=== PATIENT | male | born 1930 | race Caucasian/White ===

== ENCOUNTER → 2016-08-09 | Outpatient (REF) ==
[~2016-08-09] MED LIST: /MOXI40TA; /TAMS4CA; /TAMS4CA PO; /WARF25TA PO; /WARF2TA PO; /WARF4TA; ALB2.5NEB INH; ALBU0.084 IN; ALBU17IN INH; AMLO10TA; ANUS2.5C2 EXT; ANUS2.5C2 PR; ASPI81TA85 PO; ATOR1TAB21 PO; BACT2CRE TOP; BYST5TAB PO; BYST5TAB2 PO; CETI10TA PO; CIPRO; COMBIN INH; COUM2TAB10 PO; DOCU100C PO; DOXY150C PO; DRIS50002 PO; DUONSOL IN; FAMO40TA3 PO; FLOM5CAP PO; GLIP10TA13 PO; GLIP5TAB15 PO; GLIP5TAB2 PO; GLIP5TAB8 PO; GLIPIZIDE XL PO; HYDR-3363 PO; HYDROXYZINE HCL PO; JANU100T PO; KLOR8TAB PO; LEVO750T PO; MAGNSO PO; MICR10CA PO; MUCI600T34 PO; NYST100024 TOP; OCEA0.65; POTA75TA PO; PRED10TA PO; PRED10TA2 PO; PRED20TA PO; PROS5TAB; PROS5TAB PO; PROSCAR PO; RANI150T PO; SING10TA32 PO; SING5CHW PO; SPIR1CAP INH; SPIR25TA2 PO; SYMB16INH INH; SYMB80AE; SYMB80AE IN; TESS100C PO; TORS10TA22 PO; TORS20TA2 PO; TRIAMCINOLONE TOP; TYLE325T5 PO; TYLENOL #3; VALS80CA; VENTAER IN; VIBR100C PO; WARF4TAB52 PO; ZANT150T PO; ZYRT10TA2 PO; [UNRECOGNIZED DRUG - CODE] PO; spiriva INH
[2016-08-09 08:43] LABS: MEAN CORPUSCULAR HEMOGLOBIN 31.9 pg (27.0-33.0); MEAN CORPUSCULAR HGB CONC 33.1 g/dl (32.0-36.5); MEAN CORPUSCULAR VOLUME 96.6 fl (80.0-96.0); RED CELL DISTRIBUTION WIDTH 14.9 % (11.5-14.5); WHITE BLOOD COUNT 19.8 K/mm3 (4.0-10.0)
[2016-08-09 08:53] LABS: INR 2.77
[2016-08-09 08:57] LABS: CALCIUM LEVEL 8.5 MG/DL (8.8-10.2); CREATININE FOR GFR 1.36 MG/DL (0.70-1.30); GLOMERULAR FILTRATION RATE 52.9 (>35); POTASSIUM SERUM 4.1 MEQ/L (3.5-5.1)
== END ==
LOC: SKLAB5 08:12
PROVIDERS: ATTEND Internal Medicine
DX: D64.9 Anemia, unspecified (principal)

== ENCOUNTER → 2016-08-16 | Outpatient (REF) ==
[2016-08-16 09:21] LABS: INR 2.94
== END ==
LOC: SKLAB5 07:47
PROVIDERS: ATTEND Internal Medicine
DX: I48.91 Unspecified atrial fibrillation (principal)

== ENCOUNTER → 2016-08-23 | Outpatient (REF) ==
[~2016-08-23] MED LIST changes: -TORS10TA22 PO; +TORS10TA3 PO
[2016-08-23 08:54] LABS: INR 3.65
== END ==
LOC: SKLAB5 08:19
PROVIDERS: ATTEND Internal Medicine
DX: Z79.01 Long term (current) use of anticoagulants (principal)

== ENCOUNTER → 2016-08-30 | Outpatient (REF) ==
[2016-08-30 08:33] LABS: INR 2.84
[2016-08-30 09:38] LABS: CALCIUM LEVEL 8.5 MG/DL (8.8-10.2); CREATININE FOR GFR 1.43 MG/DL (0.70-1.30); GLOMERULAR FILTRATION RATE 49.9 (>35)
== END ==
LOC: SKLAB5 07:35
PROVIDERS: ATTEND Internal Medicine
DX: Z86.718 Personal history of other venous thrombosis and embolism (principal)

== ENCOUNTER → 2016-09-06 | Outpatient (REF) ==
[2016-09-06 08:30] LABS: INR 3.04
== END ==
LOC: SKLAB5 07:49
PROVIDERS: ATTEND Internal Medicine
DX: Z79.01 Long term (current) use of anticoagulants (principal)

== ENCOUNTER → 2016-09-13 | Outpatient (REF) ==
[2016-09-13 08:48] LABS: INR 3.22
== END ==
LOC: SKLAB5 06:40
PROVIDERS: ATTEND Internal Medicine
DX: Z79.01 Long term (current) use of anticoagulants (principal)

== ENCOUNTER → 2016-09-14 | Outpatient (REF) | payer MEDICARE, OTHER ==
[2016-09-14 07:32] LABS: CREATININE FOR GFR 1.42 MG/DL (0.70-1.30); GLOMERULAR FILTRATION RATE 50.3 (>35); POTASSIUM SERUM 3.6 MEQ/L (3.5-5.1)
== END ==
LOC: SKLAB5 01:48
PROVIDERS: ATTEND Internal Medicine
DX: N18.9 Chronic kidney disease, unspecified (principal)

== ENCOUNTER 2016-09-21 23:20 | Inpatient (IN) | payer MEDICARE, OTHER ==
[~2016-09-21] VITALS: Ht 180.3 cm; Wt 90.9 kg
[2016-09-21] MEDS ORDERED: ACETAMINOPHEN 650 MG SUPP As Ordered ONE (23:33)
[2016-09-21] MEDS ORDERED: ACETAMINOPHEN 325 MG SUPP As Ordered ONE (23:33)
[2016-09-22] VITALS (98 sets, daily range): BP systolic 67–121; BP diastolic 39–78; O2SAT 93–96
[2016-09-22 00:20] LABS: INR 4.5
[2016-09-22 00:26] LABS: MEAN CORPUSCULAR HEMOGLOBIN 31.3 pg (27.0-33.0); MEAN CORPUSCULAR HGB CONC 33.3 g/dl (32.0-36.5); MEAN CORPUSCULAR VOLUME 93.9 fl (80.0-96.0); PLATELET COUNT, AUTOMATED 167 k/mm3 (150-450); RED CELL DISTRIBUTION WIDTH 14.9 % (11.5-14.5)
[2016-09-22 00:38] LABS: ALBUMIN 2.7 GM/DL (3.2-5.2); ALBUMIN/GLOBULIN RATIO 0.53 (1.00-1.93); BILIRUBIN,DIRECT 0.3 MG/DL (0.0-0.2); BILIRUBIN,TOTAL 1.1 MG/DL (0.2-1.0); CALCIUM LEVEL 8.4 MG/DL (8.8-10.2); CREATININE FOR GFR 2.48 MG/DL (0.70-1.30); GLOMERULAR FILTRATION RATE 26.4 (>35); POTASSIUM SERUM 4.4 MEQ/L (3.5-5.1); THYROXINE (T4) 4.9 UG/DL (4.5-12.0); TOTAL PROTEIN 7.8 GM/DL (6.4-8.2)
[2016-09-22] MEDS ORDERED: PRIMAXIN IV 500 MG VIAL As Ordered ONE (00:53)
[2016-09-22] MEDS ORDERED: ZOSYN 3.375 GM VIAL (J2543) As Ordered ONE (00:53)
[2016-09-22 01:12] LABS: BANDS 5 % (< 11); EOSINOPHILS 2 % (0-5)
--- NOTE | 2016-09-22 01:50 | REPUSA ---
CT of the head Clinical history: unresponsive. Comparison: 08/06/2000 well. Protocol: Multiple axial CT images obtained with 5 mm slice thickness were obtained through the head without administration of contrast. Findings: The ventricles and sulci are symmetric but prominent in size bilaterally. There are periven tricular areas of low attenuation throughout the deep white matter. There is no evidence of acute hem orrhage or infarct. There is no midline shift, mass effect, or extra-axial fluid collection. The osse ous structures are unremarkable. The visualized paranasal sinuses and mastoid air cells are clear. Impression: No acute hemorrhage or infarct. Findings are consistent with moderately severe age-relate d atrophy and chronic small vessel ischemic disease.
[2016-09-22] MEDS ORDERED: IBUPROFEN 100 MG/5 ML SUSP UDC DYE FREE As Ordered ONE (02:32)
[2016-09-22] MEDS ORDERED: NOREPINEPHRINE 4 MG/4 ML AMP As Ordered ONE (02:48)
[2016-09-22] MEDS ORDERED: PHYTONADIONE 10MG/ML INJECTION (J3430) As Ordered ONE ×2 (03:02→03:03)
[2016-09-22] MEDS ORDERED: ONDANSETRON 4MG/2ML VIAL (J2405) IV PRN (03:15)
[2016-09-22] MEDS ORDERED: ACETAMINOPHEN TAB 650MG DOSE (2X325MG) PO PRN (03:15)
[2016-09-22] MEDS: NOREPINEPHRINE BITARTRATE 8 MG in D5W 500 ML IV SCH ×3 (03:15→18:17)
[2016-09-22] MEDS ORDERED: GLUCAGON FOR INJ 1 MG VIAL (J1610) SC PRN (03:30)
[2016-09-22] MEDS ORDERED: GLUCOSE 4 GM CHEW TABLET PO PRN (03:30)
[2016-09-22] MEDS ORDERED: GLIP5TAB8 PO (03:43)
[2016-09-22] MEDS ORDERED: TORS5TAB2 PO (03:43)
[2016-09-22] MEDS ORDERED: IPRATROPIUM 0.5MG/ALBUTEROL 2.5MG INH SOL UD 3ML (DUONEB)(J7620) NEB PRN (04:00)
[2016-09-22 04:08] LABS: ABG BASE EXCESS -4.1 (-2.0-2.0); ABG HCO3 20.2 MEQ/L (22.0-26.0); ABG PARTIAL PRESSURE CO2 34.5 mmHg (35.0-45.0); ABG PARTIAL PRESSURE O2 86.4 mmHg (75.0-100.0); ABG TOTAL CO2 21.2 MEQ/L (23.0-31.0); ABG pH (ARTERIAL) 7.385 UNITS (7.350-7.450)
[2016-09-22] MEDS ORDERED: ACETAMINOPHEN 650 MG SUPP As Ordered ONE (04:14)
[2016-09-22] MEDS ORDERED: ACETAMINOPHEN 325 MG SUPP As Ordered ONE (04:14)
[2016-09-22] MEDS: MEROPENEM INJ 1 GM in D5W MINI-BAG PLUS 100 ML IV SCH ×3 (05:00→21:26)
[2016-09-22 05:40] LABS: DIFF SLIDE NUMBER 128; MEAN CORPUSCULAR HEMOGLOBIN 30.3 pg (27.0-33.0); MEAN CORPUSCULAR VOLUME 94.7 fl (80.0-96.0); PLATELET COUNT, AUTOMATED 133 k/mm3 (150-450); RED CELL DISTRIBUTION WIDTH 15.2 % (11.5-14.5); WHITE BLOOD COUNT 19.3 K/mm3 (4.0-10.0)
[2016-09-22] MEDS: HumaLOG INSULIN (NovoLOG) PER UNIT SC SCH ×4 (06:00→23:18)
[2016-09-22] MEDS ORDERED: MEROPENEM 1 GM VIAL (J2185) As Ordered ONE ×2 (06:06→14:09)
[2016-09-22] MEDS ORDERED: HumaLOG INSULIN (NovoLOG) PER UNIT As Ordered ONE ×2 (06:06→12:30)
[2016-09-22] MEDS ORDERED: SODIUM CHLORIDE 0.9% 1000 ML IV SCH (06:15)
[2016-09-22 07:03] LABS: BANDS 10 % (< 11)
--- NOTE | 2016-09-22 07:03 | HPE ---
DATE OF ADMISSION: 09/22/2016 PRIMARY CARE PROVIDER: Dr. Mendiola UROLOGIST: Dr. Ramírez DRUG COORDINATOR: Dr. Ramon BARREL CLEANER: Dr. Kraft CHIEF COMPLAINT: Altered mental status. HISTORY OF PRESENT ILLNESS: 86-year-old gentleman who presents to the emergency department, recently released from [facility] about a week ago. Had previously had urinary tract infection and weakness in July that resulted in him being placed for subacute rehabilitation. He has had ongoing issues with urinary retention and urinary tract infections. He had a Rodrigues catheter that was replaced by Dr. Ramírez approximately a week ago. The is at bedside and she informed me that he had been doing well up until today and developed altered mental status with increased respiratory rate and he presented to the emergency department with systolic blood pressure of 100. His qSOFA score is 3. Due to his altered mentation, I am unable to gain a meaningful history directly from the patient and the history portion is recall as well as input from the electronic medical record and the ER physician. At any rate, I was called for admission for the patient. He does appear to be septic. He has received 1.5 liters of three individual 500 mL boluses of normal saline at this point. The ER physician is attempting to start a central venous catheter at this time and orders have been written for Levophed since he does not appear to be responding to the boluses. I did however go ahead and write for an additional 1 liter normal saline bolus and once the central venous catheter is in place we will monitor CVP pressures. PAST MEDICAL HISTORY: 1. Recurrent urinary tract infections. 2. Benign prostatic hyperplasia (BPH). 3. Asthma. 4. Congestive heart failure (CHF). 5. Diabetes. 6. Hyperlipidemia. 7. Hypertension. 8. Pulmonary embolism. SOCIAL HISTORY: The patient lives at home with his . No tobacco. No alcohol use. No recent sick contacts. No travel. FAMILY HISTORY: Noncontributory. ALLERGIES: VANCOMYCIN (causes a rash) HOME MEDICATIONS: - furosemide 5 mg daily - prednisone 7.5 mg daily - glipizide 5 mg once daily - Lipitor 20 mg daily - Zyrtec 10 mg once daily - famotidine 40 mg 1 tablet twice a day - Proscar 5 mg daily - Singulair 10 mg daily - Flomax 0.4 mg daily - vitamin D 50,000 units every 2 weeks - Coumadin 1 mg dose on Tuesday, Tuesday and Fridays and 2 mg dose the rest of the week Will await further confirmation from the pharmacy technologist regarding his home medications. REVIEW OF SYSTEMS: Difficult to ascertain due to altered mentation. The patient does respond to painful stimuli. He does offer a brief yes or no when he is asked straightforward questions. PHYSICAL EXAMINATION: Temperature initially 106.4 and after receiving 1-1/2 liter boluses temperature is now down to 102.3. He has been given antipyretics as well. Respiratory rate initially was 32 and now down to 22. Pulse is 114. Blood pressure is 75/50. SPO2 is 96% on 2 liters. General: The patient appears to be lethargic, somewhat obtunded. His Esthela come Scale (GCS) score is 9 and his qSOFA score is 3. HEENT: Head is atraumatic, normocephalic. Eyes: Pupils equal, reactive to light and accommodation (KRISTOPHER). Throat clear. No exudate. Neck: Supple. No adenopathy. Lungs: Diminished bibasilar breath sounds, occasional wheeze. Heart: Regular rate and rhythm. Abdomen is soft, slightly distended, with positive lower abdominal tenderness on palpation. Positive bowel sounds. Extremities are cool to touch. His skin on the abdomen and chest does appear to be slightly diaphoretic. No edema. No calf tenderness. Mucosal membranes do appear to be dry. LABORATORY DATA: White count 6.0, hemoglobin 15 and platelets are 167,000. Sodium 138, potassium 4.4, chloride 101, bicarb 24, anion gap 13, BUN 35, creatinine 2.48 with baseline 1.3-1.4, glucose 255, initial lactic acid 6.0, calcium 8.4, total bilirubin 1.1, direct bilirubin 0.38, AST 11, ALT 19, alkaline phosphatase 146, CK is 31, albumin is 2.7, TSH is 0.810. INR 4.5. Urinalysis (UA) 1+ protein, 2+, glucose, 3+ blood, 3+ leukocyte esterase, too numerous to count WBCs, too numerous to count RBCs, 2+ bacteria. Blood cultures and urine cultures are pending at this time. Influenza A and B are negative. Head CT: Ventricles and sulci are symmetric but prominent in size bilaterally. No acute hemorrhage or infarct. Findings are consistent with moderately severe age-related atrophy and chronic small vessel ischemic disease. AP portable chest x-ray is performed. Suboptimal inspiratory effort, under penetrated, but there does not appear to be any grossly obvious infiltrate or consolidation noted. IMPRESSION: Mr. Avila is an 86-year-old gentleman who clinically appears to be in septic shock. He has a GCS of 9 and a qSOFA score of 3. He is currently being attempted to be fluid resuscitated. We are going to give him another fluid bolus. Currently a central line has been started and will need to admit him to the intensive care unit (ICU) for closer monitoring and appropriate treatment for his critical illness. PROBLEM LIST: 1. Severe sepsis with septic shock in the setting of UTI possibly 2/2 indwelling rodrigues cath placed one week ago. 2. Metabolic encephalophaty the setting severe sepsis with AMS and Septic shock. 3. Supratherapeutic INR on Coumadin therapy. 4. Signs and symptoms of organ dysfunction secondary to septic shock. 5. History of congestive heart failure (CHF). 6. Asthma. 7. Diabetes. 8. Pulmonary embolism. 9. Hyperlipidemia. 10. Recurrent urinary tract infection. PLAN: The patient will be admitted to ICU. Will follow the sepsis bundle and septic protocol. The patient will be given another fluid bolus of IV normal saline, this will count for 2.5 liters, and he may require an additional liter beyond that. A central venous catheter is started. Once he is adjusted in bed, will check a CVP. Levophed is hanging at bedside and efforts will be made to maintain a mean arterial pressure greater than 60 and urine output greater than 30 mL an hour. Urine and blood cultures are pending. Will start him on meropenem and vancomycin. He does have some acute on chronic renal failure. Will hold any nephrotoxic medications including nonsteroidals and furosemide. Other medications on hold currently will include his glipizide, famotidine and his Coumadin is currently on hold since he is supratherapeutic. Will do fingersticks every 6 hours with the goal of tight blood sugar control and sliding scale insulin for coverage. Deep vein thrombosis (DVT) prophylaxis with thromboembolic deterrent stockings (TEDS) and sequentials. He was given a dose of vitamin K in the emergency department prior to the central venous catheter being placed and will monitor him for bleeding. Will need to further adjust his INR to goal therapy between 2-3 due to his pulmonary embolism. Gastrointestinal (GI) prophylaxis with IV Protonix. DISPOSITION: The patient is critically ill. His prognosis is guarded. I did express my concern with his at bedside. We did have a brief discussion regarding advance directives and end-of-life decision making and she did inform me to her knowledge that his wishes were to be full code and will proceed as such. Will want to keep a close eye on him through the morning. My concern is that his septic shock has been not as responsive to fluid resuscitation as what we would like and will likely need to place him on at least one pressor. Will reevaluate how he is doing over the next 1-2 hours and if necessary if he is not showing any improvement we may need to consider a second pressor and contact the construction director at that time. The plan will be to sign him out to the [facility] in the morning. SUNITA
[2016-09-22 07:04] LABS: TOXIC VACUOLATION 1+
--- NOTE | 2016-09-22 07:50 | REP ---
Clinical: Fever. Comparison: 07/26/2016. Findings: Mediastinum and cardiac silhouette are stable - cardiomegaly again suggested. Lung miles demonstrate diffuse chronic changes superimposed perihilar and left lower lobe atelectasis/consolidation cannot be excluded. Biapical scarring noted. No obvious effusion. No pneumothorax. Skeletal structures stable. Impression: Diffuse chronic changes of biapical scarring. Superimposed perihilar and left lower lobe atelectasis cannot be excluded. Signed by Deven Tobias MD 09/22/2016 07:42 A
--- NOTE | 2016-09-22 07:52 | REP ---
Clinical: Line placement. Comparison: 09/21/2016 and 11:59 p.m.. Findings: Right IJ line with tip in the SVC. Cardiomegaly remains stable. Diffuse chronic changes noted throughout the bilateral lung miles. Increased perihilar markings and mild cephalization may reflect pulmonary vascular congestion as well as perihilar and left lower lobe atelectasis. Skeletal structures intact. No pneumothorax. Impression: Right IJ line with tip in the SVC. Chronic changes. Cannot exclude pulmonary vascular congestion as well as perihilar and basilar atelectasis. Signed by Deven Tobias MD 09/22/2016 07:43 A
[2016-09-22] MEDS ORDERED: VASOPRESSIN INJ 20 UNITS in NS 500 ML IV SCH ×4 (08:00)
[2016-09-22] MEDS: IPRATROPIUM 0.5MG/ALBUTEROL 2.5MG INH SOL UD 3ML (DUONEB)(J7620) NEB SCH ×3 (08:00→23:42)
[2016-09-22] MEDS: methylPREDNISolone INJ 125 MG/2 ML VIAL (J2930) IV SCH ×3 (08:00→23:18)
[2016-09-22] MEDS ORDERED: LINEZOLID 600 MG in APPROPRIATE DILUENT 1 EA IV ONE (08:00)
[2016-09-22] MEDS: VASOPRESSIN INJ 20 UNITS in NS 500 ML IV SCH ×2 (08:00→17:00)
[2016-09-22] MEDS: TIOTROPIUM INHALER/CAPSULE (SPIRIVA) INH SCH (08:37)
[2016-09-22] MEDS: SYMBICORT 160/4.5MCG INHALER 6GM INH SCH ×2 (08:37→20:04)
[2016-09-22] MEDS ORDERED: TAMSULOSIN 0.4 MG CAP PO SCH (09:00)
[2016-09-22] MEDS ORDERED: predniSONE 10 MG TAB PO SCH (09:00)
[2016-09-22] MEDS: DOCUSATE SODIUM 100 MG CAP PO SCH ×2 (09:00→20:03)
[2016-09-22] MEDS ORDERED: MONTELUKAST 10 MG TAB PO SCH (09:00)
[2016-09-22] MEDS ORDERED: FINASTERIDE 5 MG TAB PO SCH (09:00)
[2016-09-22] MEDS: PANTOPRAZOLE 40MG INJ (PROTONIX) (C9113) IV SCH (09:00)
[2016-09-22] MEDS: ATORVASTATIN 20 MG TAB PO SCH (09:00)
[2016-09-22] MEDS ORDERED: methylPREDNISolone INJ 40 MG/1 ML VIAL (J2920) As Ordered ONE (09:34)
[2016-09-22 11:16] LABS: ALBUMIN 2.1 GM/DL (3.2-5.2); CALCIUM LEVEL 7.1 MG/DL (8.8-10.2); CREATININE FOR GFR 3.28 MG/DL (0.70-1.30); GLOMERULAR FILTRATION RATE 19.2 (>35); PHOSPHORUS LEVEL 3.3 MG/DL (2.5-4.9); POTASSIUM SERUM 4.3 MEQ/L (3.5-5.1)
--- NOTE | 2016-09-22 13:41 | IPNPDOC ---
Subjective General Date Seen The patient was seen on 09/22/16. Subjective Chief Complaint/HPI The patient is a 86-year-old male admitted with a reason for visit of Septic Shock; Uti. Events since last encounter Patient seen and examined at noon today and I d/w Dr. Golden, who is also managing this patient. Patient is unable to answer ROS due to encephalopathy. Patient's is at bedside and states he was discharged from rehab one week ago; since then he has been resistant to taking his medications and has not been as active at home as usual. General: Reports: ROS Unobtainable Objective Physical Examination General Exam: Positive: Mild Distress (occasionally groans and is restless, turning over in bed frequently), Negative: Alert, Cooperative Eye Exam: Positive: Conjunctiva & lids normal, PERRLA ENT Exam: Positive: Atraumatic, Mucous membr. moist/pink Neck Exam: Positive: Supple, Negative: thyromegaly Chest Exam: Positive: Clear to auscultation, Negative: Normal air movement (Poor air movement and respiratory effort; no rales, rhonchi, or wheezing noted) Heart Exam: Positive: Rate Normal (heart sounds are distant) Abdomen Exam: Positive: Soft, Negative: Tenderness Extremity Exam: Positive: Edema (trace ankle edema bilaterally), Negative: Cyanosis Skin Exam: Negative: Nl turgor and temperature (extremities are cool to touch) Neuro Exam: Positive: Cranial Nerves 3-12 NL (unable to fully assess strength and cranial nerves due to altered mental status; face symmetric, moves all 4 extremities spontaneously, makes a few grunting noises), Normal Tone, Negative: Normal Speech, Strength at 5/5 X4 ext Psych Exam: Negative: Mental status NL Assessment /Plan Problems Problems: (1) Septic shock Status: Acute Response to Treatment: Uncompensated Discussed With: Surveillance Dual Rate Officer, Health Care Proxy Problem Specific Plan: Consult Specialist Problem Text: Patient currently quite ill with an elevated lactic acid, persistent hypotension despite receiving >6L NS since admission and maximum dose norepinephrine gtts and vasopressin gtts. Dr. Golden is currently managing these issues. He is currently in the ED but will shortly be transferred to the ICU for further monitoring and care. I had a long discussion with the patient's and confirmed that his code status is Full Code. I explained the gravity of his situation. (2) UTI (urinary tract infection) Status: Acute Problem Text: Most likely cause of #1 above; continue meropenem and linezolid. (3) Acute kidney injury superimposed on CKD Status: Acute Problem Text: Continue with fluid resuscitation as above. Recheck BMP tomorrow morning. Holding torsemide; avoid NSAIDs (4) Benign prostatic hyperplasia Status: Chronic Problem Text: Holding tamsulosin and finasteride (5) Diabetes mellitus type 2 in obese Status: Acute Problem Text: Holding glipizide; continue ISS Q6H (6) Congestive heart failure (CHF) Status: Chronic Problem Text: No evidence of fluid overload at the moment, but this could become a concern in the future as he has required significant fluid resuscitation and likely needs more in the future. Holding Torsemide 2/2 EARNEST (7) Asthma Status: Chronic Problem Text: No wheezing on exam. Continue duonebs Q8H with Q2H PRN, home symbicort, spiriva; holding home singulair and cetirizine. Patient is on chronic prednisone - likely for COPD; currently receiving stress dose steroids with solumedrol 80 mg Q8H. (8) Hypertension Status: Acute Problem Text: Hypotensive due to #1 above; holding bystolic and spironolactone (9) Hyperlipidemia Status: Acute Problem Text: Continue statin (10) History of pulmonary embolism Status: Acute Problem Text: Holding coumadin as INR is supratherapeutic. Plan/VTE VTE Prophylaxis Ordered?: No VTE Exclusion Pharmacological: Other (supratherapeutic INR) VS, I&O, 24H, Fishbone Vital Signs/I&O Vital Signs Date Time Temp Pulse Resp B/P Pulse Ox O2 Delivery O2 Flow Rate FiO2 09/22/16 12:13 95 18 84/58 94 Nasal Cannula 3.0 09/22/16 12:03 98.4 Laboratory Data 24H LABS Laboratory Tests 2 09/21/16 23:50: Activated Partial Thromboplast Time 36.3, Aspartate Amino Transf (AST/SGOT) 11L , Alanine Aminotransferase (ALT/SGPT) 19, Alkaline Phosphatase 146H, Total Bilirubin 1.1H, Direct Bilirubin 0.3H, Albumin 2.7L, Albumin/Globulin Ratio 0.53L, Anion Gap 13, Band Neutrophils 5, White Blood Count 6.0, Red Blood Count 4.79, Hemoglobin 15.0, Hematocrit 45.0, Mean Corpuscular Volume 93.9, Mean Corpuscular Hemoglobin 31.3, Mean Corpuscular Hemoglobin Concent 33.3, Red Cell Distribution Width 14.9H, Platelet Count 167, Neutrophils (%) (Auto) , Lymphocytes (%) (Auto) , Monocytes (%) (Auto) , Eosinophils (%) (Auto) , Basophils (%) (Auto) , Neutrophils # (Auto) , Lymphocytes # (Auto) , Monocytes # (Auto) , Eosinophils # (Auto) , Basophils # (Auto) , Calcium Level 8.4L, Eosinophils (Manual) 2, Free Thyroxine Index 1.8, Glomerular Filtration Rate 26.4L, Lactic Acid (Sepsis) 6.0*H, Large Unclassified Cells # , Large Unclassified Cells % , Lymphocytes (Manual) 12L, Neutrophils 81H, Platelet Estimate NORMAL, Prothromb Time International Ratio 4.50, Prothrombin Time 42.7H , Thyroid Stimulating Hormone (TSH) 0.810, Thyroxine (T4) 4.9, Total Creatine Kinase 31L, Total Protein 7.8, Triiodothyronine (T3) Uptake 37, Urine Amorphous Sediment , Urine Appearance CLOUDYH, Urine Color REDH, Urine pH 6.0, Urine Specific [place] 1.009, Urine Protein 1+H, Urine Glucose (UA) 2+H, Urine Ketones NEGATIVE, Urine Urobilinogen 0.2, Urine Bilirubin NEGATIVE, Urine Leukocyte Esterase 3+H, Urine Bacteria (Auto) 2+H, Urine Blood 3+H, Urine Calcium Carbonate Cryst(Auto) , Urine Calcium Oxalate Cryst (Auto) , Urine Calcium Phosphate Pearl (Auto) , Urine Cellular Casts , Urine Cystine Crystals , Urine Granular Casts (Auto) , Urine Hyaline Casts (Auto) 0, Urine Leucine Crystals , Urine Mucus (Auto) , Urine Nitrite NEGATIVE, Urine Oval Fat Bodies ( Auto) , Urine RBC (Auto) TNTCH, Urine Renal Epithelial Cells , Urine Sperm (Auto ) , Urine Squamous Epithelial Cells 1, Urine Transitional Epithelial Cells , Urine Trichomonas (Auto) , Urine Triple Phosphate Cryst (Auto) , Urine Tyrosine Crystals , Urine Uric Acid Crystals (Auto) , Urine WBC (Auto) TNTCH, Urine Waxy Casts (Auto) , Urine Yeast-Like Cells (Auto) 09/22/16 03:54: Arterial Blood pH 7.385, Arterial Blood Partial Pressure CO2 34.5L, Arterial Blood Partial Pressure O2 86.4, Arterial Blood Total CO2 21.2L, Arterial Blood HCO3 20.2L, Arterial Blood Base Excess -4.1L, Arterial Blood Oxygen Saturation 96.1, Blood Gas Bicarbonate Standard 21.0L 09/22/16 05:19: Band Neutrophils 10, Lymphocytes (Manual) 4L, Neutrophils 85H, Platelet Estimate DECREASED, Lactic Acid Level 5.8*H, Metamyelocytes 1H, Toxic Vacuolation 1+ 09/22/16 05:52: Bedside Glucose (Misc Panel) 173H 09/22/16 08:43: Cortisol AM Sample 28.0H, Lactic Acid (Sepsis) 8.6*H 09/22/16 10:51: Lactic Acid (Sepsis) 7.7*H, Albumin 2.1#L, Blood Urea Nitrogen 39H, Creatinine 3.28H, Sodium Level 145#, Potassium Level 4.3, Chloride Level 111H, Carbon Dioxide Level 17L, Anion Gap 17H, Calcium Level 7.1#L, Glomerular Filtration Rate 19.2L, Phosphorus Level 3.3 09/22/16 12:24: Bedside Glucose (Misc Panel) 253H 09/22/16 12:58: CBC/BMP Laboratory Tests 09/21/16 23:50 Red Blood Count 4.79, Mean Corpuscular Volume 93.9, Mean Corpuscular Hemoglobin 31.3, Mean Corpuscular Hemoglobin Concent 33.3, Red Cell Distribution Width 14.9 H, Neutrophils (%) (Auto) , Lymphocytes (%) (Auto) , Monocytes (%) (Auto) , Eosinophils (%) (Auto) , Basophils (%) (Auto) , Neutrophils # (Auto) , Lymphocytes # (Auto) , Monocytes # (Auto) , Eosinophils # (Auto) , Basophils # ( Auto) 09/22/16 05:19 Red Blood Count 3.83 L, Mean Corpuscular Volume 94.7, Mean Corpuscular Hemoglobin 30.3, Mean Corpuscular Hemoglobin Concent 32.0, Red Cell Distribution Width 15.2 H 09/22/16 10:51 Anion Gap 17 H Microbiology Microbiology 09/21/16 Blood Culture, Received Pending 09/21/16 Blood Culture, Received Pending 09/21/16 Influenza Virus Type A Antigen - Final, Complete 09/21/16 Influenza Virus Type B Antigen - Final, Complete 09/21/16 Urine Culture, Received Pending HARVEY LOBATO MD Sep 22, 2016 13:41
[2016-09-22] MEDS ORDERED: IPRATROPIUM 0.5MG/ALBUTEROL 2.5MG INH SOL UD 3ML (DUONEB)(J7620) As Ordered ONE (15:05)
--- NOTE | 2016-09-22 15:30 | EDDOCDS ---
Nurse's Notes [facility] Name: Mariano Avila Age: 86 yrs Sex: Male : 1930 Arrival Date: 09/21/2016 Time: 23:20 Bed Admit Hold Private MD: Diagnosis: Sepsis, unspecified organism;Hypotension;Fever, unspecified Presentation: 09/21 23:45 Presenting complaint: states: patient recently home from [facility] about a week ago. was kamila there for rehab due to weakness and UTI. was last known well this am about 11am. tonight decreased mental status per . Adult Sepsis Screening: Patient has new or worsening altered mentation (1 point). Patient has a respiratory rate of greater than or equal to 22 (1 point). Systolic blood pressure is less than or equal to 100 (1 point). Patient has a qSOFA score of 3. Suicide/Homicide risk assessment- the patient denies having any suicidal and/or homicidal ideations and does not present with any other emotional, behavioral or mental health complaints. Status: Patient is not a director of student financial services or dependent. Transition of care: patient was not received from another setting of care. 23:45 Acuity: SHARAD Level 2 aug 23:45 Method Of Arrival: Ambulance aug Triage Assessment: 23:59 General: Appears ill, unresponsive. Pain: Unable to use pain scale. Patient is aug unresponsive. Neurological: Level of Consciousness is obtunded, unresponsive. Historical: - Allergies: Vancomycin (Rash); - Home Meds: 1. torsemide 5 mg oral tab 1 tab once daily (Last dose: 09/21/2016 09:00) 2. prednisone 7.5mg Oral tab once daily (Last dose: 09/21/2016 09:00) 3. glipizide 5 mg oral tab 1 tab once daily (Last dose: 09/21/2016 09:00) 4. atorvastatin 20 mg oral tab 1 tab once daily (Last dose: 09/21/2016 09:00) 5. Zyrtec 10 mg Oral tab 1 tab once daily (Last dose: 09/20/2016) 6. famotidine 40 mg Oral tab 1 tab 2 times per day (Last dose: 09/21/2016 09:00) 7. Proscar 5 mg Oral tab once daily (Last dose: 09/21/2016 09:00) 8. Singulair 10 mg Oral tab once daily (Last dose: 09/21/2016 09:00) 9. Flomax 0.4 mg Oral cp24 1 cap once daily (Last dose: 09/21/2016 09:00) 10. Vitamin D Oral 50,000 unit every 2 weeks 11. Coumadin 1 mg Oral tab 1 tab tuesday 1mg on Tuesday, 2mg rest of week 12. Coumadin 2 mg Oral tab 1 tab tuesday,tuesday,,tuesday - PMHx: Asthma; CHF; Diabetes - NIDDM: controlled; Hypercholesterolemia; Hypertension; Pulmonary Embolism; UTI; - Social history: Smoking status: Patient states was never smoker of tobacco. No barriers to communication noted, The patient speaks fluent Estonian. - Family history: Not pertinent. - : The pt / caregiver states he / she is on anticoagulants: coumadin. Home medication list is obtained from a discharge med list. - Exposure Risk Screening:: None identified. Screenin/15 01:00 Screening information is obtained from the patient, family members. Fall risk: At risk cf2 due to age, apparent cognitive impairment. Assistance ADL's: Requires assistance with. Abuse/DV Screen: The patient / caregiver reports he/she is: not in a situation that causes fear, pain or injury. Nutritional screening: No deficits noted. Advance Directives: Further advance directive information is declined. home support is adequate. Assessment: 09/21 23:15 Adult Sepsis Screening: The patient does not have new or worsening altered mentation. cf2 Patient has a respiratory rate of greater than or equal to 22 (1 point). Systolic blood pressure is less than or equal to 100 (1 point). Patient has a qSOFA score of 2. General: Appears distressed, ill, Behavior is flat, listless. 23:15 Pain: Denies pain. Neurological: Level of Consciousness is stuporous, unresponsive, cf2 Oriented to none Sharepoint Manager are weak bilaterally Weakness Gait is unable to assess. Speech non-verbal at present time. EENT: No deficits noted. Cardiovascular: Rhythm is sinus tachycardia. Respiratory: Airway is patent Respiratory effort is labored, Respiratory pattern is tachypnea Breath sounds are coarse bilaterally. GI: No deficits noted. : Rodrigues in place to gravity drainage Urine is blood tinged, purulent. Derm: Skin with poor turgor Skin is dry, Skin is dusky, Skin temperature is hot scratch ortiz to trunk area. Per , "he scratches all the time". 09/22 00:00 General: Patient with indwelling rodrigues catheter. #16 Catheter was discontinued and new cf2 #16 [place] ir[place] rodrigues was inserted using sterile technique. Sterile sample obtained and sent to lab. Multiple additional IV accesses established #22to right hand, #20 right forearm, #20 left AC . 00:00 General: Appears uncomfortable, Behavior is cooperative. Pain: Denies pain. cf2 Cardiovascular: Rhythm is sinus tachycardia. 03:00 General: MD over to speak with about central line placement and advance cf2 directives. states she and patient have discussed it and they want "everything possible done". MD obtains consent for central line placement with this RN as witness. MD inserted central line, triple lumen, into right jugular. Good blood return . Patient tolerated procedure well. X-ray at bedside to confirm placement.. 04:31 Reassessment: Patient states symptoms have improved. Patient currently able to nod and cf2 respond with yes and no answers. 04:57 General: Levophed increased to 10mcg, blood pressure currently 69/39 with HR 95. cf2 05:53 General: Levophed increased to 12 after blood pressure dropped to 70/46 with HR 96. cf2 06:00 General: Bladder scan done and only 60ml's in bladder, hospitalist made aware. cf2 06:02 General: Blood pressure 66/41 HR 100 Levophed increased to 15. cf2 06:48 General: Levophed increased to 20 b/p 71/40 HR 92 rectal temp 98.6. cf2 06:54 General: Spoke with MD regarding patient's status. Per Dr Nicole, Gun Profiler will be cf2 in to see patient soon. . 07:09 General: Report to oncoming shift . cf2 Vital Signs: 09/21 23:00 BP 76 / 52; Pulse 138; Resp 32; Temp 106.4(R); Pulse Ox 88% on R/A; cf2 09/22 00:00 BP 86 / 51; Pulse 132; Resp 24; Temp 105.2(R); Pulse Ox 92% on 3 lpm NC; Pain 0/10; cf2 00:11 Pulse 136 MON; Pulse Ox 97% ; cf2 00:12 BP 76 / 45 (auto/); cf2 00:14 Pulse 136 MON; Pulse Ox 96% ; cf2 00:16 Pulse 136 MON; Pulse Ox 96% ; cf2 00:18 Pulse 136 MON; Pulse Ox 96% ; cf2 00:20 Pulse 137 MON; Pulse Ox 96% ; cf2 00:23 Pulse 136 MON; Pulse Ox 96% ; cf2 00:26 Pulse 134 MON; Pulse Ox 96% ; cf2 00:28 Pulse 134 MON; Pulse Ox 96% ; cf2 01:00 BP 90 / 51; Pulse 124; Resp 22; Temp 102.3(R); Pulse Ox 96% on 3 lpm NC; Pain 0/10; cf2 01:50 Pulse 121 MON; Pulse Ox 97% ; cf2 01:54 Pulse 120 MON; Pulse Ox 97% ; cf2 01:58 Pulse 119 MON; Pulse Ox 96% ; cf2 02:01 Pulse 117 MON; Pulse Ox 97% ; cf2 02:06 Pulse 115 MON; Pulse Ox 97% ; cf2 02:06 BP 77 / 45 (auto/); cf2 02:07 BP 75 / 50 (auto/); cf2 02:07 Pulse 114 MON; Pulse Ox 96% ; cf2 02:36 BP 59 / 43 (auto/); cf2 02:36 Pulse 111 MON; Pulse Ox 97% ; cf2 02:36 Temp 101.1(R); cf2 02:39 BP 64 / 41 (auto/); cf2 02:40 Pulse 109 MON; Pulse Ox 97% ; cf2 02:41 Pulse 109 MON; Pulse Ox 97% ; cf2 02:41 BP 62 / 43 (auto/); cf2 02:44 Pulse 108 MON; Pulse Ox 98% ; cf2 02:44 BP 59 / 37 (auto/); cf2 02:51 BP 62 / 40 (auto/); cf2 02:52 BP 61 / 42 (auto/); cf2 02:52 Pulse 105 MON; Pulse Ox 98% ; cf2 02:53 Pulse 105 MON; Pulse Ox 97% ; cf2 02:57 BP 64 / 44 (auto/); cf2 02:58 Pulse 103 MON; Pulse Ox 98% ; cf2 03:02 BP 66 / 45 (auto/); cf2 03:03 Pulse 103 MON; Pulse Ox 97% ; cf2 03:07 BP 61 / 40 (auto/); cf2 03:08 Pulse 103 MON; Pulse Ox 97% ; cf2 03:12 Pulse 103 MON; Pulse Ox 97% ; cf2 03:12 BP 59 / 44 (auto/); cf2 03:17 Pulse 100 MON; Pulse Ox 97% ; cf2 03:17 BP 61 / 41 (auto/); cf2 03:22 BP 64 / 42 (auto/); cf2 03:23 Pulse 98 MON; Pulse Ox 98% ; cf2 03:27 Pulse 98 MON; Pulse Ox 97% ; cf2 03:27 BP 64 / 41 (auto/); cf2 03:32 Pulse 99 MON; Pulse Ox 98% ; cf2 03:32 BP 61 / 40 (auto/); cf2 03:37 Pulse 98 MON; Pulse Ox 97% ; cf2 03:37 BP 65 / 38 (auto/); cf2 03:42 BP 65 / 43 (auto/); cf2 03:42 Pulse 97 MON; Pulse Ox 97% ; cf2 03:47 Pulse 98 MON; Pulse Ox 96% ; cf2 03:47 BP 63 / 44 (auto/); cf2 03:52 BP 65 / 46 (auto/); cf2 03:53 Pulse 97 MON; Pulse Ox 96% ; cf2 03:57 Pulse 96 MON; Pulse Ox 99% ; cf2 03:57 BP 70 / 44 (auto/); cf2 04:02 Pulse 95 MON; Pulse Ox 99% ; cf2 04:02 BP 69 / 43 (auto/); cf2 04:07 BP 73 / 48 (auto/); cf2 04:08 Pulse 95 MON; Pulse Ox 99% ; cf2 04:12 BP 71 / 46 (auto/); cf2 04:13 Pulse 94 MON; Pulse Ox 98% ; cf2 04:17 BP 70 / 47 (auto/); cf2 04:18 Pulse 94 MON; Pulse Ox 99% ; cf2 04:22 BP 73 / 49 (auto/); cf2 04:23 Pulse 95 MON; Pulse Ox 98% ; cf2 04:27 BP 72 / 49 (auto/); cf2 04:27 Pulse 96 MON; Pulse Ox 100% ; cf2 04:52 Pulse 95 MON; Pulse Ox 100% ; cf2 04:52 BP 69 / 39 (auto/); cf2 04:52 Temp 98.6(R); cf2 04:57 Pulse 94 MON; Pulse Ox 99% ; cf2 04:57 BP 76 / 44 (auto/); cf2 05:02 BP 78 / 44 (auto/); cf2 05:03 Pulse 94 MON; Pulse Ox 100% ; cf2 05:07 BP 79 / 45 (auto/); cf2 05:08 Pulse 95 MON; Pulse Ox 100% ; cf2 05:12 Pulse 96 MON; Pulse Ox 99% ; cf2 05:12 BP 63 / 35 (auto/); cf2 05:17 Pulse 96 MON; Pulse Ox 99% ; cf2 05:17 BP 97 / 52 (auto/); cf2 05:22 Pulse 95 MON; Pulse Ox 100% ; cf2 05:22 BP 105 / 41 (auto/); cf2 05:27 Pulse 95 MON; Pulse Ox 100% ; cf2 05:27 BP 80 / 38 (auto/); cf2 05:32 BP 74 / 40 (auto/); cf2 05:33 Pulse 96 MON; Pulse Ox 99% ; cf2 05:37 BP 69 / 41 (auto/); cf2 05:38 Pulse 96 MON; Pulse Ox 99% ; cf2 05:42 BP 70 / 43 (auto/); cf2 05:43 Pulse 96 MON; Pulse Ox 99% ; cf2 05:47 BP 68 / 44 (auto/); cf2 05:48 Pulse 95 MON; Pulse Ox 99% ; cf2 05:52 BP 70 / 46 (auto/); cf2 05:53 Pulse 95 MON; Pulse Ox 99% ; cf2 05:57 BP 66 / 41 (auto/); cf2 05:58 Pulse 96 MON; Pulse Ox 99% ; cf2 06:02 BP 70 / 44 (auto/); cf2 06:03 Pulse 96 MON; Pulse Ox 99% ; cf2 06:07 BP 69 / 42 (auto/); cf2 06:08 Pulse 96 MON; Pulse Ox 98% ; cf2 06:12 BP 72 / 45 (auto/); cf2 06:13 Pulse 95 MON; Pulse Ox 98% ; cf2 06:17 BP 69 / 44 (auto/); cf2 06:18 Pulse 95 MON; Pulse Ox 99% ; cf2 06:22 BP 68 / 43 (auto/); cf2 06:23 Pulse 95 MON; Pulse Ox 97% ; cf2 06:27 Pulse 94 MON; Pulse Ox 99% ; cf2 06:27 BP 67 / 44 (auto/); cf2 06:32 BP 67 / 45 (auto/); cf2 06:33 Pulse 95 MON; Pulse Ox 98% ; cf2 06:37 Pulse 94 MON; Pulse Ox 98% ; cf2 06:37 BP 128 / 50 (auto/); cf2 06:40 Pulse 95 MON; Pulse Ox 98% ; cf2 06:40 BP 76 / 42 (auto/); cf2 06:42 BP 67 / 37 (auto/); cf2 06:43 Pulse 94 MON; Pulse Ox 99% ; cf2 06:47 BP 71 / 40 (auto/); cf2 06:47 Pulse 94 MON; Pulse Ox 99% ; cf2 Vitals: 04:58 Log In Time N/A - ambulance arrival. cf2 ED Course: 09/21 23:21 Patient visited by Greg Thomas, Advertising Designer. ml3 23:21 Patient moved to Waiting ml3 23:21 Patient moved to 1 ml3 23:24 Cornelius Heredia DO is Attending Physician. cs11 23:24 Patient visited by Cornelius Heredia DO. cs11 23:37 Rosalee Rizo,KRISHNA is Primary Nurse. cf2 23:38 Patient visited by Rosalee Rizo,KRISHNA. cf2 23:50 Triage Initiated aug 09 00:19 Patient visited by Rosalee Rizo,KRISHNA. cf2 00:19 CREATINE PHOSPHOKINASE Sent. cf2 00:19 THYROID PROFILE Sent. cf2 00:19 Urine Culture Sent. cf2 00:19 Urinalysis Sent. cf2 00:19 Pt & Aptt Sent. cf2 00:51 Patient visited by Rosalee Rizo,KRISHNA. cf2 01:00 Unable to instruct regarding the plan of care due to patient condition. Patient has cf2 correct armband on for positive identification. Placed in gown. Bed in low position. Call light in reach. Side rails up X 1. Side rails up X2. Adult w/ patient. quality assurance monitor on. Pulse ox on. NIBP on. Property :Personal belongings accompany Pt. Door closed. Noise minimized. Visitors limited. Lights dimmed. Moved to private room. Verbal reassurance given. Warm blanket given. Pillow given. Head of bed elevated. Diet: Patient is NPO. 01:00 Inserted saline lock: 20 gauge in left antecubital area and blood collected. The cf2 patient tolerated the procedure well. 01:00 Inserted saline lock: 20 gauge in right forearm. Inserted saline lock: 22 gauge in cf2 right hand The patient tolerated the procedure well. Inserted saline lock: 20 gauge in left antecubital area The patient tolerated the procedure well. No procedures done that require assistance. Rodrigues cath inserted 16 Fr. Balloon inflated. To gravity drainage. Urine specimen collected. Rodrigues cath Patient arrived with #16 [place] ro[address]ues in place. Per rodrigues was discontinued and new rodrigues inserted using sterile technique. O2 via nasal cannula \\T\\ 2L/min. 01:22 Patient visited by Rosalee Rizo RN. cf2 01:31 [facility] Payment Agreement was scanned into Notegraphy and attached to record. pm4 01:39 Patient visited by Rosalee Rizo RN. cf2 02:02 CT Head Without Contrast Returned. EDMS 02:10 Patient visited by Rosalee Rizo RN. cf2 02:46 Patient visited by Rosalee Rizo,KRISHNA. cf2 03:00 No procedures done that require assistance Assist provider with central line placement cf2 of triple lumen in right internal jugular. Set up central line tray. Line placed by Cornelius Heredia DO Placement verified by CXR, blood return, CVP readin . Dressed with Tegaderm, Patient tolerated well. 03:14 Written Provider Order was scanned into Notegraphy and attached to record. ml3 03:37 Jean Carlos Nicole, is Hospitalizing Provider. cs11 03:57 Patient moved to Radiology juliette 04:00 ARTERIAL BLOOD GAS Sent. jc3 04:05 Patient moved to 1 juliette 04:59 Patient visited by Rosalee Rizo RN. cf2 05:01 DIFFERENTIAL NO CHARGE Sent. cf2 05:34 Patient moved to Admit Hold aug 05:42 LACTIC ACID LEVEL, LACTATE Sent. aug 06:06 Notified private physician of Report at this time is made to Dr Nicoel notified of aug critical alb value of lactic acid of 5.8, continued hypotension, urine output of 10cc's, levophed drip, IV fluids infused.. 06:10 Bladder Scan completed Results: 60. ld5 06:19 Patient visited by Rosalee Rizo,KRISHNA. cf2 07:09 Patient visited by Rosalee Rizo,KRISHNA. cf2 08:18 Chest, 1 View Returned. EDMS 08:18 Chest, 1 View Returned. EDMS 09:28 T-Sheet-- Draft Copy was scanned into Notegraphy and attached to record. klr Administered Medications: Discontinued: NS 0.9% 500 ml IV at bolus once Discontinued: Piperacillin-Tazobactam 3.375 grams IVPB once over 30 mins; dilute in 50mL of NS or D5W Discontinued: Imipenem-Cilastatin 500 mg IVPB at 100 mL/hr once over 1 hrs; reconstitute first with 10mL of NS, then add to 100mL of NS Discontinued: NS 0.9% 500 ml IV at bolus once Discontinued: NS 0.9% 500 ml IV at bolus once 09/21 23:38 Drug: NS 0.9% 500 ml [sodium chloride 0.9 % intravenous solution] Route: IV; Rate: cf2 bolus; Site: left antecubital; 23:38 Drug: Acetaminophen 975 mg [acetaminophen 325 mg tablet (3 tabs)] Route: PO; cf2 09/22 04:50 Follow up: Response: Temperature is decreased cf2 00:40 Drug: Imipenem-Cilastatin 500 mg [imipenem-cilastatin 500 mg intravenous solution] cf2 Route: IVPB; Rate: 100 mL/hr; Infused Over: 1 hrs; Site: left antecubital; 01:10 Drug: Piperacillin-Tazobactam 3.375 grams [piperacillin-tazobactam 3.375 gram cf2 intravenous solution] Route: IVPB; Infused Over: 30 mins; Site: right hand; 01:39 Drug: NS 0.9% 500 ml [sodium chloride 0.9 % intravenous solution] Route: IV; Rate: cf2 bolus; Site: left antecubital; 02:29 Drug: NS 0.9% 500 ml [sodium chloride 0.9 % intravenous solution] Route: IV; Rate: cf2 bolus; Site: left antecubital; 02:54 Not Given (PATIENT UNABLE TO TOLERATE PO ): Ibuprofen (10mg/kg) Suspension 600 mg PO cf2 once; not to exceed 800 milligrams 03:00 CANCELLED (Other Intervention Used): Phytonadione 5 mg IVP once aug 03:06 Drug: Norepinephrine (8mg/500mL D5W, 2mcg/min) 5 mcg/min [norepinephrine bitartrate 1 cf2 mg/mL intravenous solution] Route: IVPB; Rate: calculated rate; Site: left antecubital; 03:10 Drug: Phytonadione 5 mg [phytonadione (vitamin K1) 10 mg/mL injection solution (0.5 cf2 mL)] Route: Sub-Q; Site: left upper arm; 04:50 Follow up: Response: No significant change. cf2 04:29 Drug: Acetaminophen 975 mg [acetaminophen 325 mg tablet (3 tabs)] Route: PO; cf2 04:48 Follow up: Response: Temperature is decreased cf2 Intake: 07:07 IV: 4500.00ml; Total: 4500.00ml. cf2 Output: 07:07 Urine: 50.00ml (Rodrigues); Stool: 2 (Formed Stool) ; Total: 50.00ml. cf2 RT: 04:00 ABG's drawn from right radial artery pressure held for 5 minutes no bleeding noted jc3 pressure bandage applied specimen sent pt. tolerated well. Order Results: Lab Order: Lactic Acid (Jones tube on ice); SPEC'M 09/21/16 23:50 Test: LACTIC ACID SEPSIS PROTOCOL; Value: 6.0; Range: 0.4-2.0; Abnormal: Above upper panic limits; Units: MMOL/L; Status: F Lab Order: CBC with Diff; SPEC'M 09/21/16 23:50 Test: WHITE BLOOD COUNT; Value: 6.0; Range: 4.0-10.0; Units: K/mm3; Status: F Test: RED BLOOD COUNT; Value: 4.79; Range: 4.30-6.10; Units: M/mm3; Status: F Test: HEMOGLOBIN; Value: 15.0; Range: 14.0-18.0; Units: g/dl; Status: F Test: HEMATOCRIT; Value: 45.0; Range: 42.0-52.0; Units: %; Status: F Test: MEAN CORPUSCULAR VOLUME; Value: 93.9; Range: 80.0-96.0; Units: fl; Status: F Test: MEAN CORPUSCULAR HEMOGLOBIN; Value: 31.3; Range: 27.0-33.0; Units: pg; Status: F Test: MEAN CORPUSCULAR HGB CONC; Value: 33.3; Range: 32.0-36.5; Units: g/dl; Status: F Test: RED CELL DISTRIBUTION WIDTH; Value: 14.9; Range: 11.5-14.5; Abnormal: Above high normal; Units: %; Status: F Test: PLATELET COUNT, AUTOMATED; Value: 167; Range: 150-450; Units: k/mm3; Status: F Test: NEUTROPHILS; Value: 81; Range: 35-75; Abnormal: Above high normal; Units: %; Status: F Test: BANDS; Value: 5; Range: < 11; Units: %; Status: F Test: LYMPHOCYTES; Value: 12; Range: 16-52; Abnormal: Below low normal; Units: %; Status: F Test: EOSINOPHILS; Value: 2; Range: 0-5; Units: %; Status: F Lab Order: MED Profile; [facility]' 09/21/16 23:50 Test: GLUCOSE, FASTING; Value: 255; Range: 83-110; Abnormal: Above high normal; Units: MG/DL; Status: F Test: BLOOD UREA NITROGEN; Value: 35; Range: 7-18; Abnormal: Above high normal; Units: MG/DL; Status: F Test: CREATININE FOR GFR; Value: 2.48; Range: 0.70-1.30; Abnormal: Above high normal; Units: MG/DL; Status: F Test: GLOMERULAR FILTRATION RATE; Value: 26.4; Range: >35; Abnormal: Below low normal; Status: F Test: SODIUM LEVEL; Value: 138; Range: 136-145; Units: MEQ/L; Status: F Test: POTASSIUM SERUM; Value: 4.4; Range: 3.5-5.1; Units: MEQ/L; Status: F Test: CHLORIDE LEVEL; Value: 101; Range: 98-107; Units: MEQ/L; Status: F Test: CARBON DIOXIDE LEVEL; Value: 24; Range: 21-32; Units: MEQ/L; Status: F Test: ANION GAP; Value: 13; Range: 8-16; Units: MEQ/L; Status: F Test: CALCIUM LEVEL; Value: 8.4; Range: 8.8-10.2; Abnormal: Below low normal; Units: MG/DL; Status: F Test Note: ; Units are mL/min/1.73 m2 Chronic Kidney Disease Staging per NKF: Stage I & II GFR >=60 Normal to Mildly Decreased Stage III GFR 30-59 Moderately Decreased Stage IV GFR 15-29 Severely Decreased Stage V GFR <15 Very Little GFR Left ESRD GFR <15 on WATER RESTORATION TECHNICIAN Lab Order: Liver Profile; SPEC'M 09/21/16 23:50 Test: AST/SGOT; Value: 11; Range: 15-37; Abnormal: Below low normal; Units: U/L; Status: F Test: ALT/SGPT; Value: 19; Range: 12-78; Units: U/L; Status: F Test: ALKALINE PHOSPHATASE; Value: 146; Range: 45-117; Abnormal: Above high normal; Units: U/L; Status: F Test: BILIRUBIN,TOTAL; Value: 1.1; Range: 0.2-1.0; Abnormal: Above high normal; Units: MG/DL; Status: F Test: BILIRUBIN,DIRECT; Value: 0.3; Range: 0.0-0.2; Abnormal: Above high normal; Units: MG/DL; Status: F Test: TOTAL PROTEIN; Value: 7.8; Range: 6.4-8.2; Units: GM/DL; Status: F Test: ALBUMIN; Value: 2.7; Range: 3.2-5.2; Abnormal: Below low normal; Units: GM/DL; Status: F Test: ALBUMIN/GLOBULIN RATIO; Value: 0.53; Range: 1.00-1.93; Abnormal: Below low normal; Status: F Lab Order: Pt & Aptt; SPEC'M 09/21/16 23:50 Test: PROTHROMBIN TIME; Value: 42.7; Range: 12.3-14.5; Abnormal: Above high normal; Units: SECONDS; Status: F Test: INR; Value: 4.50; Status: F Test: PARTIAL THROMBOPLASTIN TIME; Value: 36.3; Range: 26.6-37.1; Units: SECONDS; Status: F Test Note: ; THERAPUTIC HUMAN INR VALUES INDICATIONS NORMAL RANGES PROPHYLAXIS/TREATMENT OF: VENOUS THROMBOSIS 2.0-3.0 PULMONARY EMBOLISM 2.0-3.0 PREVENTION OF SYSTEMIC EMBOLISM FROM: TISSUE HEART VALVES 2.0-3.0 ACUTE MYOCARDIAL INFARCTION 2.0-3.0 VALVULAR HEART DISEASE 2.0-3.0 ATRIAL FIBRILLATION 2.0-3.0 MECHANICAL VALVES(HIGH RISK) 2.5-3.5 RECURRENT MYOCARDIAL INFARCTION 2.5-3.5 Lab Order: Urinalysis; SPEC'M 09/21/16 23:50 Test: APPEARANCE, URINE; Value: CLOUDY; Range: CLEAR; Abnormal: Above high normal; Status: F Test: COLOR, URINE; Value: RED; Range: YELLOW; Abnormal: Above high normal; Status: F Test: PH,URINE; Value: 6.0; Range: 5.0-9.0; Units: UNITS; Status: F Test: SPECIFIC GRAVITY URINE AUTO; Value: 1.009; Range: 1.002-1.035; Status: F Test: PROTEIN, URINE AUTO; Value: 1+; Range: NEGATIVE; Abnormal: Above high normal; Units: mg/dL; Status: F Test: GLUCOSE, URINE (UA) AUTO; Value: 2+; Range: NEGATIVE; Abnormal: Above high normal; Units: mg/dL; Status: F Test: KETONE, URINE AUTO; Value: NEGATIVE; Range: NEGATIVE; Units: mg/dL; Status: F Test: UROBILINOGEN, URINE AUTO; Value: 0.2; Range: 0.0-2.0; Units: mg/dL; Status: F Test: BILIRUBIN, URINE AUTO; Value: NEGATIVE; Range: NEGATIVE; Status: F Test: NITRITE, URINE AUTO; Value: NEGATIVE; Range: NEGATIVE; Status: F Test: LEUKOCYTE ESTERASE, URINE AUTO; Value: 3+; Range: NEGATIVE; Abnormal: Above high normal; Status: F Test: BLOOD, URINE BLOOD; Value: 3+; Range: NEGATIVE; Abnormal: Above high normal; Status: F Test: WBC, URINE AUTO; Value: TNTC; Range: 0-3; Abnormal: Above high normal; Units: /HPF; Status: F Test: RBC, URINE AUTO; Value: TNTC; Range: 0-3; Abnormal: Above high normal; Units: /HPF; Status: F Test: BACTERIA, URINE AUTO; Value: 2+; Range: NEGATIVE; Abnormal: Above high normal; Status: F Test: SQUAMOUS EPITHELIAL CELL UR AU; Value: 1; Range: 0-6; Units: /HPF; Status: F Test: HYALINE CAST, URINE AUTO; Value: 0; Range: 0-1; Units: /LPF; Status: F Lab Order: -Influenza A&B Rapid Antigen - Nose; 09/21/16 23:50 Test: INFLUENZA A RAPID SCR by ICA; Value: INFLUENZA A RESULTS NEGATIVE; Status: F Test: INFLUENZA A RAPID SCR by ICA; Value: Comments:; Status: F Test: INFLUENZA B RAPID SCR by ICA; Value: INFLUENZA B RESULTS NEGATIVE; Status: F Test Note: ; The Influenza test is a direct rapid immunoassay for the qualitative detection of Influenza viral antigen. Cell culture (Viral Culture) testing should be considered to confirm NEGATIVE results and to assist in detecting other viruses that can provide similar clinical symptoms. Please contact the lab within 24 hours [phone]) if confirmatory testing is desired. Lab Order: CREATINE PHOSPHOKINASE; 09/21/16 23:50 Test: CPK CREATINE PHOSPHOKINASE; Value: 31; Range: 39-308; Abnormal: Below low normal; Units: U/L; Status: F Lab Order: THYROID PROFILE; 09/21/16 23:50 Test: T UPTAKE; Value: 37; Range: 33-40; Units: %; Status: F Test: THYROXINE (T4); Value: 4.9; Range: 4.5-12.0; Units: UG/DL; Status: F Test: FREE THYROXINE INDEX; Value: 1.8; Range: 1.4-3.8; Units: %; Status: F Test: THYROID STIMULATING HORMONE; Value: 0.810; Range: 0.358-3.740; Units: uIU/ML; Status: F Lab Order: PLATELET ESTIMATE; 09/21/16 23:50 Test: PLATELET ESTIMATE; Value: NORMAL; Range: NORMAL; Status: F Lab Order: CBC WITH DIFFERENTIAL; 09/22/16 05:19 Test: WHITE BLOOD COUNT; Value: 19.3; Range: 4.0-10.0; Abnormal: Above high normal; Units: K/mm3; Status: F Test: RED BLOOD COUNT; Value: 3.83; Range: 4.30-6.10; Abnormal: Below low normal; Units: M/mm3; Status: F Test: HEMOGLOBIN; Value: 11.6; Range: 14.0-18.0; Units: g/dl; Status: F Test: HEMATOCRIT; Value: 36.3; Range: 42.0-52.0; Abnormal: Below low normal; Units: %; Status: F Test: MEAN CORPUSCULAR VOLUME; Value: 94.7; Range: 80.0-96.0; Units: fl; Status: F Test: MEAN CORPUSCULAR HEMOGLOBIN; Value: 30.3; Range: 27.0-33.0; Units: pg; Status: F Test: MEAN CORPUSCULAR HGB CONC; Value: 32.0; Range: 32.0-36.5; Units: g/dl; Status: F Test: RED CELL DISTRIBUTION WIDTH; Value: 15.2; Range: 11.5-14.5; Abnormal: Above high normal; Units: %; Status: F Test: PLATELET COUNT, AUTOMATED; Value: 133; Range: 150-450; Abnormal: Below low normal; Units: k/mm3; Status: F Test: NEUTROPHILS; Value: 85; Range: 35-75; Abnormal: Above high normal; Units: %; Status: F Test: BANDS; Value: 10; Range: < 11; Units: %; Status: F Test: LYMPHOCYTES; Value: 4; Range: 16-52; Abnormal: Below low normal; Units: %; Status: F Test: METAMYELOCYTES; Value: 1; Range: 0-0; Abnormal: Above high normal; Units: %; Status: F Test: TOXIC VACUOLATION; Value: 1+; Status: F Lab Order: ARTERIAL BLOOD GAS; [facility] 09/22/16 03:54 Test: ABG pH (ARTERIAL); Value: 7.385; Range: 7.350-7.450; Units: UNITS; Status: F Test: ABG PARTIAL PRESSURE CO2; Value: 34.5; Range: 35.0-45.0; Abnormal: Below low normal; Units: mmHg; Status: F Test: ABG PARTIAL PRESSURE O2; Value: 86.4; Range: 75.0-100.0; Units: mmHg; Status: F Test: ABG TOTAL CO2; Value: 21.2; Range: 23.0-31.0; Abnormal: Below low normal; Units: MEQ/L; Status: F Test: ABG HCO3; Value: 20.2; Range: 22.0-26.0; Abnormal: Below low normal; Units: MEQ/L; Status: F Test: ABG BASE EXCESS; Value: -4.1; Range: -2.0-2.0; Abnormal: Below low normal; Status: F Test: ABG STANDARD HCO3; Value: 21.0; Range: 22.0-26.0; Abnormal: Below low normal; Units: MEQ/L; Status: F Test: ABG O2 SATURATION; Value: 96.1; Range: 95.0-99.0; Units: %; Status: F Lab Order: LACTIC ACID LEVEL, LACTATE; [facility] 09/22/16 08:43 Test: LACTIC ACID SEPSIS PROTOCOL; Value: 8.6; Range: 0.4-2.0; Abnormal: Above upper panic limits; Units: MMOL/L; Status: F Lab Order: PLATELET ESTIMATE; [facility] 09/22/16 05:19 Test: PLATELET ESTIMATE; Value: DECREASED; Range: NORMAL; Status: F Lab Order: Fingerstick Blood Sugar; [facility] 09/22/16 05:52 Test: BEDSIDE GLUCOSE; Value: 173; Range: 83-110; Abnormal: Above high normal; Units: MG/DL; Status: F Lab Order: RENAL PROFILE; [facility] 09/22/16 10:51 Test: GLUCOSE, FASTING; Value: 252; Range: 83-110; Abnormal: Above high normal; Units: MG/DL; Status: F Test: BLOOD UREA NITROGEN; Value: 39; Range: 7-18; Abnormal: Above high normal; Units: MG/DL; Status: F Test: CREATININE FOR GFR; Value: 3.28; Range: 0.70-1.30; Abnormal: Above high normal; Units: MG/DL; Status: F Test: GLOMERULAR FILTRATION RATE; Value: 19.2; Range: >35; Abnormal: Below low normal; Status: F Test: SODIUM LEVEL; Value: 145; Range: 136-145; Abnormal: Delta; Units: MEQ/L; Status: F Test: POTASSIUM SERUM; Value: 4.3; Range: 3.5-5.1; Units: MEQ/L; Status: F Test: CHLORIDE LEVEL; Value: 111; Range: 98-107; Abnormal: Above high normal; Units: MEQ/L; Status: F Test: CARBON DIOXIDE LEVEL; Value: 17; Range: 21-32; Abnormal: Below low normal; Units: MEQ/L; Status: F Test: ANION GAP; Value: 17; Range: 8-16; Abnormal: Above high normal; Units: MEQ/L; Status: F Test: CALCIUM LEVEL; Value: 7.1; Range: 8.8-10.2; Units: MG/DL; Status: F Test: PHOSPHORUS LEVEL; Value: 3.3; Range: 2.5-4.9; Units: MG/DL; Status: F Test: ALBUMIN; Value: 2.1; Range: 3.2-5.2; Units: GM/DL; Status: F Test Note: ; Units are mL/min/1.73 m2 Chronic Kidney Disease Staging per NKF: Stage I & II GFR >=60 Normal to Mildly Decreased Stage III GFR 30-59 Moderately Decreased Stage IV GFR 15-29 Severely Decreased Stage V GFR <15 Very Little GFR Left ESRD GFR <15 on WATER RESTORATION TECHNICIAN Lab Order: CORTISOL AM; [facility] 09/22/16 08:43 Test: CORTISOL AM; Value: 28.0; Range: 4.3-22.4; Abnormal: Above high normal; Units: UG/DL; Status: F Lab Order: LACTIC ACID LEVEL, LACTATE; [facility] 09/22/16 10:51 Test: LACTIC ACID SEPSIS PROTOCOL; Value: 7.7; Range: 0.4-2.0; Abnormal: Above upper panic limits; Units: MMOL/L; Status: F Lab Order: Fingerstick Blood Sugar; [facility] 09/22/16 12:24 Test: BEDSIDE GLUCOSE; Value: 253; Range: 83-110; Abnormal: Above high normal; Units: MG/DL; Status: F Radiology Order: Chest, 1 View Test: Chest, 1 View REASON FOR EXAMINATION: fever; Clinical: Fever.; ; Comparison: 07/26/2016.; ; Findings:; Mediastinum and cardiac silhouette are stable - cardiomegaly again suggested.; Lung miles demonstrate diffuse chronic changes superimposed perihilar and left; lower lobe atelectasis/consolidation cannot be excluded. Biapical scarring; noted. No obvious effusion. No pneumothorax. Skeletal structures stable.; ; Impression:; Diffuse chronic changes of biapical scarring. Superimposed perihilar and left; lower lobe atelectasis cannot be excluded.; ; ; Signed by; Deven Tobias MD 09/22/2016 07:42 A; Radiology Order: CT Head Without Contrast Test: CT Head Without Contrast REASON FOR EXAMINATION: Syncope; ; CT of the head; Clinical history: unresponsive.; Comparison: 08/06/2000 well.; Protocol: Multiple axial CT images obtained with 5 mm slice thickness were obtained through the head; without administration of contrast.; Findings: The ventricles and sulci are symmetric but prominent in size bilaterally. There are periven; tricular areas of low attenuation throughout the deep white matter. There is no evidence of acute hem; orrhage or infarct. There is no midline shift, mass effect, or extra-axial fluid collection. The osse; ous structures are unremarkable. The visualized paranasal sinuses and mastoid air cells are clear.; Impression: No acute hemorrhage or infarct. Findings are consistent with moderately severe age-relate; d atrophy and chronic small vessel ischemic disease.; ; Radiology Order: Chest, 1 View Test: Chest, 1 View REASON FOR EXAMINATION: line place; Clinical: Line placement.; ; Comparison: 09/21/2016 and 11:59 p.m..; ; Findings:; Right IJ line with tip in the SVC.; Cardiomegaly remains stable.; Diffuse chronic changes noted throughout the bilateral lung miles. Increased; perihilar markings and mild cephalization may reflect pulmonary vascular; congestion as well as perihilar and left lower lobe atelectasis. Skeletal; structures intact. No pneumothorax.; ; Impression:; Right IJ line with tip in the SVC.; Chronic changes. Cannot exclude pulmonary vascular congestion as well as; perihilar and basilar atelectasis.; ; ; Signed by; Deven Tobias MD 09/22/2016 07:43 A; Outcome: 01:00 CT Study completed. cf2 03:38 Decision to Hospitalize by Provider. cs11 15:29 Patient left the ED. mcp Signatures: Dispatcher [employer] EDMS Monik Keith RN RN jan Peters, Mary, RN RN mcp Bartlett, Floyd fab Lopresti, Mary-Elizabeth, Advertising Designer Unit ml3 Chris Duque jc3 Lorena Arellano RN RN ld5 Cornelius Heredia, DO DO cs11 Jen Cornejo Christina, RN RN cf2 Reno Titus, Reg Reg pm4 Corrections: (The following items were deleted from the chart) 02:16 00:00 BP 90 / 51; Pulse 124bpm; Resp 22bpm; Pulse Ox 96% 3 lpm Nasal Cannula; Temp cf2 102.3F Rectal; Pain 0/10; cf2 MTDD
--- NOTE | 2016-09-22 15:43 | CCN ---
DATE: 09/22/2016 CRITICAL CARE NOTE: I was called to the emergency department to evaluate this 86-year-old male in shock from urosepsis. The patient was found to have an alteration in level of consciousness by his spouse and emergency services were called. He was brought to the emergency department and found to be hypotensive. He has a very complex past medical history including benign prostatic hypertrophy with recent Peters catheter replacement. He has recurrent urinary tract infections. Recent records indicate Escherichia (E) coli, Klebsiella. and methicillin-resistant Staphylococcus aureus. He has a long history of chronic obstructive asthma, pulmonary emboli in 2007 and 2013, chronic kidney disease, diastolic heart disease, diabetes mellitus, and hypertension. In the emergency department, fluids have been given and pressors started. A right central venous pressure (CVP) line was placed. His temperature now is 101, pulse rate 97, respirations 26, blood pressure 70/48 on Levophed at maximal dose and having receive five liters of crystalloid. He is responsive to pain and somewhat to voice. No spontaneous movement. HEENT: His pupils respond to light. Mucosa is dry. NECK: Supple. HEART: Sounds regular without appreciable murmur. RESPIRATORY: Breath sounds coarse, clear but no wheezing. ABDOMEN: Soft. Occasional bowel sounds. EXTREMITIES: Show dry skin. No significant peripheral edema. Weak pulses on all four extremities. I have rechecked the blood pressure manually and found it to be accurate. DIAGNOSTIC STUDIES: Sodium is 138, potassium 4.4, chloride 101, CO2 24, BUN 35, creatinine 2.48, glucose 355, lactate level was 6, more recently measured 5.8. His INR is 4.5. White cell count is 19.3, hemoglobin 11.6, hematocrit 36.3, platelet count 133,000. Differential white cell count shows 85% neutrophils, 10 bands, and toxic vacuolations. Chest x-ray shows cardiomegaly and interstitial prominence. The primary problem requiring critical attention is septic shock secondary to urosepsis. The patient has had three different varieties of extended-spectrum penicillin. I will give a dose of linezolid in light of his history of methicillin-resistant Staphylococcus aureus. His CVP is now 9. We will give additional fluids targeting a CVP of 16. He is on maximal doses of Levophed at this point. We will therefore add vasopressin to target a mean arterial pressure of at least 60. Hypoxemia. The patient is displaying an adequate oxygen saturation on supplemental oxygen at three liters. We will target a saturation of 90% plus. Abnormal coagulation state. I suspect this is related to his Coumadin and lack of clearance. However, disseminated intravascular coagulation (DIC) remains a possibility. We will check a fibrinogen on the laboratory studies. Deep vein thrombosis (DVT) prophylaxis will be addressed with sequential hose and is of less concern given his high international normalized ratio (INR). Ulcer prophylaxis is reasonable given the critical nature of his illness and IV Protonix will be given. The patient has steroid-dependent chronic obstructive asthma. He is a nonsmoker. Given his acute illness, we will administer IV steroids and check a cortisol. I have updated the patient's spouse at bedside regarding the critical nature of his illness. We will attempt to facilitate admission now to the intensive care unit as soon as a bed becomes available and I will speak with the primary care provider. The patient's condition is quite critical. Prognosis is guarded to poor. 87 minutes were spent in the provision of bedside critical care and coordination. SUNITA
[2016-09-22] MEDS: LINEZOLID 600 MG in APPROPRIATE DILUENT 1 EA IV SCH (18:00)
[2016-09-22] MEDS: CETIRIZINE (ZyrTEC) 10 MG TAB PO SCH (21:26)
[2016-09-23] VITALS (24 sets, daily range): BP systolic 88–127; BP diastolic 51–91
[2016-09-23] MEDS: VASOPRESSIN INJ 20 UNITS in NS 500 ML IV SCH (01:05)
[2016-09-23] MEDS: MEROPENEM INJ 1 GM in D5W MINI-BAG PLUS 100 ML IV SCH ×2 (04:02→12:11)
[2016-09-23] MEDS: LINEZOLID 600 MG in APPROPRIATE DILUENT 1 EA IV SCH ×2 (04:54→17:58)
[2016-09-23 05:19] LABS: ALBUMIN 2.4 GM/DL (3.2-5.2); ALBUMIN/GLOBULIN RATIO 0.69 (1.00-1.93); BILIRUBIN,TOTAL 1.7 MG/DL (0.2-1.0); CALCIUM LEVEL 6.6 MG/DL (8.8-10.2); CREATININE FOR GFR 4.2 MG/DL (0.70-1.30); GLOMERULAR FILTRATION RATE 14.4 (>35); TOTAL PROTEIN 5.9 GM/DL (6.4-8.2)
[2016-09-23 05:21] LABS: POTASSIUM SERUM 6.2 MEQ/L (3.5-5.1)
[2016-09-23 05:34] LABS: MEAN CORPUSCULAR HEMOGLOBIN 31.2 pg (27.0-33.0); RED CELL DISTRIBUTION WIDTH 14.7 % (11.5-14.5)
[2016-09-23] MEDS ORDERED: SOD POLYSTYRENE SULFONATE SUSP 15 GM/60 ML UD PO ONE (05:45)
[2016-09-23 05:57] LABS: MEAN CORPUSCULAR VOLUME 100.3 fl (80.0-96.0); WHITE BLOOD COUNT 35.2 K/mm3 (4.0-10.0)
[2016-09-23 05:58] LABS: ABG BASE EXCESS -15.3 (-2.0-2.0); ABG HCO3 9.5 MEQ/L (22.0-26.0); ABG PARTIAL PRESSURE CO2 20.8 mmHg (35.0-45.0); ABG PARTIAL PRESSURE O2 99.2 mmHg (75.0-100.0); ABG STANDARD HCO3 12.9 MEQ/L (22.0-26.0); ABG TOTAL CO2 10.1 MEQ/L (23.0-31.0); ABG pH (ARTERIAL) 7.276 UNITS (7.350-7.450)
[2016-09-23] MEDS: HumaLOG INSULIN (NovoLOG) PER UNIT SC SCH ×3 (05:59→17:58)
[2016-09-23] MEDS ORDERED: FUROSEMIDE 100 MG/10 ML VIAL (J1940) IV ONE (06:45)
[2016-09-23 06:49] LABS: INR 5.39
[2016-09-23] MEDS: ATORVASTATIN 20 MG TAB PO SCH (08:31)
[2016-09-23] MEDS: DOCUSATE SODIUM 100 MG CAP PO SCH ×2 (08:31→19:50)
[2016-09-23] MEDS: PANTOPRAZOLE 40MG INJ (PROTONIX) (C9113) IV SCH (08:32)
[2016-09-23] MEDS: methylPREDNISolone INJ 125 MG/2 ML VIAL (J2930) IV SCH ×2 (08:32→15:50)
--- NOTE | 2016-09-23 08:32 | REP ---
Clinical: Dyspnea. Rule out edema. Comparison: 09/22/2016. Findings: Mediastinum and cardiac silhouette are stable and mild cardiomegaly cannot be excluded. Lung miles demonstrate increased markings and pulmonary vasculature which may be secondary to portable technique. However mild pulmonary vascular congestion as well as scattered atelectasis cannot be excluded. No definite effusion. No pneumothorax. Right IJ line with tip in the SVC. Skeletal structures stable. Impression: Prominent pulmonary vasculature and increased interstitial markings may be secondary to technique. Differential diagnosis includes mild pulmonary vascular congestion as well as scattered atelectasis. Findings are relatively similar to prior examination and without new acute process. Signed by Deven Tobias MD 09/23/2016 08:24 A
--- NOTE | 2016-09-23 08:43 | IPNPDOC ---
Subjective General Date Seen The patient was seen on 09/23/16. Subjective Chief Complaint/HPI The patient is a 86-year-old male admitted with a reason for visit of Septic Shock; Uti. Events since last encounter Patient c/o hurting all over, delirious, Kussmaul breathing Constitutional: Denies: Fever ENT: Denies: Head Aches Skin: Reports: Dry, Nail Changes, Other (vasxular chanegs in skin) Pulmonary: Reports: Cough, Dyspnea Cardiovascular: Denies: Chest Pain, Palpitations Gastrointestinal: Reports: Abdominal Pain, Other Symptoms (mildly bleeding hemorrhoids), Denies: Constipation, Diarrhea, Nausea, Vomiting Genitourinary: Reports: Other Symptoms (Shrestha), Retention (chronic hx of retention) Neurological: Reports: Confusion Psych: Reports: Anxiety, Memory Issues Objective Physical Examination General Exam: Positive: Alert, Cooperative, Mild Distress (occasionally groans and is restless, turning over in bed frequently) Eye Exam: Positive: Conjunctiva & lids normal, PERRLA ENT Exam: Positive: Atraumatic, Other ENT (dry oral mucosa) Neck Exam: Positive: Supple, Negative: thyromegaly Chest Exam: Positive: Clear to auscultation, Other (tachypnea, dyspnea with conversation) Heart Exam: Positive: Rate Normal (heart sounds are distant) Telemetry: Positive: No significant arrhythmia Abdomen Exam: Positive: Soft, Tenderness (RUQ tenderness. ) Extremity Exam: Positive: Edema (trace ankle edema bilaterally), Normal pulses (+1), Negative: Cyanosis Skin Exam: Negative: Nl turgor and temperature (extremities are cool to touch) Neuro Exam: Positive: Cranial Nerves 3-12 NL (unable to fully assess strength and cranial nerves due to altered mental status; face symmetric, moves all 4 extremities spontaneously, makes a few grunting noises), Normal Tone, Negative: Normal Speech, Strength at 5/5 X4 ext Psych Exam: Negative: Mental status NL (vague responses, unable to verbalize time and place. cooperative) Assessment /Plan Problems Problems: (1) Septic shock Status: Acute Response to Treatment: Uncompensated Discussed With: Cheese Grader, Health Care Proxy Problem Specific Plan: Consult Specialist Problem Text: D2 linezolid/meropenem favor UTI source 09/21/15 BCX x 1 S. aureus, BCX x 1 G- rods 09/23/2016: c multiple organ dysfunction, WBC to 35K (09/22 19K), LA to 11! c EARNEST stage 3 c oliguria/metabolic acidosis/hyperK and probable DIC Continues on vasopressin gtt. Oxygen saturations stable on RA Wishes to proceed with all medical intervention. Discussed with Dr. Golden. Dr. Kraft, nephrology consulted Patient's condition is grave. I had a long discussion with the patient's and confirmed that his code status is Full Code (2) Elevated LFTs Status: Acute Problem Text: AST 1575 ALT 1080 RUQ pain on palpation. Will eval RUQ US. (3) UTI (urinary tract infection) Status: Acute Problem Text: rx as per septic shock (4) Acute kidney injury superimposed on CKD Status: Acute Problem Specific Plan: Consult Specialist Problem Text: 09/23/16: nephro consulted-favor ++HCO3 (5) Benign prostatic hyperplasia Status: Chronic Problem Text: Holding tamsulosin and finasteride. + hx of urinary retention. Follows with Dr. Ramírez outpatient. (6) Congestive heart failure (CHF) Status: Chronic Problem Text: No evidence of fluid overload at the moment, but this could become a concern in the future as he has required significant fluid resuscitation and likely needs more in the future. Holding Torsemide 2/ EARNEST (7) Hyperlipidemia Status: Chronic Problem Text: statin held 2 liver failure Plan/VTE VTE Prophylaxis Ordered?: No VTE Exclusion Pharmacological: Bleeding Risk (supratherapeutic INR) VS, I&O, 24H, Fishbone Vital Signs/I&O Vital Signs Date Time Temp Pulse Resp B/P Pulse Ox O2 Delivery O2 Flow Rate FiO2 09/23/16 06:00 84 127/76 95 Room Air 09/23/16 05:00 96.9 26 09/23/16 01:00 3.0 I&O- Last 24 Hours up to 6 AM 09/23/16 06:00 Intake Total 6237.0 ml Output Total 385 ml Balance 5852.0 ml Laboratory Data 24H LABS Laboratory Tests 2 09/22/16 08:43: Cortisol AM Sample 28.0H, Lactic Acid (Sepsis) 8.6*H 09/22/16 10:51: Lactic Acid (Sepsis) 7.7*H, Albumin 2.1#L, Blood Urea Nitrogen 39H, Creatinine 3.28H, Sodium Level 145#, Potassium Level 4.3, Chloride Level 111H, Carbon Dioxide Level 17L, Anion Gap 17H, Calcium Level 7.1#L, Glomerular Filtration Rate 19.2L, Phosphorus Level 3.3 09/22/16 12:24: Bedside Glucose (Misc Panel) 253H 09/22/16 12:58: Lactic Acid Level 6.9*H 09/22/16 18:07: Bedside Glucose (Misc Panel) 350H 09/22/16 20:47: Lactic Acid Level 10.9*H 09/22/16 23:09: Bedside Glucose (Misc Panel) 395H 09/23/16 04:46: Blood Urea Nitrogen 49H, Creatinine 4.20H, Sodium Level 139, Potassium Level 6.2 *H, Chloride Level 108H, Carbon Dioxide Level 11L, Calcium Level 6.6L, Aspartate Amino Transf (AST/SGOT) 1575H, Alanine Aminotransferase (ALT/SGPT) 1088H, Alkaline Phosphatase 66, Total Bilirubin 1.7#H, Total Protein 5.9#L, Albumin 2.4L, Albumin/Globulin Ratio 0.69L, Anion Gap 20H, Glomerular Filtration Rate 14.4L 09/23/16 05:40: Arterial Blood pH 7.276L, Arterial Blood Partial Pressure CO2 20.8L, Arterial Blood Partial Pressure O2 99.2, Arterial Blood Total CO2 10.1L, Arterial Blood HCO3 9.5L, Arterial Blood Base Excess -15.3L, Arterial Blood Oxygen Saturation 97.2, Arterial Blood Gas Puncture Site LT RADIAL, Blood Gas Bicarbonate Standard 12.9L 09/23/16 05:47: Bedside Glucose (Misc Panel) 325H 09/23/16 05:55: Prothromb Time International Ratio 5.39*H, Prothrombin Time 49.1H CBC/BMP Laboratory Tests 09/22/16 10:51 Anion Gap 17 H 09/23/16 04:46 Calcium Level 6.6 L, Aspartate Amino Transf (AST/SGOT) 1575 H, Alanine Aminotransferase (ALT/SGPT) 1088 H, Alkaline Phosphatase 66, Total Bilirubin 1.7 #H, Total Protein 5.9 #L, Albumin 2.4 L 09/23/16 05:23 Red Blood Count 3.87 L, Mean Corpuscular Volume 100.3 #H, Mean Corpuscular Hemoglobin 31.2, Mean Corpuscular Hemoglobin Concent 31.0 L, Red Cell Distribution Width 14.7 H Microbiology Microbiology 09/21/16 Blood Culture - Preliminary, Resulted 09/21/16 Blood Culture - Preliminary, Resulted Staphylococcus Aureus 09/21/16 Influenza Virus Type A Antigen - Final, Complete 09/21/16 Influenza Virus Type B Antigen - Final, Complete 09/21/16 Urine Culture, Received Pending Ani Geller [facility] Sep 23, 2016 08:43 Jeffery Daily M.D. Sep 23, 2016 14:44 Ani Geller [facility] Sep 23, 2016 08:43 Jeffery Daily M.D. Sep 23, 2016 14:44 Microbiology 09/21/16 Blood Culture - Preliminary, Resulted 09/21/16 Blood Culture - Preliminary, Resulted Staphylococcus Aureus 09/21/16 Influenza Virus Type A Antigen - Final, Complete 09/21/16 Influenza Virus Type B Antigen - Final, Complete 09/21/16 Urine Culture, Received Pending Ani Geller [facility] Sep 23, 2016 08:43
[2016-09-23] MEDS: TIOTROPIUM INHALER/CAPSULE (SPIRIVA) INH SCH (08:50)
[2016-09-23] MEDS: SYMBICORT 160/4.5MCG INHALER 6GM INH SCH ×2 (08:50→20:01)
[2016-09-23] MEDS: IPRATROPIUM 0.5MG/ALBUTEROL 2.5MG INH SOL UD 3ML (DUONEB)(J7620) NEB SCH ×3 (08:50→23:41)
[2016-09-23] MEDS ORDERED: VASOPRESSIN INJ 20 UNITS in NS 500 ML IV SCH (09:00)
--- NOTE | 2016-09-23 14:39 | CCN ---
DATE: 09/23/2016 CRITICAL CARE NOTE: The patient is seen in the intensive care unit with septic shock, hypotensive on pressors. His temperature is 98.9, maximum temperature (t-max) over the past 24 hours is 98.9, blood pressure 124/77 on vasopressin, heart rate 83, respirations 26, saturation 96%. Intake and output for the past 24 hours is 6151 and 385 out. His central venous pressure is 13. At bedside, the patient is ill appearing. His oral mucosa dry. He does respond to voice and is quite slow to speak. Neck is supple. No meningismus. Jugular veins are distended. Heart sounds regular, distant breath sounds, scattered rales. Abdomen is soft. Bowel sounds in the right lower quadrant. Extremities pulsatile times four. DIAGNOSTIC STUDIES: Chest x-ray shows no new infiltrates. There is some vascular congestion. Sodium is 139, potassium 6.2, chloride 108, CO2 11, BUN 49 creatinine 4.2, glucose 335, white cell count 35.2, hemoglobin 12.1, hematocrit 38.9, platelet count 66,000. Arterial blood gases show pH 7.27, pCO2 20, pO2 99, AST is 1575, ALT 1088, INR is 5.39, lactic acid is 10. Blood cultures show Staphylococcus species. The primary problem requiring critical attention is septic shock. The patient has been weaned off Levophed, and we will begin to wean vasopressin. His CVP is 13. Urosepsis, likely related to Staphylococcus in light of bacteremia. The patient is on linezolid. Culture and sensitivities are pending. Acute tubular necrosis. Nephrology has been consulted. The patient did have some urine output this morning after diuresis. Hyperkaliemia. Lasix was given and he is diuresing. We will recheck his electrolytes. Coagulopathy. The patient's INR remains quite elevated but there is no active bleeding. Deep vein thrombosis (DVT) prophylaxis is being addressed with sequential hose. Ulcer prophylaxis is being addressed with Protonix. I have updated the patient's spouse at bedside. He remains critically ill and intensive care unit (ICU) care is appropriate. 72 minutes was spent in the provision of bedside critical care and coordination.
[2016-09-23 16:48] LABS: DIFF SLIDE NUMBER 258; MEAN CORPUSCULAR HEMOGLOBIN 30.7 pg (27.0-33.0); MEAN CORPUSCULAR HGB CONC 32.1 g/dl (32.0-36.5); MEAN CORPUSCULAR VOLUME 95.6 fl (80.0-96.0); RED CELL DISTRIBUTION WIDTH 15.2 % (11.5-14.5); WHITE BLOOD COUNT 26.8 K/mm3 (4.0-10.0)
[2016-09-23 17:05] LABS: PLATELET COUNT, AUTOMATED 69 k/mm3 (150-450)
[2016-09-23 17:08] LABS: BANDS 20 % (< 11)
[2016-09-23 17:09] LABS: TOXIC VACUOLATION 2+
[2016-09-23 17:11] LABS: DOHLE BODIES 1+
[2016-09-23 17:18] LABS: INR 3.76
[2016-09-23 17:25] LABS: ALBUMIN 2.3 GM/DL (3.2-5.2); CALCIUM LEVEL 6.9 MG/DL (8.8-10.2); CREATININE FOR GFR 4.53 MG/DL (0.70-1.30); GLOMERULAR FILTRATION RATE 13.2 (>35)
[2016-09-23 17:34] LABS: ALBUMIN 2.3 GM/DL (3.2-5.2); ALBUMIN/GLOBULIN RATIO 0.72 (1.00-1.93); BILIRUBIN,TOTAL 1.6 MG/DL (0.2-1.0); TOTAL PROTEIN 5.5 GM/DL (6.4-8.2)
[2016-09-23 18:07] LABS: PHOSPHORUS LEVEL 4.5 MG/DL (2.5-4.9); POTASSIUM SERUM 4.3 MEQ/L (3.5-5.1)
[2016-09-23] MEDS: CETIRIZINE (ZyrTEC) 10 MG TAB PO SCH (22:02)
[2016-09-23] MEDS: TRIAMCINOLONE ACET 0.1% OINTMENT 80 GM TOP SCH (22:03)
[2016-09-23] MEDS: NYSTATIN 100,000 UNITS/GM TOPICAL PWD 15 GM TOP SCH (22:03)
[2016-09-24] VITALS (24 sets, daily range): BP systolic 85–120; BP diastolic 47–69; O2SAT 96
[2016-09-24] MEDS: methylPREDNISolone INJ 125 MG/2 ML VIAL (J2930) IV SCH ×2 (00:18→08:15)
[2016-09-24] MEDS: HumaLOG INSULIN (NovoLOG) PER UNIT SC SCH ×4 (04:59→16:57)
[2016-09-24] MEDS: LINEZOLID 600 MG in APPROPRIATE DILUENT 1 EA IV SCH (05:00)
[2016-09-24 05:20] LABS: MEAN CORPUSCULAR HEMOGLOBIN 30.9 pg (27.0-33.0); MEAN CORPUSCULAR VOLUME 93.5 fl (80.0-96.0); RED CELL DISTRIBUTION WIDTH 15.3 % (11.5-14.5); WHITE BLOOD COUNT 27.1 K/mm3 (4.0-10.0)
[2016-09-24 05:26] LABS: INR 2.23
[2016-09-24 05:50] LABS: ALBUMIN 2.2 GM/DL (3.2-5.2); ALBUMIN/GLOBULIN RATIO 0.65 (1.00-1.93); BILIRUBIN,TOTAL 1.9 MG/DL (0.2-1.0); CALCIUM LEVEL 6.5 MG/DL (8.8-10.2); CREATININE FOR GFR 4.52 MG/DL (0.70-1.30); GLOMERULAR FILTRATION RATE 13.2 (>35); POTASSIUM SERUM 3.8 MEQ/L (3.5-5.1); TOTAL PROTEIN 5.6 GM/DL (6.4-8.2)
--- NOTE | 2016-09-24 06:51 | CR ---
DATE OF CONSULTATION: 09/23/2016 CONSULTATION REPORT FOR: Chris Mendiola MD REASON FOR CONSULTATION: Acute renal failure and hyperkalemia. HISTORY OF PRESENT ILLNESS: Mr. Avila is an 86-year-old gentleman with multiple chronic medical problems. Apparently, he was recently discharged from a correction, has recent history of urinary tract infection. He was brought to emergency room with altered mental status and hypotension. He is admitted to intensive care unit with septic shock and has been receiving intravenous pressors and antibiotics. Patient had minimal urine output and worsening kidney function due to which a nephrology consultation was requested. He has been given a large amount of intravenous (IV) fluid yesterday and has still required pressors. PAST MEDICAL AND SURGICAL HISTORY: Significant for: 1. History of recurrent urinary tract infections and urinary retention. 2. History of BPH. 3. History of congestive heart failure. 4. History of diabetes. 5. History of hypertension. 6. History of hyperlipidemia. 7. 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 8. History of pulmonary embolism previously. 9. History of asthma. MEDICATIONS: His home medications included: - prednisone 7.5 mg daily - glipizide 5 mg daily - Lipitor 20 mg daily - Zyrtec 10 mg daily - famotidine 40 mg twice a day - Proscar 5 mg daily - Singulair 10 mg daily - Flomax 0.4 mg daily - vitamin D 50,000 units every 2 weeks - Coumadin 1 mg on Tuesday, Tuesday and Tuesday and 2 mg daily rest of the week ALLERGIES: Patient has allergy to VANCOMYCIN. PERSONAL AND SOCIAL HISTORY: Patient is and lives with his . There is no history of tobacco or alcohol use. He was recently discharged from correction. FAMILY HISTORY: Is negative for significant kidney disease. There is no family history of acute infections recently. REVIEW OF SYSTEMS: Patient is quite confused and disoriented. He is not able to provide any information. His records are reviewed. Apparently, he had a temperature 106.4 degrees Fahrenheit in the emergency room. He was hypertensive and blood pressure was as low as 75/50 mmHg. He received about 2 liters of IV fluids initially and then he was started on pressors. His blood cultures have already come back positive for Staphylococcus aureus. At present, the patient is quite confused and disoriented and is not in any acute distress. There is no other relevant information available at this time and patient himself is not able to provide any meaningful information. PHYSICAL EXAMINATION: This is an elderly male laying in the bed without any acute distress. He is quite confused and is trying to inhale through the remote control for television. His temperature is 98.6 degrees Fahrenheit, heart rate 93 per minute and respiratory rate 28 per minute. Blood pressure is as low as 88/54 mmHg and as high as 108/55 mmHg. He is still on vasopressor. His head is atraumatic. Neck is supple and without any thyroid enlargement. His neck veins are moderately distended. Oral hygiene is poor but no thrush noted. Pupils are equal and reactive to light and sclera is anicteric. Heart sounds are irregular in rhythm. There is no pericardial friction rub. Lungs with basilar rales and slightly diminished breath sounds at bases. Abdomen is soft and nontender and without any palpable organomegaly. Bowel sounds are normal. Extremities have no cyanosis or clubbing. He has 1+ lower extremity edema. Neurologically, he is awake, confused and disoriented. LABORATORY DATA: This morning his WBC count is 35.2, hemoglobin 12.1 and hematocrit 38.9. Platelets are 66,000. Urinalysis showed too numerous to count WBCs and too numerous to count RBCs. 2+ urine bacteria. Blood culture is reported positive for Staphylococcus aureus in two sets. A urine culture is still pending. Initial blood gas showed a pH of 7.38, pCO2 34.5 and pO2 86.4. Bicarbonate was 21. His chemistry showed initially a lactic acid level was 6.93 and repeat lactic acid last evening was 10.9. BUN was 39 and creatinine 3.28 last evening. This morning his sodium is 139 and potassium 6.2. CO2 is 11, BUN 49 and creatinine 4.2. Glucose 335 and calcium 6.6. AST 1575 and ALT 1088. Total protein 5.9 and albumin 2.4. Chest x-ray showed mild pulmonary vascular congestion and cardiomegaly. PROBLEMS: 1. Acute renal failure superimposed on chronic kidney disease. This is related to septic shock. Patient had minimal urine output earlier and has received large amount of IV fluids, pressors and also a dose of Lasix 80 mg. He is making some urine now. At present, his volume status is slightly over corrected. Giving him more fluid is likely to put him at risk for worsening respiratory status. I would recommend to continue with pressors and monitor his central venous pressure (CVP). His most recent CVP this morning is about 13, which is appropriate. 2. Hyperkalemia. This is related to acute renal failure and metabolic acidosis. Patient has received a dose of Kayexalate. His acidosis will need to be addressed with sodium bicarbonate unless his urine output improves and kidney function starts improving. 3. Staphylococcus aureus sepsis with septic shock. Patient has received Zyvox and meropenem. He has allergy to vancomycin. Zyvox is appropriate at this point, along with meropenem to cover for. He does have history of urinary tract infection with multiple organisms in recent past. I thank you for involving me in the care of Mr. Avila. I will follow him along with you.
[2016-09-24] MEDS: IPRATROPIUM 0.5MG/ALBUTEROL 2.5MG INH SOL UD 3ML (DUONEB)(J7620) NEB SCH ×2 (08:00→15:38)
[2016-09-24] MEDS: SYMBICORT 160/4.5MCG INHALER 6GM INH SCH ×2 (08:25→20:23)
[2016-09-24] MEDS: TIOTROPIUM INHALER/CAPSULE (SPIRIVA) INH SCH (08:25)
[2016-09-24] MEDS: DOCUSATE SODIUM 100 MG CAP PO SCH ×2 (09:00→21:20)
--- NOTE | 2016-09-24 09:00 | REP ---
PORTABLE CHEST: Single AP portable view of the chest is performed and compared to prior study of 09/23/2016. There appears to be mild increasing atelectasis or infiltrate in both lung bases. Otherwise, cardiomegaly, vascular congestion and increased interstitial markings are unchanged. Right central venous catheter is again seen. IMPRESSION: There appears to be mildly increasing bibasilar atelectasis/infiltrate. Otherwise no change. Signed by Candido Jones MD 09/24/2016 06:29 P
--- NOTE | 2016-09-24 09:05 | REP ---
Clinical: Scrotal/testicular pain with history of sepsis. Technique: Real time moran scale and color Doppler evaluation using linear high frequency transducer. Comparison: 06/25/2008. Findings: The bilateral testicles and epididymi are normal in contour, size, echogenicity, and vascularity without evidence for intratesticular mass lesion, infectious/inflammatory process, or torsion. Incidental note is made of a 4.5 mm left epididymal cyst. Moderate bilateral hydroceles are noted with minimal right sided septations which may reflect chronic changes. Partially calcified left scrotal jarad identified measuring 3.1 mm maximal diameter. Moderate scrotal wall thickening noted. Right testicle measures 3.7 x 2.9 x 3.0 cm. Left testicle measures 3.9 x 2.8 x 3.2 cm. Impression: 1. Scrotal wall thickening is nonspecific and should be correlated with physical examination possibly related to underlying edema. 2. Small to moderate hydroceles otherwise relatively nonspecific. 3. Essentially normal appearance the bilateral testicles and epididymi without obvious acute infectious/inflammatory process. Signed by Deven Tobias MD 09/24/2016 08:57 A
[2016-09-24] MEDS: PANTOPRAZOLE 40MG INJ (PROTONIX) (C9113) IV SCH (09:35)
[2016-09-24] MEDS: NYSTATIN 100,000 UNITS/GM TOPICAL PWD 15 GM TOP SCH ×2 (09:35→21:20)
[2016-09-24] MEDS: TRIAMCINOLONE ACET 0.1% OINTMENT 80 GM TOP SCH ×2 (09:35→21:20)
[2016-09-24] MEDS: ATORVASTATIN 20 MG TAB PO SCH (09:35)
--- NOTE | 2016-09-24 10:13 | REP ---
Clinical: Right upper quadrant and generalized abdominal pain. Technique: Real time moran scale ultrasound examination using curved array transducer. Comparison: 07/28/2015 Findings: The liver is increased in echogenicity with decreased through transmission suggesting hepatocellular disease and fatty infiltration. No focal hepatic lesion identified. The pancreas is incompletely evaluated due to interposed bowel gas but visualized portions appear normal. Splenomegaly suggested without focal splenic lesion identified. Spleen measures 12.5 x 11.7 x 6.9 cm. Gallbladder demonstrates mild wall thickening without gallstones or pericholecystic fluid. No biliary ductal dilatation is appreciated and the common bile duct measures 4.5 mm diameter. Horseshoe kidney is again noted. The right renal moiety measures 12.8 x 6.0 x 6.8 cm with 2.3 cm upper pole cyst; left renal moiety measures 10.2 x 4.0 x 4.1 cm. Visualized abdominal aorta appears normal measuring up to 19.5 mm diameter. Small amount of free fluid noted within the upper abdomen. Impression: 1. Evidence for fatty infiltration/hepatocellular disease without focal hepatic lesion. 2. Gallbladder wall thickening without cholelithiasis. 3. Mild splenomegaly. 4. Congenital horseshoe kidney. Signed by Deven Tobias MD 09/24/2016 10:04 A
--- NOTE | 2016-09-24 10:16 | IPNPDOC ---
Subjective Date Seen The patient was seen on 09/24/16. Subjective Chief Complaint/HPI The patient is a 86-year-old male admitted with a reason for visit of Septic Shock; Uti. Events since last encounter condition remains guarded. See consults by ID and Nephro. Abdominal US: mild ascites, fatty liver. Scrotal US: no infection, + edema. Peters draining clear urine. CXR: infiltrates noted. Constitutional: Denies: Chills, Fever ENT: Denies: Dysphagia, Ear Pain, Head Aches Skin: Denies: Rash Pulmonary: Reports: Cough, Dyspnea Cardiovascular: Denies: Chest Pain, Palpitations Gastrointestinal: Reports: Abdominal Pain, Denies: Constipation, Diarrhea, Nausea, Vomiting Genitourinary: Reports: Other Symptoms (Peters. hx of urinary retention) Neurological: Reports: Other Symptoms (mentation slowly improving) Objective Physical Examination General Exam: Positive: Alert, Cooperative, Mild Distress (milf tachypnea) Eye Exam: Positive: Conjunctiva & lids normal, PERRLA ENT Exam: Positive: Atraumatic, Other ENT (dry oral mucosa) Neck Exam: Positive: Supple, Negative: thyromegaly Chest Exam: Positive: Clear to auscultation, Other (tachypnea, dyspnea with conversation) Heart Exam: Positive: Rate Normal (heart sounds are distant) Telemetry: Positive: No significant arrhythmia Abdomen Exam: Positive: Normal bowel sounds, Soft, Tenderness (RUQ tenderness. ) Male Exam: Positive: Tenderness (5 x 3 cm area of posterior scrotal skin c induration, tenderness, ecchymosis-no skin breakdown) Extremity Exam: Positive: Edema (trace ankle edema bilaterally), Normal pulses (+1), Negative: Cyanosis Skin Exam: Negative: Nl turgor and temperature (extremities are cool to touch) Neuro Exam: Positive: Cranial Nerves 3-12 NL (unable to fully assess strength and cranial nerves due to altered mental status; face symmetric, moves all 4 extremities spontaneously, makes a few grunting noises), Normal Tone, Negative: Normal Speech, Strength at 5/5 X4 ext Psych Exam: Negative: Mental status NL (vague responses, unable to verbalize time and place. cooperative) Assessment /Plan Problems (1) Septic shock Status: Acute Response to Treatment: Uncompensated Discussed With: Cannon Crewmember, Health Care Proxy Problem Specific Plan: Consult Specialist Problem Text: D1 renal dosed ceftaroline (D3 linezolid/meropenem) favor UTI/scrotal wound source 09/21/16 BCX x 1 MRSA, BCX x 1 E. coli 09/24/16 improved, given BCX results, abx changed to ceftaroline given thrombocytopenia 09/23/2016: c multiple organ dysfunction, WBC to 35K (09/22 19K), LA to 11! c EARNEST stage 3 c oliguria/metabolic acidosis/hyperK and probable DIC Continues on vasopressin gtt. Oxygen saturations stable on RA Wishes to proceed with all medical intervention. Discussed with Dr. Golden. Dr. Kraft, nephrology consulted I had a long discussion with the patient's and confirmed that his code status is Full Code (2) Cellulitis of scrotum Status: Acute Response to Treatment: Stable Problem Text: 09/24/16 consulted patient's Urologist, Dr. Ramírez re opinion, ? debridement 09/23/16 scrotal US STS s s abscess (3) Elevated LFTs Status: Acute Problem Text: AST 1575 ALT 1080 09/23/16 RUQ NAD (4) UTI (urinary tract infection) Status: Acute Problem Text: rx as per septic shock (5) Acute kidney injury superimposed on CKD Status: Acute Problem Specific Plan: Consult Specialist Problem Text: stable cr/lytes (6) Benign prostatic hyperplasia Status: Chronic Problem Text: Holding tamsulosin and finasteride. + hx of urinary retention. Follows with Dr. Ramírez outpatient. (7) Congestive heart failure (CHF) Status: Chronic Problem Text: No evidence of fluid overload at the moment, but this could become a concern in the future as he has required significant fluid resuscitation and likely needs more in the future. Holding Torsemide / EARNEST (8) Hyperlipidemia Status: Chronic Problem Text: statin held 2 liver failure Plan/VTE VTE Prophylaxis Ordered?: No VTE Exclusion Pharmacological: Bleeding Risk (supratherapeutic INR) VS, I&O, 24H, Fishbone Vital Signs/I&O Vital Signs Date Time Temp Pulse Resp B/P Pulse Ox O2 Delivery O2 Flow Rate FiO2 09/24/16 08:00 98.0 90 20 91/52 96 Room Air 09/23/16 01:00 3.0 I&O- Last 24 Hours up to 6 AM 09/24/16 06:00 Intake Total 1142.5 ml Output Total 2290 ml Balance -1147.5 ml Laboratory Data 24H LABS Laboratory Tests 2 09/23/16 12:04: Bedside Glucose (Misc Panel) 251H 09/23/16 16:31: Activated Partial Thromboplast Time 38.8H, Aspartate Amino Transf (AST/SGOT) 745H, Alanine Aminotransferase (ALT/SGPT) 890H, Alkaline Phosphatase 62, Total Bilirubin 1.6H, Direct Bilirubin 1.0H, Albumin 2.3L, Albumin/Globulin Ratio 0.72L, Blood Urea Nitrogen 55H, Creatinine 4.53H, Sodium Level 143, Potassium Level 4.3#, Chloride Level 108H, Carbon Dioxide Level 18L, Anion Gap 17H, Band Neutrophils 20H, Calcium Level 6.9L, Dohle Bodies 1+, Fibrinogen 752H, Glomerular Filtration Rate 13.2L, Lymphocytes (Manual) 1L, Metamyelocytes 2H, Monocytes (Manual) 1, Neutrophils 76H, Phosphorus Level 4.5#, Platelet Estimate DECREASED, Prothromb Time International Ratio 3.76, Prothrombin Time 37.1H, Total Protein 5.5L, Toxic Vacuolation 2+ 09/23/16 17:35: Bedside Glucose (Misc Panel) 178H 09/23/16 21:53: Bedside Glucose (Misc Panel) 124H 09/24/16 00:03: Bedside Glucose (Misc Panel) 106 09/24/16 04:48: Blood Urea Nitrogen 61H, Creatinine 4.52H, Sodium Level 143, Potassium Level 3.8 , Chloride Level 109H, Carbon Dioxide Level 22, Calcium Level 6.5L, Aspartate Amino Transf (AST/SGOT) 410H, Alanine Aminotransferase (ALT/SGPT) 658H, Alkaline Phosphatase 66, Total Bilirubin 1.9H, Total Protein 5.6L, Albumin 2.2L , Albumin/Globulin Ratio 0.65L, Anion Gap 12, Glomerular Filtration Rate 13.2L, Prothromb Time International Ratio 2.23, Prothrombin Time 24.8H 09/24/16 04:57: Bedside Glucose (Misc Panel) 102 CBC/BMP Laboratory Tests 09/23/16 16:31 Anion Gap 17 H, Red Blood Count 3.64 L, Mean Corpuscular Volume 95.6, Mean Corpuscular Hemoglobin 30.7, Mean Corpuscular Hemoglobin Concent 32.1, Red Cell Distribution Width 15.2 H 09/24/16 04:48 Red Blood Count 3.53 L, Mean Corpuscular Volume 93.5, Mean Corpuscular Hemoglobin 30.9, Mean Corpuscular Hemoglobin Concent 33.0, Red Cell Distribution Width 15.3 H, Calcium Level 6.5 L, Aspartate Amino Transf (AST/SGOT ) 410 H, Alanine Aminotransferase (ALT/SGPT) 658 H, Alkaline Phosphatase 66, Total Bilirubin 1.9 H, Total Protein 5.6 L, Albumin 2.2 L Microbiology Microbiology 09/24/16 Blood Culture, Received Pending 09/23/16 Blood Culture, Received Pending 09/21/16 Blood Culture - Preliminary, Resulted 09/21/16 Blood Culture - Final, Complete Staph.aureus Methicillin Resis Escherichia Coli 09/23/16 Clostridium difficile (PCR) - Final, Complete 09/21/16 Influenza Virus Type A Antigen - Final, Complete 09/21/16 Influenza Virus Type B Antigen - Final, Complete 09/21/16 Urine Culture - Final, Complete Escherichia Coli Ani Geller Sep 24, 2016 10:16 Jeffery Daily M.D. Sep 24, 2016 12:31
[2016-09-24] MEDS: D5W/0.9% SODIUM CHLORIDE 1,000 ML IV SCH (10:43)
--- NOTE | 2016-09-24 10:50 | CR ---
DATE OF CONSULTATION: 09/23/2016 I was asked to consult by Ani Geller NP for septic shock with staphylococcus aureus sepsis. HISTORY OF PRESENT ILLNESS: Mr. Avila is an 86-year-old gentleman who was hospitalized in July for 10 days with sepsis and urinary tract infection with indwelling Peters catheter. The patient had Escherichia (E) coli, urinary tract infection (UTI) then. He was then transferred to [facility] where he was there for rehabilitation until 09/15/2016. The patient was home for about a week. He was seen at Dr. Ramírez's office about a week prior to admission when he had his Peters catheter changed, which was uneventful. He was brought because of altered mental status. The patient was noted to be hypotensive, septic. He received intravenous (IV) fluid bolus of 500 mL. He was started on vasopressin and Levophed. The patient was treated with broad-spectrum antibiotics, including gentamicin and cefepime. He was transferred to the intensive care unit (ICU). Today, the patient was seen. His was not available, but his nurse stated that he was having perfused mucusy diarrhea. He was also complaining of significant scrotal swelling on the right side. His scrotum was excoriated, purplish in color and very painful. He was tachypneic but he was not hypoxic. The patient did not have a significant cough or abdominal pain. On admission, his white count was 6. Yesterday, his white count was up to 19.3, today it was 35.2. He was in acute renal failure and hyperkalemic. His past medical history is significant for severe recurrent urinary tract infection, urinary retention, benign prostatic hypertrophy (BPH), has a chronic Peters catheter for about 2 months, which is changed by Dr. Ramírez's office. 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 PAST SURGICAL HISTORY: Cystoscopy 2012 and 2015, urethral stricture dilatation FAMILY HISTORY: Father of CVA , mother metastatic breast cancer. SOCIAL HISTORY: He is a nonsmoker. He denies alcohol use. He lives with his . He was in the long term for about was 6 weeks and just went home about a week ago. ALLERGIES: VANCOMYCIN causes a rash. REVIEW OF SYSTEMS: Could not be obtained due to the fact that the patient was confused. He was complaining of scrotal pain and pain when he moved around. He was tachypneic but not hypoxic. He has a Peters catheter and was draining pretty clear urine. On physical exam, sick-looking gentleman in moderate discomfort when moved around. Temperature is 97.9, pulse 90, respirations 24, blood pressure 98/63, oxygen saturation 96% on room air. He has been afebrile during this admission there. Head/ENT: Oropharynx dry mucosa. Pupils equal and reactive. Skin has rosacea with scaling on the cheeks. Oropharynx with no lesions or thrush. Neck is supple. Heart: Normal S1, S2 with a systolic ejection murmur 2/6 best heard at the left upper sternal border. Lungs: Few exterior wheezes anteriorly. Diminished at the bases. Abdomen is soft, nontender. Positive bowel sounds. Genitourinary () exam: Penis looks normal, scrotum, right testicle is swollen with purplish discoloration, very tender to touch. Left testicle is normal in size and shape. Peters catheter draining clear urine. Extremities: No clubbing or cyanosis or edema. He has multiple psoriatic plaques with excoriations on his upper thigh. He has scaly lesions on his knees. LABORATORY DATA: White count 35.2, hemoglobin 12.1, hematocrit 38.9, platelets 66. Sodium 143, potassium 4.3, chloride 108, bicarbonate 18, BUN 55, creatinine 4.5, glucose 202, calcium 6.9, phosphorus 4.5, bilirubin is 1.7, AST 1575, ALT 108, alkaline phosphatase 66, albumin 2.4. AST on admission was 11. Blood cultures done on 09/11/2016 are positive for Staphylococcus aureus and 1 out of 2 sets also has gram-negative rods. Influenza A and B was negative. Urine culture is pending. C difficile was sent this afternoon, is pending. Scrotal ultrasound was done stat. It was read as bilateral hydroceles and soft tissue swelling. No obvious abscess noted. Abdominal ultrasound is pending. Chest x-ray from showed an increase in interstitial marking suggestive of congestion. No acute processes is noted. Head CT showed symmetric ventricles. There is some deep white matter changes. No evidence of acute hemorrhage or infarct. Only severe age-related changes. IMPRESSION: This is an 86-year-old gentleman who is admitted to the ICU with severe septic shock, hypertension, acute liver injury from hypotension, acute kidney injury, who has positive blood culture with Staphylococcus aureus, most likely will be MRSA, and also 1 out of 2 culture gram-negative. He also has developed diarrhea since admission, which is mucoid and stool has been sent for Clostridium difficile. Jump in his white count is concerning for development of superimposed C difficile. 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 The testicular ultrasound has been ordered stat and it was just read as testicular swelling. The source of infection is obviously of urinary origin. PLAN: Continue with linezolid 600 mg IV every 12 hours as the patient is allergic to vancomycin. Continue with meropenem for gram-negative coverage. The dose will be decreased from 1 gram every 8 hours to 1 gram every 24 as has acute kidney injury and his creatinine is over 4. Continue with vasopressin, which is being tapered at this time. I have discussed the case with Dr. Ramírez and have ordered scrotal ultrasound, but I would suggest to obtain formal consultation from urology tomorrow to evaluate for this scrotal swelling. The patient also has candidiasis in pelvic genital folds and nystatin powder has been ordered. Triamcinolone cream for psoriatic plaques was also ordered. Will continue to follow. Probably when patient is more stable and off pressors, he would benefit from a CT abdomen and pelvis to look for an occult code abscess that may need drainage. [facility]
[2016-09-24] MEDS ORDERED: ALBUTEROL SULFATE 2.5 MG/0.5 ML INH NEB SOLN NEB PRN (12:45)
[2016-09-24] MEDS ORDERED: MEROPENEM INJ 1 GM in D5W MINI-BAG PLUS 100 ML IV SCH (13:00)
--- NOTE | 2016-09-24 13:29 | IPN ---
DATE: 09/24/2016 Mr. Avila seems to be doing much better today. He is still confused but he is off pressors. He is afebrile. He denies any pain unless he is being examined. His pain is mostly in the testicular area. Temperature is 98, pulse 90, respirations 20, blood pressure 91/52, oxygen saturation 96% on room air. HEART: Normal S1, S2, distant. LUNGS: Diminished breath sounds at the bases but clear. ABDOMEN: Soft, nontender. No hepatosplenomegaly. EXTREMITIES: Trace edema bilaterally. +1 pulses. No cyanosis. 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 GENITOURINARY () EXAM: Right testicle is swollen and large, tender to touch with purplish discoloration, well demarcated area. LABORATORY DATA: White count is 27.1, hemoglobin 10.9, hematocrit 33, platelets 72. Sodium 143, potassium 3.8, chloride 109, bicarbonate 22, BUN 61, creatinine 4.5, his normal kidney function is 1.5, glucose 102, calcium 6.5, bilirubin is 1.9, AST 410 down from 1575, ALT 658 down from 1088, albumin 2.2. Urinalysis has many white cells, many red cells. Urine culture had Escherichia (E) coli. Blood culture had E. coli and methicillin-resistant Staphylococcus aureus (MRSA). Repeat blood cultures were done today and yesterday, are pending. IMAGING STUDIES: Scrotal ultrasound done yesterday showed scrotal wall thickening, nonspecific, small to moderate hydroceles. IMPRESSION: 1. Septic shock with positive blood cultures. Is of urine origin. 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 2. Escherichia (E) coli urinary tract infection (UTI). Catheter associated. Patient has a history of urinary incontinence and has had a chronic Peters catheter for about a couple months. 3. Diarrhea, mucoid but Clostridium (C) difficile negative. Will continue to monitor. 4. Acute renal failure. The patient's baseline kidney function creatinine is 1.3 to 1.5. 5. Thrombocytopenia related to sepsis and septic shock. PLAN: Discontinue IV linezolid as it is bactericidal, not bacteriostatic, and has a tendency to cause thrombocytopenia. Switch him to ceftaroline 300 mg every 12 hours which is renally dosed. Once his kidney function returns to normal, please increase his dose back to 600 every 12 hours and discontinue meropenem. Case has been discussed with Dr. Daily. Please consult urology for evaluation of testicular swelling. I discussed with his as well that Peters catheters increase patient risk of urinary tract infection and sepsis and probably he would do better with Depends and incontinence.
[2016-09-24] MEDS: CEFTAROLINE FOSAMIL 300 MG in D5W 50 ML IV SCH (14:36)
--- NOTE | 2016-09-24 16:30 | EDDOCDS ---
Physician Documentation [facility] Name: Mariano Avila Age: 86 yrs Sex: Male : 1930 Arrival Date: 09/21/2016 Time: 23:20 Bed Admit Hold Private MD: Disposition: 09/22 03:33 Critical Care:. cs11 Disposition: 09/22/16 03:38 Hospitalization ordered by Jean Carlos Nicole for Inpatient Admission. Preliminary diagnosis are Sepsis, unspecified organism, Hypotension, Fever, unspecified. - Bed requested for M ICU. - Status is Inpatient Admission. mcp - Condition is Stable. - Problem is new. - Symptoms have improved. Historical: - Allergies: Vancomycin (Rash); - Home Meds: 1. torsemide 5 mg oral tab 1 tab once daily (Last dose: 09/21/2016 09:00) 2. prednisone 7.5mg Oral tab once daily (Last dose: 09/21/2016 09:00) 3. glipizide 5 mg oral tab 1 tab once daily (Last dose: 09/21/2016 09:00) 4. atorvastatin 20 mg oral tab 1 tab once daily (Last dose: 09/21/2016 09:00) 5. Zyrtec 10 mg Oral tab 1 tab once daily (Last dose: 09/20/2016) 6. famotidine 40 mg Oral tab 1 tab 2 times per day (Last dose: 09/21/2016 09:00) 7. Proscar 5 mg Oral tab once daily (Last dose: 09/21/2016 09:00) 8. Singulair 10 mg Oral tab once daily (Last dose: 09/21/2016 09:00) 9. Flomax 0.4 mg Oral cp24 1 cap once daily (Last dose: 09/21/2016 09:00) 10. Vitamin D Oral 50,000 unit every 2 weeks 11. Coumadin 1 mg Oral tab 1 tab tuesday 1mg on Tuesday, 2mg rest of week 12. Coumadin 2 mg Oral tab 1 tab tuesday,tuesday,,tuesday - PMHx: Asthma; CHF; Diabetes - NIDDM: controlled; Hypercholesterolemia; Hypertension; Pulmonary Embolism; UTI; - Social history: Smoking status: Patient states was never smoker of tobacco. No barriers to communication noted, The patient speaks fluent Portuguese. - Family history: Not pertinent. - : The pt / caregiver states he / she is on anticoagulants: coumadin. Home medication list is obtained from a discharge med list. - Exposure Risk Screening:: None identified. Vital Signs: 09/21 23:00 BP 76 / 52; Pulse 138; Resp 32; Temp 106.4(R); Pulse Ox 88% on R/A; cf2 09/22 00:00 BP 86 / 51; Pulse 132; Resp 24; Temp 105.2(R); Pulse Ox 92% on 3 lpm NC; Pain 0/10; cf2 00:11 Pulse 136 MON; Pulse Ox 97% ; cf2 00:12 BP 76 / 45 (auto/); cf2 00:14 Pulse 136 MON; Pulse Ox 96% ; cf2 00:16 Pulse 136 MON; Pulse Ox 96% ; cf2 00:18 Pulse 136 MON; Pulse Ox 96% ; cf2 00:20 Pulse 137 MON; Pulse Ox 96% ; cf2 00:23 Pulse 136 MON; Pulse Ox 96% ; cf2 00:26 Pulse 134 MON; Pulse Ox 96% ; cf2 00:28 Pulse 134 MON; Pulse Ox 96% ; cf2 01:00 BP 90 / 51; Pulse 124; Resp 22; Temp 102.3(R); Pulse Ox 96% on 3 lpm NC; Pain 0/10; cf2 01:50 Pulse 121 MON; Pulse Ox 97% ; cf2 01:54 Pulse 120 MON; Pulse Ox 97% ; cf2 01:58 Pulse 119 MON; Pulse Ox 96% ; cf2 02:01 Pulse 117 MON; Pulse Ox 97% ; cf2 02:06 Pulse 115 MON; Pulse Ox 97% ; cf2 02:06 BP 77 / 45 (auto/); cf2 02:07 BP 75 / 50 (auto/); cf2 02:07 Pulse 114 MON; Pulse Ox 96% ; cf2 02:36 BP 59 / 43 (auto/); cf2 02:36 Pulse 111 MON; Pulse Ox 97% ; cf2 02:36 Temp 101.1(R); cf2 02:39 BP 64 / 41 (auto/); cf2 02:40 Pulse 109 MON; Pulse Ox 97% ; cf2 02:41 Pulse 109 MON; Pulse Ox 97% ; cf2 02:41 BP 62 / 43 (auto/); cf2 02:44 Pulse 108 MON; Pulse Ox 98% ; cf2 02:44 BP 59 / 37 (auto/); cf2 02:51 BP 62 / 40 (auto/); cf2 02:52 BP 61 / 42 (auto/); cf2 02:52 Pulse 105 MON; Pulse Ox 98% ; cf2 02:53 Pulse 105 MON; Pulse Ox 97% ; cf2 02:57 BP 64 / 44 (auto/); cf2 02:58 Pulse 103 MON; Pulse Ox 98% ; cf2 03:02 BP 66 / 45 (auto/); cf2 03:03 Pulse 103 MON; Pulse Ox 97% ; cf2 03:07 BP 61 / 40 (auto/); cf2 03:08 Pulse 103 MON; Pulse Ox 97% ; cf2 03:12 Pulse 103 MON; Pulse Ox 97% ; cf2 03:12 BP 59 / 44 (auto/); cf2 03:17 Pulse 100 MON; Pulse Ox 97% ; cf2 03:17 BP 61 / 41 (auto/); cf2 03:22 BP 64 / 42 (auto/); cf2 03:23 Pulse 98 MON; Pulse Ox 98% ; cf2 03:27 Pulse 98 MON; Pulse Ox 97% ; cf2 03:27 BP 64 / 41 (auto/); cf2 03:32 Pulse 99 MON; Pulse Ox 98% ; cf2 03:32 BP 61 / 40 (auto/); cf2 03:37 Pulse 98 MON; Pulse Ox 97% ; cf2 03:37 BP 65 / 38 (auto/); cf2 03:42 BP 65 / 43 (auto/); cf2 03:42 Pulse 97 MON; Pulse Ox 97% ; cf2 03:47 Pulse 98 MON; Pulse Ox 96% ; cf2 03:47 BP 63 / 44 (auto/); cf2 03:52 BP 65 / 46 (auto/); cf2 03:53 Pulse 97 MON; Pulse Ox 96% ; cf2 03:57 Pulse 96 MON; Pulse Ox 99% ; cf2 03:57 BP 70 / 44 (auto/); cf2 04:02 Pulse 95 MON; Pulse Ox 99% ; cf2 04:02 BP 69 / 43 (auto/); cf2 04:07 BP 73 / 48 (auto/); cf2 04:08 Pulse 95 MON; Pulse Ox 99% ; cf2 04:12 BP 71 / 46 (auto/); cf2 04:13 Pulse 94 MON; Pulse Ox 98% ; cf2 04:17 BP 70 / 47 (auto/); cf2 04:18 Pulse 94 MON; Pulse Ox 99% ; cf2 04:22 BP 73 / 49 (auto/); cf2 04:23 Pulse 95 MON; Pulse Ox 98% ; cf2 04:27 BP 72 / 49 (auto/); cf2 04:27 Pulse 96 MON; Pulse Ox 100% ; cf2 04:52 Pulse 95 MON; Pulse Ox 100% ; cf2 04:52 BP 69 / 39 (auto/); cf2 04:52 Temp 98.6(R); cf2 04:57 Pulse 94 MON; Pulse Ox 99% ; cf2 04:57 BP 76 / 44 (auto/); cf2 05:02 BP 78 / 44 (auto/); cf2 05:03 Pulse 94 MON; Pulse Ox 100% ; cf2 05:07 BP 79 / 45 (auto/); cf2 05:08 Pulse 95 MON; Pulse Ox 100% ; cf2 05:12 Pulse 96 MON; Pulse Ox 99% ; cf2 05:12 BP 63 / 35 (auto/); cf2 05:17 Pulse 96 MON; Pulse Ox 99% ; cf2 05:17 BP 97 / 52 (auto/); cf2 05:22 Pulse 95 MON; Pulse Ox 100% ; cf2 05:22 BP 105 / 41 (auto/); cf2 05:27 Pulse 95 MON; Pulse Ox 100% ; cf2 05:27 BP 80 / 38 (auto/); cf2 05:32 BP 74 / 40 (auto/); cf2 05:33 Pulse 96 MON; Pulse Ox 99% ; cf2 05:37 BP 69 / 41 (auto/); cf2 05:38 Pulse 96 MON; Pulse Ox 99% ; cf2 05:42 BP 70 / 43 (auto/); cf2 05:43 Pulse 96 MON; Pulse Ox 99% ; cf2 05:47 BP 68 / 44 (auto/); cf2 05:48 Pulse 95 MON; Pulse Ox 99% ; cf2 05:52 BP 70 / 46 (auto/); cf2 05:53 Pulse 95 MON; Pulse Ox 99% ; cf2 05:57 BP 66 / 41 (auto/); cf2 05:58 Pulse 96 MON; Pulse Ox 99% ; cf2 06:02 BP 70 / 44 (auto/); cf2 06:03 Pulse 96 MON; Pulse Ox 99% ; cf2 06:07 BP 69 / 42 (auto/); cf2 06:08 Pulse 96 MON; Pulse Ox 98% ; cf2 06:12 BP 72 / 45 (auto/); cf2 06:13 Pulse 95 MON; Pulse Ox 98% ; cf2 06:17 BP 69 / 44 (auto/); cf2 06:18 Pulse 95 MON; Pulse Ox 99% ; cf2 06:22 BP 68 / 43 (auto/); cf2 06:23 Pulse 95 MON; Pulse Ox 97% ; cf2 06:27 Pulse 94 MON; Pulse Ox 99% ; cf2 06:27 BP 67 / 44 (auto/); cf2 06:32 BP 67 / 45 (auto/); cf2 06:33 Pulse 95 MON; Pulse Ox 98% ; cf2 06:37 Pulse 94 MON; Pulse Ox 98% ; cf2 06:37 BP 128 / 50 (auto/); cf2 06:40 Pulse 95 MON; Pulse Ox 98% ; cf2 06:40 BP 76 / 42 (auto/); cf2 06:42 BP 67 / 37 (auto/); cf2 06:43 Pulse 94 MON; Pulse Ox 99% ; cf2 06:47 BP 71 / 40 (auto/); cf2 06:47 Pulse 94 MON; Pulse Ox 99% ; cf2 Procedures: 03:33 Central Line: the site was prepped with Betadine, in sterile fashion, a triple lumen cs11 catheter was inserted, in the right internal jugular vein, placement was verified, by CXR, by blood return, the site was dressed with Tegaderm, the patient tolerated the procedure, well. MDM: 09/21 23:36 -Blood Culture (Adults Only), peripheral from different site, or from device/port/PICC cs11 etc. if present ordered. 23:36 NS 0.9% 500 ml IV at bolus once ordered. cs11 23:36 Acetaminophen Tablet 975 mg PO once; PO/WY ordered. cs11 23:36 Misc. Nursing Order ordered. cs11 23:38 Chest, 1 View Ordered. EDMS 23:38 -Blood Culture Ordered. EDMS 23:38 Lactic Acid (Jones tube on ice) Ordered. EDMS 23:38 CBC with Diff Ordered. EDMS 23:38 MED Profile Ordered. EDMS 23:38 Liver Profile Ordered. EDMS 23:38 Pt & Aptt Ordered. EDMS 23:38 Urinalysis Ordered. EDMS 23:38 Urine Culture Ordered. EDMS 23:38 -Influenza A&B Rapid Antigen - Nose Ordered. EDMS 23:38 Piperacillin-Tazobactam 3.375 grams IVPB once over 30 mins; dilute in 50mL of NS or D5W cs11 ordered. 23:38 Imipenem-Cilastatin 500 mg IVPB at 100 mL/hr once over 1 hrs; reconstitute first with cs11 10mL of NS, then add to 100mL of NS ordered. 23:39 -Blood Culture (Adults Only), peripheral from different site, or from device/port/PICC ml3 etc. if present complete. 23:41 BLOOD CULTURES Ordered. EDMS 09/22 00:07 CREATINE PHOSPHOKINASE Ordered. EDMS 00:07 THYROID PROFILE Ordered. EDMS 00:29 DIFFERENTIAL NO CHARGE Ordered. EDMS 00:32 CBC with Diff Reviewed. cs11 00:32 Pt & Aptt Reviewed. cs11 00:44 Lactic Acid (Jones tube on ice) Reviewed. cs11 00:44 MED Profile Reviewed. cs11 00:44 Liver Profile Reviewed. cs11 00:44 CREATINE PHOSPHOKINASE Reviewed. cs11 00:44 -Influenza A&B Rapid Antigen - Nose Reviewed. cs11 00:44 THYROID PROFILE Reviewed. cs11 01:03 Financial registration complete. pm4 01:20 CBC with Diff Reviewed. cs11 01:20 PLATELET ESTIMATE Reviewed. cs11 01:20 CT Head Without Contrast Ordered. EDMS 01:20 Ibuprofen (10mg/kg) Suspension 600 mg PO once; not to exceed 800 milligrams ordered. cs11 01:27 NS 0.9% 500 ml IV at bolus once ordered. cs11 01:31 [facility] Payment Agreement was scanned into [employer] and attached to record. pm4 02:23 Urinalysis Reviewed. cs11 02:23 CT Head Without Contrast Reviewed. cs11 02:24 NS 0.9% 500 ml IV at bolus once ordered. cs11 02:41 Norepinephrine (8mg/500mL D5W, 2mcg/min) 5 mcg/min IVPB at calculated rate continuous; cs11 Titrate 5mcg/min q5min to maintain SBP > 90mmHg. ordered. 02:43 BED REQUEST+ADM ordered. EDMS 03:01 Phytonadione 5 mg Sub-Q once ordered. cs11 03:14 Written Provider Order was scanned into [employer] and attached to record. ml3 03:20 Admission / Observation Status ordered. EDMS 03:21 CBC WITH DIFFERENTIAL Ordered. EDMS 03:21 ARTERIAL BLOOD GAS Ordered. EDMS 03:21 LACTIC ACID LEVEL, LACTATE Ordered. EDMS 03:33 Chest, 1 View Ordered. EDMS 04:14 Acetaminophen Tablet 975 mg PO once; PO or WY ordered. cs11 05:47 DIFFERENTIAL NO CHARGE Ordered. EDMS 05:47 PLATELET ESTIMATE Ordered. EDMS 06:00 Fingerstick Blood Sugar Ordered. EDMS 08:17 RENAL PROFILE Ordered. EDMS 08:17 CORTISOL AM Ordered. EDMS 08:17 LACTIC ACID LEVEL, LACTATE Ordered. EDMS 09:28 T-Sheet-- Draft Copy was scanned into [employer] and attached to record. klr 09:51 ALBUMIN 5% Ordered. EDMS 09:51 ALBUMIN 5% Ordered. EDMS 12:34 Fingerstick Blood Sugar Ordered. EDMS Administered Medications: Discontinued: NS 0.9% 500 ml IV at bolus once Discontinued: Piperacillin-Tazobactam 3.375 grams IVPB once over 30 mins; dilute in 50mL of NS or D5W Discontinued: Imipenem-Cilastatin 500 mg IVPB at 100 mL/hr once over 1 hrs; reconstitute first with 10mL of NS, then add to 100mL of NS Discontinued: NS 0.9% 500 ml IV at bolus once Discontinued: NS 0.9% 500 ml IV at bolus once 09/21 23:38 Drug: NS 0.9% 500 ml [sodium chloride 0.9 % intravenous solution] Route: IV; Rate: cf2 bolus; Site: left antecubital; 23:38 Drug: Acetaminophen 975 mg [acetaminophen 325 mg tablet (3 tabs)] Route: PO; cf2 09/22 04:50 Follow up: Response: Temperature is decreased cf2 00:40 Drug: Imipenem-Cilastatin 500 mg [imipenem-cilastatin 500 mg intravenous solution] cf2 Route: IVPB; Rate: 100 mL/hr; Infused Over: 1 hrs; Site: left antecubital; 01:10 Drug: Piperacillin-Tazobactam 3.375 grams [piperacillin-tazobactam 3.375 gram cf2 intravenous solution] Route: IVPB; Infused Over: 30 mins; Site: right hand; 01:39 Drug: NS 0.9% 500 ml [sodium chloride 0.9 % intravenous solution] Route: IV; Rate: cf2 bolus; Site: left antecubital; 02:29 Drug: NS 0.9% 500 ml [sodium chloride 0.9 % intravenous solution] Route: IV; Rate: cf2 bolus; Site: left antecubital; 02:54 Not Given (PATIENT UNABLE TO TOLERATE PO ): Ibuprofen (10mg/kg) Suspension 600 mg PO cf2 once; not to exceed 800 milligrams 03:00 CANCELLED (Other Intervention Used): Phytonadione 5 mg IVP once aug 03:06 Drug: Norepinephrine (8mg/500mL D5W, 2mcg/min) 5 mcg/min [norepinephrine bitartrate 1 cf2 mg/mL intravenous solution] Route: IVPB; Rate: calculated rate; Site: left antecubital; 03:10 Drug: Phytonadione 5 mg [phytonadione (vitamin K1) 10 mg/mL injection solution (0.5 cf2 mL)] Route: Sub-Q; Site: left upper arm; 04:50 Follow up: Response: No significant change. cf2 04:29 Drug: Acetaminophen 975 mg [acetaminophen 325 mg tablet (3 tabs)] Route: PO; cf2 04:48 Follow up: Response: Temperature is decreased cf2 Critical Care Time: 03:33 Critical care time: Bedside Care: 180 minutes. Total time: 180 minutes cs11 Signatures: Dispatcher [employer] EDDC Monik Keith RN RN jan Peters, Mary, RN RN mcp Lopresti, Mary-Elizabeth, Supply Clerk Unit ml3 Cornelius Heredia DO DO cs11 Jen Cornejo Christina, RN RN cf2 Reno Titus, Reg Reg pm4 The chart was reviewed and I authenticate all verbal orders and agree with the evaluation and treatment provided.Corrections: (The following items were deleted from the chart) 00:07 09/21 23:40 CREATINE PHOSPHOKINASE+LAB ordered. EDMS EDMS 09/22 00:08 02/14 23:40 THYROID PROFILE+LAB ordered. EDMS EDMS 09/22 03:00 02:55 Phytonadione 5 mg IVP once ordered. cs11 aug 08: 08:10 CORTISOL BASELINE ordered. EDMS EDMS 10: 09:27 ALBUMIN 25% ordered. EDMS EDMS Attachments: 01:31 [facility] Payment Agreement pm4 03:14 Written Provider Order ml3 09:28 T-Sheet-- Draft Copy klr Chart Complete MTDD
--- NOTE | 2016-09-24 17:25 | SMCUROLCON ---
Urology Consultation General Date of Consultation 09/24/16 Reason For Consultation This patient is seen for Septic Shock; Uti. History of Present Illness This is an 86 y/o M w/ a PMH significant for CHF, HL, HTN, and DM2, who was admitted to the hospital a few days ago for septic shock due to a urinary source. He has grown E. coli in his urine and MRSA and E. coli in his blood. He has been on broad spectrum antibiotics since admission and his WBC remains elevated, as high as 27 this morning. He remains hypotensive in the ICU. The patient has had persistent scrotal tenderness and mild swelling. 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 The patient notes that he still has a lot of pain today. There has been no trauma to the area. Past Medical History Medical History see HPI Surgical Hstory see HPI Medications Current Medications Current Medications Acetaminophen (Tylenol Tab) 650 mg Q4HP PRN PO MILD PAIN OR FEVER; Start at 03:15; Stop 10/22/16 at 03:14 Albuterol Sulfate (Proventil Neb) 2.5 mg Q2HP PRN NEB SOB/WHEEZING; Start 09/24 at 12:45; Stop 10/24/16 at 12:44 Albuterol/ Ipratropium (Duoneb (Ipr 0.5mg/Alb 2.5mg)) 3 ml Q2HP PRN NEB SOB/ WHEEZING; Start 09/22/16 at 04:00; Stop 09/24/16 at 12:54; Status DC Albuterol/ Ipratropium (Duoneb (Ipr 0.5mg/Alb 2.5mg)) 3 ml RQ8H NEB Last administered on 09/24/16 15:38; Start 09/22/16 at 08:00; Stop 10/22/16 at 07:59 Atorvastatin Calcium (Lipitor) 20 mg DAILY PO Last administered on 09/24/16 09 :35; Start 09/22/16 at 09:00; Stop 10/22/16 at 08:59 Budesonide/ Formoterol Fumarate (Symbicort 160/ 4.5mcg) 2 puff BID INH Last administered on 09/24/16 08:25; Start 09/22/16 at 09:00; Stop 10/22/16 at 08:59 Ceftaroline Fosamil/Dextrose (Teflaro/ Dextrose 5%) 50 ml @ 50 mls/hr Q12H IV Last administered on 09/24/16 14:36; Start 09/24/16 at 14:00; Stop 10/01/16 at 13:59 Cetirizine HCl (ZyrTEC) 10 mg QHS PO Last administered on 09/23/16 22:02; Start 09/22/16 at 21:00; Stop 10/22/16 at 20:59 Dextrose/Sodium Chloride 1,000 ml @ 60 mls/hr [id number] IV Last administered on 09/24/16 10:43; Start 09/24/16 at 09:45; Stop 10/24/16 at 09:44 Docusate Sodium (Colace) 100 mg BID PO Last administered on 09/23/16 08:31; Start 09/22/16 at 09:00; Stop 10/22/16 at 08:59 Finasteride (Proscar) 5 mg DAILY PO ; Start 09/22/16 at 09:00; Stop 09/22/16 at 09:00; Status DC Glucagon (Glucagon) 1 mg ASDIRECTED PRN SC SEE LABEL COMMENTS; Start 09/22/16 at 03:30; Stop 10/22/16 at 03:29 Glucose (Glucose) 16 GM ASDIRECTED PRN PO SEE LABEL COMMENTS; Start 09/22/16 at 03:30; Stop 10/22/16 at 03:29 Home Med (Med Rec Complete!) ASDIRECTED XX ; Start 09/22/16 at 03:45; Stop at 04:53; Status DC Insulin Human Lispro (HumaLOG INSULIN) SEE PROTOCOL TABLE Q6H SC Last administered on 09/24/16 16:57; Start 09/22/16 at 06:00; Stop 10/22/16 at 05:59 Linezolid 600 mg/ IV Miscellaneous Supplies 300 ml @ 150 mls/hr Q12H IV Last administered on 09/24/16 05:00; Start 09/22/16 at 18:00; Stop 09/24/16 at 11:38 ; Status DC Meropenem/Dextrose (Merrem/Dextrose 5% Mini-Bag Plus) 100 ml @ 200 mls/hr Q24H IV ; Start 09/24/16 at 13:00; Stop 09/24/16 at 13:00; Status DC Meropenem/Dextrose (Merrem/Dextrose 5% Mini-Bag Plus) 100 ml @ 200 mls/hr Q8H IV Last administered on 09/23/16 12:11; Start 09/22/16 at 05:00; Stop at 15:37; Status DC Methylprednisolone (SOLU medrol) 40 mg Q12H IV ; Start 09/24/16 at 20:00; Stop 10/24/16 at 19:59 Methylprednisolone 80 mg 80 mg Q8H IV Last administered on 09/24/16 08:15; Start 09/22/16 at 08:00; Stop 09/24/16 at 12:54; Status DC Montelukast Sodium (Singulair) 10 mg DAILY PO ; Start 09/22/16 at 09:00; Stop at 09:00; Status DC Norepinephrine Bitartrate 8 mg/ Dextrose 508 ml @ 37.5 mls/hr [id number] IV Last administered on 09/22/16 18:17; Start 09/22/16 at 03:15; Stop 10/22/16 at 03:14 ; Status Future Hold Nystatin (Mycostatin Powder, Nystop) groin area for 10 days BID TOP Last administered on 09/24/16 09:35; Start 09/23/16 at 21:00; Stop 10/03/16 at 09:01 Ondansetron HCl 4 mg 4 mg Q6HP PRN IV NAUSEA OR VOMITING; Start 09/22/16 at 03: 15; Stop 10/22/16 at 03:14 Pantoprazole Sodium (Protonix) 40 mg Q24H IV Last administered on 09/24/16 09: 35; Start 09/22/16 at 09:00; Stop 10/22/16 at 08:59 Prednisone (Deltasone) 10 mg DAILY PO ; Start 09/22/16 at 09:00; Stop 09/22/16 at 09:00; Status DC Sodium Chloride 1000 ml 1,000 ml 1T@0615 IV Last administered on 09/22/16 06: 15; Start 09/22/16 at 06:15; Stop 09/22/16 at 12:00; Status DC Tamsulosin HCl (Flomax) 0.4 mg DAILY PO ; Start 09/22/16 at 09:00; Stop at 09:00; Status DC Tiotropium Deer (Spiriva Handihaler) 1 inhalation DAILY@08 INH Last administered on 09/24/16 08:25; Start 09/22/16 at 08:00; Stop 10/22/16 at 07:59 Triamcinolone Acetonide knees thighs where rash BID TOP Last administered on 09:35; Start 09/23/16 at 21:00; Stop 10/23/16 at 20:59 Vasopressin 20 units/Sodium Chloride 501 ml @ 15 mls/hr Q24H IV Last administered on 09/23/16 09:29; Start 09/23/16 at 09:00; Stop 09/24/16 at 02:31 ; Status DC Vasopressin 20 units/Sodium Chloride 501 ml @ 1 mls/hr Q24H IV ; Start 09/22/16 at 08:00; Stop 10/22/16 at 07:59; Status Cancel Vasopressin 20 units/Sodium Chloride 501 ml @ 1 mls/hr Q24H IV ; Start 09/22/16 at 08:00; Stop 10/22/16 at 07:59; Status Cancel Vasopressin/ Sodium Chloride (Vasostrict (Pitressin)/Nacl 0.9%) 501 ml @ 60 mls /hr Q8H21M IV Last administered on 09/23/16 01:05; Start 09/22/16 at 08:00; Stop 09/23/16 at 08:59; Status DC Allergies Allergies: Coded Allergies: Vancomycin (Verified Allergy, Mild, RASH, 11/06/12) Review of Systems Constitutional: Denies: Fever Pulmonary: Denies: Cough, Dyspnea Cardiovascular: Denies Chest Pain, Denies Palpitations Gastrointestinal: Denies: Abdominal Pain, Nausea, Vomiting Genitourinary: Reports: Incontinence Psych: Reports: Mood Normal Physical Examination General Exam: : No Acute Distress ENT EXAM: : Atraumatic Chest Exam: : Normal air movement Heart Exam: : Rate Normal Abdomen Exam: : Soft Male Exam no penile or scrotal edema; catheter in place draining clear urine; no scrotal skin breakdown or necrosis; no crepitus on exam; moderately tender on palpation of the scrotum; there is mild erythema present Neuro Exam: : Normal Speech Psych Exam: : Mood NL Vital Signs/I&O Vital Signs Date Time Temp Pulse Resp B/P Pulse Ox O2 Delivery O2 Flow Rate FiO2 09/24/16 16:00 98.0 87 24 115/68 96 Room Air 09/23/16 01:00 3.0 I&O- Last 24 Hours up to 6 AM 09/24/16 05:59 Intake Total 1528.0 ml Output Total 2200 ml Balance -672.0 ml Laboratory Data 24H Labs Laboratory Tests 2 09/23/16 17:35: Bedside Glucose (Misc Panel) 178H 09/23/16 21:53: Bedside Glucose (Misc Panel) 124H 09/24/16 00:03: Bedside Glucose (Misc Panel) 106 09/24/16 04:48: Blood Urea Nitrogen 61H, Creatinine 4.52H, Sodium Level 143, Potassium Level 3.8 , Chloride Level 109H, Carbon Dioxide Level 22, Calcium Level 6.5L, Aspartate Amino Transf (AST/SGOT) 410H, Alanine Aminotransferase (ALT/SGPT) 658H, Alkaline Phosphatase 66, Total Bilirubin 1.9H, Total Protein 5.6L, Albumin 2.2L , Albumin/Globulin Ratio 0.65L, Anion Gap 12, Glomerular Filtration Rate 13.2L, Prothromb Time International Ratio 2.23, Prothrombin Time 24.8H 09/24/16 04:57: Bedside Glucose (Misc Panel) 102 09/24/16 11:51: Bedside Glucose (Misc Panel) 147H CBC/BMP Laboratory Tests 09/24/16 04:48 Calcium Level 6.5 L, Aspartate Amino Transf (AST/SGOT) 410 H, Alanine Aminotransferase (ALT/SGPT) 658 H, Alkaline Phosphatase 66, Total Bilirubin 1.9 H, Total Protein 5.6 L, Albumin 2.2 L, Red Blood Count 3.53 L, Mean Corpuscular Volume 93.5, Mean Corpuscular Hemoglobin 30.9, Mean Corpuscular Hemoglobin Concent 33.0, Red Cell Distribution Width 15.3 H FSBS Laboratory Tests Test 09/23/16 17:35 09/23/16 21:53 09/24/16 00:03 09/24/16 04:57 Range/Units Bedside Glucose (Misc Panel) 178 124 106 102 83-110 MG/DL Test 09/24/16 11:51 Range/Units Bedside Glucose (Misc Panel) 147 83-110 MG/DL Microbiology Microbiology 09/24/16 Blood Culture, Received Pending 09/23/16 Blood Culture - Preliminary, Resulted No growth after 24 hours . All specim... 09/21/16 Blood Culture - Preliminary, Resulted 09/21/16 Blood Culture - Final, Complete Staph.aureus Methicillin Resis Escherichia Coli 09/23/16 Clostridium difficile (PCR) - Final, Complete 09/21/16 Influenza Virus Type A Antigen - Final, Complete 09/21/16 Influenza Virus Type B Antigen - Final, Complete 09/21/16 Urine Culture - Final, Complete Escherichia Coli Assessment This is an 86 y/o M admitted a few days ago for septic shock due to a urinary source. His exam is not consistent w/ Bijan's gangrene. There might be mild cellulitis, potentially from a yeast infection. No surgical treatment is needed at this time. Plan - no surgical treatment is needed at this time - continue antibiotics per ID - would recommend catheter removal when ok per primary team as his catheter was placed per patient's request due to large amounts of urinary incontinence and not urinary retention - if his catheter is removed, please check a PVR to make sure the patient is still emptying his bladder well MYKE GONZALEZ MD Sep 24, 2016 17:25
[2016-09-24] MEDS: methylPREDNISolone INJ 40 MG/1 ML VIAL (J2920) IV SCH (21:20)
[2016-09-24] MEDS: CETIRIZINE (ZyrTEC) 10 MG TAB PO SCH (21:20)
--- NOTE | 2016-09-24 22:35 | IPN ---
DATE: 09/24/2016 Mr. Avila is seen this morning on his bedside. He remains confused, however, was able to tell my name correctly today. Yesterday, he could not recognize me. The patient has been off Levophed and nursing staff reports that he was able to take some sips of liquid by mouth. The patient himself is not able to provide much information otherwise. PHYSICAL EXAMINATION: Temperature 98.2 degrees Fahrenheit, heart rate 86 per minute and respiratory rate 20 per minute. Blood pressure is 90/55 mmHg and oxygen saturation 96% on room air. Intake and output records from yesterday showed total intake 1628 and output 1945. His neck veins are difficult to be assessed. His head is atraumatic and face is flushed with cushingoid features. Neck is supple and he has a central line in his internal jugular vein. Heart: Sounds are regular. Lungs have a few basilar crackles. Abdomen: Soft and nontender. Bowel sounds are normal. Extremities: Without any cyanosis or clubbing. Neurologically, he remains somewhat confused and disoriented. Today's labs show WBC count 27.1, hemoglobin 10.9 and hematocrit 33.0. Platelets 72,000. Sodium 143 and potassium 3.8. BUN 61 and creatinine 4.52. CO2 is 22 and glucose 102. Calcium level is 6.5 and albumin 2.2. PROBLEM LIST: 1. Acute renal failure. The patient is now nonoliguric. There is no significant change in his kidney function over the last 24 hours. We will continue to monitor and at this point there is no emergent need for dialysis. 2. Hypotension. Blood pressure is slightly low once again. He is not on any pressors and yesterday IV fluid were not given due to risk of volume overload. Now he has good urine output and I am going to start him on D5 and normal saline at 60 per hour. We hope that this year we can avoid using pressors. 3. Staphylococcus aureus sepsis. The patient remains on antibiotics and sepsis seems to be improving. His kidney function is likely to improve as his infection improves. 4. Hyperkalemia. This has completely resolved and does not need any intervention at this point.
[2016-09-25] VITALS (14 sets, daily range): BP systolic 110–145; BP diastolic 62–82
[2016-09-25] MEDS: HumaLOG INSULIN (NovoLOG) PER UNIT SC SCH ×5 (00:19→20:44)
[2016-09-25] MEDS: IPRATROPIUM 0.5MG/ALBUTEROL 2.5MG INH SOL UD 3ML (DUONEB)(J7620) NEB SCH ×4 (00:53→23:56)
[2016-09-25] MEDS: CEFTAROLINE FOSAMIL 300 MG in D5W 50 ML IV SCH ×2 (02:11→14:01)
[2016-09-25] MEDS: D5W/0.9% SODIUM CHLORIDE 1,000 ML IV SCH (04:39)
[2016-09-25 07:04] LABS: ALBUMIN 2.1 GM/DL (3.2-5.2); ALBUMIN/GLOBULIN RATIO 0.51 (1.00-1.93); BILIRUBIN,TOTAL 1.2 MG/DL (0.2-1.0); CREATININE FOR GFR 4.26 MG/DL (0.70-1.30); GLOMERULAR FILTRATION RATE 14.2 (>35); POTASSIUM SERUM 3.3 MEQ/L (3.5-5.1); TOTAL PROTEIN 6.2 GM/DL (6.4-8.2)
[2016-09-25 07:10] LABS: INR 1.55
[2016-09-25] MEDS: PANTOPRAZOLE 40MG INJ (PROTONIX) (C9113) IV SCH (07:56)
[2016-09-25] MEDS: DOCUSATE SODIUM 100 MG CAP PO SCH ×2 (07:57→20:45)
[2016-09-25] MEDS: methylPREDNISolone INJ 40 MG/1 ML VIAL (J2920) IV SCH ×2 (07:57→20:45)
[2016-09-25] MEDS: ATORVASTATIN 20 MG TAB PO SCH (07:57)
[2016-09-25] MEDS: TRIAMCINOLONE ACET 0.1% OINTMENT 80 GM TOP SCH ×2 (07:58→20:46)
[2016-09-25] MEDS: NYSTATIN 100,000 UNITS/GM TOPICAL PWD 15 GM TOP SCH ×2 (07:58→20:46)
[2016-09-25] MEDS ORDERED: POTASSIUM CHLORIDE 10 MEQ SR TABLET PO ONE (08:00)
--- NOTE | 2016-09-25 08:05 | REP ---
Clinical: Pulmonary edema. Comparison: 09/24/2016. Findings: Right IJ line with tip in the SVC. Cardiac silhouette is upper limits of normal. Stable chronic changes are appreciated. Mild pulmonary vascular congestion as well as perihilar and basilar atelectasis and possible small pleural reaction cannot be excluded and appear relatively similar to prior examination. No new acute process identified. Impression: Chronic changes. Superimposed pulmonary vascular congestion with scattered atelectasis and possible small pleural reaction similar to prior examination. No new acute process. Signed by Deven Tobias MD 09/25/2016 07:56 A
[2016-09-25 08:38] LABS: EOS # 0.1 K/mm3 (0.0-0.50); EOS % 0.3 % (0.0-3.0); LARGE UNSTAINED CELL % 0.2 % (0.0-4.0); LYMPH # 0.4 K/mm3 (1.5-4.5); MEAN CORPUSCULAR HGB CONC 33.3 g/dl (32.0-36.5); MEAN CORPUSCULAR VOLUME 93.1 fl (80.0-96.0); MONO # 0.4 K/mm3 (0.0-0.8); MONO % 2.4 % (0.0-5.0); NEUTROPHILS # 15.9 K/mm3 (1.8-7.7); RED CELL DISTRIBUTION WIDTH 15.1 % (11.5-14.5); WHITE BLOOD COUNT 16.8 K/mm3 (4.0-10.0)
[2016-09-25 08:54] LABS: PLATELET COUNT, AUTOMATED 57 k/mm3 (150-450)
[2016-09-25 08:58] LABS: DIFF SLIDE NUMBER 38
[2016-09-25] MEDS: SYMBICORT 160/4.5MCG INHALER 6GM INH SCH ×2 (09:21→20:55)
[2016-09-25] MEDS: TIOTROPIUM INHALER/CAPSULE (SPIRIVA) INH SCH (09:21)
--- NOTE | 2016-09-25 09:39 | IPNPDOC ---
Subjective Date Seen The patient was seen on 09/25/16. Subjective Chief Complaint/HPI The patient is a 86-year-old male admitted with a reason for visit of Septic Shock; Uti. Events since last encounter Denies c/o. Tolerating clear liquid diet. Constitutional: Reports: Weakness (generalized), Denies: Chills, Fever, Night Sweats ENT: Denies: Dysphagia, Ear Pain, Head Aches Skin: Denies: Breakdown, Lesions, Rash Pulmonary: Reports: Cough, Dyspnea Cardiovascular: Denies: Chest Pain, Lt Headedness, Orthopnea, Palpitations Gastrointestinal: Reports: Abdominal Pain (Bloating), Constipation, Denies: Nausea, Vomiting Genitourinary: Reports: Other Symptoms (Peters) Objective Physical Examination General Exam: Positive: Alert, Cooperative Eye Exam: Positive: Conjunctiva & lids normal, PERRLA ENT Exam: Positive: Atraumatic Neck Exam: Positive: Supple, Negative: thyromegaly Chest Exam: Positive: Clear to auscultation, Other (tachypnea, dyspnea with conversation) Heart Exam: Positive: Rate Normal (heart sounds are distant) Telemetry: Positive: No significant arrhythmia Abdomen Exam: Positive: BS Hypoactive, Tenderness (slightly yender throughout) , Negative: Soft (moderate distention) Male Exam: Positive: Tenderness (5 x 3 cm area of posterior scrotal skin c induration, tenderness, ecchymosis-no skin breakdown. ? necrotic area to posterior scrotum, very tender. ) Extremity Exam: Positive: Edema (trace ankle edema bilaterally), Normal pulses (+1), Negative: Cyanosis Skin Exam: Negative: Nl turgor and temperature (extremities are cool to touch) Neuro Exam: Positive: Cranial Nerves 3-12 NL (unable to fully assess strength and cranial nerves due to altered mental status; face symmetric, moves all 4 extremities spontaneously, makes a few grunting noises), Normal Tone, Negative: Normal Speech, Strength at 5/5 X4 ext Psych Exam: Negative: Mental status NL (vague responses, unable to verbalize time and place. cooperative) Assessment /Plan Problems (1) Septic shock Status: Acute Response to Treatment: Uncompensated Discussed With: Collet Driller, Health Care Proxy Problem Specific Plan: Consult Specialist Problem Text: D2 renal dosed ceftaroline (D3 linezolid/meropenem) favor UTI/scrotal wound source 09/21/16 BCX x 1 MRSA, BCX x 1 E. coli 09/24/16 improved, given BCX results, abx changed to ceftaroline given thrombocytopenia 09/23/2016: c multiple organ dysfunction, WBC to 35K (09/22 19K), LA to 11! c EARNEST stage 3 c oliguria/metabolic acidosis/hyperK and probable DIC Continues on vasopressin gtt. Oxygen saturations stable on RA Wishes to proceed with all medical intervention. Discussed with Dr. Golden. Dr. Kraft, nephrology consulted I had a long discussion with the patient's and confirmed that his code status is Full Code (2) Cellulitis of scrotum Status: Acute Response to Treatment: Stable Problem Text: 09/24/16 consulted patient's Urologist, Dr. Ramírez re opinion, ? debridement 09/23/16 scrotal US STS s s abscess (3) Elevated LFTs Status: Acute Problem Text: 09/25/2016: Slowly improving. AST 198. ALT 438 AST 1575 ALT 1080 09/23/16 RUQ NAD (4) UTI (urinary tract infection) Status: Acute Problem Text: rx as per septic shock (5) Acute kidney injury superimposed on CKD Status: Acute Problem Specific Plan: Consult Specialist Problem Text: 09/25/2016: Cr. 4.2 today stable cr/lytes (6) Benign prostatic hyperplasia Status: Chronic Problem Text: Holding tamsulosin and finasteride. + hx of urinary retention. Follows with Dr. Ramírez outpatient. (7) Congestive heart failure (CHF) Status: Chronic Problem Text: No evidence of fluid overload at the moment, but this could become a concern in the future as he has required significant fluid resuscitation and likely needs more in the future. Holding Torsemide / EARNEST (8) Hyperlipidemia Status: Chronic Problem Text: statin held 2 liver failure Plan/VTE VTE Prophylaxis Ordered?: No VTE Exclusion Pharmacological: Bleeding Risk (supratherapeutic INR) Plan Attending Physician Note: I saw and examined this patient. The case was reviewed with the RPA and/or the PGY-3. VS, I&O, 24H, Fishbone Vital Signs/I&O Vital Signs Date Time Temp Pulse Resp B/P Pulse Ox O2 Delivery O2 Flow Rate FiO2 09/25/16 06:00 86 18 123/72 95 Room Air 09/25/16 04:00 97.0 09/23/16 01:00 3.0 I&O- Last 24 Hours up to 6 AM 09/25/16 06:00 Intake Total 2690 ml Output Total 1525 ml Balance 1165 ml Laboratory Data 24H LABS Laboratory Tests 2 09/24/16 11:51: Bedside Glucose (Misc Panel) 147H 09/24/16 16:53: Bedside Glucose (Misc Panel) 157H 09/24/16 21:18: Magnesium Level 1.7L 09/25/16 00:13: Bedside Glucose (Misc Panel) 213H 09/25/16 06:23: Blood Urea Nitrogen 79H, Creatinine 4.26H, Sodium Level 144, Potassium Level 3.3L, Chloride Level 110H, Carbon Dioxide Level 22, Calcium Level 7.0L, Aspartate Amino Transf (AST/SGOT) 198H, Alanine Aminotransferase (ALT/SGPT) 438H , Alkaline Phosphatase 215H, Total Bilirubin 1.2H, Total Protein 6.2L, Albumin 2.1L, Albumin/Globulin Ratio 0.51L, Anion Gap 12, Glomerular Filtration Rate 14.2L, Prothromb Time International Ratio 1.55, Prothrombin Time 18.7H 09/25/16 06:25: Basophils # (Auto) 0.0, Basophils (%) (Auto) 0.0, Eosinophils # (Auto) 0.1, Eosinophils (%) (Auto) 0.3, Large Unclassified Cells # 0.0, Large Unclassified Cells % 0.2, Lymphocytes # (Auto) 0.4L, Lymphocytes (%) (Auto) 2.0L, Monocytes # (Auto) 0.4, Monocytes (%) (Auto) 2.4, Neutrophils # (Auto) 15.9H, Neutrophils (%) (Auto) 95.0H, Platelet Estimate DECREASED 09/25/16 06:27: Bedside Glucose (Misc Panel) 208H CBC/BMP Laboratory Tests 09/25/16 06:23 Calcium Level 7.0 L, Aspartate Amino Transf (AST/SGOT) 198 H, Alanine Aminotransferase (ALT/SGPT) 438 H, Alkaline Phosphatase 215 H, Total Bilirubin 1.2 H, Total Protein 6.2 L, Albumin 2.1 L 09/25/16 06:25 Red Blood Count 3.57 L, Mean Corpuscular Volume 93.1, Mean Corpuscular Hemoglobin 31.0, Mean Corpuscular Hemoglobin Concent 33.3, Red Cell Distribution Width 15.1 H Microbiology Microbiology 09/24/16 Blood Culture - Preliminary, Resulted No growth after 24 hours . All specim... 09/23/16 Blood Culture - Preliminary, Resulted No growth after 24 hours . All specim... 09/21/16 Blood Culture - Final, Complete Escherichia Coli Staph.aureus Methicillin Resis 09/21/16 Blood Culture - Final, Complete Staph.aureus Methicillin Resis Escherichia Coli 09/23/16 Clostridium difficile (PCR) - Final, Complete 09/21/16 Influenza Virus Type A Antigen - Final, Complete 09/21/16 Influenza Virus Type B Antigen - Final, Complete 09/21/16 Urine Culture - Final, Complete Escherichia Coli Ani Geller [facility] Sep 25, 2016 09:39 Jesus Galvez M.D. Sep 26, 2016 17:59
--- NOTE | 2016-09-25 10:17 | REP ---
Clinical: Abdominal distension. Technique: Portable supine view of the abdomen and pelvis. Findings: Bowel gas pattern is nonspecific. Ascites cannot be excluded. Impression: Nonspecific bowel gas pattern. Cannot exclude ascites. Signed by Deven Tobias MD 09/25/2016 10:08 A
[2016-09-25] MEDS ORDERED: oxyCODONE 5MG TAB PO PRN (11:00)
[2016-09-25] MEDS ORDERED: GLUCOSE 4 GM CHEW TABLET PO PRN (11:15)
[2016-09-25] MEDS ORDERED: DEXTROSE 50% 50 ML SYRINGE IV PRN (11:15)
[2016-09-25] MEDS ORDERED: GLUCAGON FOR INJ 1 MG VIAL (J1610) SC PRN (11:15)
[2016-09-25] MEDS ORDERED: SODIUM CHLORIDE 0.9% INJ 10 ML SYR IV PRN (12:15)
[2016-09-25 13:39] LABS: MAGNESIUM LEVEL 2.1 MG/DL (1.8-2.4); PHOSPHORUS LEVEL 4.7 MG/DL (2.5-4.9)
[2016-09-25] MEDS: SODIUM CHLORIDE 0.9% INJ 10 ML SYR IV SCH ×2 (14:01→20:47)
[2016-09-25] MEDS ORDERED: WARFARIN SOD 2 MG TAB PO ONE (17:00)
[2016-09-25] MEDS: CETIRIZINE (ZyrTEC) 10 MG TAB PO SCH (20:46)
[2016-09-26] VITALS (8 sets, daily range): BP systolic 122–164; BP diastolic 67–89
[2016-09-26] MEDS: CEFTAROLINE FOSAMIL 300 MG in D5W 50 ML IV SCH ×2 (02:58→13:42)
[2016-09-26] MEDS: SODIUM CHLORIDE 0.9% INJ 10 ML SYR IV SCH ×3 (04:25→20:56)
[2016-09-26 04:54] LABS: INR 1.7
[2016-09-26 05:13] LABS: ALBUMIN 2.2 GM/DL (3.2-5.2); ALBUMIN/GLOBULIN RATIO 0.65 (1.00-1.93); CALCIUM LEVEL 6.9 MG/DL (8.8-10.2); CREATININE FOR GFR 3.62 MG/DL (0.70-1.30); EOS % 0.3 % (0.0-3.0); GLOMERULAR FILTRATION RATE 17.1 (>35); LARGE UNSTAINED CELL # 0.1 K/mm3 (0.0-0.4); LARGE UNSTAINED CELL % 0.6 % (0.0-4.0); LYMPH # 0.3 K/mm3 (1.5-4.5); LYMPH % 2.3 % (24.0-44.0); MAGNESIUM LEVEL 2.2 MG/DL (1.8-2.4); MEAN CORPUSCULAR VOLUME 93.9 fl (80.0-96.0); MONO # 0.4 K/mm3 (0.0-0.8); MONO % 3.5 % (0.0-5.0); NEUTROPHILS % 93.4 % (36.0-66.0); POTASSIUM SERUM 3.6 MEQ/L (3.5-5.1); RED CELL DISTRIBUTION WIDTH 15.1 % (11.5-14.5); TOTAL PROTEIN 5.6 GM/DL (6.4-8.2); WHITE BLOOD COUNT 10.7 K/mm3 (4.0-10.0)
[2016-09-26 05:16] LABS: PLATELET COUNT, AUTOMATED 51 k/mm3 (150-450)
[2016-09-26] MEDS: SYMBICORT 160/4.5MCG INHALER 6GM INH SCH ×2 (07:49→20:01)
[2016-09-26] MEDS: TIOTROPIUM INHALER/CAPSULE (SPIRIVA) INH SCH (07:49)
[2016-09-26] MEDS: IPRATROPIUM 0.5MG/ALBUTEROL 2.5MG INH SOL UD 3ML (DUONEB)(J7620) NEB SCH ×2 (08:00→16:11)
[2016-09-26] MEDS: PANTOPRAZOLE 40MG INJ (PROTONIX) (C9113) IV SCH (08:26)
[2016-09-26] MEDS: ATORVASTATIN 20 MG TAB PO SCH (08:26)
[2016-09-26] MEDS: methylPREDNISolone INJ 40 MG/1 ML VIAL (J2920) IV SCH ×2 (08:26→20:53)
[2016-09-26] MEDS: DOCUSATE SODIUM 100 MG CAP PO SCH ×2 (08:26→20:53)
[2016-09-26] MEDS: TRIAMCINOLONE ACET 0.1% OINTMENT 80 GM TOP SCH ×2 (08:27→20:55)
[2016-09-26] MEDS: HumaLOG INSULIN (NovoLOG) PER UNIT SC SCH ×4 (08:27→20:54)
[2016-09-26] MEDS: NYSTATIN 100,000 UNITS/GM TOPICAL PWD 15 GM TOP SCH ×2 (08:27→20:55)
--- NOTE | 2016-09-26 09:01 | IPN ---
DATE: 09/25/2016 SUBJECTIVE: The patient was seen and examined at the bedside today in the morning in the intensive care unit (ICU). His IV fluids have been discontinued. He continues to have a Peters catheter at this time. His pressors have been stopped. He is hemodynamically stable. White cell count is improving. His creatinine is also improving to 4.2 now. He continues to have a good urine output. REVIEW OF SYSTEMS: The patient denies any fevers, chills, rigors, headache, nausea, vomiting, or chest pain. He continues to be on nasal cannula. He reports extreme weakness and inability to move around in the bed. The patient denies any nausea or vomiting. He does complain of some pain in the abdomen and some pain in the scrotal area. The rest of the review of systems is negative. OBJECTIVE: VITAL SIGNS: Temperature 96.9 degrees Fahrenheit. Blood pressure 145/72. Pulse 79. Respiratory rate 20. Saturating 97% on room air. Intake and output: Urine output recorded as 1690 mL yesterday and 355 mL in the morning when I saw the patient. Weight on the bed scale is 94 kg, which is slightly less than yesterday. PHYSICAL EXAMINATION: GENERAL: Patient is awake, alert, oriented times two, laying in the bed wearing nasal cannula in no apparent distress. HEAD AND NECK EXAM: Pupils equally round and reactive to light. Mucous membranes are moist. Neck is supple. There is no jugular venous distention (JVD). CARDIOVASCULAR: S1, S2. Regular rate. No murmur, rub or gallop. RESPIRATORY: Chest is clear to auscultation bilaterally. Bilaterally good air entry. No rales or rhonchi. ABDOMEN: Soft. Positive bowel sounds. Mild tenderness to abdomen on deep palpation. He has a Peters catheter at this time and he has a lesion on the scrotum which is tender at this time. EXTREMITIES: No clubbing or cyanosis. He has trace edema of the bilateral lower extremities. CENTRAL NERVOUS SYSTEM (LATHMAKER): He is oriented times two. He feels very weak, but otherwise he moves all four extremities. LAB REVIEW: CBC showed a WBC of 16.8 which is significantly better than yesterday. It was 27 yesterday. Hemoglobin is 11.1. Platelets of 57. INR is 1.55. BMP shows sodium 144, potassium 3.3, chloride 110, bicarbonate 22, BUN 79, creatinine 4.2 and it was 4.5 yesterday. Calcium is 7. Phosphorus is 4.7. Magnesium is 2.1. Total bilirubin is 1.2. AST is 198. ALT is 438. Alkaline phosphatase is 215. AST and ALT both are improving as compared with yesterday. Albumin is 2.1. MICROBIOLOGY: Repeat blood cultures sent yesterday are negative so far. IMAGING: X-ray of the abdomen done today morning showed nonspecific bowel gas pattern. CURRENT MEDICATIONS: Patient's medications are all reviewed by me. His IV fluid has been stopped. He continues to be on Ceftaroline 300 mg IV every 12 hours started yesterday. He is also on nebulizations which were started yesterday. He was given a dose of potassium chloride 20 mEq by mouth one dose today morning. He has been started on Coumadin now. ASSESSMENT: 86-year-old male with nonoliguric acute renal failure secondary to Staphylococcus aureus sepsis. Currently off pressors at this time. PLAN: 1. Acute nonoliguric renal failure. Patient's creatinine is improving. He has a good urine output. He does not need any IV fluids at this time. Continue oral hydration. I will check the intake and output and by tomorrow if his intake and output is negative, then I will start gentle hydration. Otherwise I will continue to monitor him for improvement in the renal function. 2. Staphylococcus aureus sepsis. The patient's sepsis is improving. He is not requiring pressors anymore. The patient is currently on Ceftaroline. He was also growing E. Coli in the urine. 3. E. Coli urinary tract infection (UTI). The patient has a chronic Peters catheter. He is growing E. Coli in the urine. Antibiotics as per infectious disease (ID) recommendations. 4. Hypokalemia. Patient's potassium is 3.3. He was already given potassium chloride 20 mEq by mouth this morning. Continue to monitor the potassium and try to keep potassium above 3.5. 5. Hypocalcemia. The patient's albumin is low. Corrected calcium is within the acceptable range. I will check the ionized calcium tomorrow and repeat calcium as needed. 6. Shock liver. The patient's liver function tests (LFTs) are abnormal because of the shock liver. The patient is currently hemodynamically stable and liver function tests are improving. 7. Testicular lesion. The patient is pending urology consultation for evaluation of the testicular lesion to rule out Bijan's gangrene. Continue antibiotics as recommended by infectious disease.
--- NOTE | 2016-09-26 09:33 | IPNPDOC ---
Subjective Date Seen The patient was seen on 09/26/16. Subjective Chief Complaint/HPI The patient is a 86-year-old male admitted with a reason for visit of Septic Shock; Uti. Events since last encounter Continues to improve. Constitutional: Denies: Chills, Fever, Night Sweats Pulmonary: Denies: Cough, Dyspnea Cardiovascular: Denies: Chest Pain, Lt Headedness, Orthopnea, Palpitations, Paroxysmal Noc. Dyspnea Gastrointestinal: Denies: Abdominal Pain, Constipation, Diarrhea, Nausea, Vomiting Genitourinary: Reports: Other Symptoms (Petesr catheter. ) Psych: Reports: Mood Normal, Denies: Depression, Memory Issues Objective Physical Examination General Exam: Positive: Alert, Cooperative Eye Exam: Positive: Conjunctiva & lids normal, PERRLA ENT Exam: Positive: Atraumatic Neck Exam: Positive: Supple, Negative: thyromegaly Chest Exam: Positive: Clear to auscultation, Other (tachypnea, dyspnea with conversation) Heart Exam: Positive: Rate Normal (heart sounds are distant) Telemetry: Positive: No significant arrhythmia Abdomen Exam: Positive: Normal bowel sounds, Soft (mildly distended), Negative: Tenderness Male Exam: Positive: Tenderness (5 x 3 cm area of posterior scrotal skin c induration, tenderness, ecchymosis-no skin breakdown. ? necrotic area to posterior scrotum, very tender. ) Extremity Exam: Positive: Edema (trace ankle edema bilaterally), Normal pulses (+1), Negative: Cyanosis Skin Exam: Negative: Nl turgor and temperature (extremities are cool to touch) Neuro Exam: Positive: Cranial Nerves 3-12 NL (unable to fully assess strength and cranial nerves due to altered mental status; face symmetric, moves all 4 extremities spontaneously, makes a few grunting noises), Normal Tone, Negative: Normal Speech, Strength at 5/5 X4 ext Psych Exam: Negative: Mental status NL (vague responses, unable to verbalize time and place. cooperative) Assessment /Plan Problems (1) Septic shock Status: Acute Response to Treatment: Uncompensated Discussed With: Securities Underwriter, Health Care Proxy Problem Specific Plan: Consult Specialist Problem Text: D3 renal dosed ceftaroline (D4 linezolid/meropenem) favor UTI/scrotal wound source 09/25/16: near normal WBC. monitor. Continues to improve. 09/21/16 BCX x 1 MRSA, BCX x 1 E. coli 09/24/16 improved, given BCX results, abx changed to ceftaroline given thrombocytopenia 09/23/2016: c multiple organ dysfunction, WBC to 35K (09/22 19K), LA to 11! c EARNEST stage 3 c oliguria/metabolic acidosis/hyperK and probable DIC Continues on vasopressin gtt. Oxygen saturations stable on RA Wishes to proceed with all medical intervention. Discussed with Dr. Golden. Dr. Kraft, nephrology consulted I had a long discussion with the patient's and confirmed that his code status is Full Code (2) Cellulitis of scrotum Status: Acute Response to Treatment: Stable Problem Text: 09/24/16 consulted patient's Urologist, Dr. Ramírez re opinion, ? debridement 09/23/16 scrotal US STS s s abscess (3) Elevated LFTs Status: Acute Problem Text: 09/26/2016: continues to improve. Small amoutn of ascites noted on abdominal imaging. Most likely secondary to septic shock. Monitor. 09/25/2016: Slowly improving. AST 198. ALT 438 AST 1575 ALT 1080 09/23/16 RUQ NAD (4) UTI (urinary tract infection) Status: Acute Problem Text: rx as per septic shock (5) Acute kidney injury superimposed on CKD Status: Acute Problem Specific Plan: Consult Specialist Problem Text: 09/26/2016: Cr. 3.6. Sodium mildly elevated potassium 3.6. nephrology following. 09/25/2016: Cr. 4.2 today stable cr/lytes (6) Benign prostatic hyperplasia Status: Chronic Problem Text: Holding tamsulosin and finasteride. + hx of urinary retention. Follows with Dr. Ramírez outpatient. (7) Congestive heart failure (CHF) Status: Chronic Problem Text: No evidence of fluid overload at the moment, but this could become a concern in the future as he has required significant fluid resuscitation and likely needs more in the future. Holding Torsemide 2/2 EARNEST (8) Hyperlipidemia Status: Chronic Problem Text: statin held 2 liver failure (9) History of pulmonary embolism Status: Chronic Problem Text: 09/25/2016: INR 1.7. Warfarin 2 mg po today. recheck INR in am. Holding coumadin as INR is supratherapeutic. Plan/VTE VTE Prophylaxis Ordered?: Yes (warfarin) Plan Attending physician note: Patient seen and examined. Case reviewed with RPA. VS, I&O, 24H, [place] Vital Signs/I&O Vital Signs Date Time Temp Pulse Resp B/P Pulse Ox O2 Delivery O2 Flow Rate FiO2 09/26/16 03:01 97.7 82 18 151/78 95 Room Air 09/23/16 01:00 3.0 I&O- Last 24 Hours up to 6 AM 09/26/16 06:00 Intake Total 1650 ml Output Total 2005 ml Balance -355 ml Laboratory Data 24H LABS Laboratory Tests 2 09/25/16 11:42: Bedside Glucose (Misc Panel) 235H 09/25/16 16:37: Bedside Glucose (Misc Panel) 251H 09/25/16 20:44: Bedside Glucose (Misc Panel) 198H 09/26/16 04:24: Blood Urea Nitrogen 83H, Creatinine 3.62H, Sodium Level 147H, Potassium Level 3.6, Chloride Level 113H, Carbon Dioxide Level 22, Calcium Level 6.9L, Aspartate Amino Transf (AST/SGOT) 92H, Alanine Aminotransferase (ALT/SGPT) 333H , Alkaline Phosphatase 236H, Total Bilirubin 1.0, Total Protein 5.6L, Albumin 2.2L, Albumin/Globulin Ratio 0.65L, Anion Gap 12, White Blood Count 10.7H, Red Blood Count 3.57L, Hemoglobin 11.1L, Hematocrit 33.5L, Mean Corpuscular Volume 93.9, Mean Corpuscular Hemoglobin 31.0, Mean Corpuscular Hemoglobin Concent 33.0 , Red Cell Distribution Width 15.1H, Platelet Count 51L, Neutrophils (%) (Auto) 93.4H, Lymphocytes (%) (Auto) 2.3L, Monocytes (%) (Auto) 3.5, Eosinophils (%) ( Auto) 0.3, Basophils (%) (Auto) 0.0, Neutrophils # (Auto) 10.0H, Lymphocytes # ( Auto) 0.3L, Monocytes # (Auto) 0.4, Eosinophils # (Auto) 0.0, Basophils # (Auto ) 0.0, Glomerular Filtration Rate 17.1L, Large Unclassified Cells # 0.1, Large Unclassified Cells % 0.6, Magnesium Level 2.2, Prothromb Time International Ratio 1.70, Prothrombin Time 20.1H 09/26/16 04:44: Whole Blood Ionized Calcium 4.1L CBC/BMP Laboratory Tests 09/26/16 04:24 Calcium Level 6.9 L, Aspartate Amino Transf (AST/SGOT) 92 H, Alanine Aminotransferase (ALT/SGPT) 333 H, Alkaline Phosphatase 236 H, Total Bilirubin 1.0, Total Protein 5.6 L, Albumin 2.2 L, Red Blood Count 3.57 L, Mean Corpuscular Volume 93.9, Mean Corpuscular Hemoglobin 31.0, Mean Corpuscular Hemoglobin Concent 33.0, Red Cell Distribution Width 15.1 H, Neutrophils (%) ( Auto) 93.4 H, Lymphocytes (%) (Auto) 2.3 L, Monocytes (%) (Auto) 3.5, Eosinophils (%) (Auto) 0.3, Basophils (%) (Auto) 0.0, Neutrophils # (Auto) 10.0 H, Lymphocytes # (Auto) 0.3 L, Monocytes # (Auto) 0.4, Eosinophils # (Auto) 0.0 , Basophils # (Auto) 0.0 Microbiology Microbiology 09/24/16 Blood Culture - Preliminary, Resulted No Growth after 48 hours. All Specime... 09/23/16 Blood Culture - Preliminary, Resulted No Growth after 48 hours. All Specime... 09/21/16 Blood Culture - Final, Complete Escherichia Coli Staph.aureus Methicillin Resis 09/21/16 Blood Culture - Final, Complete Staph.aureus Methicillin Resis Escherichia Coli 09/23/16 Clostridium difficile (PCR) - Final, Complete 09/21/16 Influenza Virus Type A Antigen - Final, Complete 09/21/16 Influenza Virus Type B Antigen - Final, Complete 09/21/16 Urine Culture - Final, Complete Escherichia Coli Ani GellerP Sep 26, 2016 09:33 Jesus Galvez M.D. Sep 27, 2016 12:52
[2016-09-26] MEDS ORDERED: CALCIUM GLUCONATE 1,000 MG in D5W MINI-BAG PLUS 100 ML IV ONE (10:00)
[2016-09-26] MEDS: KCL 20MEQ IN D5W 1000ML 1,000 ML IV SCH (10:29)
[2016-09-26] MEDS ORDERED: WARFARIN SOD 2 MG TAB PO ONE (17:00)
[2016-09-26] MEDS: CETIRIZINE (ZyrTEC) 10 MG TAB PO SCH (20:53)
[2016-09-27] MEDS: IPRATROPIUM 0.5MG/ALBUTEROL 2.5MG INH SOL UD 3ML (DUONEB)(J7620) NEB SCH ×3 (00:01→15:07)
[2016-09-27 00:11] VITALS: BP 131/81
[2016-09-27] MEDS: KCL 20MEQ IN D5W 1000ML 1,000 ML IV SCH ×2 (01:00→15:59)
[2016-09-27] MEDS: CEFTAROLINE FOSAMIL 300 MG in D5W 50 ML IV SCH ×2 (02:28→14:58)
[2016-09-27] MEDS: SODIUM CHLORIDE 0.9% INJ 10 ML SYR IV SCH ×3 (05:31→22:06)
[2016-09-27 05:32] VITALS: BP 168/82
[2016-09-27 05:53] LABS: BASO % 0.1 % (0.0-1.0); LARGE UNSTAINED CELL # 0.1 K/mm3 (0.0-0.4); LARGE UNSTAINED CELL % 1.2 % (0.0-4.0); LYMPH # 0.3 K/mm3 (1.5-4.5); LYMPH % 2.1 % (24.0-44.0); MEAN CORPUSCULAR HEMOGLOBIN 30.8 pg (27.0-33.0); MEAN CORPUSCULAR HGB CONC 32.6 g/dl (32.0-36.5); MEAN CORPUSCULAR VOLUME 94.2 fl (80.0-96.0); MONO # 0.4 K/mm3 (0.0-0.8); MONO % 5.4 % (0.0-5.0); NEUTROPHILS # 7.4 K/mm3 (1.8-7.7); NEUTROPHILS % 91.1 % (36.0-66.0); RED CELL DISTRIBUTION WIDTH 14.8 % (11.5-14.5); WHITE BLOOD COUNT 8.1 K/mm3 (4.0-10.0)
[2016-09-27 05:54] LABS: PLATELET COUNT, AUTOMATED 54 k/mm3 (150-450)
[2016-09-27 05:57] LABS: INR 2.21
[2016-09-27 06:11] LABS: ALBUMIN 2.2 GM/DL (3.2-5.2); ALBUMIN/GLOBULIN RATIO 0.54 (1.00-1.93); BILIRUBIN,TOTAL 0.8 MG/DL (0.2-1.0); CALCIUM LEVEL 7.6 MG/DL (8.8-10.2); CREATININE FOR GFR 2.92 MG/DL (0.70-1.30); GLOMERULAR FILTRATION RATE 21.9 (>35); POTASSIUM SERUM 4.2 MEQ/L (3.5-5.1); TOTAL PROTEIN 6.3 GM/DL (6.4-8.2)
[2016-09-27] MEDS: TIOTROPIUM INHALER/CAPSULE (SPIRIVA) INH SCH (07:21)
[2016-09-27] MEDS: SYMBICORT 160/4.5MCG INHALER 6GM INH SCH ×2 (07:21→20:00)
[2016-09-27 08:00] VITALS: BP 161/84
--- NOTE | 2016-09-27 08:26 | IPNPDOC ---
Subjective Date Seen The patient was seen on 09/27/16. Subjective Chief Complaint/HPI The patient is a 86-year-old male admitted with a reason for visit of Septic Shock; Uti. Events since last encounter Pt denies any new issues. Denies CP, SOB, Abd pain. Constitutional: Denies: Chills, Fever Pulmonary: Denies: Dyspnea Cardiovascular: Denies: Chest Pain Gastrointestinal: Denies: Abdominal Pain, Nausea, Vomiting Objective Physical Examination General Exam: Positive: Alert, Cooperative Eye Exam: Positive: Conjunctiva & lids normal, PERRLA ENT Exam: Positive: Atraumatic Neck Exam: Positive: Supple, Negative: thyromegaly Chest Exam: Positive: Clear to auscultation Heart Exam: Positive: Rate Normal (heart sounds are distant) Telemetry: Positive: No significant arrhythmia Abdomen Exam: Positive: BS Hypoactive, Negative: Soft (moderate distention), Tenderness Male Exam: Positive: Tenderness (5 x 3 cm area of posterior scrotal skin c induration, tenderness, ecchymosis-no skin breakdown. ? necrotic area to posterior scrotum, very tender. ) Extremity Exam: Positive: Edema (trace ankle edema bilaterally), Normal pulses (+1), Negative: Cyanosis Assessment /Plan Problems (1) Septic shock Status: Acute Response to Treatment: Uncompensated Discussed With: Delivery Supervisor, Health Care Proxy Problem Specific Plan: Consult Specialist Problem Text: Ceftaroline D4 renally dosed. D3 renal dosed ceftaroline (D4 linezolid/meropenem) favor UTI/scrotal wound source 09/25/16: near normal WBC. monitor. Continues to improve. 09/21/16 BCX x 1 MRSA, BCX x 1 E. coli 09/24/16 improved, given BCX results, abx changed to ceftaroline given thrombocytopenia 09/23/2016: c multiple organ dysfunction, WBC to 35K (09/22 19K), LA to 11! c EARNEST stage 3 c oliguria/metabolic acidosis/hyperK and probable DIC Continues on vasopressin gtt. Oxygen saturations stable on RA Wishes to proceed with all medical intervention. Discussed with Dr. Golden. Dr. Kraft, nephrology consulted I had a long discussion with the patient's and confirmed that his code status is Full Code (2) Cellulitis of scrotum Status: Acute Response to Treatment: Stable Problem Text: 09/27 - Urology following. Ceftaroline D4 renally dosed. 09/24/16 consulted patient's Urologist, Dr. Ramírez re opinion, ? debridement 09/23/16 scrotal US STS s s abscess (3) Elevated LFTs Status: Acute Problem Text: 09/27 - LFTS trending down. AST 47, ALT 234. 09/26/2016: continues to improve. Small amoutn of ascites noted on abdominal imaging. Most likely secondary to septic shock. Monitor. 09/25/2016: Slowly improving. AST 198. 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 Creat 2.92. 09/26/2016: Cr. 3.6. Sodium mildly elevated potassium 3.6. nephrology following. 09/25/2016: Cr. 4.2 today stable cr/lytes (6) Benign prostatic hyperplasia Status: Chronic Problem Text: Holding tamsulosin and finasteride. + hx of urinary retention. Follows with Dr. Ramírez outpatient. (7) Congestive heart failure (CHF) Status: Chronic Problem Text: No evidence of fluid overload at the moment, but this could become a concern in the future as he has required significant fluid resuscitation and likely needs more in the future. Holding Torsemide 09/09 EARNEST (8) Hyperlipidemia Status: Chronic Problem Text: statin held 2 liver failure (9) History of pulmonary embolism Status: Chronic Problem Text: 09/27 - INR 2.21. Received Coumadin 2 mg 09/25 and 09/26. Will give Coumadin 1 mg today. (pt is on Coumadin 1 mg M/W/ and 2 mg ROW as outpt). 09/25/2016: INR 1.7. Warfarin 2 mg po today. recheck INR in am. Holding coumadin as INR is supratherapeutic. Plan/VTE VTE Prophylaxis Ordered?: Yes (warfarin) Plan Attending attestation: I saw and evaluated the patient, and I agree with the plan of care as discussed and documented by José Kaiser. Siomara Mari MD VS, I&O, 24H, Fishbone Vital Signs/I&O Vital Signs Date Time Temp Pulse Resp B/P Pulse Ox O2 Delivery O2 Flow Rate FiO2 09/27/16 05:32 97.1 79 18 168/82 97 Room Air 09/23/16 01:00 3.0 I&O- Last 24 Hours up to 6 AM 09/27/16 06:00 Intake Total 2840 ml Output Total 2800 ml Balance 40 ml Laboratory Data 24H LABS Laboratory Tests 2 09/26/16 11:20: Bedside Glucose (Misc Panel) 325H 09/26/16 16:33: Bedside Glucose (Misc Panel) 252H 09/26/16 20:52: Bedside Glucose (Misc Panel) 256H 09/27/16 05:30: Blood Urea Nitrogen 80H, Creatinine 2.92H, Sodium Level 145, Potassium Level 4.2 , Chloride Level 111H, Carbon Dioxide Level 23, Calcium Level 7.6L, Aspartate Amino Transf (AST/SGOT) 47H, Alanine Aminotransferase (ALT/SGPT) 234H, Alkaline Phosphatase 214H, Total Bilirubin 0.8, Total Protein 6.3L, Albumin 2.2L, Albumin /Globulin Ratio 0.54L, Anion Gap 11, White Blood Count 8.1, Red Blood Count 3.80L, Hemoglobin 11.7L, Hematocrit 35.8L, Mean Corpuscular Volume 94.2, Mean Corpuscular Hemoglobin 30.8, Mean Corpuscular Hemoglobin Concent 32.6, Red Cell Distribution Width 14.8H, Platelet Count 54L, Neutrophils (%) (Auto) 91.1H, Lymphocytes (%) (Auto) 2.1L, Monocytes (%) (Auto) 5.4H, Eosinophils (%) (Auto) 0.0, Basophils (%) (Auto) 0.1, Neutrophils # (Auto) 7.4, Lymphocytes # (Auto) 0.3L, Monocytes # (Auto) 0.4, Eosinophils # (Auto) 0.0, Basophils # (Auto) 0.0, Glomerular Filtration Rate 21.9L, Large Unclassified Cells # 0.1, Large Unclassified Cells % 1.2, Prothromb Time International Ratio 2.21, Prothrombin Time 24.6H CBC/BMP Laboratory Tests 09/27/16 05:30 Calcium Level 7.6 L, Aspartate Amino Transf (AST/SGOT) 47 H, Alanine Aminotransferase (ALT/SGPT) 234 H, Alkaline Phosphatase 214 H, Total Bilirubin 0.8, Total Protein 6.3 L, Albumin 2.2 L, Red Blood Count 3.80 L, Mean Corpuscular Volume 94.2, Mean Corpuscular Hemoglobin 30.8, Mean Corpuscular Hemoglobin Concent 32.6, Red Cell Distribution Width 14.8 H, Neutrophils (%) ( Auto) 91.1 H, Lymphocytes (%) (Auto) 2.1 L, Monocytes (%) (Auto) 5.4 H, Eosinophils (%) (Auto) 0.0, Basophils (%) (Auto) 0.1, Neutrophils # (Auto) 7.4, Lymphocytes # (Auto) 0.3 L, Monocytes # (Auto) 0.4, Eosinophils # (Auto) 0.0, Basophils # (Auto) 0.0 Microbiology Microbiology 09/24/16 Blood Culture - Preliminary, Resulted No Growth after 72 hours. All specime... 09/23/16 Blood Culture - Preliminary, Resulted No Growth after 72 hours. All specime... 09/21/16 Blood Culture - Final, Complete Escherichia Coli Staph.aureus Methicillin Resis 09/21/16 Blood Culture - Final, Complete Staph.aureus Methicillin Resis Escherichia Coli 09/23/16 Clostridium difficile (PCR) - Final, Complete 09/21/16 Influenza Virus Type A Antigen - Final, Complete 09/21/16 Influenza Virus Type B Antigen - Final, Complete 09/21/16 Urine Culture - Final, Complete Escherichia Coli William Kaiser Sep 27, 2016 08:26 SIOMARA MARI MD Oct 03, 2016 19:43
[2016-09-27] MEDS: methylPREDNISolone INJ 40 MG/1 ML VIAL (J2920) IV SCH ×2 (09:06→22:05)
[2016-09-27] MEDS: DOCUSATE SODIUM 100 MG CAP PO SCH ×2 (09:07→22:04)
[2016-09-27] MEDS: ATORVASTATIN 20 MG TAB PO SCH (09:07)
[2016-09-27] MEDS: PANTOPRAZOLE 40MG INJ (PROTONIX) (C9113) IV SCH (09:07)
[2016-09-27] MEDS: HumaLOG INSULIN (NovoLOG) PER UNIT SC SCH ×4 (09:07→22:08)
[2016-09-27] MEDS: NYSTATIN 100,000 UNITS/GM TOPICAL PWD 15 GM TOP SCH ×2 (09:08→22:06)
[2016-09-27] MEDS: TRIAMCINOLONE ACET 0.1% OINTMENT 80 GM TOP SCH ×2 (09:09→22:05)
[2016-09-27 12:00] VITALS: BP 160/80
[2016-09-27 16:00] VITALS: BP 151/87
[2016-09-27] MEDS ORDERED: WARFARIN SOD 1 MG TAB PO ONE (17:00)
[2016-09-27] MEDS: NEBIVOLOL 5 MG TAB (BYSTOLIC) PO SCH (17:49)
[2016-09-27] MEDS: TORSEMIDE 5MG TABLET PO SCH (17:49)
[2016-09-27 20:00] VITALS: BP 144/83
[2016-09-27] MEDS: CETIRIZINE (ZyrTEC) 10 MG TAB PO SCH (22:05)
[2016-09-28] VITALS: BP 154/90
[2016-09-28] MEDS: IPRATROPIUM 0.5MG/ALBUTEROL 2.5MG INH SOL UD 3ML (DUONEB)(J7620) NEB SCH ×3 (01:08→15:46)
[2016-09-28] MEDS: CEFTAROLINE FOSAMIL 300 MG in D5W 50 ML IV SCH ×2 (01:27→14:41)
--- NOTE | 2016-09-28 04:19 | IPN ---
DATE OF SERVICE: 09/26/2016 SUBJECTIVE: The patient was seen and examined at the bedside today in the morning. He was actually getting physical therapy done in the intensive care unit (ICU). The patient's white cell count continues to improve. His renal function also continues to improve. He has a good urine output; however, because of decreased oral intake, his sodium level worsened to 147. REVIEW OF SYSTEMS: The patient denies any fevers, chills, rigors, headache, nausea, vomiting, or chest pain. He does report some shortness of breath. He denies any nausea or vomiting, pain abdomen or constipation. He reports persistent weakness and inability to walk independently. Rest of review of systems is negative. OBJECTIVE: VITAL SIGNS: Temperature is 97.1 degrees Fahrenheit. Blood pressure is 122/67. Pulse is 75. Respiratory rate of 18. Saturating 97% on room air. Intake and output: Urine output recorded as 2200 mL yesterday, 1700 mL so far today since overnight. Weight on the bed scale is 95.5 kg. PHYSICAL EXAMINATION: GENERAL: Patient is awake, alert, oriented times three, sitting in the bed, no apparent distress. HEAD AND NECK EXAMINATION: Extraocular movements intact. Pupils equally round and reactive to light. Mucous membranes are moist. Neck is supple. There is no jugular venous distention (JVD). CARDIOVASCULAR: S1, S2. Regular rate. No murmur, rub or gallop. RESPIRATORY: Chest is clear to auscultation bilaterally. Bilaterally good air entry. There are slightly decreased breath sounds at the bases. ABDOMEN: Soft. Positive bowel sounds. No tenderness. No ascites. EXTREMITIES: No clubbing or cyanosis. Patient has trace bilateral lower extremity edema. CENTRAL NERVOUS SYSTEM (COMPUTER VIDEO GAME DESIGNER): No focal neurological deficit, but he currently is very weak and he is getting physical therapy with the help of physical therapy (PT). LABORATORY REVIEW: CBC showed a WBC of 10.7 which is significantly better than yesterday. It was 16.8 yesterday. Hemoglobin is 11.1. Platelets are 51. INR is 1.7. BMP shows sodium 147, potassium 3.6, chloride 113, bicarbonate is 22, BUN is 83, creatinine is 3.6. It was 4.2 yesterday. Ionized calcium was 4.1. CURRENT MEDICATIONS: Patient's current medications are all reviewed by me. I gave him a dose of calcium gluconate 1 gram IV today morning and he has been started on potassium chloride (KCl) 20 mEq and D5W at 75 mL an hour. There is no other change in the medications at this time. ASSESSMENT: 86-year-old male with nonoliguric acute renal failure secondary to Staphylococcus aureus sepsis. Currently he is off the pressors and renal function is improving. PLAN: 1. Acute nonoliguric renal failure. Patient's creatinine continues to improve. His IV fluids were stopped. However, he is dehydrated. His sodium level is improving. I am going to start the patient on D5W. 2. Staphylococcus aureus sepsis. The patient's sepsis is improving. White cell count is getting better. He is currently on ceftaroline 300 mg IV every 12 hours. The rest of the duration of antibiotics is as per infectious disease recommendations. 3. Scrotal swelling. The patient was evaluated by urology. They recommended discontinuing Peters catheter. There was no evidence of Bijan's gangrene. 4. Hypocalcemia. The patient's ionized calcium level is low. I have given him a dose of calcium gluconate IV. 5. Shock liver. The patient's liver functions continue to improve. He is hemodynamically stable at this time.
[2016-09-28] MEDS: SODIUM CHLORIDE 0.9% INJ 10 ML SYR IV SCH ×3 (05:47→21:39)
[2016-09-28 06:00] VITALS: BP 167/94
[2016-09-28 06:09] LABS: INR 2.25
[2016-09-28 06:13] LABS: BASO % 0.1 % (0.0-1.0); EOS % 0.1 % (0.0-3.0); LARGE UNSTAINED CELL # 0.1 K/mm3 (0.0-0.4); LYMPH # 0.3 K/mm3 (1.5-4.5); LYMPH % 3.3 % (24.0-44.0); MEAN CORPUSCULAR HEMOGLOBIN 30.8 pg (27.0-33.0); MEAN CORPUSCULAR VOLUME 93.4 fl (80.0-96.0); MONO # 0.5 K/mm3 (0.0-0.8); MONO % 6.8 % (0.0-5.0); NEUTROPHILS # 5.9 K/mm3 (1.8-7.7); NEUTROPHILS % 88.6 % (36.0-66.0); RED CELL DISTRIBUTION WIDTH 14.5 % (11.5-14.5); WHITE BLOOD COUNT 6.7 K/mm3 (4.0-10.0)
[2016-09-28 06:16] LABS: PLATELET COUNT, AUTOMATED 55 k/mm3 (150-450)
[2016-09-28 06:32] LABS: ALBUMIN 2.3 GM/DL (3.2-5.2); ALBUMIN/GLOBULIN RATIO 0.68 (1.00-1.93); BILIRUBIN,TOTAL 1.1 MG/DL (0.2-1.0); CALCIUM LEVEL 7.7 MG/DL (8.8-10.2); CREATININE FOR GFR 2.24 MG/DL (0.70-1.30); GLOMERULAR FILTRATION RATE 29.7 (>35); POTASSIUM SERUM 4.5 MEQ/L (3.5-5.1); TOTAL PROTEIN 5.7 GM/DL (6.4-8.2)
[2016-09-28] MEDS: SYMBICORT 160/4.5MCG INHALER 6GM INH SCH ×2 (07:26→20:35)
[2016-09-28] MEDS: TIOTROPIUM INHALER/CAPSULE (SPIRIVA) INH SCH (07:26)
[2016-09-28 08:00] VITALS: BP 149/79
[2016-09-28] MEDS: TORSEMIDE 5MG TABLET PO SCH (08:24)
[2016-09-28] MEDS: ATORVASTATIN 20 MG TAB PO SCH (08:24)
[2016-09-28] MEDS: DOCUSATE SODIUM 100 MG CAP PO SCH ×2 (08:24→21:36)
[2016-09-28] MEDS: NEBIVOLOL 5 MG TAB (BYSTOLIC) PO SCH (08:24)
[2016-09-28] MEDS: PANTOPRAZOLE 40MG INJ (PROTONIX) (C9113) IV SCH (08:25)
[2016-09-28] MEDS: methylPREDNISolone INJ 40 MG/1 ML VIAL (J2920) IV SCH ×2 (08:25→21:36)
[2016-09-28] MEDS: HumaLOG INSULIN (NovoLOG) PER UNIT SC SCH ×4 (08:26→21:00)
[2016-09-28] MEDS: NYSTATIN 100,000 UNITS/GM TOPICAL PWD 15 GM TOP SCH ×2 (08:27→21:38)
[2016-09-28] MEDS: TRIAMCINOLONE ACET 0.1% OINTMENT 80 GM TOP SCH ×2 (08:28→21:38)
[2016-09-28] MEDS: KCL 20MEQ IN D5W 1000ML 1,000 ML IV SCH (08:43)
--- NOTE | 2016-09-28 08:55 | IPNPDOC ---
Subjective Date Seen The patient was seen on 09/28/16. Subjective Chief Complaint/HPI The patient is a 86-year-old male admitted with a reason for visit of Septic Shock; Uti. Events since last encounter No acute overnight events General: Reports: Normal Appetite, Denies: Chills, Fatigue, Malaise, Night Sweats Constitutional: Denies: Chills, Fever, Night Sweats Skin: Denies: Breakdown, Lesions, Rash Pulmonary: Denies: Cough, Dyspnea Cardiovascular: Denies: Chest Pain, Lt Headedness, Orthopnea, Palpitations, Paroxysmal Noc. Dyspnea Gastrointestinal: Denies: Abdominal Pain, Constipation, Diarrhea, Nausea, Vomiting Neurological: Denies: Change in speech, Confusion, Numbness, Weakness Objective Physical Examination General Exam: Positive: Alert, Cooperative Eye Exam: Positive: Conjunctiva & lids normal, PERRLA ENT Exam: Positive: Atraumatic Neck Exam: Positive: Supple, Negative: thyromegaly Chest Exam: Positive: Clear to auscultation, Other (tachypnea, dyspnea with conversation) Heart Exam: Positive: Rate Normal (heart sounds are distant) Telemetry: Positive: No significant arrhythmia Abdomen Exam: Positive: Normal bowel sounds, Soft (mildly distended), Negative: Tenderness Male Exam: Positive: Tenderness (5 x 3 cm area of posterior scrotal skin c induration, tenderness, ecchymosis-no skin breakdown. ? necrotic area to posterior scrotum, very tender. ) Extremity Exam: Positive: Edema (trace ankle edema bilaterally), Normal pulses (+1), Negative: Cyanosis Skin Exam: Negative: Nl turgor and temperature (extremities are cool to touch) Neuro Exam: Positive: Normal Tone, Negative: Normal Speech Assessment /Plan Problems (1) Septic shock Status: Acute Response to Treatment: Uncompensated Discussed With: Jelly Filter Tender, Health Care Proxy Problem Specific Plan: Consult Specialist Problem Text: Renal origin. Bcx growing e. coli and MRSA. Ceftaroline D5 renally dosed, D7 total IV abx. Renal function continues to improve but remains depressed. Once it has recovered, will increase dose to 600mg Q12. Initially on Zyvox and Meropenem (started on 09/22), however, he developed thrombocytopenia, so these were discontinued in favor of Teflaro. A long discussion was had with the patient's and confirmed that his code status is Full Code (2) Cellulitis of scrotum Status: Acute Response to Treatment: Stable Problem Text: Ceftaroline D5 renally dosed. Urology was consulted and has r/o del's gangrene. (3) Elevated LFTs Status: Acute Problem Text: 2/2 to shock liver. LFTs continuing to trend down. 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 Appreciate the assistance of Nephrology service. stable cr/lytes (6) Hypocalcemia Status: Acute Problem Text: ical has been low. He's received two doses of IV calcium gluconate, ordered by Nephro (7) Benign prostatic hyperplasia Status: Chronic Problem Text: Holding tamsulosin and finasteride. + hx of urinary retention. Follows with Dr. Ramírez outpatient. (8) Congestive heart failure (CHF) Status: Chronic Problem Text: No evidence of fluid overload at the moment, but this could become a concern in the future as he has required significant fluid resuscitation and likely needs more in the future. Holding Torsemide 2/2 EARNEST (9) Hyperlipidemia Status: Chronic Problem Text: statin held 2/2 liver failure. Will resume when LFTs return to NL. (10) History of pulmonary embolism Status: Chronic Problem Text: INR 2.25. Received Coumadin 1 mg yesterday. Administering 2mg today. Home regimen: 1 mg M// and 2 mg ROW Plan/VTE VTE Prophylaxis Ordered?: Yes (warfarin) Plan Attending attestation: I saw and evaluated the patient, and I agree with the plan of care as discussed and documented by the resident. Siomara Mari MD VS, I&O, 24H, Fishbone Vital Signs/I&O Vital Signs Date Time Temp Pulse Resp B/P Pulse Ox O2 Delivery O2 Flow Rate FiO2 09/28/16 08:24 78 149/79 09/28/16 08:00 97.6 20 94 Room Air 09/23/16 01:00 3.0 I&O- Last 24 Hours up to 6 AM 09/28/16 06:00 Intake Total 2575 ml Output Total 3800 ml Balance -1225 ml Laboratory Data 24H LABS Laboratory Tests 2 2/20/17 11:56: Bedside Glucose (Misc Panel) 238H 09/27/16 16:42: Bedside Glucose (Misc Panel) 230H 09/27/16 22:08: Bedside Glucose (Misc Panel) 202H 09/28/16 05:47: Blood Urea Nitrogen 73H, Creatinine 2.24H, Sodium Level 143, Potassium Level 4.5 , Chloride Level 109H, Carbon Dioxide Level 25, Calcium Level 7.7L, Aspartate Amino Transf (AST/SGOT) 29, Alanine Aminotransferase (ALT/SGPT) 165H, Alkaline Phosphatase 193H, Total Bilirubin 1.1H, Total Protein 5.7L, Albumin 2.3L, Albumin/Globulin Ratio 0.68L, Anion Gap 9, White Blood Count 6.7, Red Blood Count 3.84L, Hemoglobin 11.8L, Hematocrit 35.9L, Mean Corpuscular Volume 93.4, Mean Corpuscular Hemoglobin 30.8, Mean Corpuscular Hemoglobin Concent 33.0, Red Cell Distribution Width 14.5, Platelet Count 55L, Neutrophils (%) (Auto) 88.6H, Lymphocytes (%) (Auto) 3.3L, Monocytes (%) (Auto) 6.8H, Eosinophils (%) (Auto) 0.1, Basophils (%) (Auto) 0.1, Neutrophils # (Auto) 5.9, Lymphocytes # (Auto) 0.3L, Monocytes # (Auto) 0.5, Eosinophils # (Auto) 0.0, Basophils # (Auto) 0.0, Glomerular Filtration Rate 29.7L, Large Unclassified Cells # 0.1, Large Unclassified Cells % 1.0, Prothromb Time International Ratio 2.25, Prothrombin Time 24.9H CBC/BMP Laboratory Tests 09/28/16 05:47 Calcium Level 7.7 L, Aspartate Amino Transf (AST/SGOT) 29, Alanine Aminotransferase (ALT/SGPT) 165 H, Alkaline Phosphatase 193 H, Total Bilirubin 1.1 H, Total Protein 5.7 L, Albumin 2.3 L, Red Blood Count 3.84 L, Mean Corpuscular Volume 93.4, Mean Corpuscular Hemoglobin 30.8, Mean Corpuscular Hemoglobin Concent 33.0, Red Cell Distribution Width 14.5, Neutrophils (%) (Auto ) 88.6 H, Lymphocytes (%) (Auto) 3.3 L, Monocytes (%) (Auto) 6.8 H, Eosinophils (%) (Auto) 0.1, Basophils (%) (Auto) 0.1, Neutrophils # (Auto) 5.9, Lymphocytes # (Auto) 0.3 L, Monocytes # (Auto) 0.5, Eosinophils # (Auto) 0.0, Basophils # ( Auto) 0.0 Microbiology Microbiology 09/24/16 Blood Culture - Preliminary, Resulted No Growth after 72 hours. All specime... 09/23/16 Blood Culture - Preliminary, Resulted No Growth after 72 hours. All specime... 09/21/16 Blood Culture - Final, Complete Escherichia Coli Staph.aureus Methicillin Resis 09/21/16 Blood Culture - Final, Complete Staph.aureus Methicillin Resis Escherichia Coli 09/23/16 Clostridium difficile (PCR) - Final, Complete 09/21/16 Influenza Virus Type A Antigen - Final, Complete 09/21/16 Influenza Virus Type B Antigen - Final, Complete 09/21/16 Urine Culture - Final, Complete Escherichia Coli JEN HOPSON DO Sep 28, 2016 08:55 SIOMARA MARI MD Oct 03, 2016 12:07 SIOMARA MARI MD Oct 03, 2016 12:07
--- NOTE | 2016-09-28 11:14 | IPN ---
DATE: 09/27/2016 SUBJECTIVE: Patient was seen and examined at the bedside today in the morning. He is significantly improving. His oral intake is also improving. He is getting his strength back. Patient's hyponatremia significantly improved with intravenous (IV) fluid to 145. His renal function continues to improve. His creatinine is down to 2.92. REVIEW OF SYSTEMS: Patient denies any fevers, chills, rigors, headache, nausea, vomiting, chest pain, shortness of breath. He reports decreased appetite. He continues to have indwelling Peters catheter, and he reports that he will not be able to urinate without the Peters catheter. Rest of review of system is negative. OBJECTIVE: VITAL SIGNS: Temperature is 96.5 degrees Fahrenheit. Blood pressure is 161/84. Pulse is 79, respiratory rate of 18, saturating 97% on room air. INTAKE AND OUTPUT: Urine output recorded as 2375 mL yesterday, 2200 mL so far today since overnight. PHYSICAL EXAMINATION: GENERAL: Patient is awake, alert, oriented times three, laying in the bed, in no apparent distress. HEAD AND NECK EXAM: Extraocular movements intact. Pupils equally round and reactive to light. Mucous membranes are moist. Neck is supple. There is no jugular venous distention (JVD). CARDIOVASCULAR: S1, S2. Regular rate. No murmur, rub or gallop. RESPIRATORY: Chest is clear to auscultation bilaterally. No rales or rhonchi. Decreased air entry at the bases with poor inspiratory effort. ABDOMEN: Soft. Positive bowel sounds. Nontender. Patient has an indwelling Peters catheter. EXTREMITIES: No clubbing or cyanosis. He trace edema of the bilateral lower extremities. CENTRAL NERVOUS SYSTEM (HOOP DRIVING MACHINE OPERATOR HELPER): Patient is awake, alert, and oriented times three. He feels weak and tired. Otherwise, he moves all four extremities. LABORATORY REVIEW: CBC showed a WBC of 8.1, hemoglobin 11.7, platelets are 54. BMP showed sodium 145, potassium 4.2, chloride 111, bicarbonate 23, BUN 80. Creatinine is 2.9, is significantly better than yesterday. It was 3.6 yesterday. Calcium is 7.6. Albumin is 2.2. CURRENT MEDICATIONS: Patient's medications were all reviewed by me. His IV fluid rate has been decreased to 60 mL/hr. There is no change in the medications today as compared with yesterday. He has been started on torsemide 5 mg by mouth daily, and his Coumadin has also been restarted. I also see he has been started on Bystolic 5 mg by mouth daily. ASSESSMENT: 86-year-old male with acute renal failure secondary to Staphylococcus aureus sepsis. PLAN: 1. Acute nonoliguric renal failure. Patient's creatinine continues to improve. He has significant urine output. He was unable take enough liquids orally so he was started on IV hydration. I have decreased his IV fluid rate to 60 mL/hr. If his sodium is stable and creatinine continues to improve by tomorrow, then I will stop his IV fluid. Continue to encourage oral hydration. 2. Staphylococcus aureus sepsis. Patient's white cell count is significantly getting better. He is continues to be on ceftaroline at this time. 3. Hypernatremia. Patient was started on IV D5W yesterday. His sodium is significantly better to 145 today. I have decreased the fluid rate. Continue to encourage oral water intake. If sodium stays stable by tomorrow, I will stop the IV fluids. 4. Hypocalcemia. Patient's ionized calcium was low yesterday. He was given IV calcium gluconate. Calcium level today is 7.6. I will check another level of ionized calcium tomorrow morning.
[2016-09-28] MEDS ORDERED: CALCIUM GLUCONATE 1,000 MG in D5W MINI-BAG PLUS 100 ML IV ONE (11:30)
[2016-09-28 13:30] VITALS: BP 175/89
[2016-09-28] MEDS ORDERED: WARFARIN SOD 2 MG TAB PO ONE (17:00)
[2016-09-28] MEDS ORDERED: MIRTAZAPINE 7.5MG PER 1/2 TABLET PO SCH (21:00)
[2016-09-28] MEDS: CETIRIZINE (ZyrTEC) 10 MG TAB PO SCH (21:36)
[2016-09-28 22:00] VITALS: BP 134/68
[2016-09-29] MEDS: IPRATROPIUM 0.5MG/ALBUTEROL 2.5MG INH SOL UD 3ML (DUONEB)(J7620) NEB SCH ×3 (00:09→15:47)
[2016-09-29] MEDS: CEFTAROLINE FOSAMIL 300 MG in D5W 50 ML IV SCH ×2 (01:28→14:45)
[2016-09-29] MEDS: SODIUM CHLORIDE 0.9% INJ 10 ML SYR IV SCH ×3 (05:10→20:35)
[2016-09-29 05:35] LABS: BASO % 0.2 % (0.0-1.0); EOS % 0.2 % (0.0-3.0); LARGE UNSTAINED CELL # 0.1 K/mm3 (0.0-0.4); LARGE UNSTAINED CELL % 1.1 % (0.0-4.0); LYMPH # 0.3 K/mm3 (1.5-4.5); LYMPH % 3.3 % (24.0-44.0); MEAN CORPUSCULAR HEMOGLOBIN 30.6 pg (27.0-33.0); MEAN CORPUSCULAR HGB CONC 32.9 g/dl (32.0-36.5); MEAN CORPUSCULAR VOLUME 92.9 fl (80.0-96.0); MONO # 0.7 K/mm3 (0.0-0.8); MONO % 9.5 % (0.0-5.0); NEUTROPHILS % 85.7 % (36.0-66.0); RED CELL DISTRIBUTION WIDTH 14.6 % (11.5-14.5)
[2016-09-29 05:38] LABS: PLATELET COUNT, AUTOMATED 73 k/mm3 (150-450)
[2016-09-29 05:45] LABS: INR 2.39
[2016-09-29 06:00] VITALS: BP 151/78
[2016-09-29 06:11] LABS: ALBUMIN 2.2 GM/DL (3.2-5.2); ALBUMIN/GLOBULIN RATIO 0.54 (1.00-1.93); BILIRUBIN,TOTAL 0.9 MG/DL (0.2-1.0); CALCIUM LEVEL 7.9 MG/DL (8.8-10.2); CREATININE FOR GFR 1.91 MG/DL (0.70-1.30); GLOMERULAR FILTRATION RATE 35.7 (>35); POTASSIUM SERUM 4.4 MEQ/L (3.5-5.1); TOTAL PROTEIN 6.3 GM/DL (6.4-8.2)
[2016-09-29] MEDS: SYMBICORT 160/4.5MCG INHALER 6GM INH SCH ×2 (08:04→20:11)
[2016-09-29] MEDS: TIOTROPIUM INHALER/CAPSULE (SPIRIVA) INH SCH (08:04)
[2016-09-29] MEDS: DOCUSATE SODIUM 100 MG CAP PO SCH ×2 (08:14→20:35)
[2016-09-29] MEDS: ATORVASTATIN 20 MG TAB PO SCH (08:14)
[2016-09-29] MEDS: HumaLOG INSULIN (NovoLOG) PER UNIT SC SCH ×4 (08:14→21:00)
[2016-09-29] MEDS: PANTOPRAZOLE 40MG INJ (PROTONIX) (C9113) IV SCH (08:14)
[2016-09-29] MEDS: methylPREDNISolone INJ 40 MG/1 ML VIAL (J2920) IV SCH ×2 (08:14→20:34)
[2016-09-29] MEDS: TRIAMCINOLONE ACET 0.1% OINTMENT 80 GM TOP SCH ×2 (08:15→20:36)
[2016-09-29] MEDS: NYSTATIN 100,000 UNITS/GM TOPICAL PWD 15 GM TOP SCH ×2 (08:15→20:36)
[2016-09-29] MEDS: NEBIVOLOL 5 MG TAB (BYSTOLIC) PO SCH (08:18)
--- NOTE | 2016-09-29 10:43 | IPNPDOC ---
Subjective Date Seen The patient was seen on 09/29/16. Subjective Chief Complaint/HPI The patient is a 86-year-old male admitted with a reason for visit of Septic Shock; Uti. Events since last encounter Seen and evaluated on 4PAV this morning. Attempted to arrange outpt infusion services yesterday for pt considering that he still needs 6 additional days of abx. This was successful, but he was not cleared for PT and is in need of continued rehab. Otherwise no acute events overnight. General: Reports: Normal Appetite, Denies: Chills, Fatigue, Malaise, Night Sweats Objective Physical Examination General Exam: Positive: Alert, Cooperative Eye Exam: Positive: Conjunctiva & lids normal, PERRLA ENT Exam: Positive: Atraumatic Neck Exam: Positive: Supple, Negative: thyromegaly Chest Exam: Positive: Clear to auscultation, Other (tachypnea, dyspnea with conversation) Heart Exam: Positive: Rate Normal (heart sounds are distant) Telemetry: Positive: No significant arrhythmia Abdomen Exam: Positive: Normal bowel sounds, Soft (mildly distended), Negative: Tenderness Male Exam: Positive: Tenderness (5 x 3 cm area of posterior scrotal skin c induration, tenderness, ecchymosis-no skin breakdown. ? necrotic area to posterior scrotum, very tender. ) Extremity Exam: Positive: Edema (trace ankle edema bilaterally), Normal pulses (+1), Negative: Cyanosis Skin Exam: Negative: Nl turgor and temperature (extremities are cool to touch) Neuro Exam: Positive: Normal Tone, Negative: Normal Speech Assessment /Plan Problems (1) Septic shock Status: Acute Response to Treatment: Uncompensated Discussed With: Javascript Ui Developer, Health Care Proxy Problem Specific Plan: Consult Specialist Problem Text: Improved, vital stable. Renal origin. Bcx growing e. coli and MRSA. Ceftaroline D6 renally dosed, D8/14 total IV abx (LAST DAY = 10/05). Renal function continues to improve but remains depressed. Once it has recovered, will increase dose to 600mg Q12. Initially on Zyvox and Meropenem (started on 09/22), however, he developed thrombocytopenia, so these were discontinued in favor of Teflaro. A long discussion was had with the patient's and confirmed that his code status is Full Code (2) Cellulitis of scrotum Status: Acute Response to Treatment: Stable Problem Text: Ceftaroline D6 renally dosed. Urology was consulted and has r/o del's gangrene. (3) Elevated LFTs Status: Acute Problem Text: 2/2 to shock liver. LFTs continuing to trend down. 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 Appreciate the assistance of Nephrology service. stable cr/lytes (6) Hypocalcemia Status: Acute Problem Text: ical has been low. He's received two doses of IV calcium gluconate, ordered by Nephro (7) Benign prostatic hyperplasia Status: Chronic Problem Text: Holding tamsulosin and finasteride. + hx of urinary retention. Follows with Dr. Ramírez outpatient. (8) Congestive heart failure (CHF) Status: Chronic Problem Text: No evidence of fluid overload at the moment, but this could become a concern in the future as he has required significant fluid resuscitation and likely needs more in the future. Holding Torsemide 2/2 EARNEST (9) Hyperlipidemia Status: Chronic Problem Text: statin held 2/2 liver failure. Will resume when LFTs return to NL. (10) History of pulmonary embolism Status: Chronic Problem Text: INR 2.3. Received Coumadin 2 mg yesterday. Administering 1mg today. Home regimen: 1 mg M/W/F and 2 mg ROW Plan/VTE VTE Prophylaxis Ordered?: Yes (warfarin) Plan Attending attestation: I saw and evaluated the patient, and I agree with the plan of care as discussed and documented by the resident. Pt doing better on Remeron. Increased to 15 mg HS. Siomara Mari MD VS, I&O, 24H, Fishbone Vital Signs/I&O Vital Signs Date Time Temp Pulse Resp B/P Pulse Ox O2 Delivery O2 Flow Rate FiO2 09/29/16 08:18 63 170/82 09/29/16 06:00 97.8 21 94 Room Air 09/23/16 01:00 3.0 I&O- Last 24 Hours up to 6 AM 09/29/16 06:00 Intake Total 870 ml Output Total 1975 ml Balance -1105 ml Laboratory Data 24H LABS Laboratory Tests 2 09/28/16 12:09: Bedside Glucose (Misc Panel) 238H 09/28/16 16:03: Bedside Glucose (Misc Panel) 212H 09/29/16 05:12: Blood Urea Nitrogen 63H, Creatinine 1.91H, Sodium Level 144, Potassium Level 4.4 , Chloride Level 109H, Carbon Dioxide Level 28, Calcium Level 7.9L, Aspartate Amino Transf (AST/SGOT) 25, Alanine Aminotransferase (ALT/SGPT) 117H, Alkaline Phosphatase 165H, Total Bilirubin 0.9, Total Protein 6.3L, Albumin 2.2L, Albumin /Globulin Ratio 0.54L, Anion Gap 7L, White Blood Count 7.0, Red Blood Count 3.98L, Hemoglobin 12.2L, Hematocrit 37.0L, Mean Corpuscular Volume 92.9, Mean Corpuscular Hemoglobin 30.6, Mean Corpuscular Hemoglobin Concent 32.9, Red Cell Distribution Width 14.6H, Platelet Count 73L, Neutrophils (%) (Auto) 85.7H, Lymphocytes (%) (Auto) 3.3L, Monocytes (%) (Auto) 9.5H, Eosinophils (%) (Auto) 0.2, Basophils (%) (Auto) 0.2, Neutrophils # (Auto) 6.0, Lymphocytes # (Auto) 0.3L, Monocytes # (Auto) 0.7, Eosinophils # (Auto) 0.0, Basophils # (Auto) 0.0, Glomerular Filtration Rate 35.7, Large Unclassified Cells # 0.1, Large Unclassified Cells % 1.1, Prothromb Time International Ratio 2.39, Prothrombin Time 26.1H CBC/BMP Laboratory Tests 09/29/16 05:12 Calcium Level 7.9 L, Aspartate Amino Transf (AST/SGOT) 25, Alanine Aminotransferase (ALT/SGPT) 117 H, Alkaline Phosphatase 165 H, Total Bilirubin 0.9, Total Protein 6.3 L, Albumin 2.2 L, Red Blood Count 3.98 L, Mean Corpuscular Volume 92.9, Mean Corpuscular Hemoglobin 30.6, Mean Corpuscular Hemoglobin Concent 32.9, Red Cell Distribution Width 14.6 H, Neutrophils (%) ( Auto) 85.7 H, Lymphocytes (%) (Auto) 3.3 L, Monocytes (%) (Auto) 9.5 H, Eosinophils (%) (Auto) 0.2, Basophils (%) (Auto) 0.2, Neutrophils # (Auto) 6.0, Lymphocytes # (Auto) 0.3 L, Monocytes # (Auto) 0.7, Eosinophils # (Auto) 0.0, Basophils # (Auto) 0.0 Microbiology Microbiology 09/24/16 Blood Culture - Final, Complete NO GROWTH AFTER 5 DAYS 09/23/16 Blood Culture - Final, Complete NO GROWTH AFTER 5 DAYS 09/21/16 Blood Culture - Final, Complete Escherichia Coli Staph.aureus Methicillin Resis 09/21/16 Blood Culture - Final, Complete Staph.aureus Methicillin Resis Escherichia Coli 09/23/16 Clostridium difficile (PCR) - Final, Complete 09/21/16 Influenza Virus Type A Antigen - Final, Complete 09/21/16 Influenza Virus Type B Antigen - Final, Complete 09/21/16 Urine Culture - Final, Complete Escherichia Coli JEN HOPSON DO Sep 29, 2016 10:43 SIOMARA MARI MD Oct 03, 2016 10:44
--- NOTE | 2016-09-29 12:39 | IPN ---
DATE: 09/29/2016 SUBJECTIVE: Patient was seen and examined at the bedside today in the morning. His Peters catheter has been removed. He feels much better today. His creatinine continues to improve. His electrolytes are stable. His diuretics were held yesterday because of the high urine output. REVIEW OF SYSTEMS: Patient denies any fevers, chills, rigors, headache, nausea, vomiting, chest pain, shortness of breath, pain in abdomen, constipation. He does report decreased appetite. However, he feels thirsty and he is drinking a good amount of liquids. OBJECTIVE: VITAL SIGNS: Temperature is 97.8 degrees Fahrenheit. Blood pressure is 151/78. Pulse is 58, respiratory rate of 21, saturating 94% on room air. INTAKE AND OUTPUT: Urine output recorded as 4 liter yesterday and there is no urine output recorded so far today. There are two incontinent voids so far. Weight on the bed scale is 95.8 kg. PHYSICAL EXAMINATION: GENERAL: Patient is awake, alert, oriented times three, laying in bed, in no apparent distress. HEAD AND NECK EXAM: Extraocular movements intact. Pupils equally round and reactive to light. Mucous membranes are moist. Neck is supple. There is no jugular venous distention (JVD). CARDIOVASCULAR: S1, S2. Regular rate. No murmur, rub or gallop. RESPIRATORY: Chest is clear to auscultation bilaterally. Bilateral good air entry. No rales or rhonchi. ABDOMEN: Is Soft, positive bowel sounds, nontender. No ascites. No Peters catheter is out. EXTREMITIES: No clubbing or cyanosis. He has very trace edema of the bilateral lower extremities. CENTRAL NERVOUS SYSTEM (TOOL DESIGN ENGINEER): Patient is awake, alert, and oriented times three. Moves all four extremities. No focal neurologic deficit. LABORATORY REVIEW: CBC showed a WBC of 7, hemoglobin 12.2, platelets are 73. BMP showed sodium 144, potassium 4.4, chloride 109, bicarbonate 28, BUN 63. Creatinine is 1.91, it is better than yesterday, it was 2.2 yesterday. Calcium is 7.9. Albumin is 2.2. CURRENT MEDICATIONS: The patient's medications were all reviewed by me. His diuretic was stopped yesterday. There is no other change in the medications at this time. ASSESSMENT: 86-year-old male with acute renal failure secondary to Staphylococcus aureus sepsis. PLAN: 1. Acute nonoliguric renal failure. Patient's renal function continues to improve. However, his Peters catheter was removed yesterday. I have instructed the nurses to do a post void residual scan to make sure he is not having retention. Continue to encourage oral hydration. 2. Staphylococcus aureus urinary tract infection (UTI) and sepsis. His white cell count is improving. He continues to be on ceftaroline. Duration of antibiotic as per infectious disease recommendation. 3. Hypocalcemia. Patient's calcium is 7.9, however corrected calcium would be within the acceptable limit. No need of IV calcium today. 4. Urinary incontinence. Patient was seen by urology. They recommended discontinuing Peters catheter. Continue to monitor the bladder scan every 8 hours for now. Rest of the management is as per urology recommendations. Patient's renal function continues to improve at this time. Nephrology service would sign off now. Please call nephrology as needed for any help in the management of this patient.
[2016-09-29 14:00] VITALS: BP 137/81
--- NOTE | 2016-09-29 15:16 | IPN ---
DATE: 09/28/2016 SUBJECTIVE: Patient was seen and examined at the bedside today in the morning. He was actually sitting today in the sofa. He is feeling better. His renal function continues to improve. His electrolytes are stable and he is hemodynamically as well. REVIEW OF SYSTEMS: Patient denies any fevers, chills, rigors, headache, nausea, vomiting, chest pain, shortness of breath, pain in abdomen, constipation, or diarrhea. He continues to have a Peters catheter. He still reports some weakness and inability to walk now. Rest of review of system is negative. OBJECTIVE: VITAL SIGNS: Temperature is 97.6 degrees Fahrenheit. Blood pressure is 149/79. Pulse is 78, respiratory rate of 18, saturating 94% on room air. INTAKE AND OUTPUT: Urine output recorded as 2200 mL yesterday and 2150 mL so far today. Weight on the bed scale is 96 kg. PHYSICAL EXAMINATION: GENERAL: Patient is awake, alert, oriented times three, sitting in the sofa, in no apparent distress. HEAD AND NECK EXAM: Extraocular movements intact. Pupils equally round and reactive to light. Mucous membranes are moist. Neck is supple. There is no jugular venous distention (JVD). CARDIOVASCULAR: S1, S2. Regular rate. No murmur, rub or gallop. RESPIRATORY: Chest is clear to auscultation bilaterally. Bilaterally good air entry. No rales or rhonchi. ABDOMEN: Soft. Positive bowel sounds. Nontender. No ascites. No organomegaly. He has an indwelling Peters catheter. EXTREMITIES: No clubbing or cyanosis. He has trace edema of the bilateral lower extremities. CENTRAL NERVOUS SYSTEM (FELTING MACHINE OPERATOR HELPER): No focal neurologic deficit. Power is 5/5 in all extremities. LABORATORY REVIEW: CBC showed a WBC of 6.7, hemoglobin 11.8, platelets are 55. BMP showed sodium 143, potassium 4.5, chloride 109, bicarbonate 25, BUN 73, creatinine 2.24. Calcium is 7.7.Serum ionized calcium was 4.4. Albumin is 2.3. CURRENT MEDICATIONS: Patient's was on intravenous (IV) fluids and I stopped the patient's IV fluid today morning, and I see the patient has been started on torsemide 5 mg by mouth daily, he is also on warfarin. ASSESSMENT: 86-year-old male with acute renal failure secondary to Staphylococcus aureus sepsis and hypotension. PLAN: 1. Acute nonoliguric renal failure. Patient is making significant amount of urine. However, his oral intake is good. I am going to stop the IV fluids. I see the patient has been started on oral torsemide. I would avoid giving diuretic to this patient who is just recovering from acute renal failure. I have stopped the torsemide. There is no clinical signs of fluid overload at this time. 2. Staphylococcus aureus sepsis. Patient is hemodynamically stable at this time. He continues to be on IV ceftaroline. White cell count is improved. 3. Hypernatremia. Patient's sodium is stable at 143. I have stopped the IV D5W. Encourage oral hydration and continue to hold diuretics at this time. 4. Hypocalcemia. Patient was given another dose of calcium gluconate 1 gram IV times one dose today. MTDD
[2016-09-29] MEDS ORDERED: WARFARIN SOD 1 MG TAB PO ONE (17:00)
[2016-09-29] MEDS: MIRTAZAPINE 15 MG TAB PO SCH (20:35)
[2016-09-29] MEDS: CETIRIZINE (ZyrTEC) 10 MG TAB PO SCH (20:35)
[2016-09-29 22:00] VITALS: BP 130/68
[2016-09-30] MEDS: IPRATROPIUM 0.5MG/ALBUTEROL 2.5MG INH SOL UD 3ML (DUONEB)(J7620) NEB SCH ×4 (00:15→23:32)
[2016-09-30] MEDS: CEFTAROLINE FOSAMIL 300 MG in D5W 50 ML IV SCH ×2 (01:23→13:37)
[2016-09-30] MEDS: SODIUM CHLORIDE 0.9% INJ 10 ML SYR IV SCH ×3 (05:26→20:47)
[2016-09-30 06:00] VITALS: BP 145/78
[2016-09-30 06:21] LABS: BASO % 0.2 % (0.0-1.0); EOS % 0.2 % (0.0-3.0); LARGE UNSTAINED CELL # 0.1 K/mm3 (0.0-0.4); LARGE UNSTAINED CELL % 1.4 % (0.0-4.0); LYMPH # 0.5 K/mm3 (1.5-4.5); LYMPH % 5.1 % (24.0-44.0); MEAN CORPUSCULAR HEMOGLOBIN 31.6 pg (27.0-33.0); MEAN CORPUSCULAR HGB CONC 33.8 g/dl (32.0-36.5); MEAN CORPUSCULAR VOLUME 93.5 fl (80.0-96.0); MONO # 0.6 K/mm3 (0.0-0.8); MONO % 7.1 % (0.0-5.0); NEUTROPHILS # 6.7 K/mm3 (1.8-7.7); PLATELET COUNT, AUTOMATED 106 k/mm3 (150-450); RED CELL DISTRIBUTION WIDTH 14.8 % (11.5-14.5); WHITE BLOOD COUNT 7.8 K/mm3 (4.0-10.0)
[2016-09-30] MEDS: TIOTROPIUM INHALER/CAPSULE (SPIRIVA) INH SCH (08:46)
[2016-09-30] MEDS: SYMBICORT 160/4.5MCG INHALER 6GM INH SCH ×2 (08:46→20:22)
[2016-09-30] MEDS: methylPREDNISolone INJ 40 MG/1 ML VIAL (J2920) IV SCH ×2 (09:06→20:45)
[2016-09-30] MEDS: PANTOPRAZOLE 40MG INJ (PROTONIX) (C9113) IV SCH (09:06)
[2016-09-30] MEDS: ATORVASTATIN 20 MG TAB PO SCH (09:06)
[2016-09-30] MEDS: NEBIVOLOL 5 MG TAB (BYSTOLIC) PO SCH (09:07)
[2016-09-30] MEDS: DOCUSATE SODIUM 100 MG CAP PO SCH ×2 (09:07→20:45)
[2016-09-30] MEDS: HumaLOG INSULIN (NovoLOG) PER UNIT SC SCH ×4 (09:07→21:00)
[2016-09-30] MEDS: TRIAMCINOLONE ACET 0.1% OINTMENT 80 GM TOP SCH ×2 (09:12→20:46)
[2016-09-30] MEDS: NYSTATIN 100,000 UNITS/GM TOPICAL PWD 15 GM TOP SCH ×2 (09:13→20:46)
[2016-09-30] MEDS: MIRALAX *UNIT DOSE* 17GM PACKET PO SCH (11:59)
[2016-09-30 14:00] VITALS: BP 133/67
--- NOTE | 2016-09-30 15:21 | IPNPDOC ---
Subjective Date Seen The patient was seen on 09/30/16. Subjective Chief Complaint/HPI The patient is a 86-year-old male admitted with a reason for visit of Septic Shock; Uti. Events since last encounter Seen on 4PAV today. No acute overnight events to report. 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 No fevers. General: Reports: Normal Appetite, Denies: Chills, Fatigue, Malaise, Night Sweats Pulmonary: Denies: Cough, Dyspnea Cardiovascular: Denies: Chest Pain, Lt Headedness, Orthopnea, Palpitations, Paroxysmal Noc. Dyspnea Genitourinary: Denies: Dysuria, Frequency, Incontinence, Retention Objective Physical Examination General Exam: Positive: Alert, Cooperative Eye Exam: Positive: Conjunctiva & lids normal, PERRLA ENT Exam: Positive: Atraumatic Neck Exam: Positive: Supple, Negative: thyromegaly Chest Exam: Positive: Clear to auscultation, Other (tachypnea, dyspnea with conversation) Heart Exam: Positive: Rate Normal (heart sounds are distant) Telemetry: Positive: No significant arrhythmia Abdomen Exam: Positive: Normal bowel sounds, Soft (mildly distended), Negative: Tenderness Male Exam: Positive: Tenderness (5 x 3 cm area of posterior scrotal skin c induration, tenderness, ecchymosis-no skin breakdown. ? necrotic area to posterior scrotum, very tender. ) Extremity Exam: Positive: Edema (trace ankle edema bilaterally), Normal pulses (+1), Negative: Cyanosis Skin Exam: Negative: Nl turgor and temperature (extremities are cool to touch) Neuro Exam: Positive: Normal Tone, Negative: Normal Speech Assessment /Plan Problems (1) Septic shock Status: Acute Response to Treatment: Uncompensated Discussed With: Behavioral Health Tech, Health Care Proxy Problem Specific Plan: Consult Specialist Problem Text: Improved, vital stable. Renal origin. Bcx growing e. coli and MRSA. Ceftaroline D6- renal fn improving, dose adjusted today. D8/14 total IV abx (LAST DAY = 10/05). Initially on Zyvox and Meropenem (started on 09/22), however, he developed thrombocytopenia, so these were discontinued in favor of Teflaro. A long discussion was had with the patient's and confirmed that his code status is Full Code (2) Cellulitis of scrotum Status: Acute Response to Treatment: Stable Problem Text: Ceftaroline D6 renally dosed. Urology was consulted and has r/o del's gangrene. (3) Elevated LFTs Status: Acute Problem Text: 2/2 to shock liver. LFTs continuing to trend down. 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 Appreciate the assistance of Nephrology service. -Adjusted dose of Teflaro to accommodate for improved renal fn today stable cr/lytes (6) Hypocalcemia Status: Acute Problem Text: ical has been low. He's received 3 doses of IV calcium gluconate , ordered by Nephro (7) Benign prostatic hyperplasia Status: Chronic Problem Text: Holding tamsulosin and finasteride. + hx of urinary retention. Follows with Dr. Ramírez outpatient. (8) Congestive heart failure (CHF) Status: Chronic Problem Text: No evidence of fluid overload at the moment, but this could become a concern in the future as he has required significant fluid resuscitation and likely needs more in the future. Holding Torsemide 2/2 EARNEST (9) Hyperlipidemia Status: Chronic Problem Text: statin held 2/2 liver failure. Will resume when LFTs return to NL. (10) History of pulmonary embolism Status: Chronic Problem Text: INR 2.3. He's been stable and therapeutic on his home regimen ( below) with day-to-day dosing, so I've reordered a scheduled regimen for him. Will continue to monitor INR 3x wk considering his acute illness and propensity for rapid INR fluctuations. Home regimen: 1 mg M/W/F and 2 mg ROW Plan/VTE VTE Prophylaxis Ordered?: Yes (warfarin) VS, I&O, 24H, Fishbone Vital Signs/I&O Vital Signs Date Time Temp Pulse Resp B/P Pulse Ox O2 Delivery O2 Flow Rate FiO2 09/30/16 14:00 95.9 70 16 133/67 97 Room Air I&O- Last 24 Hours up to 6 AM 09/30/16 06:00 Intake Total 50 ml Output Total 0 ml Balance 50 ml Laboratory Data 24H LABS Laboratory Tests 2 09/29/16 16:34: Bedside Glucose (Misc Panel) 194H 09/29/16 20:29: Bedside Glucose (Misc Panel) 244H 09/30/16 05:45: White Blood Count 7.8, Red Blood Count 3.90L, Hemoglobin 12.3L, Hematocrit 36.5L , Mean Corpuscular Volume 93.5, Mean Corpuscular Hemoglobin 31.6, Mean Corpuscular Hemoglobin Concent 33.8, Red Cell Distribution Width 14.8H, Platelet Count 106L, Neutrophils (%) (Auto) 86.0H, Lymphocytes (%) (Auto) 5.1L, Monocytes (%) (Auto) 7.1H, Eosinophils (%) (Auto) 0.2, Basophils (%) (Auto) 0.2 , Neutrophils # (Auto) 6.7, Lymphocytes # (Auto) 0.5L, Monocytes # (Auto) 0.6, Eosinophils # (Auto) 0.0, Basophils # (Auto) 0.0, Large Unclassified Cells # 0.1 , Large Unclassified Cells % 1.4 09/30/16 08:09: Bedside Glucose (Misc Panel) 216H 09/30/16 11:49: Bedside Glucose (Misc Panel) 225H CBC/BMP Laboratory Tests 09/30/16 05:45 Red Blood Count 3.90 L, Mean Corpuscular Volume 93.5, Mean Corpuscular Hemoglobin 31.6, Mean Corpuscular Hemoglobin Concent 33.8, Red Cell Distribution Width 14.8 H, Neutrophils (%) (Auto) 86.0 H, Lymphocytes (%) (Auto ) 5.1 L, Monocytes (%) (Auto) 7.1 H, Eosinophils (%) (Auto) 0.2, Basophils (%) ( Auto) 0.2, Neutrophils # (Auto) 6.7, Lymphocytes # (Auto) 0.5 L, Monocytes # ( Auto) 0.6, Eosinophils # (Auto) 0.0, Basophils # (Auto) 0.0 Microbiology Microbiology 09/24/16 Blood Culture - Final, Complete NO GROWTH AFTER 5 DAYS 09/23/16 Blood Culture - Final, Complete NO GROWTH AFTER 5 DAYS 09/21/16 Blood Culture - Final, Complete Escherichia Coli Staph.aureus Methicillin Resis 09/21/16 Blood Culture - Final, Complete Staph.aureus Methicillin Resis Escherichia Coli 09/23/16 Clostridium difficile (PCR) - Final, Complete 09/21/16 Influenza Virus Type A Antigen - Final, Complete 09/21/16 Influenza Virus Type B Antigen - Final, Complete 09/21/16 Urine Culture - Final, Complete Escherichia Coli JEN HOPSON DO Sep 30, 2016 15:21
[2016-09-30] MEDS ORDERED: WARFARIN SOD 2 MG TAB PO SCH (17:00)
[2016-09-30] MEDS: CETIRIZINE (ZyrTEC) 10 MG TAB PO SCH (20:45)
[2016-09-30] MEDS: MIRTAZAPINE 15 MG TAB PO SCH (20:45)
[2016-09-30 22:00] VITALS: BP 131/74
[2016-10-01] MEDS: CEFTAROLINE FOSAMIL 400 MG in D5W MINI-BAG PLUS 50 ML IV SCH ×2 (00:10→12:05)
[2016-10-01] MEDS: SODIUM CHLORIDE 0.9% INJ 10 ML SYR IV SCH (05:28)
[2016-10-01 05:40] LABS: BASO % 0.1 % (0.0-1.0); EOS % 0.2 % (0.0-3.0); LARGE UNSTAINED CELL # 0.1 K/mm3 (0.0-0.4); LARGE UNSTAINED CELL % 0.9 % (0.0-4.0); LYMPH # 0.6 K/mm3 (1.5-4.5); LYMPH % 4.7 % (24.0-44.0); MEAN CORPUSCULAR HEMOGLOBIN 30.7 pg (27.0-33.0); MEAN CORPUSCULAR HGB CONC 32.8 g/dl (32.0-36.5); MEAN CORPUSCULAR VOLUME 93.8 fl (80.0-96.0); MONO # 0.4 K/mm3 (0.0-0.8); MONO % 4.2 % (0.0-5.0); NEUTROPHILS # 8.8 K/mm3 (1.8-7.7); NEUTROPHILS % 89.9 % (36.0-66.0); PLATELET COUNT, AUTOMATED 147 k/mm3 (150-450); RED CELL DISTRIBUTION WIDTH 14.8 % (11.5-14.5); WHITE BLOOD COUNT 9.8 K/mm3 (4.0-10.0)
[2016-10-01 05:59] LABS: INR 3.64
[2016-10-01] MEDS: HumaLOG INSULIN (NovoLOG) PER UNIT SC SCH ×2 (07:30→12:05)
[2016-10-01] MEDS: IPRATROPIUM 0.5MG/ALBUTEROL 2.5MG INH SOL UD 3ML (DUONEB)(J7620) NEB SCH (08:00)
[2016-10-01] MEDS: TIOTROPIUM INHALER/CAPSULE (SPIRIVA) INH SCH (09:11)
[2016-10-01] MEDS: PANTOPRAZOLE 40MG INJ (PROTONIX) (C9113) IV SCH (09:26)
[2016-10-01] MEDS: MIRALAX *UNIT DOSE* 17GM PACKET PO SCH (09:26)
[2016-10-01 09:27] VITALS: BP 145/78
[2016-10-01] MEDS: NEBIVOLOL 5 MG TAB (BYSTOLIC) PO SCH (09:27)
[2016-10-01] MEDS: NYSTATIN 100,000 UNITS/GM TOPICAL PWD 15 GM TOP SCH (09:27)
[2016-10-01] MEDS: TRIAMCINOLONE ACET 0.1% OINTMENT 80 GM TOP SCH (09:27)
[2016-10-01] MEDS: ATORVASTATIN 20 MG TAB PO SCH (09:27)
[2016-10-01] MEDS: methylPREDNISolone INJ 40 MG/1 ML VIAL (J2920) IV SCH (09:27)
[2016-10-01] MEDS: DOCUSATE SODIUM 100 MG CAP PO SCH (09:27)
[2016-10-01] MEDS ORDERED: FLEET ENEMA PR ONE (10:45)
[2016-10-01] MEDS ORDERED: IPRASOL4 NEB (11:47)
[2016-10-01] MEDS ORDERED: ALB2.5NEB NEB (11:47)
[2016-10-01] MEDS ORDERED: [UNRECOGNIZED DRUG - CODE] IV (11:47)
[2016-10-01] MEDS ORDERED: WARFARIN SOD 1 MG TAB PO SCH (17:00)
--- NOTE | 2016-10-01 21:30 | DSES ---
DATE OF ADMISSION: 09/22/2016 DATE OF DISCHARGE: 10/01/2016 PRIMARY CARE PROVIDER: Dr. Mendiola The patient presented to [facility] emergency room after returning home approximately 1 week prior from [facility] with altered mental status. He had been in subacute rehabilitation. He has a history of ongoing issues with urinary retention and urinary tract infections. He follows with Dr. Ramírez as an outpatient. He was hypotensive in the emergency room. Starbuck to be septic, likely secondary to a urinary source, as he has a history of indwelling Peters catheter. His INR was also found to be supratherapeutic. He was admitted to the hospital for further management and monitoring. Nephrology, urology, and infectious disease, as well as pulmonology were all consulted. His septic shock was treated initially with Zyvox and meropenem, ultimately changed to ceftaroline for a total of 14 days, last day of treatment being 10/05/2016. He was noted to have cellulitis of the scrotum. Urology was consulted and ruled out Bijan's gangrene. Elevated liver function tests were felt to be secondary to shock to the liver and have steadily been trending down. Right upper quadrant is benign on palpation. He was in acute renal failure at time of presentation, although his kidneys have steadily improved. His anticoagulation was initially held and then resumed. He does have a history of pulmonary embolism. Today, his INR is supratherapeutic at 3.64 and therefore his Coumadin will continue to be held. His serum creatinine again continues to trend down and this was last checked on the and it was 1.91. AST has normalized. ALT is steadily trending downward. He has developed some obstipation. His bowels are being tended to with bowel protocol. We are hopeful that he will move his bowels prior to his transfer back over to [facility]. DISCHARGE DIAGNOSES: Include: 1. Septic shock secondary to E coli of the urine. Blood cultures were also positive for methicillin resistant Staphylococcus aureus (MRSA). 2. Cellulitis of the scrotum. 3. Elevated liver enzymes. 4. Urinary tract infection (UTI). 5. Acute renal failure superimposed on chronic kidney disease. 6. History of pulmonary embolism on chronic anticoagulation. 7. Hypocalcemia. 8. Urinary retention with chronic indwelling Peters catheter. 9. Hyperlipidemia. 10. Hypernatremia. DISCHARGE MEDICATIONS: - albuterol sulfate every 8 hours and every 2 hours as needed for shortness of breath - ceftaroline 400 mg IV every 12 hours, completion on 10/05/2016 - Ventolin HFA two puffs every four hours as needed for shortness of breath - atorvastatin 20 mg daily - Symbicort two puffs twice a day - cetirizine 10 mg daily - famotidine 40 mg twice a day - Proscar 5 mg daily - glipizide 5 mg daily - Singulair 10 mg daily - Bystolic 5 mg daily - Flomax 0.4 mg daily - Spiriva one inhalation daily - torsemide 5 mg daily - Drisdol 50,000 units every 2 weeks DISCHARGE PLAN: Followup with Dr. Galvez over at [facility]. Activity should be as tolerated. Diet should be no added salt, consistent carbohydrate. INR should be checked tomorrow 10/02/2016.
== END 2016-10-01 14:08 | DRG 871 ==
LOC: M ED 23:20 → M ED INP 09-22 03:15 → M ICU 09-22 15:30 → M PCU 09-26 13:08 → M MSPAV 09-28 12:35
PROVIDERS: ADMIT Hospitalist; ATTEND Family Medicine
PROC: 30233J1 Transfusion of Nonautologous Serum Albumin into Peripheral Vein, Percutaneous Approach (ICD-10-PCS; principal; 2016-09-22)
DX: A41.02 Sepsis due to Methicillin resistant Staphylococcus aureus (principal); R65.21 Severe sepsis with septic shock; D65 Disseminated intravascular coagulation [defibrination syndrome]; K72.00 Acute and subacute hepatic failure without coma; G93.41 Metabolic encephalopathy; N17.0 Acute kidney failure with tubular necrosis; N39.0 Urinary tract infection, site not specified; E87.0 Hyperosmolality and hypernatremia; I50.30 Unspecified diastolic (congestive) heart failure; N18.4 Chronic kidney disease, stage 4 (severe); E83.51 Hypocalcemia; N40.0 Benign prostatic hyperplasia without lower urinary tract symptoms; E11.9 Type 2 diabetes mellitus without complications; N49.2 Inflammatory disorders of scrotum; B37.9 Candidiasis, unspecified; E66.9 Obesity, unspecified; J45.909 Unspecified asthma, uncomplicated; R79.89 Other specified abnormal findings of blood chemistry; R33.9 Retention of urine, unspecified; E87.5 Hyperkalemia; B95.62 Methicillin resistant Staphylococcus aureus infection as the cause of diseases classified elsewhere; B96.20 Unspecified Escherichia coli [E. coli] as the cause of diseases classified elsewhere; E78.5 Hyperlipidemia, unspecified; Z96.0 Presence of urogenital implants; Z87.440 Personal history of urinary (tract) infections; Z86.711 Personal history of pulmonary embolism; Z79.01 Long term (current) use of anticoagulants; Z79.84 Long term (current) use of oral hypoglycemic drugs; Z79.51 Long term (current) use of inhaled steroids; Z79.899 Other long term (current) drug therapy; Z88.1 Allergy status to other antibiotic agents; Z91.14 Patient's other noncompliance with medication regimen

== ENCOUNTER → 2016-10-04 | Outpatient (REF) ==
[~2016-10-04] MED LIST changes: +ALB2.5NEB NEB; +IPRASOL4 NEB; +TORS5TAB2 PO; +[UNRECOGNIZED DRUG - CODE] IV
[2016-10-04 08:35] LABS: INR 2.98
== END ==
LOC: SKLAB5 07:05
PROVIDERS: ATTEND Family Medicine
DX: I48.91 Unspecified atrial fibrillation (principal)

== ENCOUNTER → 2016-10-06 | Outpatient (REF) ==
[2016-10-06 07:55] LABS: CREATININE FOR GFR 2.05 MG/DL (0.70-1.30); GLOMERULAR FILTRATION RATE 32.9 (>35); POTASSIUM SERUM 3.8 MEQ/L (3.5-5.1)
[2016-10-06 07:56] LABS: CALCIUM LEVEL 7.9 MG/DL (8.8-10.2)
== END ==
LOC: SKLAB5 06:42
PROVIDERS: ATTEND Family Medicine
DX: I50.9 Heart failure, unspecified (principal)

== ENCOUNTER → 2016-10-07 | Outpatient (REF) ==
[2016-10-07 08:32] LABS: INR 2.35
[2016-10-07 08:50] LABS: CALCIUM LEVEL 7.5 MG/DL (8.8-10.2); CREATININE FOR GFR 2.42 MG/DL (0.70-1.30); GLOMERULAR FILTRATION RATE 27.2 (>35); POTASSIUM SERUM 3.8 MEQ/L (3.5-5.1)
== END ==
LOC: SKLAB5 07:08
PROVIDERS: ATTEND Family Medicine
DX: I48.91 Unspecified atrial fibrillation (principal)

== ENCOUNTER → 2016-10-08 | Outpatient (REF) ==
[2016-10-08 08:00] LABS: CALCIUM LEVEL 7.4 MG/DL (8.8-10.2); CREATININE FOR GFR 2.36 MG/DL (0.70-1.30); POTASSIUM SERUM 3.4 MEQ/L (3.5-5.1)
== END ==
LOC: SKLAB5 07:26
PROVIDERS: ATTEND Family Medicine
DX: E86.0 Dehydration (principal)

== ENCOUNTER → 2016-10-09 | Outpatient (REF) ==
[2016-10-09 07:42] LABS: CALCIUM LEVEL 7.7 MG/DL (8.8-10.2); CREATININE FOR GFR 2.18 MG/DL (0.70-1.30); GLOMERULAR FILTRATION RATE 30.7 (>35); POTASSIUM SERUM 3.6 MEQ/L (3.5-5.1)
== END ==
LOC: SKLAB5 06:54
PROVIDERS: ATTEND Family Medicine
DX: E86.0 Dehydration (principal)

== ENCOUNTER → 2016-10-10 | Outpatient (CLI) | payer MEDICARE, OTHER ==
[2016-10-10 07:59] LABS: BASO % 0.1 % (0.0-1.0); EOS # 0.2 K/mm3 (0.0-0.50); EOS % 3.2 % (0.0-3.0); LARGE UNSTAINED CELL # 0.1 K/mm3 (0.0-0.4); LARGE UNSTAINED CELL % 2.2 % (0.0-4.0); LYMPH % 13.8 % (24.0-44.0); MEAN CORPUSCULAR HGB CONC 32.6 g/dl (32.0-36.5); MEAN CORPUSCULAR VOLUME 92.1 fl (80.0-96.0); MONO # 0.2 K/mm3 (0.0-0.8); MONO % 3.8 % (0.0-5.0); NEUTROPHILS # 4.6 K/mm3 (1.8-7.7); NEUTROPHILS % 76.9 % (36.0-66.0); PLATELET COUNT, AUTOMATED 114 k/mm3 (150-450); RED CELL DISTRIBUTION WIDTH 14.7 % (11.5-14.5)
[2016-10-10 08:19] LABS: CALCIUM LEVEL 7.5 MG/DL (8.8-10.2); GLOMERULAR FILTRATION RATE 33.9 (>35); POTASSIUM SERUM 3.8 MEQ/L (3.5-5.1)
== END ==
LOC: M LAB 10-09 18:49 → SKLAB5 07:12
PROVIDERS: ATTEND Family Medicine
DX: E86.0 Dehydration (principal)

== ENCOUNTER → 2016-10-11 | Outpatient (REF) ==
[~2016-10-11] MED LIST changes: +ACET-654 PO; +ACET650S3 PR; +ALBU83IN INH; +DULC10SU2 PR; +ENEMENE3 PR; +ENSULIQ64 PO; +INSUH10VL SC; +IPRASOL4 INH; +MILKSUS PO; +MIRT1TAB PO; +VITMTA PO
[2016-10-11 09:05] LABS: INR 3.97
[2016-10-11 09:20] LABS: CALCIUM LEVEL 7.3 MG/DL (8.8-10.2); CREATININE FOR GFR 1.99 MG/DL (0.70-1.30); GLOMERULAR FILTRATION RATE 34.1 (>35); POTASSIUM SERUM 4.1 MEQ/L (3.5-5.1)
== END ==
LOC: SKLAB5 06:55
PROVIDERS: ATTEND Family Medicine
DX: I48.91 Unspecified atrial fibrillation (principal)

== ENCOUNTER 2016-10-12 14:03 | Outpatient (CLI) | payer MEDICARE, BC, OTHER ==
[~2016-10-12] VITALS: Ht 180.3 cm; Wt 87.9 kg
[2016-10-12 14:00] VITALS: BP 103/54
[~2016-10-12 14:03] MED LIST changes: -ACET-654 PO; -ACET650S3 PR; -ALBU83IN INH; -DULC10SU2 PR; -ENEMENE3 PR; -ENSULIQ64 PO; -INSUH10VL SC; -IPRASOL4 INH; -MILKSUS PO; -MIRT1TAB PO; -VITMTA PO
[2016-10-12] MEDS ORDERED: DAPTOmycin 500 MG in NS 50 ML IV ONE (15:30)
[2016-10-12] MEDS ORDERED: cefTRIAXone SOD 2 GM in D5W MINI-BAG PLUS 50 ML IV ONE (16:30)
[2016-10-13] MEDS ORDERED: INSUH10VL SC (20:07)
[2016-10-13] MEDS ORDERED: ENSULIQ64 PO (20:07)
[2016-10-13] MEDS ORDERED: MIRT1TAB PO (20:07)
[2016-10-13] MEDS ORDERED: MILKSUS PO (20:11)
[2016-10-13] MEDS ORDERED: DULC10SU2 PR (20:11)
[2016-10-13] MEDS ORDERED: ACET650S3 PR (20:11)
[2016-10-13] MEDS ORDERED: ENEMENE3 PR (20:11)
[2016-10-13] MEDS ORDERED: VITMTA PO (20:11)
[2016-10-13] MEDS ORDERED: ACET-654 PO (20:11)
[2016-10-13] MEDS ORDERED: IPRASOL4 INH (20:17)
[2016-10-13] MEDS ORDERED: ALBU83IN INH (20:17)
== END 2016-10-12 17:27 ==
LOC: M OPCLI4PV 14:03 → M MSPAV 14:21 → M OPCLI4PV 17:27
PROVIDERS: ATTEND Family Medicine
DX: A41.9 Sepsis, unspecified organism (principal); R50.9 Fever, unspecified

== ENCOUNTER → 2016-10-12 | Outpatient (REF) ==
[2016-10-12 10:54] LABS: YEAST LIKE CELL URINE AUTO MODERATE
[2016-10-12 11:21] LABS: BASO % 0.3 % (0.0-1.0); EOS # 0.2 K/mm3 (0.0-0.50); LARGE UNSTAINED CELL # 0.2 K/mm3 (0.0-0.4); LARGE UNSTAINED CELL % 4.2 % (0.0-4.0); LYMPH # 0.7 K/mm3 (1.5-4.5); LYMPH % 17.2 % (24.0-44.0); MEAN CORPUSCULAR HEMOGLOBIN 29.6 pg (27.0-33.0); MEAN CORPUSCULAR HGB CONC 32.3 g/dl (32.0-36.5); MEAN CORPUSCULAR VOLUME 91.6 fl (80.0-96.0); MONO # 0.3 K/mm3 (0.0-0.8); MONO % 6.7 % (0.0-5.0); NEUTROPHILS # 2.5 K/mm3 (1.8-7.7); NEUTROPHILS % 67.6 % (36.0-66.0); PLATELET COUNT, AUTOMATED 113 k/mm3 (150-450); RED CELL DISTRIBUTION WIDTH 14.8 % (11.5-14.5); WHITE BLOOD COUNT 3.8 K/mm3 (4.0-10.0)
[2016-10-12 11:45] LABS: CALCIUM LEVEL 7.4 MG/DL (8.8-10.2); CREATININE FOR GFR 2.04 MG/DL (0.70-1.30); GLOMERULAR FILTRATION RATE 33.1 (>35); POTASSIUM SERUM 3.5 MEQ/L (3.5-5.1)
== END ==
LOC: SKLAB5 10:26
PROVIDERS: ATTEND Family Medicine
DX: R50.9 Fever, unspecified (principal)

== ENCOUNTER 2016-10-13 18:42 | Inpatient (IN) | payer MEDICARE, BC, OTHER ==
[~2016-10-13] VITALS: Ht 182.9 cm; Wt 84.8 kg
[2016-10-13] MEDS: FAMOTIDINE 20 MG TAB PO SCH (02:00)
[2016-10-13] MEDS: HumaLOG INSULIN (NovoLOG) PER UNIT SC SCH (02:00)
[~2016-10-13 18:42] MED LIST changes: -ACET-654 PO; -ACET650S3 PR; -ALBU83IN INH; -DULC10SU2 PR; -ENEMENE3 PR; -ENSULIQ64 PO; -INSUH10VL SC; -IPRASOL4 INH; -MILKSUS PO; -MIRT1TAB PO; -VITMTA PO
[2016-10-13] MEDS ORDERED: ACETAMINOPHEN 650 MG SUPP PR ONE (19:30)
[2016-10-13] MEDS ORDERED: NS 1,000 ML IV ONE ×2 (19:30→22:00)
[2016-10-13] MEDS ORDERED: MIRT1TAB PO (20:07)
[2016-10-13] MEDS ORDERED: INSUH10VL SC (20:07)
[2016-10-13] MEDS ORDERED: ENSULIQ64 PO (20:07)
[2016-10-13] MEDS ORDERED: ACET650S3 PR (20:11)
[2016-10-13] MEDS ORDERED: DULC10SU2 PR (20:11)
[2016-10-13] MEDS ORDERED: ENEMENE3 PR (20:11)
[2016-10-13] MEDS ORDERED: VITMTA PO (20:11)
[2016-10-13] MEDS ORDERED: ACET-654 PO (20:11)
[2016-10-13] MEDS ORDERED: MILKSUS PO (20:11)
[2016-10-13] MEDS ORDERED: IPRASOL4 INH (20:17)
[2016-10-13] MEDS ORDERED: ALBU83IN INH (20:17)
[2016-10-13 20:20] LABS: YEAST LIKE CELL URINE AUTO MODERATE
[2016-10-13] MEDS ORDERED: MIRTAZAPINE 7.5MG PER 1/2 TABLET PO SCH (21:00)
[2016-10-13] MEDS ORDERED: CETIRIZINE (ZyrTEC) 10 MG TAB PO SCH (21:00)
[2016-10-13 21:16] LABS: ALBUMIN 1.4 GM/DL (3.2-5.2); ALBUMIN/GLOBULIN RATIO 0.29 (1.00-1.93); BILIRUBIN,DIRECT 0.1 MG/DL (0.0-0.2); BILIRUBIN,TOTAL 0.3 MG/DL (0.2-1.0); CALCIUM LEVEL 7.8 MG/DL (8.8-10.2); CREATININE FOR GFR 2.2 MG/DL (0.70-1.30); GLOMERULAR FILTRATION RATE 30.4 (>35); POTASSIUM SERUM 3.7 MEQ/L (3.5-5.1); TOTAL PROTEIN 6.2 GM/DL (6.4-8.2)
[2016-10-13 21:35] LABS: BASO % 0.2 % (0.0-1.0); EOS # 0.2 K/mm3 (0.0-0.50); EOS % 4.4 % (0.0-3.0); LARGE UNSTAINED CELL # 0.2 K/mm3 (0.0-0.4); LARGE UNSTAINED CELL % 4.2 % (0.0-4.0); LYMPH # 0.7 K/mm3 (1.5-4.5); LYMPH % 14.1 % (24.0-44.0); MEAN CORPUSCULAR HEMOGLOBIN 29.3 pg (27.0-33.0); MEAN CORPUSCULAR HGB CONC 31.7 g/dl (32.0-36.5); MEAN CORPUSCULAR VOLUME 92.4 fl (80.0-96.0); MONO # 0.5 K/mm3 (0.0-0.8); MONO % 9.6 % (0.0-5.0); NEUTROPHILS # 3.3 K/mm3 (1.8-7.7); NEUTROPHILS % 67.5 % (36.0-66.0); PLATELET COUNT, AUTOMATED 128 k/mm3 (150-450); RED CELL DISTRIBUTION WIDTH 15.2 % (11.5-14.5); WHITE BLOOD COUNT 4.8 K/mm3 (4.0-10.0)
[2016-10-13] MEDS ORDERED: PIPERACILLIN/TAZOBACTAM SOD 2.25 GM in D5W MINI-BAG PLUS 50 ML IV ONE (22:00)
[2016-10-13] MEDS ORDERED: DAPTOmycin 750 MG in NS 50 ML IV SCH (22:45)
[2016-10-13] MEDS ORDERED: cefTRIAXone SOD 2 GM in D5W MINI-BAG PLUS 50 ML IV SCH (23:00)
[2016-10-13] MEDS ORDERED: GLUCAGON FOR INJ 1 MG VIAL (J1610) SC PRN (23:45)
[2016-10-13] MEDS ORDERED: ALBUTEROL SULFATE 2.5 MG/0.5 ML INH NEB SOLN INH PRN (23:45)
[2016-10-13] MEDS ORDERED: MOM 30ML SUSPENSION UDC PO PRN (23:45)
[2016-10-13] MEDS ORDERED: BISACODYL 10 MG SUPP PR PRN (23:45)
[2016-10-13] MEDS ORDERED: DEXTROSE 50% 50 ML SYRINGE IV PRN (23:45)
[2016-10-13] MEDS ORDERED: ALBUTEROL 90 MCG/ACT 8GM HFA INHALER INH PRN (23:45)
[2016-10-13] MEDS ORDERED: GLUCOSE 4 GM CHEW TABLET PO PRN (23:45)
[2016-10-13] MEDS ORDERED: ACETAMINOPHEN 325 MG TAB PO PRN (23:45)
[2016-10-13] MEDS ORDERED: FLEET ENEMA PR PRN (23:45)
[2016-10-14] VITALS (28 sets, daily range): BP systolic 65–143; BP diastolic 39–74
[2016-10-14] MEDS ORDERED: IPRATROPIUM 0.5MG/ALBUTEROL 2.5MG INH SOL UD 3ML (DUONEB)(J7620) INH SCH
--- NOTE | 2016-10-14 00:36 | HPEPDOC ---
General Date of Admission 10/13/2016 Primary Care Physician: Chris Mendiola MD Attending Physician: REN SPRAGUE MD Chief Complaint The patient is a 86-year-old male admitted with a reason for visit of R/O Sepsis. Source: Family, RN notes reviewed, [facility] records Exam Limitations: Clinical conditions Timing/Duration: 24 hours Severity: Moderate Associated Symptoms: Unobtainable History of Present Illness Mr. Avila is an 86-year-old male who presents to [facility]'s emergency Department with altered mental status. He is accompanied by his . She provides much of the history. Patient is a resident of [facility]. Possible medical history significant for chronic obstructive pulmonary disease, diastolic congestive heart failure, diabetes mellitus, chronic renal insufficiency, hypertension, benign prostatic hyperplasia, dyslipidemia, history of MRSA, urethral stricture, subaortic stenosis, depression, history of pulmonary embolism 2, bilateral cataracts, psoriasis, nasal polyps. The states that yesterday the patient was not eating or drinking and appeared apathetic. He was subsequently sent over to the hospital for IV daptomycin and Rocephin and returned back to [facility]. The notes that his mentation changed almost immediately and when she left at around 6 to 6:30 PM last evening that he was doing much better. When she returned today at 1 PM she noted that he seemed hard to sleep and again was apathetic. They had a multidisciplinary meeting at 1 PM and she notes that her did not contribute unless asked to direct question. She noted that he was sleepy and at dinnertime at 5 PM he refused his meals. At that time the recommendation was the patient presented to the emergency department. Unable to ascertain a comprehensive review of systems as patient is alert, but not conversant. Hospitalist was consulted for patient to be admitted. Home Medications Scheduled (Ensure Enlive) 1 Liq Liq 120 ML PO TID (Reported) Albuterol/Ipratropium (Ipratropium Lennox/Albut 0.5-2.5 (3) mg/3Ml) 1 Yovany Yovany 1 YOVANY INH Q8H (Reported) Atorvastatin Calcium (Atorvastatin Calcium) 20 Mg Tab 20 MG PO DAILY (Reported ) Budesonide/Formoterol (Symbicort 160-4.5 Mcg/Act) 60 Puff/Inhaler Aers 2 PUFF INH BID (Reported) Cetirizine HCl (Zyrtec Allergy) 10 Mg Tab 10 MG PO QHS (Reported) Famotidine (Famotidine) 40 Mg Tab 40 MG PO BID (Reported) Finasteride (Proscar) 5 Mg Tab 5 MG PO DAILY (Reported) Insulin Aspart (Novolog) 100 U/Ml Inj 1 DOSE SC TID (Reported) PER SLIDING SCALE Mirtazapine (Mirtazapine) 7.5 Mg Tab 7.5 MG PO QHS (Reported) Montelukast Sodium (Singulair) 10 Mg Tab 10 MG PO DAILY (Reported) Multivitamins *[facility] STOCKED* (Thera M Plus *[facility] STOCKED*) 1 Tab Tab 1 TAB PO DAILY (Reported) Nebivolol (Bystolic) 5 Mg Tab 5 MG PO DAILY (Reported) Tamsulosin Hydrochloride (Flomax) 0.4 Mg Cap 0.4 MG PO DAILY (Reported) Tiotropium Lennox Monohydrate (Spiriva Handihaler) 18 Mcg Cap 1 INHALATION INH DAILY (Reported) Vitamin D (Drisdol) 50,000 Unit Cap 50,000 UNIT PO Q2WK (Reported) WEDNESDAYS Scheduled PRN Acetaminophen (Acetaminophen) 650 Mg Sup 650 MG NH Q4H PRN PRN FEVER (Reported) Acetaminophen (Acetaminophen) 325 Mg Tab 650 MG PO Q4H PRN PRN PAIN (Reported) Albuterol Sulfate (Ventolin Hfa) 200 Puff/8 Gm Aers 2 PUFF INH Q4H PRN PRN SHORTNESS OF BREATH (Reported) Albuterol Sulfate (Albuterol Sulfate) 2.5 Mg/3 Ml Nebu 2.5 MG INH Q2H PRN PRN SHORTNESS OF BREATH (Reported) Bisacodyl (Dulcolax) 10 Mg Sup 10 MG NH DAILY PRN PRN CONSTIPATION (Reported) Milk Of Magnesia (Milk of Magnesia) 1,200 Mg/15 Ml Katerin 30 ML PO DAILY PRN PRN CONSTIPATION (Reported) Sodium Phosphate/Biphosphate (Enema 7-19 gm/118Ml) 1 Erik Erik 1 ERIK NH DAILY PRN PRN CONSTIPATION (Reported) Allergies Coded Allergies: Vancomycin (Verified Allergy, Intermediate, RASH, 10/13/16) Past Medical History Medical History 1. Chronic obstructive pulmonary disease 2. Diastolic congestive heart failure 3. Diabetes mellitus 4. Chronic renal insufficiency 5. Benign prostatic hyperplasia 6. Hypertension 7. Dyslipidemia 8. Urethral stricture, urinary catheter in place 9. History of MRSA 10. Subaortic stenosis 11. Depression 12. History of pulmonary embolism 2 13. Bilateral cataracts 14. Psoriasis 15. Nasal polyps Surgical History 1. Cystoscopy, 2014 Family History Significant Family History: Cancer (mother, metastatic breast cancer), Vascular disease (father, stroke) Social History * Smoker: Denies Alcohol: Denies Drugs: denies Recent Travel/Sick Contacts: Denies: Recent sick contacts, Recent travel Residents 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 Studied at [employer] was a prior resident of [facility] for 30 years environmental exposures, however parents were heavy smokers Review of Symptoms Other systems Review of systems is unobtainable Patient is alert, however nonconversant Physical Examination General Exam: Positive: Alert Eye Exam: Positive: Conjunctiva & lids normal, EOMI, PERRLA, Negative: Sclera icteric ENT Exam: Positive: Atraumatic, Tongue Midline Neck Exam: Positive: Supple, Negative: JVD, Lymphadenopathy, thyromegaly Chest Exam: Positive: Clear to auscultation Heart Exam: Positive: Murmurs (grade 2/6 systolic murmur appreciated best at the fifth intercostal space midclavicular line), Rate Normal Telemetry: Positive: PACs Abdomen Exam: Positive: BS Hypoactive, Soft, Negative: Tenderness Extremity Exam: Positive: Edema (+1 pitting edema around the ankles bilaterally extending up the legs and terminating before the knee), Swelling, Negative: Clubbing, Cyanosis Vital Signs T 100.7 HR 90 BP 87/50 O2 95% Weight (kg): 86.183 Laboratory Data Labs 24H Laboratory Tests 2 10/13/16 19:05: Aspartate Amino Transf (AST/SGOT) 25, Alanine Aminotransferase (ALT/SGPT) 25, Alkaline Phosphatase 141H, Total Bilirubin 0.3, Direct Bilirubin 0.1, Albumin 1.4L, Albumin/Globulin Ratio 0.29L, Anion Gap 9, White Blood Count 4.8, Red Blood Count 3.56L, Hemoglobin 10.4L, Hematocrit 32.9L, Mean Corpuscular Volume 92.4, Mean Corpuscular Hemoglobin 29.3, Mean Corpuscular Hemoglobin Concent 31.7L, Red Cell Distribution Width 15.2H, Platelet Count 128L, Neutrophils (%) ( Auto) 67.5H, Lymphocytes (%) (Auto) 14.1L, Monocytes (%) (Auto) 9.6H, Eosinophils (%) (Auto) 4.4H, Basophils (%) (Auto) 0.2, Neutrophils # (Auto) 3.3 , Lymphocytes # (Auto) 0.7L, Monocytes # (Auto) 0.5, Eosinophils # (Auto) 0.2, Basophils # (Auto) 0.0, Calcium Level 7.8L, Glomerular Filtration Rate 30.4L, Lactic Acid (Sepsis) 4.4*H, Large Unclassified Cells # 0.2, Large Unclassified Cells % 4.2H, Total Protein 6.2L 10/13/16 19:42: Bedside Glucose (Misc Panel) 217H 10/13/16 19:55: Urine Amorphous Sediment SMALLH, Urine Appearance HAZY, Urine Color YELLOW, Urine pH 5.0, Urine Specific [place] 1.014, Urine Protein NEGATIVE, Urine Glucose (UA) NEGATIVE, Urine Ketones NEGATIVE, Urine Urobilinogen 0.2, Urine Bilirubin NEGATIVE, Urine Leukocyte Esterase 2+H, Urine Bacteria (Auto) 2+H, Urine Blood NEGATIVE, Urine Calcium Carbonate Cryst(Auto) , Urine Calcium Oxalate Cryst (Auto) , Urine Calcium Phosphate Pearl (Auto) , Urine Cellular Casts , Urine Cystine Crystals , Urine Granular Casts (Auto) , Urine Hyaline Casts (Auto) 0, Urine Leucine Crystals , Urine Mucus (Auto) SMALL, Urine Nitrite NEGATIVE, Urine Oval Fat Bodies (Auto) , Urine RBC (Auto) 6H, Urine Renal Epithelial Cells , Urine Sperm (Auto) , Urine Squamous Epithelial Cells 0 , Urine Transitional Epithelial Cells , Urine Trichomonas (Auto) , Urine Triple Phosphate Cryst (Auto) , Urine Tyrosine Crystals , Urine Uric Acid Crystals ( Auto) , Urine WBC (Auto) 78H, Urine Waxy Casts (Auto) , Urine Yeast-Like Cells ( Auto) MODERATEH CBC/BMP Laboratory Tests 10/13/16 19:05 Red Blood Count 3.56 L, Mean Corpuscular Volume 92.4, Mean Corpuscular Hemoglobin 29.3, Mean Corpuscular Hemoglobin Concent 31.7 L, Red Cell Distribution Width 15.2 H, Neutrophils (%) (Auto) 67.5 H, Lymphocytes (%) (Auto ) 14.1 L, Monocytes (%) (Auto) 9.6 H, Eosinophils (%) (Auto) 4.4 H, Basophils (% ) (Auto) 0.2, Neutrophils # (Auto) 3.3, Lymphocytes # (Auto) 0.7 L, Monocytes # (Auto) 0.5, Eosinophils # (Auto) 0.2, Basophils # (Auto) 0.0 Microbiology Microbiology 10/13/16 Blood Culture, Received Pending 10/13/16 Blood Culture, Received Pending 10/13/16 Urine Culture, Received Pending RAD Interpretation STUDY: CXR Rad Actions: Report Reviewed (left lower lobe atelectasis/infiltrate) Problems (1) Sepsis Status: Resolved Problem Text: Possible sources for infection include lung and urine Patient is febrile and hypotensive with a lactic acidosis - Repeat lactic acid level Begin empiric antibiotic coverage with ceftaroline and ceftriaxone Obtain echocardiogram Begin intravenous fluids at 150 mL per hour Obtain blood and urine cultures (2) Lactic acidosis Status: Resolved Problem Text: Lactic acid of presentation was 4.4 We'll obtain new lactic acid level in 6 hours (3) Hypotension Status: Resolved Problem Text: Blood pressure presentation was 87/50 Begin intravenous fluids at 150 mL per hour Obtain vital signs every 4 hours Hold Bystolic (4) Fever Status: Resolved Problem Text: Temperature in the emergency department was 100.7 Will obtain blood cultures Obtain echocardiogram as patient has history of MRSA (5) Left lower lobe pneumonia Status: Acute Problem Text: Left lower lobe atelectasis/infiltrate noted on chest x-ray Coverage for MRSA with ceftaroline Possible source of infection for sepsis (6) Acute on chronic renal insufficiency Status: Acute Problem Text: BUN/creatinine is 21 and 2.2, respectively Begin fluids that 150 mL per hour Monitor with labs (7) UTI (urinary tract infection) Status: Acute Problem Specific Plan: Consult Specialist Problem Text: Patient's urinalysis history positive for bacterial urinary tract infection as well as possible fungal yeast infection Will consult infectious disease Place patient on ceftriaxone and for bacterial urinary tract infection coverage Obtain urine culture Will hold finasteride as patient has urinary catheter in place Possible source of infection for sepsis (8) Anemia Status: Acute Problem Text: Hemoglobin and hematocrit are 10.4 and 32.9, respectively Patient's INR on 10/11/2016 was 3.97 Patient does not appear to be on any anticoagulation and it is likely that it was held secondary to patient being supratherapeutic Will check a PT/INR Plan / VTE VTE Prophylaxis Ordered?: Yes (Lovenox 30 mg subcutaneous daily) Plan / Urinary Catheter Urinary Catheter: Place Peters (Peters catheter in place) Reason for insertion/continuin: Critical Pt monitoring Plan Plan Sepsis - Begin intravenous fluids at 150 mL per hour - Begin empiric antibiotic treatment with ceftaroline and ceftriaxone for possible lung infiltrate and bacterial urinary infection - Obtain blood and urine cultures - Repeat lactic acid level - Obtain echocardiogram secondary to fever - Consult infectious disease secondary to patient's history of MRSA as well as current possible urinary fungemia Mild anemia - INR on 10/11/2016 was 3.97 - Obtain repeat PT/INR I have both independently examined this patient as well as reviewed the record. I have discussed in detail with the resident the findings and plan of treatment as documented in the resident's note and discussed with the patient. Disposition Admit patient to PCU Anticipated hospitalization: 2 nights IVF: Continue Diet: Make NPO Activity: Bedrest Diagnostics: Check Labs, Repeat Labs in AM, Obtain Cultures Anticipated Discharge: [facility] ALANA RVEELES Oct 14, 2016 00:10 REN SPRAGUE MD Oct 30, 2016 13:25
[2016-10-14] MEDS: FLUCONAZOLE 200 MG in APPROPRIATE DILUENT 1 EA IV SCH ×2 (02:55→21:46)
[2016-10-14] MEDS: NS 1,000 ML IV SCH ×2 (02:55→08:02)
[2016-10-14] MEDS: CEFTAROLINE FOSAMIL 600 MG in D5W MINI-BAG PLUS 50 ML IV SCH ×3 (05:26→23:53)
--- NOTE | 2016-10-14 06:58 | REP ---
CHEST, ONE VIEW: HISTORY: Altered mental status. COMPARISON: 09/25/2016. An increase in interstitial markings is present in the lungs consistent with chronic interstitial fibrosis. Patchy density is present in the left lower lobe consistent with atelectasis or infiltrate. The cardiac silhouette is enlarged. The pulmonary vasculature is normal in appearance. IMPRESSION: 1. Chronic interstitial fibrosis. 2. Left lower lobe atelectasis or infiltrate. 3. Cardiomegaly. Signed by Rick Ferguson MD 10/14/2016 08:22 A
[2016-10-14] MEDS ORDERED: TIOTROPIUM INHALER/CAPSULE (SPIRIVA) INH SCH (08:00)
[2016-10-14] MEDS: FAMOTIDINE 20 MG TAB PO SCH (08:00)
[2016-10-14] MEDS: HumaLOG INSULIN (NovoLOG) PER UNIT SC SCH ×4 (08:01→23:24)
[2016-10-14] MEDS: ACETAMINOPHEN 650 MG SUPP PR PRN ×2 (08:01→12:28)
[2016-10-14 08:37] LABS: MEAN CORPUSCULAR HEMOGLOBIN 29.5 pg (27.0-33.0); MEAN CORPUSCULAR HGB CONC 31.6 g/dl (32.0-36.5); MEAN CORPUSCULAR VOLUME 93.3 fl (80.0-96.0); PLATELET COUNT, AUTOMATED 135 k/mm3 (150-450); RED CELL DISTRIBUTION WIDTH 15.4 % (11.5-14.5)
[2016-10-14] MEDS ORDERED: ENOXAPARIN 30 MG/0.3 ML SYR (J1650) SC SCH (09:00)
[2016-10-14] MEDS ORDERED: MULTIVITAMINS/MINERALS THERAP 1 TAB PO SCH (09:00)
[2016-10-14] MEDS ORDERED: SYMBICORT 160/4.5MCG INHALER 6GM INH SCH (09:00)
[2016-10-14] MEDS ORDERED: TAMSULOSIN 0.4 MG CAP PO SCH (09:00)
[2016-10-14] MEDS ORDERED: MONTELUKAST 10 MG TAB PO SCH (09:00)
[2016-10-14] MEDS ORDERED: ATORVASTATIN 20 MG TAB PO SCH (09:00)
[2016-10-14 09:08] LABS: INR 3.08
[2016-10-14 09:09] LABS: EOSINOPHILS 5 % (0-5)
--- NOTE | 2016-10-14 09:38 | IPNPDOC ---
Subjective Date Seen The patient was seen on 10/14/16. Subjective Chief Complaint/HPI Pt's at bedside. She notes no real improvement c/w yesterday. General: Reports: ROS Unobtainable Objective Physical Examination General Exam: Positive: Mild Distress (Pt mumbles incoherently when speaking to him, seems to try to respond to you.) Eye Exam: Positive: Conjunctiva & lids normal, PERRLA, Negative: Sclera icteric ENT Exam: Positive: Atraumatic Neck Exam: Positive: Supple, Negative: JVD, Lymphadenopathy, thyromegaly Chest Exam: Positive: Clear to auscultation, Rhonchi (diffuse) Heart Exam: Positive: Murmurs (grade 2/6 systolic murmur appreciated best at the fifth intercostal space midclavicular line), Rate Normal Telemetry: Positive: PACs Abdomen Exam: Positive: Normal bowel sounds, Soft, Negative: Tenderness Extremity Exam: Positive: Edema (2 mm pitting edema around the ankles bilaterally extending up the legs and terminating before the knee), Swelling, Negative: Clubbing, Cyanosis Assessment /Plan Problems (1) Sepsis Status: Acute Problem Text: Tmax 101.5 this morning, no leukocytosis, Blood culture and urine cultures from this admission pending. 10/12 urine culture pending, BC from 10/12 without growth. Pt is on Ceftaroline and Ceftriaxone currently. await culture results to narrow antibiotics, lactate level remains elevated, ordered repeat. (2) Lactic acidosis Status: Acute Problem Text: 10/14 - remains elevated, repeat ordered for 1230. 10/13 Lactic acid of presentation was 4.4 We'll obtain new lactic acid level in 6 hours (3) Hypotension Status: Acute Response to Treatment: Improving Problem Text: 10/14 - will slow IVF rate today to prevent hypervolemia, pressures improved. 10/13 Blood pressure presentation was 87/50 Begin intravenous fluids at 150 mL per hour Obtain vital signs every 4 hours Hold Bystolic (4) Fever Status: Acute Problem Text: Temperature in the emergency department was 100.7 Will obtain blood cultures Obtain echocardiogram as patient has history of MRSA (5) Left lower lobe pneumonia Status: Acute Problem Text: 10/14 - Day 1 Ceftaroline/Ceftriaxone - Resp status stable. 10/13 - Left lower lobe atelectasis/infiltrate noted on chest x-ray Coverage for MRSA with ceftaroline Possible source of infection for sepsis (6) Acute on chronic renal insufficiency Status: Acute Problem Text: 10/14 - Scr stable, cont to monitor, baseline Scr about 2. 3/8 BUN/creatinine is 21 and 2.2, respectively Begin fluids that 150 mL per hour Monitor with labs (7) UTI (urinary tract infection) Status: Acute Problem Specific Plan: Consult Specialist Problem Text: Patient's urinalysis history positive for bacterial urinary tract infection as well as possible fungal yeast infection Will consult infectious disease Place patient on ceftriaxone and for bacterial urinary tract infection coverage Obtain urine culture Will hold finasteride as patient has urinary catheter in place Possible source of infection for sepsis (8) Anemia Status: Acute Problem Text: Hemoglobin and hematocrit are 10.4 and 32.9, respectively Patient's INR on 10/11/2016 was 3.97 Patient does not appear to be on any anticoagulation and it is likely that it was held secondary to patient being supratherapeutic Will check a PT/INR Plan/VTE VTE Prophylaxis Ordered?: Yes (Lovenox 30 mg subcutaneous daily) Plan/Urinary Catheter Urinary Catheter: Place Peters (Peters catheter in place) Reason for insertion/continuin: Critical Pt monitoring Plan IVF: Continue Diet: Make NPO Activity: Bedrest Diagnostics: Check Labs, Repeat Labs in AM, Obtain Cultures Anticipated Discharge: [facility] Attending Note: Patient seen and examined this afternoon; I d/w Zakia Torres today. At time of my exam, patient was not responsive to verbal stimuli but does open his eyes to painful stimuli. He is hyperventilating and has poor air movement throughout with some rhonchi - likely transmitted upper airway noises. BP is lower (90s/50s) after IVF rate was decreased this afternoon. Lactic acidosis is gradually improving but lactic acid remains elevated. ABG was ordered stat - no acidosis, however case was d/w Dr. 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 She plans to intubate and placed on a ventilator - she discussed this with his , who states that intubation is consistent with his wishes. Patient was transferred to the ICU under Dr. Ramon' service. We will be happy to follow him again when and if he recovers from his current illness and is able to be successfully extubated. (KES) VS, I&O, 24H, Fishbone Vital Signs/I&O Vital Signs Date Time Temp Pulse Resp B/P Pulse Ox O2 Delivery O2 Flow Rate FiO2 10/14/16 07:30 101.5 108 28 130/72 92 Room Air 10/13/16 19:26 2 I&O- Last 24 Hours up to 6 AM 10/14/16 06:00 Output Total 375 ml Balance -375 ml Laboratory Data 24H LABS Laboratory Tests 2 10/13/16 19:05: Aspartate Amino Transf (AST/SGOT) 25, Alanine Aminotransferase (ALT/SGPT) 25, Alkaline Phosphatase 141H, Total Bilirubin 0.3, Direct Bilirubin 0.1, Albumin 1.4L, Albumin/Globulin Ratio 0.29L, Anion Gap 9, White Blood Count 4.8, Red Blood Count 3.56L, Hemoglobin 10.4L, Hematocrit 32.9L, Mean Corpuscular Volume 92.4, Mean Corpuscular Hemoglobin 29.3, Mean Corpuscular Hemoglobin Concent 31.7L, Red Cell Distribution Width 15.2H, Platelet Count 128L, Neutrophils (%) ( Auto) 67.5H, Lymphocytes (%) (Auto) 14.1L, Monocytes (%) (Auto) 9.6H, Eosinophils (%) (Auto) 4.4H, Basophils (%) (Auto) 0.2, Neutrophils # (Auto) 3.3 , Lymphocytes # (Auto) 0.7L, Monocytes # (Auto) 0.5, Eosinophils # (Auto) 0.2, Basophils # (Auto) 0.0, Calcium Level 7.8L, Glomerular Filtration Rate 30.4L, Lactic Acid (Sepsis) 4.4*H, Large Unclassified Cells # 0.2, Large Unclassified Cells % 4.2H, Total Protein 6.2L 10/13/16 19:42: Bedside Glucose (Misc Panel) 217H 10/13/16 19:55: Urine Amorphous Sediment SMALLH, Urine Appearance HAZY, Urine Color YELLOW, Urine pH 5.0, Urine Specific [place] 1.014, Urine Protein NEGATIVE, Urine Glucose (UA) NEGATIVE, Urine Ketones NEGATIVE, Urine Urobilinogen 0.2, Urine Bilirubin NEGATIVE, Urine Leukocyte Esterase 2+H, Urine Bacteria (Auto) 2+H, Urine Blood NEGATIVE, Urine Calcium Carbonate Cryst(Auto) , Urine Calcium Oxalate Cryst (Auto) , Urine Calcium Phosphate Pearl (Auto) , Urine Cellular Casts , Urine Cystine Crystals , Urine Granular Casts (Auto) , Urine Hyaline Casts (Auto) 0, Urine Leucine Crystals , Urine Mucus (Auto) SMALL, Urine Nitrite NEGATIVE, Urine Oval Fat Bodies (Auto) , Urine RBC (Auto) 6H, Urine Renal Epithelial Cells , Urine Sperm (Auto) , Urine Squamous Epithelial Cells 0 , Urine Transitional Epithelial Cells , Urine Trichomonas (Auto) , Urine Triple Phosphate Cryst (Auto) , Urine Tyrosine Crystals , Urine Uric Acid Crystals ( Auto) , Urine WBC (Auto) 78H, Urine Waxy Casts (Auto) , Urine Yeast-Like Cells ( Auto) MODERATEH 10/14/16 02:18: Bedside Glucose (Misc Panel) 155H 10/14/16 05:32: White Blood Count 6.0, Red Blood Count 3.58L, Hemoglobin 10.6L, Hematocrit 33.4L , Mean Corpuscular Volume 93.3, Mean Corpuscular Hemoglobin 29.5, Mean Corpuscular Hemoglobin Concent 31.6L, Red Cell Distribution Width 15.4H, Platelet Count 135L, Neutrophils (%) (Auto) , Lymphocytes (%) (Auto) , Monocytes (%) (Auto) , Eosinophils (%) (Auto) , Basophils (%) (Auto) , Neutrophils # (Auto) , Lymphocytes # (Auto) , Monocytes # (Auto) , Eosinophils # (Auto) , Basophils # (Auto) , Eosinophils (Manual) 5, Lactic Acid Level 3.6*H , Large Unclassified Cells # , Large Unclassified Cells % , Lymphocytes (Manual ) 18, Monocytes (Manual) 1, Neutrophils 76H, Platelet Estimate NORMAL, Red Blood Cell Morphology NORMAL 10/14/16 08:45: Lactic Acid (Sepsis) 3.8*H, Prothromb Time International Ratio 3.08, Prothrombin Time 31.8H CBC/BMP Laboratory Tests 10/13/16 19:05 Red Blood Count 3.56 L, Mean Corpuscular Volume 92.4, Mean Corpuscular Hemoglobin 29.3, Mean Corpuscular Hemoglobin Concent 31.7 L, Red Cell Distribution Width 15.2 H, Neutrophils (%) (Auto) 67.5 H, Lymphocytes (%) (Auto ) 14.1 L, Monocytes (%) (Auto) 9.6 H, Eosinophils (%) (Auto) 4.4 H, Basophils (% ) (Auto) 0.2, Neutrophils # (Auto) 3.3, Lymphocytes # (Auto) 0.7 L, Monocytes # (Auto) 0.5, Eosinophils # (Auto) 0.2, Basophils # (Auto) 0.0 10/14/16 05:32 Red Blood Count 3.58 L, Mean Corpuscular Volume 93.3, Mean Corpuscular Hemoglobin 29.5, Mean Corpuscular Hemoglobin Concent 31.6 L, Red Cell Distribution Width 15.4 H, Neutrophils (%) (Auto) , Lymphocytes (%) (Auto) , Monocytes (%) (Auto) , Eosinophils (%) (Auto) , Basophils (%) (Auto) , Neutrophils # (Auto) , Lymphocytes # (Auto) , Monocytes # (Auto) , Eosinophils # (Auto) , Basophils # (Auto) Microbiology Microbiology 10/13/16 Blood Culture, Received Pending 10/13/16 Blood Culture, Received Pending 10/13/16 Urine Culture, Received Pending ZAKIA TORRES PA-C Oct 14, 2016 09:38 HARVEY LOBATO MD Oct 14, 2016 13:42
[2016-10-14 13:16] LABS: ABG BASE EXCESS -0.1 (-2.0-2.0); ABG HCO3 22.7 MEQ/L (22.0-26.0); ABG PARTIAL PRESSURE CO2 31.1 mmHg (35.0-45.0); ABG PARTIAL PRESSURE O2 62.7 mmHg (75.0-100.0); ABG STANDARD HCO3 24.3 MEQ/L (22.0-26.0); ABG TOTAL CO2 23.7 MEQ/L (23.0-31.0); ABG pH (ARTERIAL) 7.482 UNITS (7.350-7.450)
[2016-10-14] MEDS: HYDROCORTISONE 100 MG/2 ML VIAL (J1720) IV SCH ×3 (13:23→23:53)
[2016-10-14] MEDS ORDERED: ROCURONIUM BROMIDE 50 MG/5 ML VIAL As Ordered ONE (13:58)
[2016-10-14] MEDS ORDERED: ETOMIDATE INJ 20MG/10ML VIAL As Ordered ONE (13:58)
[2016-10-14] MEDS ORDERED: SODIUM CHLORIDE 0.9% 1000 ML IV ONE (14:00)
[2016-10-14] MEDS ORDERED: NOREPINEPHRINE BITARTRATE 8 MG in D5W 500 ML IV SCH (14:00)
[2016-10-14] MEDS ORDERED: NOREPINEPHRINE 4 MG/4 ML AMP As Ordered ONE (14:02)
[2016-10-14] MEDS ORDERED: ETOMIDATE INJ 20MG/10ML VIAL IV STA (14:14)
[2016-10-14] MEDS ORDERED: ROCURONIUM BROMIDE 50 MG/5 ML VIAL IV ONE (14:15)
[2016-10-14] MEDS ORDERED: MIDAZOLAM INJ 2 MG/2 ML VIAL (J2250) As Ordered ONE (14:16)
[2016-10-14] MEDS ORDERED: REFRIGERATOR IV KEYS XX PRN (15:00)
[2016-10-14] MEDS ORDERED: NS 1,000 ML in APPROPRIATE DILUENT 1 EA IV ONE (15:00)
--- NOTE | 2016-10-14 15:10 | REP ---
PORTABLE CHEST, ONE VIEW: HISTORY: Central line placement. COMPARISON: 10/13/2016. An increase in interstitial markings is present in the lungs consistent with chronic interstitial fibrosis. Increased parenchymal densities are present in the lungs. The cardiac silhouette is enlarged. The pulmonary vasculature is prominent. An ET tube and central line are present. There is no pneumothorax. IMPRESSION: 1. Chronic interstitial fibrosis. 2. There are increased parenchymal densities in the lungs consistent with bilateral infiltrates or edema. 3. Cardiomegaly. 4. The patient is status post ET tube and central line placement. There is no pneumothorax. Signed by Rick Ferguson MD 10/14/2016 03:21 P
[2016-10-14] MEDS ORDERED: GASTROGRAFIN SOLUTION 30ML (Q9963) As Ordered ONE (15:41)
[2016-10-14] MEDS ORDERED: GASTROGRAFIN SOLUTION 30ML PO ONE (15:45)
[2016-10-14] MEDS ORDERED: MIDAZOLAM INJ 2 MG/2 ML VIAL (J2250) IV STA (16:00)
[2016-10-14 16:08] LABS: ALBUMIN 1.1 GM/DL (3.2-5.2); ALBUMIN/GLOBULIN RATIO 0.29 (1.00-1.93); BILIRUBIN,TOTAL 0.4 MG/DL (0.2-1.0); CALCIUM LEVEL 6.9 MG/DL (8.8-10.2); CREATININE FOR GFR 2.08 MG/DL (0.70-1.30); GLOMERULAR FILTRATION RATE 32.4 (>35); POTASSIUM SERUM 3.8 MEQ/L (3.5-5.1); TOTAL PROTEIN 4.9 GM/DL (6.4-8.2)
[2016-10-14] MEDS ORDERED: GASTROGRAFIN SOLUTION 30ML (Q9963) PO ONE (16:15)
[2016-10-14] MEDS: MIDAZOLAM HCL 100 MG in D5W 80 ML IV SCH (16:20)
[2016-10-14] MEDS: PANTOPRAZOLE 40MG INJ (PROTONIX) (C9113) IV SCH (16:21)
--- NOTE | 2016-10-14 17:06 | CCN ---
DATE: 10/14/2016 Critical care time was 1 hour and 30 minutes. I was asked by Dr. Davidson to urgently see Mariano Avila at his bedside as he is unconscious and unresponsive. On my arrival, the patient was tachypneic, tachycardic and not responding to any stimuli, rather verbal or tactile. He had a respiratory rate of 50 and had been having hypotension, thought to be having septic shock. Due to the fact that he was unconscious and not responding to any stimuli, with hypotension, I brought him back to the intensive care unit (ICU), intubated him, placed a central line and an arterial line and started management for septic shock and respiratory failure. The patient is well known to me. 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 He has been on chronic steroids up until his last admission. His last admission, in September, apparently the patient had urosepsis from chronic Peters use. After intubation, blood pressure was 60s over 40s; therefore, vasopressive therapy was started despite IV fluid administration. His CVP after 2 liters of fluid was 8. His chest x-ray started to look as if he was having volume overload; therefore, no further fluid was administered and an a-line was put in to assess for pulse pressure variation to discern whether or not he would be responsive to fluid therapy. At this point in time, the exact source of infection has not been identified. Dr. Heller is on the case as an infectious disease specialist and is prescribing his antibiotics. I have ordered a head CT due to his altered level of mental status to ensure no evidence of stroke given his age and comorbidities, and also ordered an abdominal CT due to his persistent lactic acidosis with concern for possible ischemic bowel or abdominal abscess due to the fact that there is no significant signs of pneumonia and the urine culture is unremarkable despite there being some bacteria in the urinalysis. He had been ceftaroline and ceftriaxone; however, I believe these will be adjusted by Dr. Heller. PHYSICAL EXAMINATION: Temperature is 102.5, pulse is 118, respiratory rate is 30, blood pressure is 86/50, oxygen saturation is 93% on 0.60 FiO2. GENERAL: The patient is sedated on mechanical ventilation. Has needed very little sedation due to the fact that he has had decreased mental status; however, with increased perfusion, it does appear that he will move his extremities appropriately. HEENT: He has pupils that are equal and reactive to light, mucous membranes that are moist without lesions. He has a normal corneal reflex. Normal oculocephalic reflex. His dentition are in fair repair. He has a lund with psoriatic patches underneath. NECK: Supple. No tracheal deviation. No elevated jugular venous pressure (JVP). No thyromegaly. LYMPHS: No cervical, supraclavicular or axillary adenopathy. CARDIAC: Regular S1, S2 without audible murmur, rub or gallop. No elevated jugular venous distention (JVD). He does have pitting edema to the mid calf. PULMONARY: Decreased breath sounds bilaterally. He does have a few rales at the bases. No accessory muscle use. Tachypnea improved after intubation. EXTREMITIES: There is significant pitting edema, thin skin with variable skin tears and bruises, likely from chronic prednisone use. No evidence of jaundice. MUSCULOSKELETAL: Appears to be normal for stated age. No evidence of joint fracture or effusion. NEUROLOGIC: Minimal response after increased perfusion. Continues to have significant encephalopathy. No evidence of seizure activity. No posturing. LABORATORY EVALUATION: Sodium is 143, potassium is 3.7, chloride is 110, bicarbonate is 24, BUN is 21, creatinine is 2.2. White blood cell count is 6.0, hemoglobin is 10.6, hematocrit is 33.4, platelet count of 135, neutrophilia of 76%. INR is 3.08. Lactate has been running 4.4 to 3.3 continuously since yesterday. Chest x-ray shows possible left lower lobe infiltrate. There is no dense consolidation. Possible increased vascular congestion. Endotracheal tube was deemed high; therefore, it had been advanced into the patient by 2 cm. Right IJ is in place with the tip in the superior vena cava. There is no evidence of pneumothorax. IMPRESSION: 1. Shock, likely septic shock. The patient has persistent elevation of lactic acidosis. I have given him IV fluids to the point where I believe he has been adequately resuscitated. I have also given him vasopressive therapy. Dr. Heller is going to manage antibiotic therapy. I believe she will continue ceftaroline for gram-negative coverage along with his history of methicillin-resistant Staphylococcus aureus (MRSA). Will continue to monitor for signs of alternative sources of sepsis. 2. Metabolic acidosis from lactic acidemia likely precipitating respiratory failure. Will ventilate on volume control according to [employer] protocol. Will assess for extubation as soon as possible when he is cardiovascularly stable. 3. Metabolic Encephalopathy. Possibly also secondary to decreased cerebral perfusion pressures; however, head CT is being performed. I believe this to be secondary to the metabolic acidosis. 4. Renal failure. Appears that his creatinine is currently close to his baseline level given the review of the chart over the past few months. There is no acute indication for dialysis at this point in time. 5. Chronic steroid use with adrenal insufficiency. I had advised Dr. Davidson to start hydrocortisone 50 mg ever 6 hours which has been done. 6. Elevated international normalized ratio (INR) with a history of pulmonary embolism (PE). On lifelong anticoagulation. Will hold Coumadin for now. Have deep vein thrombosis (DVT) prophylaxis with thromboembolism deterrents (TEDs) and [place] as long as the INR remains elevated. As this trends down, would cover with heparin. 7. Anemia. No obvious source of bleeding at this point in time. No indication for transfusion. Likely secondary to chronic kidney disease. 8. Secondary hypoparathyroidism. 9. Gastrointestinal (GI) prophylaxis. On Protonix. 10. Diabetes. Covered with sliding scale insulin for a goal blood sugar less than 180. At this point in time, I do not see an indication for an insulin drip. Critical care time was 1 hour and 30 minutes; this excludes all procedures. Critical care time needed due to his respiratory failure, septic shock and multiple organ impairment. [facility]
--- NOTE | 2016-10-14 17:23 | RO ---
DATE OF PROCEDURE: 10/14/2016 PREOPERATIVE DIAGNOSIS: Respiratory failure secondary to neurologic status. POSTPROCEDURE DIAGNOSIS: Respiratory failure secondary to neurologic status. PROCEDURE: Endotracheal intubation. SURGEON: Dr. Bakari Ramon SALVAGE INSPECTOR: None. ANESTHESIA: The patient had 20 mg of etomidate and 100 mg of rocuronium. DESCRIPTION OF PROCEDURE: After a time-out was performed identifying correct site, correct position, the patient was placed in the supine position and sniffing position. He was preoxygenated to 100% via bag mask ventilation. After the patient was in the correct position with good oxygenation, the drug were pushed in rapid sequence, etomidate followed by rocuronium. The GlideScope was used to view the posterior pharynx. There was a large amount of green bilious, almost stool looking material in the back of his airway. There was a grade 2 view. The 8.0 endotracheal tube was easily passed through the vocal cords and placed at 25 cm at the lip line. Proof of placement was performed with direct auscultation and change in end-tidal CO2 monitoring along with chest x-ray. Chest x-ray did determine the endotracheal to be slightly high above the mario; therefore, it was advanced 2 cm into the patient. There were no observed complications. MTDD
--- NOTE | 2016-10-14 17:32 | RO ---
DATE OF PROCEDURE: 10/14/2016 PREOPERATIVE DIAGNOSIS: Hypotension. POSTOPERATIVE DIAGNOSIS: Hypotension. PROCEDURE: Right internal jugular venous catheter. SURGEON: Dr. Bakari Ramon PANEL SAW OPERATOR:None ANESTHESIA: The patient was sedated on mechanical ventilation. Time-out was performed with two patient identifiers, identifying correct site, correct position, two patient identifiers. DESCRIPTION OF PROCEDURE: The patient was placed in supine position. The right internal jugular (IJ) was prepped and draped in a sterile manner with full barrier sterile precautions and with chlorhexidine. The right IJ was identified under ultrasound. The RaFairShareson syringe was then passed under ultrasound into the IJ. On the first pass, there was return of venous blood flow, wire was fed through the needle and the needle was removed. A nitesh in the skin was made and the dilator was placed over the wire. Dilator was then removed. The triple-lumen catheter was then fed over the wire in a modified Seldinger technique. The wire was removed after the catheter was advanced to 15 cm. All three ports returned venous blood flow and flushed easily. This was sutured in at 15 cm. There was a sterile impregnated dressing placed over the site. Appropriate position was confirmed by chest x-ray. There were no observed complications. MTDD
--- NOTE | 2016-10-14 17:38 | RO ---
DATE OF PROCEDURE: 10/14/2016 PREOPERATIVE DIAGNOSIS: Lactic acidosis. POSTOPERATIVE DIAGNOSIS: Lactic acidosis. PROCEDURE: Left radial arterial line. SURGEON: Dr. Bakari Ramon PULMONARY FUNCTION TECHNOLOGIST: None ANESTHESIA/Sedation: The patient was on mechanical ventilation, sedated with Versed. Time-out was performed with two patient identifiers, identifying correct site, correct procedure. DESCRIPTION OF PROCEDURE: The left wrist was examined. Scotty test was performed to ensure adequate arterial blood flow. This was normal. The wrist was then prepped and draped in a sterile manner with chlorhexidine and sterile barrier precaution. The Cook needle was introduced into the artery under ultrasound with return of pulsatile blood flow. The wire was fed through the needle and the Cook catheter was placed via modified Seldinger technique. The wire was removed, and the catheter was attached to arterial flow monitoring, which showed a dampened but adequate arterial waveform. This was sutured in place. There were no observed complications. Sterile impregnated dressing was placed over the site. [facility]
--- NOTE | 2016-10-14 17:41 | REP ---
CT BRAIN WITHOUT CONTRAST: 10/14/2016. Clinical history: Altered mental status. Comparison: 09/22/2016, 08/06/2012. Findings: The noncontrast soft tissue and bone window settings show ventriculomegaly with proportionate diffuse moderately severe to severe cerebral atrophy. This is unchanged from the previous study. There is no intraventricular hemorrhage. Basal ganglia were symmetric. There is a lacunar infarct in the anterior limb of the internal capsule on the left as before. Heterogeneous low attenuation white matter changes are seen bilaterally in the cerebral hemispheres in a symmetric fashion. This represents a fairly extensive chronic small vessel white matter ischemic change. Atrophy is greatest in the temporal and frontal lobes but present throughout. Thalami intact. Basal cisterns widely patent and stem intact. There is diffuse atrophy of the cerebellum. There is no intracranial hemorrhage, acute infarct, mass or mass effect. Mastoids intact. Ethmoid sinuses, left frontal sinus small amounts of mucosal thickening also seen in the sphenoid sinuses. No air-fluid levels. Orbits and contents without acute finding as seen on this limited evaluation of those regions. The skull base and calvarium show no fracture or focal lesion. Vascular calcifications carotid siphons are fairly heavy. Impression: 1. Extensive chronic small vessel white matter ischemic change of aging, without acute infarct, hemorrhage, or mass. 2. Advanced atrophy and ventriculomegaly in proportion unchanged. There is no lacunar infarct in the anterior limb of the right internal capsule as before. 3. Atrophy in the cerebellum, fairly severe. 4. Diffuse sinus mucosal thickening in the ethmoids, mild in the sphenoid and opacifying the left frontal sinus. Mastoids intact and the skull base and calvarium intact. 5. Heavy calcifications carotid siphons. Signed by Edgar Yung MD 10/14/2016 07:50 P
--- NOTE | 2016-10-14 17:56 | REP ---
CT ABDOMEN PELVIS WITHOUT IV CONTRAST: 10/14/2016: Comparison: 07/26/2016. Clinical history: Persistent lactic acidosis. Technique: Oral Gastrografin mixture 10 mL and 290 mL of flavored water for two doses per our bowel contrast protocol. Scanning through the abdomen pelvis without IV contrast with coronal and sagittal reconstructions. Findings: CT abdomen: Small bilateral effusions and left lower lobe infiltrate with compressive atelectatic changes in both lower lung zones. Heart is mildly enlarged. There are calcifications in the mitral annulus and aortic valve plane. Some coronary artery calcifications are noted. Minimal pericardial thickening or fluid noted. There is a nasogastric tube coursing across the GE junction terminating in the body of the stomach laterally. The liver, spleen, gallbladder, adrenal glands and pancreas were grossly intact. No peripancreatic fluid or inflammatory change. 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 Sinus lipomatosis noted. No definite hydronephrosis or hydroureter. No renal or ureteral stone. Small bowel loops are contrast filled and without dilatation. The colon shows oral contrast, stool and air in the right and transverse portion of the mid abdomen. There is diverticulosis of the left colon without definite diverticulitis. The aorta has atherosclerotic calcifications and tortuosity without aneurysm. The lung windows show no evidence of perforation or free air on CT review of all slice levels in the abdomen and pelvis. The bone windows show the lumbar spine with diffuse spondylosis from L2-3 through L5-S1 with disc space narrowing, osteophytes and vacuum phenomenon. Levels above show intact disc heights and no compression deformity at any level. There is some facet arthropathy lower lumbar spine. Visualized ribs are grossly intact. CT pelvis: Hip arthritis bilaterally is noted without evidence of AVN. The SI joints, sacrum, iliac bones, acetabuli and symphysis pubis grossly intact with minor degenerative changes at the acetabular margins. The distal ureters are not dilated and show no stone. The bladder is empty with a Peters catheter balloon inflated. There is air in the bladder and a urachal remnant which extends up towards the umbilicus. No patent urachus noted. No mass suggested about the urachal remnant but it is larger than typical. Distal left colon and sigmoid show diverticulosis without diverticulitis. The rectal vault is distended with stool. No pelvic or perirectal inflammatory change. Small bowel loops grossly intact. Cecum was normal. No inflammatory changes are seen and the appendix is normal. No ventral hernia. There is distension of the inguinal canal on the left by omental fat without bowel herniation. Prostate has calcifications and indents the bladder base. Impression: 1. Bilateral basilar infiltrates left greater than right with small effusions on both sides. 2. Cardiomegaly with left atrial and ventricular enlargement and calcified mitral annulus and aortic valve plane. 3. NG tube crosses the GE junction into the body of the stomach with upper abdominal organs otherwise unremarkable. 4. Diverticulosis of the left colon and sigmoid without diverticulitis. No colitis, stricture or mass. 5. Horseshoe kidney with some cysts but no hydronephrosis or stone. 6. Bladder empty with a Peters catheter in place and gas in the bladder and the urachal remnant, presumably from Peters insertion although gas-forming organism infection is a possibility. No mass. 7. Inguinal canal distended on the left with omental fat. No bowel herniation. Signed by Edgar Yung MD 10/14/2016 07:51 P
[2016-10-14] MEDS ORDERED: LR 1,000 ML IV ONE (19:15)
--- NOTE | 2016-10-14 20:23 | ECGEPIP ---
Stationary ECG Study [facility] - ED Test Date: 2016-10-13 Pat Name: BIPIN RUSSELL Department: Room: [place] [address] Gender: M Gas Tender: ta : 1930 Requested By: SOSA Ambrose Order Number: [id number] Reading MD: Cirilo Ash Measurements Intervals [place] Rate: 94 P: -4 HI: 168 QRS: -60 QRSD: 146 T: 18 QT: 393 QTc: 493 Interpretive Statements SINUS RHYTHM WITH FREQUENT SUPRAVENTRICULAR PREMATURE COMPLEXES RIGHT BUNDLE BRANCH BLOCK LAD LEFT ANTERIOR FASCICULAR BLOCK MINIMAL VOLTAGE CRITERIA FOR LVH, CONSIDER NORMAL VARIANT CW 07/26/16 - RATE DECREASED Electronically Signed On 10-14-2016 20:23:12 EST by Cirilo Ash
[2016-10-14] MEDS: CHLORHEXIDINE GLUCONATE 0.12 % 15ML UDC (PERIDEX ORAL RINSE) MT SCH (21:46)
[2016-10-14] MEDS: NOREPINEPHRINE BITARTRATE 8 MG in D5W 500 ML IV SCH (23:02)
[2016-10-15] VITALS (24 sets, daily range): BP systolic 87–124; BP diastolic 46–83; O2SAT 98
[2016-10-15] MEDS: HumaLOG INSULIN (NovoLOG) PER UNIT SC SCH ×3 (05:42→18:10)
[2016-10-15] MEDS: HYDROCORTISONE 100 MG/2 ML VIAL (J1720) IV SCH ×3 (05:42→18:11)
[2016-10-15 05:47] LABS: BASO % 0.3 % (0.0-1.0); EOS # 0.1 K/mm3 (0.0-0.50); EOS % 0.8 % (0.0-3.0); LARGE UNSTAINED CELL # 0.1 K/mm3 (0.0-0.4); LARGE UNSTAINED CELL % 1.1 % (0.0-4.0); LYMPH # 0.6 K/mm3 (1.5-4.5); MEAN CORPUSCULAR HEMOGLOBIN 29.7 pg (27.0-33.0); MEAN CORPUSCULAR HGB CONC 32.1 g/dl (32.0-36.5); MEAN CORPUSCULAR VOLUME 92.6 fl (80.0-96.0); MONO # 0.5 K/mm3 (0.0-0.8); MONO % 5.3 % (0.0-5.0); NEUTROPHILS # 7.8 K/mm3 (1.8-7.7); NEUTROPHILS % 86.5 % (36.0-66.0); PLATELET COUNT, AUTOMATED 201 k/mm3 (150-450); RED CELL DISTRIBUTION WIDTH 15.7 % (11.5-14.5)
--- NOTE | 2016-10-15 05:51 | ECHO ---
DATE OF PROCEDURE: 10/14/2016 REFERRING PHYSICIAN: Yanni Gamino. INDICATION: Fever. HEIGHT: 183 cm. WEIGHT: 89 kg. MEASUREMENTS: Ventricular septum: 1.70 cm Posterior wall: 1.4 cm Left ventricle diastole: 4.6 cm LVOT: 2.2 cm Aortic root: 3.3 cm Left atrium: 3.8 cm Inferior vena cava: 1.2 cm with normal respiratory variation. DOPPLER MEASUREMENTS: Peak aortic velocity: 390 cm/s Aortic valve VTI: 67.7 cm Peak aortic gradient: 61 mmHg Mean aortic gradient: 28 mmHg Aortic valve area (continuity equation, VTI: 2.2 cm2 LVOT velocity: 284 cm/s LVOT gradient: 14 mmHg LVOT VTI: 38.8 cm Mitral E velocity: 127 cm/s Mitral A velocity: 158 cm/s Mitral deacceleration time: 225 ms Mild tricuspid regurgitation. Estimated right ventricular systolic pressure 48 mmHg assuming an atrial pressure of 5 mmHg. Very mild pulmonic regurgitation. MITRAL ANNULAR TISSUE DOPPLER: E-prime septal: 4.6 cm/s E-prime lateral: 6.4 cm/s DESCRIPTION: Rhythm was sinus. This was a moderately technically difficult echocardiogram. No pericardial effusion. CONCLUSIONS: 1. No vegetation identified on any of the cardiac valve, however, image quality was suboptimal and therefore vegetations cannot be excluded with complete certainty. 2. Mild concentric left ventricular hypertrophy. No regional wall motion abnormalities. Normal LV systolic function. LVEF 70% by visual estimate. Grade 1 LV diastolic dysfunction (impaired relaxation filling pattern). Mild dynamic LVOT gradient. 3. Severe focal thickening and focal calcific deposits of a 3-cusp aortic valve. Mild decreased lability of the aortic valve. Probably mild aortic stenosis. No aortic regurgitation identified. 4. Moderate mitral annular calcification. No mitral regurgitation or mitral stenosis. 5. Suggestive of moderate elevation of estimated right ventricle systolic pressure. 6. Moderately technically difficult echocardiogram.
[2016-10-15 06:07] LABS: ABG BASE EXCESS -3.1 (-2.0-2.0); ABG HCO3 19.9 MEQ/L (22.0-26.0); ABG PARTIAL PRESSURE CO2 29.2 mmHg (35.0-45.0); ABG PARTIAL PRESSURE O2 136.9 mmHg (75.0-100.0); ABG STANDARD HCO3 21.9 MEQ/L (22.0-26.0); ABG TOTAL CO2 20.8 MEQ/L (23.0-31.0); ABG pH (ARTERIAL) 7.451 UNITS (7.350-7.450)
--- NOTE | 2016-10-15 07:49 | CR.PDOC ---
Provider Note DATE OF CONSULTATION: Oct 13, 2016 at 20:25 PRIMARY CARE PHYSICIAN: Dr. Galvez ATTENDING PHYSICIAN: Dr. Noah Heller REASON FOR CONSULTATION/CHIEF COMPLAINT: Sepsis, fevers. HISTORY OF PRESENT ILLNESS: Patient presented to the ER yesterday, 10/13/16, from [facility] for altered mental status and fever. Upon admission he was started on ceftriaxone and ceftaroline for sepsis. He continued to have fevers in the hospital today, as well as hypotension, tachypnea and tachycardia. The patient's mental status continued to deteriorate and he was moved to the ICU where he was placed on a ventilator. Services were transferred to critical care. Patient was previously admitted for Urosepsis in July and September. During the admission from -2015 he was diagnosed with an E. Coli UTI and was treated with cephalexin 500mg TID. After this admission, he was placed at [facility] (08/05/16) for further care and rehab until September 15. He was then home for about a week before being admitted again on 09/22/16 for another episode of sepsis, and was found to have E. Coli in his urine and E. Coli and MRSA bacteremia. This was treated with linezolid 600 mg IV and and Meropenem for gram-negative coverage. He was discharged to [facility] and started on Ceftaroline IV 400mg, 10/01/16. This was completed on 10/07/2016. On 10/12 the patient was noted to have a fever and was given IV Daptomycin and Ceftriaxone. According to his we appeared to be improving until the antibiotics were stopped on 10/07/2016, at which point he started to develop fatigue and loss of interest in his usual activities such as reading magazines and the newspaper. She also reports that on 10/12/2016 he was very lethargic. At baseline, patient is able to ambulate with a walker. However, he has had decreased ambulation in the last several weeks and was mostly bedbound. He was seeing physical therapy but that was discontinued in the last several weeks because he was not progressing. ALLERGIES: Vancomycin HOME MEDICATIONS: -albuterol sulfate every 8 hours and every 2 hours as needed for shortness of breath - Ventolin HFA two puffs every four hours as needed for shortness of breath - atorvastatin 20 mg daily - Symbicort two puffs twice a day - cetirizine 10 mg daily - famotidine 40 mg twice a day - Proscar 5 mg daily - glipizide 5 mg daily - Singulair 10 mg daily - Bystolic 5 mg daily - Flomax 0.4 mg daily - Spiriva one inhalation daily - torsemide 5 mg daily - Drisdol 50,000 units every 2 weeks PAST MEDICAL HISTORY: 1. Recurrent urinary tract infections. 2. Benign prostatic hyperplasia (BPH). 3. Asthma. 4. Congestive heart failure (CHF). 5. Diabetes. 6. Hyperlipidemia. 7. Hypertension. 8. Pulmonary embolism. FAMILY HISTORY: Father: CVA Mother: Metastatic breast cancer SOCIAL HISTORY: Patient is and lives with his . No tobacco, drug or alcohol use. Has been in [facility] 2015 -2016 and -2016 REVIEW OF SYSTEMS: Unobtainable secondary to the patient being on a ventilator. PHYSICAL EXAMINATION: VITAL SIGNS: Please see below. GENERAL APPEARANCE: Sedated, on ventilator. HEENT: Normocephalic, atraumatic. Patient is intubated. RESPIRATORY: On ventilator, lung sounds are clear bilaterally CARDIOVASCULAR: Systolic murmur heard throughout. Good capillary refill <2 seconds ABDOMEN: Hyperactive bowel sounds x4. Soft. Nondistended. Loose incontinent bowels on dressing. EXTREMITIES: +1 edema in Lower extremity. NEUROLOGICAL: Patient sedated SKIN: Ulcerated skin on R scrotum, and lumbosacral area: wounds are dressed, serosanguineous nonpurulent discharge. LABORATORY DATA: Please see below. ASSESSMENT: This is an 86-year-old male who is currently in the ICU with sepsis, fever, hypotension, lactic acidosis, yeastlike organisms on urine culture and negative blood cultures. Blood cultures were obtained 10/12/2016 when patient was febrile. Patient was started on antibiotics 10/12/2016. Negative history of C. difficile, but has loose stools as noted on physical exam. PLAN: Continue patient on Teflaro 600 mg IV. Ceftriaxone was discontinued because Teflaro would provide sufficient coverage. Patient continues to have fevers with unknown source. Suspected C. difficile colitis secondary to recent antibiotic use. Stools will be sent for C. difficile PCR. We will continue fluconazole 200 mg IV as patient had positive yeastlike organisms on urine culture (10/12/2016). Awaiting CT results of abdomen/pelvis and CT head. Echocardiogram was ordered to rule out endocarditis. If no sources of infections are found, we will consider lumbar puncture to rule out sources of encephalitis. The case was discussed with Dr. Ramon. GME ATTESTATION GME ATTESTATION My preceptor for this patient encounter was physically present in the building during the encounter and was fully available. As needed, all aspects of the patient interview, examination, medical decision making process, and medical care plan development were reviewed and approved by the preceptor. Preceptor is aware and concurs with the plan as stated in the body of this note and will attest to such by his/her cosignature. SHEELA AGUILAR DO Oct 14, 2016 16:56 Noah Heller MD Oct 19, 2016 15:22
[2016-10-15] MEDS: CHLORHEXIDINE GLUCONATE 0.12 % 15ML UDC (PERIDEX ORAL RINSE) MT SCH ×2 (08:36→21:27)
[2016-10-15] MEDS: PANTOPRAZOLE 40MG INJ (PROTONIX) (C9113) IV SCH (08:36)
[2016-10-15] MEDS ORDERED: MIDAZOLAM INJ 2 MG/2 ML VIAL (J2250) IV PRN (09:00)
--- NOTE | 2016-10-15 09:04 | REP ---
Portable chest x-ray: Single view. History: Respiratory failure. Comparison study: October 14, 2016. Findings: A right internal jugular vein catheter is seen with its tip in the expected location of the superior vena cava. The endotracheal tube is noted in good position projecting 1.5 cm above the mario today. A nasogastric tube is seen entering the left upper quadrant of the abdomen. EKG electrodes and oxygen delivery tubing are noted. There is pleural opacity at the left base obscuring much of the left diaphragm. Interstitial markings remain slightly prominent. Impression: Left pleural effusion. Endotracheal, nasogastric and right internal jugular catheters in position as above. Signed by Malik Ferguson MD 10/15/2016 10:44 A
[2016-10-15 09:15] LABS: CALCIUM LEVEL 6.7 MG/DL (8.8-10.2); CREATININE FOR GFR 2.1 MG/DL (0.70-1.30); POTASSIUM SERUM 4.2 MEQ/L (3.5-5.1)
[2016-10-15] MEDS: CEFTAROLINE FOSAMIL 600 MG in D5W MINI-BAG PLUS 50 ML IV SCH (11:58)
[2016-10-15] MEDS: NOREPINEPHRINE BITARTRATE 8 MG in D5W 500 ML IV SCH ×2 (13:33→19:47)
[2016-10-15] MEDS: MIDAZOLAM HCL 100 MG in D5W 80 ML IV SCH (15:54)
--- NOTE | 2016-10-15 17:04 | CCN ---
DATE: 10/15/2016 Mr. Avila remains clinically ill with acute respiratory failure leading to mechanical ventilation secondary to shock felt likely septic in nature. Overnight, he transiently required an increase in his vasopressor need to a max of around 20 and that has been able to be weaned to 6 this morning. He is sedated and appears comfortable with the ventilator. Minimal secretions. His lactate has decreased to 2 overnight. He has had borderline urine output with 60 mL over the last 2 hours. His CVP has been approximately 9. He needed one liter of LR overnight. The source of his sepsis is not clear. Question CD colitis secondary to recent antibiotic usage. There are also doing an echocardiogram to screen for endocarditis. PHYSICAL EXAMINATION: GENERAL: Mr. Avila is sedated and synchronous with the ventilator. His questions whether he may have nodded once to her in response to questions, but I cannot get him to follow commands. His sedation has been decreased. HEENT: Anicteric. Nares: Patent bilaterally. Oral pharynx: ET tube and OG tube in place. NECK: Without thyromegaly or masses. Trachea is midline. LYMPHS: Without cervical or supraclavicular lymphadenopathy. LUNGS: Generalized diminished breath sounds. No wheeze, rhonchi or significant crackle. There are minimal bibasilar crackles. Normal I to E. No accessory muscle usage or retractions. CARDIOVASCULAR: Regular rate and rhythm with a normal S1, S2. No murmur, rub or gallop appreciated. ABDOMEN: Positive bowel sounds, soft, no hepatosplenomegaly or masses appreciated. EXTREMITIES: Sequential compression devices (SCDs) and thromboembolic deterrent stockings (TEDS) in place, palpable pedal pulses. Bilateral lower extremity edema. SKIN: There are regions of ecchymosis. Skin appears thin with some regions of small tears. LABORATORY DATA: Electrolytes show sodium 143, potassium 4.2, chloride 113, bicarbonate 22, anion gap 8, BUN 26, creatinine 2.1, calcium 6.7. CBC shows a hemoglobin of 10.6, hematocrit of 33.2, platelet count 201,000. White blood cell count 9,000 with a differential of 87. Neutrophils 6% lymphocytes, 5 % monocytes. Arterial blood gas this morning on assist control with a tidal volume of 450, rate of 18 and FiO2 of 0.3 with 7.5/29/137 with measured saturation of 99%. Yesterdays I O was 2417 in, and 534 out. Making him positive 1613. Thus far today he has had 77 in and 235 out making him negative 158. Weight 94.2 kg. I reviewed his chest x-ray as well as report which shows normal appearing cardiac silhouette. Pulmonary vascular shadows. ET tube is in good position. Perhaps slight increased interstitial markings with blunting of the left costophrenic angle. IMPRESSION: 1. Acute respiratory failure secondary to sepsis. 2. Shock, likely secondary to sepsis. 3. Acute on chronic renal failure. It appears his baseline creatinine was 1.9 at the time of discharge 09/29/2016. 4. Encephalopathy felt likely secondary to decreased perfusion. Head CT did not show any pathology. 5. Chronic steroid use with risk for adrenal insufficiency, on hydrocortisone 50 mg every 6 hours. 6. Elevated INR with a history of pulmonary embolism (PE) in the past. He is on lifelong anticoagulation and he is currently on sequential compression devices (SCDs) and thromboembolic deterrent stockings (TEDS) for deep vein thrombosis prophylaxis as his Coumadin was over 3 on admission with a Coumadin being held for now. He will need to be fully anticoagulated after the acute event has resolved. 7. Stress ulcer prophylaxis in place with proton pump inhibitor. 8. Diabetes mellitus, on sliding scale insulin. That may need to be changed to insulin drip as tube feeds are going to be started. 9. Nutrition: Currently nothing by mouth. We will start tube feeds. RECOMMENDATIONS: 1. We will change him over to pressure support this morning to see how he does. That was done at bed side and he is doing very well on the pressure support of 10 over his PEEP of 5. Tidal volume is around 500 to 550 and RSBI in the 20s. 2. Appreciate Dr. Heller's advice regarding sepsis. 3. There is notation of possible lumbar puncture. If that is to be done, he will need to receive Fresh frozen plasma to normalize his INR. There is a risk that that would push him into heart failure given his malnutrition and low albumin level. 4. We will start tube feeds. 5. We will maximize his Versed drip at 2 and use as needed boluses if needed to decrease the chance of Versed building up and then precluding extubation when he is ready. 6. Continue to monitor CVP. He has done reasonably well on a CVP of 9, though on last admission it was felt that he may need a slightly higher CVP. I concur with Dr. Ramon we need to be judicious about IV fluids given his low albumin and capillary weak. CRITICAL CARE: 40 minutes. MTDD
[2016-10-15] MEDS: FLUCONAZOLE 200 MG in APPROPRIATE DILUENT 1 EA IV SCH (21:27)
[2016-10-16] VITALS (28 sets, daily range): BP systolic 79–142; BP diastolic 40–70; O2SAT 95–99
[2016-10-16] MEDS: HYDROCORTISONE 100 MG/2 ML VIAL (J1720) IV SCH ×3 (00:06→17:40)
[2016-10-16] MEDS: CEFTAROLINE FOSAMIL 600 MG in D5W MINI-BAG PLUS 50 ML IV SCH ×3 (00:07→23:38)
[2016-10-16] MEDS: HumaLOG INSULIN (NovoLOG) PER UNIT SC SCH ×5 (00:07→23:38)
[2016-10-16] MEDS: NOREPINEPHRINE BITARTRATE 8 MG in D5W 500 ML IV SCH ×2 (02:34→14:46)
[2016-10-16 05:17] LABS: BASO % 0.2 % (0.0-1.0); EOS % 0.2 % (0.0-3.0); LARGE UNSTAINED CELL # 0.3 K/mm3 (0.0-0.4); LARGE UNSTAINED CELL % 2.6 % (0.0-4.0); LYMPH # 0.7 K/mm3 (1.5-4.5); LYMPH % 7.4 % (24.0-44.0); MEAN CORPUSCULAR HEMOGLOBIN 28.9 pg (27.0-33.0); MEAN CORPUSCULAR HGB CONC 30.5 g/dl (32.0-36.5); MEAN CORPUSCULAR VOLUME 94.8 fl (80.0-96.0); MONO # 0.4 K/mm3 (0.0-0.8); MONO % 3.6 % (0.0-5.0); NEUTROPHILS # 8.4 K/mm3 (1.8-7.7); PLATELET COUNT, AUTOMATED 184 k/mm3 (150-450); RED CELL DISTRIBUTION WIDTH 15.3 % (11.5-14.5); WHITE BLOOD COUNT 9.8 K/mm3 (4.0-10.0)
[2016-10-16 05:25] LABS: CALCIUM LEVEL 6.6 MG/DL (8.8-10.2); CREATININE FOR GFR 2.38 MG/DL (0.70-1.30); GLOMERULAR FILTRATION RATE 27.7 (>35)
[2016-10-16 05:40] LABS: ERYTHROCYTE SEDIMENTATION RATE 81 mm/hr (0-30)
[2016-10-16] MEDS: PANTOPRAZOLE 40MG INJ (PROTONIX) (C9113) IV SCH (08:58)
[2016-10-16] MEDS: CHLORHEXIDINE GLUCONATE 0.12 % 15ML UDC (PERIDEX ORAL RINSE) MT SCH ×2 (08:58→21:46)
--- NOTE | 2016-10-16 09:23 | REP ---
REASON: Respiratory failure. COMPARISON: 10/15/2016 at 6:46 a.m. The tubes and lines are unchanged. The lung miles are unchanged. The technique utilized in obtaining the radiograph has magnified the cardiac silhouette and accentuated the interstitial markings. The cardiomediastinal silhouette is unchanged. There is persistent silhouetting out of the diaphragmatic surface of the left lung laterally. There are no new abnormal lung opacities. There is no change in the osseous structures. IMPRESSION: No significant change from the prior exam. Signed by Russ Barber DO 10/16/2016 10:05 A
[2016-10-16] MEDS ORDERED: LR 1,000 ML IV ONE (11:00)
--- NOTE | 2016-10-16 11:36 | IPN ---
DATE OF SERVICE: 10/15/2016 Mr. Avila remains intubated and sedated. He looks very comfortable. There have been no acute events overnight. He has had no recurrent fever since noon yesterday when he spiked to 102.5. Today he has been afebrile. He has been weaned off the vent and all pressors. His temperature is 96.1, pulse 79, respirations 20, blood pressure 110/72, oxygen saturation is 98% on 30% FiO2 ventilator, blood pressure 104/58. HEART: Normal S1, S2 with a systolic ejection murmur 2/6 left upper sternal border. LUNGS: Clear anteriorly. No wheezes, rales or rhonchi. ABDOMEN: Soft, nontender. No hepatosplenomegaly. Scrotal area has a superficial ulcer measuring about 2 x 2 cm, healing well with granulation tissue. EXTREMITIES: Trace edema. LABORATORY DATA: White count 9, hemoglobin 10.6, hematocrit 33.2, platelets 201. 86% neutrophils, 6% lymphocytes, 5% monocytes. Sodium is 143, potassium 4.2, chloride 113, bicarbonate 28, BUN 26, creatinine 2.1, glucose 277. Lactic acid is down to 2 from 4.4. C-reactive protein (CRP) 13.3. Urine culture from 10/12/2016 had yeastlike organism, 100,000. On 10/12/2016, two sets of blood cultures were no growth after 72 hours. On 10/13/2016, two more sets were no growth. On 2016, urine culture had no growth and Clostridium (C) difficile was negative. IMAGING STUDIES: Chest x-ray showed a left pleural effusion and a tracheal nasogastric and right internal jugular (IJ) all in position. CT of the abdomen and pelvis showed right basilar infiltrates, left greater than the right, with small effusions, cardiomegaly, horseshoe kidney with some cysts, but no hydronephrosis. Bladder is empty with a Peters catheter. IMPRESSION 1. Sepsis with negative culture except for a urine culture with yeast on 10/12/2016, but repeat culture was negative. He has improved with ceftaroline 600 mg intravenous (IV) every 12 hours and fluconazole 200 mg IV every 24 hours. 2. Diarrhea. Clostridium (C) difficile was negative. 3. Acute kidney injury from hypotension. Creatinine is stable. PLAN: Continue with ceftaroline and fluconazole. Hopefully, the patient will be extubated tomorrow.
[2016-10-16] MEDS: LR 1,000 ML IV SCH (12:05)
[2016-10-16] MEDS: FLUCONAZOLE 200 MG in APPROPRIATE DILUENT 1 EA IV SCH (21:46)
[2016-10-17] VITALS (26 sets, daily range): BP systolic 86–129; BP diastolic 43–76; O2SAT 99–100
[2016-10-17] MEDS: MORPHINE 2 MG/ML 1ML SYRINGE IV PRN (00:35)
[2016-10-17] MEDS: HYDROCORTISONE 100 MG/2 ML VIAL (J1720) IV SCH ×2 (05:04→17:14)
[2016-10-17] MEDS: HumaLOG INSULIN (NovoLOG) PER UNIT SC SCH ×4 (05:04→23:42)
[2016-10-17 05:21] LABS: BASO % 0.1 % (0.0-1.0); EOS # 0.1 K/mm3 (0.0-0.50); EOS % 1.4 % (0.0-3.0); LARGE UNSTAINED CELL # 0.1 K/mm3 (0.0-0.4); LARGE UNSTAINED CELL % 1.3 % (0.0-4.0); LYMPH # 0.8 K/mm3 (1.5-4.5); LYMPH % 7.1 % (24.0-44.0); MEAN CORPUSCULAR HGB CONC 32.4 g/dl (32.0-36.5); MEAN CORPUSCULAR VOLUME 92.5 fl (80.0-96.0); MONO # 0.5 K/mm3 (0.0-0.8); MONO % 5.6 % (0.0-5.0); NEUTROPHILS % 84.5 % (36.0-66.0); PLATELET COUNT, AUTOMATED 166 k/mm3 (150-450); RED CELL DISTRIBUTION WIDTH 15.5 % (11.5-14.5); WHITE BLOOD COUNT 9.4 K/mm3 (4.0-10.0)
[2016-10-17 05:23] LABS: INR 3.04
[2016-10-17] MEDS: LR 1,000 ML IV SCH ×3 (05:39→23:42)
[2016-10-17 05:53] LABS: GLOMERULAR FILTRATION RATE 33.9 (>35); POTASSIUM SERUM 4.2 MEQ/L (3.5-5.1)
[2016-10-17] MEDS: CHLORHEXIDINE GLUCONATE 0.12 % 15ML UDC (PERIDEX ORAL RINSE) MT SCH ×2 (09:50→21:16)
[2016-10-17] MEDS: PANTOPRAZOLE 40MG INJ (PROTONIX) (C9113) IV SCH (09:55)
--- NOTE | 2016-10-17 12:02 | REP ---
REASON: Respiratory failure. COMPARISON: Multiples, latest 10/16/2016 at 5:52 a.m. The tubes and lines are unchanged. The cardiomediastinal silhouette is unchanged. The lung miles are unchanged. IMPRESSION: No change. Signed by Russ Barber DO 10/17/2016 01:52 P
[2016-10-17] MEDS: CEFTAROLINE FOSAMIL 600 MG in D5W MINI-BAG PLUS 50 ML IV SCH ×2 (13:00→23:43)
--- NOTE | 2016-10-17 14:43 | ECGEPIP ---
Stationary ECG Study [facility] Test Date: 2016-10-17 Pat Name: BIPIN RUSSELL Department: Room: [place] [address] Gender: M User Support Analyst Supervisor: MCKAYLA : 1930 Requested By: Veronica HONEYCUTT Order Number: [id number] Reading MD: Nicole Jones Measurements Intervals [place] Rate: 77 P: 7 GA: 154 QRS: -48 QRSD: 146 T: -6 QT: 471 QTc: 536 Interpretive Statements SINUS RHYTHM RIGHT BUNDLE BRANCH BLOCK LEFT ANTERIOR FASCICULAR BLOCK LAT ST ABN 2ND REPOLAR CHANGES V1 WITH PSEUDONORAMALIZATION RATE SLOWER INFERIOR STT ABN NEW C/W 10/13/16 Electronically Signed On 10-17-2016 14:42:43 EDT by Nicole Jones
[2016-10-17] MEDS ORDERED: MIDAZOLAM INJ 2 MG/2 ML VIAL (J2250) IV PRN (18:30)
[2016-10-17] MEDS: FLUCONAZOLE 200 MG in APPROPRIATE DILUENT 1 EA IV SCH (21:16)
[2016-10-18] VITALS (17 sets, daily range): BP systolic 100–126; BP diastolic 50–70; O2SAT 96
[2016-10-18] MEDS: MORPHINE 2 MG/ML 1ML SYRINGE IV PRN ×3 (02:19→21:35)
[2016-10-18] MEDS: HYDROCORTISONE 100 MG/2 ML VIAL (J1720) IV SCH ×2 (05:08→18:07)
[2016-10-18] MEDS: HumaLOG INSULIN (NovoLOG) PER UNIT SC SCH ×3 (05:08→18:06)
[2016-10-18 05:32] LABS: BASO % 0.6 % (0.0-1.0); EOS % 0.4 % (0.0-3.0); LARGE UNSTAINED CELL # 0.2 K/mm3 (0.0-0.4); LARGE UNSTAINED CELL % 2.9 % (0.0-4.0); LYMPH # 0.5 K/mm3 (1.5-4.5); LYMPH % 5.6 % (24.0-44.0); MEAN CORPUSCULAR HEMOGLOBIN 29.7 pg (27.0-33.0); MEAN CORPUSCULAR HGB CONC 32.1 g/dl (32.0-36.5); MEAN CORPUSCULAR VOLUME 92.5 fl (80.0-96.0); MONO # 0.5 K/mm3 (0.0-0.8); MONO % 5.8 % (0.0-5.0); NEUTROPHILS # 6.8 K/mm3 (1.8-7.7); NEUTROPHILS % 84.7 % (36.0-66.0); PLATELET COUNT, AUTOMATED 156 k/mm3 (150-450); RED CELL DISTRIBUTION WIDTH 15.2 % (11.5-14.5)
[2016-10-18 06:48] LABS: CALCIUM LEVEL 7.2 MG/DL (8.8-10.2); CREATININE FOR GFR 1.82 MG/DL (0.70-1.30); GLOMERULAR FILTRATION RATE 37.8 (>35); POTASSIUM SERUM 4.4 MEQ/L (3.5-5.1)
[2016-10-18] MEDS: CHLORHEXIDINE GLUCONATE 0.12 % 15ML UDC (PERIDEX ORAL RINSE) MT SCH ×2 (08:58→21:32)
[2016-10-18] MEDS: PANTOPRAZOLE 40MG INJ (PROTONIX) (C9113) IV SCH (08:58)
--- NOTE | 2016-10-18 09:03 | REP ---
Portable chest x-ray: AP semi-erect view. History: Respiratory failure. Comparison study October 17, 2016. Findings: There is mild respiratory motion artifact on this single AP view. A right internal jugular central line has its tip in the expected location of the superior vena cava. Endotracheal tube terminates in good position above the mario. An NG tube enters the left upper quadrant of the abdomen. EKG electrodes and oxygen delivery tubing are seen. Fibroatelectatic changes are seen in the bases as before. No new infiltrate. Signed by Malik Ferguson MD 10/18/2016 12:16 P
--- NOTE | 2016-10-18 10:01 | REP ---
CT BRAIN WITHOUT CONTRAST: 10/18/2016. Clinical history: Altered mental status. Comparison: 10/14/2016, 09/22/2016, 08/06/2012. Findings: Contrast images of the brain show ventricles midline, symmetric and dilated and proportionate to the diffuse moderately severe to severe cerebral atrophy. This is unchanged. There are extensive periventricular deep central and subcortical white matter chronic small vessel white matter ischemic changes, stable. There is no lacunar infarct in the anterior limb of the right internal capsule. This is unchanged. The cortical atrophy though severe does not show evidence of acute infarct, hemorrhage or mass in either cerebral hemisphere. Brainstem grossly intact. Significant cerebellar atrophy is again noted without evidence of bleed or acute infarct there. Basal cisterns ample. Mastoids intact. The sinuses show bilateral ethmoid, left frontal and bilateral sphenoid sinus mucosal thickening. The skull base and calvarium are without fracture or focal lesion. The carotid siphon show heavy vascular calcification. Impression: 1. Extensive chronic small vessel white matter ischemic change of aging, without acute infarct, hemorrhage or mass. 2. 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 3. Cerebellar atrophy, moderately severe and stable. 4. Mucosal thickening as described also stable. 5. Heavy calcifications carotid siphons. Signed by Edgar Yung MD 10/18/2016 03:53 P
[2016-10-18 10:16] LABS: ALBUMIN 1.4 GM/DL (3.2-5.2); ALBUMIN/GLOBULIN RATIO 0.39 (1.00-1.93); BILIRUBIN,TOTAL 0.2 MG/DL (0.2-1.0); PHOSPHORUS LEVEL 3.2 MG/DL (2.5-4.9)
[2016-10-18] MEDS: CEFTAROLINE FOSAMIL 600 MG in D5W MINI-BAG PLUS 50 ML IV SCH (12:22)
[2016-10-18] MEDS: FLUCONAZOLE 200 MG in APPROPRIATE DILUENT 1 EA IV SCH (21:32)
--- NOTE | 2016-10-18 23:15 | IPN ---
DATE: 10/18/2016 Mr. Avila remains critically ill with acute respiratory failure secondary to encephalopathy. He has now been off sedation greater than 48 hours with no as needed boluses needed. Despite this, he is minimally responsive. He will intermittently follow commands to move his right arm or wiggle his right toes but does not follow commands on his left side. He will move his left side spontaneously on rare occasions. He has had periods of tachypnea followed by apnea on the ventilator. He has been on pressure support ventilation with a pressure support of 10 and a PEEP of 5 with a rapid shallow breathing index in the 90s. When changed to 5 over 5, his RSBI increased to around 125. He is not deemed acceptable for extubation. He has remained off vasopressors for greater than 24 hours. No other changes. OBJECTIVE: PHYSICAL EXAMINATION: GENERAL: Mr. Avila is intubated and synchronous with the ventilator. VITAL SIGNS: Temperature 97.1 with a maximum temperature (T max) of 97.6, blood pressure 114/66 with a mean arterial pressure (MAP) of 82, pulse 74, respiratory rate 24. HEENT: Anicteric, pupils 2-3 mm and reactive. Nares: Patent bilaterally. Moist mucosa. Oropharynx: Endotracheal (ET) tube and orogastric (OG) tube in place. NECK: Supple, without apparent jugular venous distention (JVD), without thyromegaly or masses. Trachea is midline. LYMPHS: Without cervical or supraclavicular lymphadenopathy. LUNGS: Symmetric excursion, diminished breath sounds at the bases bilaterally. No wheeze, rhonchi or significant crackles. Normal I:E. CARDIOVASCULAR: Regular rate and rhythm with a normal S1, S2, occasional ectopic beat. No murmur, rub or gallop appreciated. ABDOMEN: Positive bowel sounds, soft, nondistended. EXTREMITIES: Warm and well perfused, without clubbing or cyanosis. Positive edema. Palpable pedal pulses bilaterally. SKIN: Notable for bruises and weeping, particularly in his upper extremities. LABORATORY DATA: Chemistries showed a sodium of 144, potassium 4.4, chloride 111 , bicarbonate 24, anion gap 9, BUN 41, creatinine 1.8, glucose 201, calcium 7.2, total bilirubin 3.2, direct bilirubin 0.2, AST 18, ALT 28, alkaline phosphatase 124, LDH 211, CK 20, total protein 5, albumin 1.4. CBC showed a hemoglobin of 9.4, hematocrit 29.4, platelet count 156,000, white blood cell count 8000 with a differential of 85% neutrophils, 6% lymphocytes, and 6% monocytes. Yesterday's intake and output was 2781 in and 980 out, making him positive 1801. Thus far today, 780 in and 275 out, making him positive 505. Weight 95.3 kg. I reviewed his chest x-ray as well as the report. That x-ray was unchanged compared to yesterday. ET tube remains in good position. No acute infiltrates. Today, I could make out the left hemidiaphragm. IMPRESSION: 1. Acute respiratory failure secondary to encephalopathy. Unfortunately, we have not seen any significant clinical change. He is intermittently following simple commands on the right side only. 2. Hypotension, resolved. He has been off vasopressors for greater than 24 hours. It was felt secondary to sepsis and hypovolemia. 3. Sepsis, severe sepsis with shock, resolved. On ceftaroline day number 4. Followed by infectious disease (ID). 4. Acute and chronic renal failure, improved. He is now near his baseline, essentially at his baseline creatinine. 5. Deep vein thrombosis (DVT) prophylaxis with sequential compression devices (SCDs) and thromboembolism deterrents (TEDs). His international normalized ratio (INR) from yesterday remained greater than 3. For that reason, we checked liver function tests today, which were normal. 6. Stress ulcer prophylaxis in place with proton pump inhibitor. 7. Nutrition: Intermittently tolerating tube feeds. Albumin only 1.4. RECOMMENDATIONS: 1. We will obtain a repeat head CT scan given preference on the right side (it was unchanged from that done several days ago). 2. Will reintroduce tube feeds. 3. Continue supportive care. 4. A long discussion had been had with his when he was first intubated. She wanted a trial of intubation to respect his wishes. He has now been intubated for several days with no significant change in the baseline process that caused his intubation which was decreased mental status. At this point, there is nothing further to add from a medical point of view, and he appears to be optimized. He could likely be diuresed some, but he is not having any signs of difficulties with the fluid (no difficulties with oxygenation). I asked his what she thought his wishes would be at this point. She is thinking of withdrawing care. I told her to take her time and to come in and visit him and ask a lot of questions of nursing. I also explained to her that he is essentially optimized at this point, but we would not typically take the endotracheal tube out at this time because of his decreased mental status. Also, I am not certain that he would pass a weaning trial. One option would be to take the tube out, and if he does okay, continue to support him; If he appeared to fail, to change him to comfort measures only. She understands that if he is on comfort measures only, it is not anticipated that his will be immediate but over several days, even up to a week plus. She will be in later today and will let us know what her thoughts are at this time. She is concerned because he has no family and the closest family member she has is in [place], [place], with most of her family scattered across the country. SUNITA
[2016-10-19] VITALS (13 sets, daily range): BP systolic 97–123; BP diastolic 55–69; O2SAT 96–100
[2016-10-19] MEDS: CEFTAROLINE FOSAMIL 600 MG in D5W MINI-BAG PLUS 50 ML IV SCH ×2 (00:16→12:20)
[2016-10-19] MEDS: HumaLOG INSULIN (NovoLOG) PER UNIT SC SCH ×5 (00:16→21:00)
[2016-10-19] MEDS: HYDROCORTISONE 100 MG/2 ML VIAL (J1720) IV SCH (05:47)
[2016-10-19] MEDS: LR 1,000 ML IV SCH (05:51)
[2016-10-19 06:12] LABS: CALCIUM LEVEL 7.5 MG/DL (8.8-10.2); CREATININE FOR GFR 1.78 MG/DL (0.70-1.30); GLOMERULAR FILTRATION RATE 38.8 (>35); POTASSIUM SERUM 4.1 MEQ/L (3.5-5.1)
[2016-10-19 06:35] LABS: INR 2.59
[2016-10-19 06:37] LABS: MEAN CORPUSCULAR HEMOGLOBIN 30.3 pg (27.0-33.0); MEAN CORPUSCULAR HGB CONC 32.8 g/dl (32.0-36.5); MEAN CORPUSCULAR VOLUME 92.4 fl (80.0-96.0); PLATELET COUNT, AUTOMATED 196 k/mm3 (150-450); RED CELL DISTRIBUTION WIDTH 15.6 % (11.5-14.5); WHITE BLOOD COUNT 12.8 K/mm3 (4.0-10.0)
[2016-10-19 07:32] LABS: MAGNESIUM LEVEL 2.4 MG/DL (1.8-2.4)
[2016-10-19 07:56] LABS: EOSINOPHILS 1 % (0-5); NUCLEATED RED BLOOD CELL 3 % (0-0)
[2016-10-19 07:57] LABS: ANISOCYTOSIS 1+; HYPOCHROMASIA 1+
[2016-10-19] MEDS: CHLORHEXIDINE GLUCONATE 0.12 % 15ML UDC (PERIDEX ORAL RINSE) MT SCH (08:38)
[2016-10-19] MEDS: PANTOPRAZOLE 40MG INJ (PROTONIX) (C9113) IV SCH (08:38)
[2016-10-19 08:44] LABS: ERYTHROCYTE SEDIMENTATION RATE 63 mm/hr (0-30)
--- NOTE | 2016-10-19 08:46 | REP ---
Portable chest x-ray: Single view. History: Respiratory failure. Comparison chest x-ray October 18, 2016. Findings: Oxygen delivery tubing and EKG monitoring electrodes are seen. There is a right internal jugular venous line with its tip in the expected location of the superior vena cava. An NG tube enters the left upper quadrant of the abdomen in the region of the upper gastric fundus. A endotracheal tube is seen in good position at the level of the transverse aorta. The lungs are symmetrically aerated. There is some mild linear fibrosis at each lung base. There is a hazy opacity in the right upper lobe distribution consistent with right upper lobe infiltrate. This is not apparent on yesterday's radiograph. Impression: New fairly large right upper lobe infiltrate. Signed by Malik Ferguson MD 10/19/2016 01:07 P
[2016-10-19 10:01] LABS: ABG BASE EXCESS -1.9 (-2.0-2.0); ABG DEVICE MECHAN. VENT; ABG HCO3 22.7 MEQ/L (22.0-26.0); ABG PARTIAL PRESSURE O2 86.6 mmHg (75.0-100.0); ABG PSV 5; ABG STANDARD HCO3 22.9 MEQ/L (22.0-26.0); ABG TOTAL CO2 23.9 MEQ/L (23.0-31.0); ABG pH (ARTERIAL) 7.395 UNITS (7.350-7.450)
--- NOTE | 2016-10-19 12:31 | CCN ---
DATE: 10/19/2016 CRITICAL CARE NOTE: NOTE: Mr. Avila is critically ill with acute respiratory failure secondary to encephalopathy. Over the past few days, he has slowly become more responsive. This morning, he was responsive and following some commands although, he appears very weak. He has minimal secretions and a strong cough. He was placed on a weaning trial to see how he would do. On a pressure support of 5 with a PEEP of 5, he did well with his rapid shallow breathing index 80-85. He had an arterial blood gas done, which was normal. It was felt reasonable to try extubation. After extubation, he was resting comfortably on an aerosol mask. An additional difficulty overnight is that he did not tolerate his tube feeds. He had a 5-beat run of ventricular tachycardia. PHYSICAL EXAMINATION: GENERAL: Initially, Mr. Avila is intubated and synchronous with the ventilator. After extubation, he is resting comfortably with an aerosol in place. HEENT: Anicteric. Nares: Patent bilaterally with moist mucosa. Oropharynx: Endotracheal (ET) tube and orogastric (OG) tube in place. NECK: Supple, trachea is midline. LUNGS: Symmetric excursion, good air entry. No wheeze, rhonchi or significant crackles on tidal excursion. Normal I:E. No accessory muscle use or retractions. CARDIOVASCULAR: Regular rate and rhythm with a normal S1, S2. No murmur, rub or gallop appreciated. Occasional ectopic beat. ABDOMEN: Positive bowel sounds, soft, nondistended. No hepatosplenomegaly or masses appreciated. EXTREMITIES: Warm and well perfused, significant generalized edema with some weeping regions in the skin. Palpable pedal pulses. LABORATORY DATA: CBC from this morning showed a hemoglobin of 10, hematocrit of 30.4, platelet count of 196,000 and white blood cell count 12,800 with a differential of 72% neutrophils, 14% lymphocytes and 3% monocytes. Electrolytes shows sodium of 143, potassium 4.1, chloride 111, bicarbonate 26, anion gap 6, BUN 42, creatinine 1.8, glucose 168, calcium 7.5, magnesium 2.4, C-reactive protein 1.37. INR 2.59. Arterial blood gas on pressure support 5, PEEP of 5 and FiO2 0.3 was 7.4/38/87 with a measured saturation 96% and a base excess of minus 1.9. I reviewed his chest x-rays as well as report from earlier today. That x-ray showed normal appearing cardiac silhouette and pulmonary vascular shadow. Normal appearing mediastinal and hilar regions. Endotracheal tube in good position. There is a hazy right upper lobe opacity. Yesterday's intake and output: 1455 in and 1005 out, making him positive 950. Thus far today, 305 in and 250 out, making him positive 55 mL. He had two bowel movements yesterday. Weight 97.4 kg. IMPRESSION: 1. Metabolic encephalopathy leading to decreased mental status to the point he required mechanical ventilation. This is thought secondary to sepsis and possibly decreased cerebral perfusion. Later it was complicated by benzodiazepine use in conjunction with the ventilator. Clinically, it appears to be resolving. He had right-sided preference yesterday, but a repeat CT scan did not show any new change but chronic changes. 2. Severe sepsis with shock, resolved. 3. Possible new infiltrate on chest x-ray. Although, I am not certain that is not subsegmental atelectasis. However, he does have a increase in his WBC. 4. Acute and chronic renal failure, resolving. He is actually below the creatinine he was at the time of his last discharge. 5. Infectious disease (ID). Day #5 of ceftaroline. 6. Deep vein thrombosis (DVT) prophylaxis in place with sequential compression devices (SCDs) and thromboembolism deterrents (TEDs). He still remains fully anticoagulated. 7. Stress ulcer prophylaxis in place with proton pump inhibitor. 8. Nutrition: He is significantly malnourished and he is not tolerating tube feeds. RECOMMENDATIONS: 1. I am not certain that the right upper lobe finding truly represents a new infectious process. Nonetheless, we will send off a sputum for gram-stain and culture. 2. Mr. Avila passed his trial for extubation and has been successfully extubated. 3. Discussions do need to be had regarding DO NOT RESUSCITATE/DO NOT INTUBATE given his comorbidities. Discussions will be had with him when his mental status appears to be at baseline. 4. In regards to nutrition, we will try sips and clears to see if he tolerates it. If not, will need to consider institution of total parenteral nutrition (TPN). 5. Antibiotics as per ID. 6. Continue other therapy. 7. If he does not do well, would first try to intervene with noninvasive mechanical ventilation (NIMV) before re-intubating as I am not certain there is anything further to optimize outside of nutrition. If he is re-intubated, would need to going to a trach expediently if his true wishes are to be maintained indefinitely on mechanical ventilation. CRITICAL CARE TIME: 35 minutes, not including procedure time. SUNITA
[2016-10-19] MEDS ORDERED: ALBUTEROL SULFATE 2.5 MG/0.5 ML INH NEB SOLN NEB PRN (14:15)
[2016-10-19 14:32] LABS: ABG BASE EXCESS -0.8 (-2.0-2.0); ABG DEVICE NASAL CANN; ABG HCO3 24.9 MEQ/L (22.0-26.0); ABG PARTIAL PRESSURE CO2 46.1 mmHg (35.0-45.0); ABG PARTIAL PRESSURE O2 139.3 mmHg (75.0-100.0); ABG STANDARD HCO3 23.8 MEQ/L (22.0-26.0); ABG TOTAL CO2 26.4 MEQ/L (23.0-31.0); ABG pH (ARTERIAL) 7.351 UNITS (7.350-7.450)
--- NOTE | 2016-10-19 17:58 | IPN ---
DATE: 10/19/2016 INFECTIOUS DISEASE PROGRESS NOTE: ATTENDING PHYSICIAN: Dr. Noah Heller, Infectious Disease. SUBJECTIVE: This is an 86-year-old male who is currently in the intensive care unit. Currently being managed primarily by Dr. Carrington. The patient was improving with his respirations and was extubated today. The patient was comfortably resting when we enter the room. He was responsive to stimulation. He did identify who Dr. Heller was name, however he could not identify that she was a doctor. OBJECTIVE: VITAL SIGNS: Temperature is 98.0, pulse 70, respirations 26, blood pressure is 116/60, pulse ox is 90% on a 2 liters nasal cannula. GENERAL: The patient seems lethargic, is resting comfortably on his bed, does not appear to be in acute distress. HEENT: Head is normocephalic, atraumatic. Mucous membranes are moist. Endotracheal and orogastric tube were in place. CARDIOVASCULAR: Regular rate and rhythm, no murmurs appreciated. LUNGS: He does have shallow breathing. No wheezes are heard throughout. The patient has good lung sounds. ABDOMEN: Soft, nontender, nondistended. Normoactive bowel sounds are heard. GENITOURINARY: The patient has a healing ulcer on his right scrotum. EXTREMITIES: Some pitting edema in the lower extremities. +2 radial and pedal pulses. LABORATORY DATA: WBC 28, hemoglobin 10.1, hematocrit 30.4, platelet count is 196, sodium 143, potassium 4.1, chloride 111, carbon dioxide 26, BUN 42, creatinine 1.78, GFR is 38.8, fasting glucose is 168. C-reactive protein is 1.37. Endotracheal sputum culture is pending. Chest x-ray was completed on 10/19/2016 which showed a new large right upper lobe infiltrate. ASSESSMENT: This is an 86-year-old male who is currently in intensive care unit (ICU) with metabolic encephalopathy, severe sepsis with shock that resolved, urinary tract infection with positive urine cultures for yeast like organisms. PLAN: The patient remains afebrile today. 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 We are also continuing the patient on fluconazole for his urinary tract infection. Patient has been on both the ceftaroline also fluconazole for a total of 7 days. After intubation the patient does seem to have significant mental status changes. At his baseline the patient was reading newspapers and magazine when he was at [facility]. Today, he does seem somewhat lethargic and also confused. He has had two head CTs one on 10/18/2016 in one prior on 10/14/2016. During this admission both his CTs showed chronic changes. We will consider ordering an MRI of his brain to rule out possible septic emboli. As for his new pulmonary infiltrate, this was discussed with Dr. Carrington. We to not believe that this is a new infection, possibly from mucous plugging. A sputum culture was obtained and we will follow up on his results. He My preceptor for this patient encounter was Dr. Noah Heller. The preceptor was physically present in the building during the encounter and was fully available. As needed, all aspects of the patient interview, examination, medical decision making process, and medical care plan development were reviewed and approved by the preceptor. The preceptor is aware and concurs with the plan as stated in the body of this note and will attest to such by his/her cosignature.
[2016-10-19] MEDS: FLUCONAZOLE 200 MG in APPROPRIATE DILUENT 1 EA IV SCH (21:37)
[2016-10-19] MEDS: FORMOTEROL FUMARATE 20 MCG/2 ML INHALATION SOLUTION (PERFOROMIST) INH SCH (23:08)
[2016-10-19] MEDS: BUDESONIDE 0.5 MG/2 ML INHALATION SUSPENSION INH SCH (23:08)
[2016-10-20] VITALS (14 sets, daily range): BP systolic 88–113; BP diastolic 50–59; O2SAT 96
[2016-10-20] MEDS: CEFTAROLINE FOSAMIL 600 MG in D5W MINI-BAG PLUS 50 ML IV SCH ×2 (00:22→11:56)
[2016-10-20 06:13] LABS: CALCIUM LEVEL 7.4 MG/DL (8.8-10.2); CREATININE FOR GFR 1.67 MG/DL (0.70-1.30); GLOMERULAR FILTRATION RATE 41.7 (>35); POTASSIUM SERUM 3.8 MEQ/L (3.5-5.1)
[2016-10-20 06:25] LABS: MEAN CORPUSCULAR HGB CONC 31.2 g/dl (32.0-36.5); MEAN CORPUSCULAR VOLUME 92.8 fl (80.0-96.0); PLATELET COUNT, AUTOMATED 214 k/mm3 (150-450); RED CELL DISTRIBUTION WIDTH 16.1 % (11.5-14.5); WHITE BLOOD COUNT 12.3 K/mm3 (4.0-10.0)
[2016-10-20 06:58] LABS: EOSINOPHILS 4 % (0-5)
[2016-10-20 07:00] LABS: ANISOCYTOSIS 1+
[2016-10-20] MEDS: FORMOTEROL FUMARATE 20 MCG/2 ML INHALATION SOLUTION (PERFOROMIST) INH SCH ×2 (07:49→20:46)
[2016-10-20] MEDS: BUDESONIDE 0.5 MG/2 ML INHALATION SUSPENSION INH SCH ×2 (07:49→20:46)
[2016-10-20] MEDS: PANTOPRAZOLE 40MG INJ (PROTONIX) (C9113) IV SCH (08:24)
[2016-10-20] MEDS: HumaLOG INSULIN (NovoLOG) PER UNIT SC SCH ×4 (08:25→21:31)
--- NOTE | 2016-10-20 08:32 | REP ---
PORTABLE CHEST X-RAY: Single view. HISTORY: Respiratory failure. Comparison chest x-ray October 19, 2016. FINDINGS: The large right upper lobe infiltrate seen yesterday has increased in opacity and size. The remaining lung miles are clear and unchanged. Endotracheal tube has been removed. Right internal jugular line is seen in place with its tip in the expected location of the superior vena cava. Cardiomegaly is again noted unchanged. IMPRESSION: Radiographic progression in the right upper lobe infiltrate. Signed by Malik Ferguson MD 10/20/2016 06:13 P
[2016-10-20] MEDS ORDERED: HYDROCORTISONE 100 MG/2 ML VIAL (J1720) IV SCH (09:00)
[2016-10-20] MEDS ORDERED: FUROSEMIDE 20 MG/2 ML VIAL (J1940) IV ONE (09:00)
--- NOTE | 2016-10-20 10:02 | IPNPDOC ---
Subjective Date Seen The patient was seen on 10/20/16. Subjective Chief Complaint/HPI The patient is a 86-year-old male admitted with a reason for visit of Sepsis. Constitutional: Reports: Fatigue, Denies: Fever ENT: Denies: Head Aches Pulmonary: Denies: Dyspnea, Pleuritic Chest Pain Cardiovascular: Denies: Chest Pain, Orthopnea Gastrointestinal: Denies: Abdominal Pain, Nausea, Vomiting Objective Physical Examination Eye Exam: Positive: Conjunctiva & lids normal, PERRLA, Negative: Sclera icteric ENT Exam: Positive: Atraumatic Neck Exam: Positive: Supple, Negative: JVD, Lymphadenopathy, thyromegaly Chest Exam: Positive: Clear to auscultation, Rhonchi (diffuse, mild) Heart Exam: Positive: Murmurs (grade 2/6 systolic murmur appreciated best at the fifth intercostal space midclavicular line), Rate Normal Telemetry: Positive: PACs Abdomen Exam: Positive: Normal bowel sounds, Soft, Negative: Tenderness Extremity Exam: Positive: Edema (2 mm pitting edema around the ankles bilaterally extending up the legs and terminating before the knee), Swelling, Negative: Clubbing, Cyanosis Skin Exam: Positive: Other skin issue (open areas some weeping.) Psych Exam: Negative: Memory Intact (patient vague in responses today. states his age is 68, needs more detailed tests for dementia when he is more alert ) Assessment /Plan Problems (1) Sepsis Status: Acute Problem Text: Temps down, pressures adequate. (2) Lactic acidosis Status: Resolved Problem Text: Resolved. 10/14 - remains elevated, repeat ordered for 1230. 3 Lactic acid of presentation was 4.4 We'll obtain new lactic acid level in 6 hours (3) Hypotension Status: Acute Response to Treatment: Improving Problem Text: Improved, stable, no pressors (4) Fever Status: Resolved Problem Text: Temperature in the emergency department was 100.7 Will obtain blood cultures Obtain echocardiogram as patient has history of MRSA (5) Acute on chronic renal insufficiency Status: Acute Problem Text: Improving renal function. Creatinine now better than previouis discharge 10/14 - Scr stable, cont to monitor, baseline Scr about 2. 3/8 BUN/creatinine is 21 and 2.2, respectively Begin fluids that 150 mL per hour Monitor with labs (6) UTI (urinary tract infection) Status: Acute Problem Specific Plan: Consult Specialist Problem Text: Patient's urinalysis history positive for bacterial urinary tract infection as well as possible fungal yeast infection Will consult infectious disease Place patient on ceftriaxone and for bacterial urinary tract infection coverage Obtain urine culture Will hold finasteride as patient has urinary catheter in place Possible source of infection for sepsis (7) Anemia Status: Acute Problem Text: Hemoglobin and hematocrit are 10.4 and 32.9, respectively Patient's INR on 10/11/2016 was 3.97 Patient does not appear to be on any anticoagulation and it is likely that it was held secondary to patient being supratherapeutic Will check a PT/INR (8) Right upper lobe consolidation Status: Acute Response to Treatment: Worse Problem Specific Plan: Consult Specialist, Monitor Clinically Problem Text: continue ceftaroline. not associated with return of fever or worsening respiratory status but WBC is up. possible mucus plug vs infection. repeat sputum cultures pending. Plan/VTE VTE Prophylaxis Ordered?: Yes (Lovenox 30 mg subcutaneous daily) Plan/Urinary Catheter Urinary Catheter: Place Peters (Peters catheter in place) Reason for insertion/continuin: Critical Pt monitoring Plan IVF: Continue Diet: Advance (On clears now, advancing.) Activity: Bedrest Therapy: PT Diagnostics: Check Labs, Repeat Labs in AM, Obtain Cultures Anticipated Discharge: [facility] Needs MOLST to be completed, patient's intellectual status is dubious with respect to independent decision making, possible that there will be further improvement in his mental status but at this point, I suspect we are seeing his chronic stable state. [facility]&O Vital Signs Date Time Temp Pulse Resp B/P Pulse Ox O2 Delivery O2 Flow Rate FiO2 10/20/16 08:00 98.2 71 23 96/54 98 Nasal Cannula 2.0 10/19/16 10:17 30 I&O- Last 24 Hours up to 6 AM 10/20/16 06:00 Intake Total 1360 ml Output Total 1115 ml Balance 245 ml Laboratory Data 24H LABS Laboratory Tests 2 10/19/16 11:48: Bedside Glucose (Misc Panel) 168H 10/19/16 14:22: Arterial Blood pH 7.351, Arterial Blood Partial Pressure CO2 46.1H, Arterial Blood Partial Pressure O2 139.3H, Arterial Blood Total CO2 26.4, Arterial Blood HCO3 24.9, Arterial Blood Base Excess -0.8, Arterial Blood Oxygen Saturation 98.6, Arterial Blood Gas Liter Flow 3, Blood Gas Bicarbonate Standard 23.8, Oxygen Delivery Device NASAL JOYCE 10/19/16 16:46: Bedside Glucose (Misc Panel) 186H 10/19/16 21:06: Bedside Glucose (Misc Panel) 153H 10/20/16 05:23: Anion Gap 10, Anisocytosis 1+, Atypical Lymphocytes 2, White Blood Count 12.3H, Red Blood Count 3.31L, Hemoglobin 9.6L, Hematocrit 30.7L, Mean Corpuscular Volume 92.8, Mean Corpuscular Hemoglobin 29.0, Mean Corpuscular Hemoglobin Concent 31.2L, Red Cell Distribution Width 16.1H, Platelet Count 214, Neutrophils (%) (Auto) , Lymphocytes (%) (Auto) , Monocytes (%) (Auto) , Eosinophils (%) (Auto) , Basophils (%) (Auto) , Neutrophils # (Auto) , Lymphocytes # (Auto) , Monocytes # (Auto) , Eosinophils # (Auto) , Basophils # ( Auto) , Blood Urea Nitrogen 38H, Creatinine 1.67H, Sodium Level 145, Potassium Level 3.8, Chloride Level 109H, Carbon Dioxide Level 26, Calcium Level 7.4L, Eosinophils (Manual) 4, Glomerular Filtration Rate 41.7, Large Unclassified Cells # , Large Unclassified Cells % , Lymphocytes (Manual) 4L, Metamyelocytes 2H, Monocytes (Manual) 3, Neutrophils 85H, Platelet Estimate NORMAL, Red Blood Cell Morphology NORMAL 10/20/16 07:47: Bedside Glucose (Misc Panel) 117H CBC/BMP Laboratory Tests 10/20/16 05:23 Calcium Level 7.4 L, Red Blood Count 3.31 L, Mean Corpuscular Volume 92.8, Mean Corpuscular Hemoglobin 29.0, Mean Corpuscular Hemoglobin Concent 31.2 L, Red Cell Distribution Width 16.1 H, Neutrophils (%) (Auto) , Lymphocytes (%) (Auto) , Monocytes (%) (Auto) , Eosinophils (%) (Auto) , Basophils (%) (Auto) , Neutrophils # (Auto) , Lymphocytes # (Auto) , Monocytes # (Auto) , Eosinophils # (Auto) , Basophils # (Auto) Microbiology Microbiology 10/13/16 Blood Culture - Final, Complete NO GROWTH AFTER 5 DAYS 10/13/16 Blood Culture - Final, Complete NO GROWTH AFTER 5 DAYS 10/15/16 Clostridium difficile (PCR) - Final, Complete 10/19/16 Gram Stain - Final, Resulted 10/19/16 Sputum Culture, Resulted Pending 10/16/16 Gram Stain - Final, Complete 10/16/16 Sputum Culture - Final, Complete 10/13/16 Urine Culture - Final, Complete Herbert Nicole MD Oct 20, 2016 10:02
[2016-10-20] MEDS ORDERED: predniSONE 10 MG TAB PO ONE (16:30)
[2016-10-21] VITALS (7 sets, daily range): BP systolic 98–119; BP diastolic 53–64
[2016-10-21] MEDS: CEFTAROLINE FOSAMIL 600 MG in D5W MINI-BAG PLUS 50 ML IV SCH ×3 (00:11→22:28)
[2016-10-21 05:46] LABS: CALCIUM LEVEL 7.2 MG/DL (8.8-10.2); CREATININE FOR GFR 1.39 MG/DL (0.70-1.30); GLOMERULAR FILTRATION RATE 51.6 (>35); MEAN CORPUSCULAR HEMOGLOBIN 29.2 pg (27.0-33.0); MEAN CORPUSCULAR HGB CONC 31.9 g/dl (32.0-36.5); MEAN CORPUSCULAR VOLUME 91.4 fl (80.0-96.0); PLATELET COUNT, AUTOMATED 208 k/mm3 (150-450); POTASSIUM SERUM 3.6 MEQ/L (3.5-5.1); RED CELL DISTRIBUTION WIDTH 16.7 % (11.5-14.5); WHITE BLOOD COUNT 11.8 K/mm3 (4.0-10.0)
[2016-10-21 06:51] LABS: BANDS 2 % (< 11); EOSINOPHILS 1 % (0-5)
[2016-10-21 06:52] LABS: ANISOCYTOSIS 1+
[2016-10-21] MEDS: BUDESONIDE 0.5 MG/2 ML INHALATION SUSPENSION INH SCH ×2 (07:40→20:04)
[2016-10-21] MEDS: FORMOTEROL FUMARATE 20 MCG/2 ML INHALATION SOLUTION (PERFOROMIST) INH SCH ×2 (07:40→20:04)
[2016-10-21] MEDS: predniSONE 10 MG TAB PO SCH (08:16)
[2016-10-21] MEDS: PANTOPRAZOLE 40MG INJ (PROTONIX) (C9113) IV SCH (08:17)
--- NOTE | 2016-10-21 08:17 | REP ---
PORTABLE CHEST X-RAY: Single view. HISTORY: Respiratory failure. Comparison study October 20, 2016. FINDINGS: A right upper lobe infiltrate is again seen consistent with pneumonia. This is a little smaller and less opaque than on yesterday's radiograph. A right IJ line terminates in the superior vena cava position. EKG monitoring electrodes overlie the chest. There is some increased density behind the heart in the left lower lobe unchanged. Signed by Malik Ferguson MD 10/21/2016 05:19 P
[2016-10-21] MEDS: HumaLOG INSULIN (NovoLOG) PER UNIT SC SCH ×4 (08:19→20:28)
[2016-10-21] MEDS ORDERED: FUROSEMIDE 20 MG/2 ML VIAL (J1940) IV ONE (08:45)
--- NOTE | 2016-10-21 09:04 | IPNPDOC ---
Subjective Date Seen The patient was seen on 10/21/16. Subjective Chief Complaint/HPI The patient is a 86-year-old male admitted with a reason for visit of Sepsis. ENT: Denies: Dysphagia, Head Aches Pulmonary: Reports: Cough, Denies: Pleuritic Chest Pain Cardiovascular: Denies: Chest Pain, Palpitations Gastrointestinal: Denies: Abdominal Pain, Nausea Hematologic: Denies: Petecchia Objective Physical Examination General Exam: Positive: Alert, No Acute Distress Eye Exam: Positive: Conjunctiva & lids normal, EOMI, PERRLA ENT Exam: Positive: Atraumatic, Tongue Midline Neck Exam: Positive: Supple Chest Exam: Positive: Clear to auscultation Heart Exam: Positive: Murmurs, Rate Normal Telemetry: Positive: PACs Abdomen Exam: Positive: Soft, Negative: Tenderness Extremity Exam: Positive: Edema (2+ edema mid shins down, bilaterally. ), Swelling Skin Exam: Positive: Other skin issue (open areas some weeping.) Neuro Exam: Positive: Other (patient is alert, oriented to hospital and city, not correct on age. no focal deficit noted, but gait not tested.) Psych Exam: Negative: Memory Intact (patient vague in responses today. states his age is 68, needs more detailed tests for dementia when he is more alert ) Assessment /Plan Problems (1) Sepsis Status: Resolved Problem Text: Seems to be resolved at this point (2) Lactic acidosis Status: Resolved Problem Text: Resolved. 10/14 - remains elevated, repeat ordered for 1230. 3/8 Lactic acid of presentation was 4.4 We'll obtain new lactic acid level in 6 hours (3) Hypotension Status: Resolved Response to Treatment: Improving Problem Text: Improved, stable, no pressors (4) Fever Status: Resolved Problem Text: Temperature in the emergency department was 100.7 Will obtain blood cultures Obtain echocardiogram as patient has history of MRSA (5) Acute on chronic renal insufficiency Status: Acute Problem Text: Improving renal function. Creatinine now better than previouis discharge 10/14 - Scr stable, cont to monitor, baseline Scr about 2. 3/8 BUN/creatinine is 21 and 2.2, respectively Begin fluids that 150 mL per hour Monitor with labs (6) UTI (urinary tract infection) Status: Acute Problem Specific Plan: Consult Specialist Problem Text: Patient's urinalysis history positive for bacterial urinary tract infection as well as possible fungal yeast infection Will consult infectious disease Place patient on ceftriaxone and for bacterial urinary tract infection coverage Obtain urine culture Will hold finasteride as patient has urinary catheter in place Possible source of infection for sepsis (7) Anemia Status: Acute Problem Text: Hemoglobin and hematocrit are 10.4 and 32.9, respectively Patient's INR on 10/11/2016 was 3.97 Patient does not appear to be on any anticoagulation and it is likely that it was held secondary to patient being supratherapeutic Will check a PT/INR (8) Right upper lobe consolidation Status: Acute Response to Treatment: Worse Problem Specific Plan: Monitor Clinically Problem Text: 10/21: CXR shows improvement, WBC improving as well, continue ceftaroline. Plan/VTE VTE Prophylaxis Ordered?: Yes (Lovenox 30 mg subcutaneous daily) Plan/Urinary Catheter Urinary Catheter: Place Peters (Peters catheter in place) Reason for insertion/continuin: Critical Pt monitoring Plan IVF: Continue Diet: Advance (On clears now, advancing.) Activity: Advance Therapy: PT Diagnostics: Check Labs, Repeat Labs in AM, Obtain Cultures Anticipated Discharge: Skilled Nursing Disposition To floor today, pulmonary will sign off for now. [facility] Vital Signs/I&O Vital Signs Date Time Temp Pulse Resp B/P Pulse Ox O2 Delivery O2 Flow Rate FiO2 10/21/16 04:00 97.1 71 24 111/58 94 Nasal Cannula 2.0 10/19/16 10:17 30 I&O- Last 24 Hours up to 6 AM 10/21/16 06:00 Intake Total 1210 ml Output Total 2305 ml Balance -1095 ml Laboratory Data 24H LABS Laboratory Tests 2 10/20/16 11:05: Bedside Glucose (Misc Panel) 136H 10/20/16 16:56: Bedside Glucose (Misc Panel) 207H 10/20/16 21:31: Bedside Glucose (Misc Panel) 171H 10/21/16 05:04: Anion Gap 8, Anisocytosis 1+, Atypical Lymphocytes 1, Band Neutrophils 2, White Blood Count 11.8H, Red Blood Count 3.26L, Hemoglobin 9.5L, Hematocrit 29.8L, Mean Corpuscular Volume 91.4, Mean Corpuscular Hemoglobin 29.2, Mean Corpuscular Hemoglobin Concent 31.9L, Red Cell Distribution Width 16.7H, Platelet Count 208, Neutrophils (%) (Auto) , Lymphocytes (%) (Auto) , Monocytes (%) (Auto) , Eosinophils (%) (Auto) , Basophils (%) (Auto) , Neutrophils # (Auto ) , Lymphocytes # (Auto) , Monocytes # (Auto) , Eosinophils # (Auto) , Basophils # (Auto) , Blood Urea Nitrogen 33H, Creatinine 1.39H, Sodium Level 145 , Potassium Level 3.6, Chloride Level 109H, Carbon Dioxide Level 28, Calcium Level 7.2L, Eosinophils (Manual) 1, Glomerular Filtration Rate 51.6, Large Unclassified Cells # , Large Unclassified Cells % , Lymphocytes (Manual) 10L, Metamyelocytes 2H, Monocytes (Manual) 4, Myelocytes 1H, Neutrophils 79H, Platelet Estimate NORMAL 10/21/16 07:35: Bedside Glucose (Misc Panel) 138H CBC/BMP Laboratory Tests 10/21/16 05:04 Calcium Level 7.2 L, Red Blood Count 3.26 L, Mean Corpuscular Volume 91.4, Mean Corpuscular Hemoglobin 29.2, Mean Corpuscular Hemoglobin Concent 31.9 L, Red Cell Distribution Width 16.7 H, Neutrophils (%) (Auto) , Lymphocytes (%) (Auto) , Monocytes (%) (Auto) , Eosinophils (%) (Auto) , Basophils (%) (Auto) , Neutrophils # (Auto) , Lymphocytes # (Auto) , Monocytes # (Auto) , Eosinophils # (Auto) , Basophils # (Auto) Microbiology Microbiology 10/13/16 Blood Culture - Final, Complete NO GROWTH AFTER 5 DAYS 10/13/16 Blood Culture - Final, Complete NO GROWTH AFTER 5 DAYS 10/15/16 Clostridium difficile (PCR) - Final, Complete 10/19/16 Gram Stain - Final, Resulted 10/19/16 Sputum Culture, Resulted Pending 10/16/16 Gram Stain - Final, Complete 10/16/16 Sputum Culture - Final, Complete 10/13/16 Urine Culture - Final, Complete Herbert Nicole MD Oct 21, 2016 09:04
[2016-10-21] MEDS: ACETAMINOPHEN TAB 650MG DOSE (2X325MG) PO PRN (22:28)
[2016-10-22 02:00] VITALS: BP 102/58
--- NOTE | 2016-10-22 05:21 | IPN ---
DATE: 10/21/2016 Mariano seems to be doing much better. He is extubated. He is on the medical-surgical floor. He is on O2. He is communicating and is able to have a good conversation. He denies any pain except in his lower extremity when I am examining him. He has had no fever or chills. Temperature is 97.9, pulse 73, respirations 18, blood pressure 104/59, O2 sat 95% on two liters nasal cannula. Heart: Normal S1-S2, distant. Lungs: Diminished breath sounds at the bases, but no wheezes, rales or rhonchi. Abdomen is soft, nontender. Extremities: +1 edema, pitting with mild tenderness on exam. LABORATORY DATA: White count is 11.8, hemoglobin 9.5, hematocrit 29.8, platelets 208, 79% neutrophils, 10% lymphocytes, 2% monocytes. Sodium is 145, potassium 3.6, chloride 109, bicarb 28, BUN 33, creatinine 1.39, which has improved from 2.2, glucose 144, calcium 7.2, CRP 1.37, down from 13.3. Blood cultures have all remained negative four sets, two outpatient and two inpatient. Urine culture on 10/13 was negative. On 10/16, sputum culture was negative, and 10/19 sputum culture has only yeast-like organism. MEDICATIONS: - ceftaroline 600 mg IV every 12 hours - fluconazole 200 mg IV every 24 hours, day #7, has been discontinued today. He finished seven days of treatment. IMPRESSION: 1. Sepsis with only positive culture was for urine with alyssa. The patient has received seven days of fluconazole. 2. 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 He remains on IV ceftaroline which would continue for total of 10 days. 3. Mental status changes. If the patient does not recover fully, consider MRI with Gadolinium to look for any possible new septic emboli or a new CVA as the is concerned about his mental status. PLAN: Discontinue IV fluconazole. Continue ceftaroline. We will followup CBC, CRP, sed rate in the morning. Please discontinue Peters catheter tomorrow as the patient is at high risk of catheter associated UTI.
[2016-10-22 05:35] VITALS: BP 120/56
[2016-10-22 05:36] LABS: MEAN CORPUSCULAR HEMOGLOBIN 29.6 pg (27.0-33.0); MEAN CORPUSCULAR VOLUME 92.7 fl (80.0-96.0); PLATELET COUNT, AUTOMATED 210 k/mm3 (150-450); RED CELL DISTRIBUTION WIDTH 16.9 % (11.5-14.5); WHITE BLOOD COUNT 12.7 K/mm3 (4.0-10.0)
[2016-10-22 05:54] LABS: ERYTHROCYTE SEDIMENTATION RATE 63 mm/hr (0-30)
[2016-10-22 05:59] LABS: CALCIUM LEVEL 6.9 MG/DL (8.8-10.2); CREATININE FOR GFR 1.25 MG/DL (0.70-1.30); GLOMERULAR FILTRATION RATE 58.3 (>35); POTASSIUM SERUM 3.3 MEQ/L (3.5-5.1)
[2016-10-22 06:16] LABS: EOSINOPHILS 2 % (0-5)
[2016-10-22 06:17] LABS: ANISOCYTOSIS 1+
[2016-10-22] MEDS: predniSONE 10 MG TAB PO SCH (08:06)
[2016-10-22] MEDS: PANTOPRAZOLE 40MG INJ (PROTONIX) (C9113) IV SCH (08:06)
[2016-10-22] MEDS: HumaLOG INSULIN (NovoLOG) PER UNIT SC SCH ×4 (08:07→20:48)
[2016-10-22] MEDS: BUDESONIDE 0.5 MG/2 ML INHALATION SUSPENSION INH SCH ×2 (08:25→19:38)
[2016-10-22] MEDS: FORMOTEROL FUMARATE 20 MCG/2 ML INHALATION SOLUTION (PERFOROMIST) INH SCH ×2 (08:25→19:38)
[2016-10-22] MEDS: ACETAMINOPHEN TAB 650MG DOSE (2X325MG) PO PRN (09:27)
--- NOTE | 2016-10-22 09:42 | IPNPDOC ---
Subjective Date Seen The patient was seen on 10/22/16. Subjective Chief Complaint/HPI The patient is a 86-year-old male admitted with a reason for visit of Sepsis. Events since last encounter Continues with Fran. S/p ID consult: Will need IV abx x 10 days. Denies c/o. Constitutional: Denies: Chills, Fever, Night Sweats ENT: Denies: Dysphagia, Ear Pain, Head Aches Pulmonary: Denies: Cough, Dyspnea Cardiovascular: Denies: Chest Pain, Lt Headedness, Orthopnea, Palpitations, Paroxysmal Noc. Dyspnea Gastrointestinal: Denies: Abdominal Pain, Constipation, Diarrhea, Nausea, Vomiting Psych: Reports: Mood Normal, Denies: Depression, Memory Issues Objective Physical Examination General Exam: Positive: Alert, No Acute Distress Eye Exam: Positive: Conjunctiva & lids normal, EOMI, PERRLA ENT Exam: Positive: Atraumatic, Tongue Midline Neck Exam: Positive: Supple Chest Exam: Positive: Clear to auscultation Heart Exam: Positive: Murmurs, Rate Normal Telemetry: Positive: PACs Abdomen Exam: Positive: Soft, Negative: Tenderness Extremity Exam: Positive: Edema (2+ edema mid shins down, bilaterally. ), Swelling Skin Exam: Positive: Other skin issue (open areas some weeping.) Neuro Exam: Positive: Other (patient is alert, oriented to hospital and city, not correct on age. no focal deficit noted, but gait not tested.) Psych Exam: Negative: Memory Intact (patient vague in responses today. states his age is 68, needs more detailed tests for dementia when he is more alert ) Assessment /Plan Problems (1) Sepsis Status: Resolved Problem Text: 10/22/16: Per ID Ceftaroline x 10 days. Seems to be resolved at this point (2) Fever Status: Resolved Problem Text: Temperature in the emergency department was 100.7 Will obtain blood cultures Obtain echocardiogram as patient has history of MRSA (3) Acute on chronic renal insufficiency Status: Acute Problem Text: Improving renal function. Creatinine now better than previouis discharge 10/14 - Scr stable, cont to monitor, baseline Scr about 2. 3/8 BUN/creatinine is 21 and 2.2, respectively Begin fluids that 150 mL per hour Monitor with labs (4) UTI (urinary tract infection) Status: Acute Problem Specific Plan: Consult Specialist Problem Text: 10/22/16: Finished Diflucan course. On Ceftaroline for 10 day course. See ID note. Patient's urinalysis history positive for bacterial urinary tract infection as well as possible fungal yeast infection Will consult infectious disease Place patient on ceftriaxone and for bacterial urinary tract infection coverage Obtain urine culture Will hold finasteride as patient has urinary catheter in place Possible source of infection for sepsis (5) Anemia Status: Acute Problem Text: Hemoglobin and hematocrit are 10.4 and 32.9, respectively Patient's INR on 10/11/2016 was 3.97 Patient does not appear to be on any anticoagulation and it is likely that it was held secondary to patient being supratherapeutic Will check a PT/INR (6) Right upper lobe consolidation Status: Acute Response to Treatment: Worse Problem Specific Plan: Monitor Clinically Problem Text: 10/21: CXR shows improvement, WBC improving as well, continue ceftaroline. (7) Lactic acidosis Status: Resolved Problem Text: Resolved. 10/14 - remains elevated, repeat ordered for 1230. 10/13 Lactic acid of presentation was 4.4 We'll obtain new lactic acid level in 6 hours (8) Hypotension Status: Resolved Response to Treatment: Improving Problem Text: Improved, stable, no pressors Plan/VTE VTE Prophylaxis Ordered?: Yes (Lovenox 30 mg subcutaneous daily) Plan/Urinary Catheter Urinary Catheter: Place Peters (Peters catheter in place) Reason for insertion/continuin: Critical Pt monitoring Plan IVF: Continue Diet: Advance (On clears now, advancing.) Activity: Advance Therapy: PT Diagnostics: Check Labs, Repeat Labs in AM, Obtain Cultures Anticipated Discharge: Intermediate VS, I&O, 24H, [facility] Vital Signs/I&O Vital Signs Date Time Temp Pulse Resp B/P Pulse Ox O2 Delivery O2 Flow Rate FiO2 10/22/16 05:35 96.8 70 17 120/56 94 Nasal Cannula 2.0 10/19/16 10:17 30 I&O- Last 24 Hours up to 6 AM 10/22/16 06:00 Intake Total 2310 ml Output Total 1660 ml Balance 650 ml Laboratory Data 24H LABS Laboratory Tests 2 10/21/16 11:30: Bedside Glucose (Misc Panel) 242H 10/21/16 16:21: Bedside Glucose (Misc Panel) 164H 10/21/16 20:23: Bedside Glucose (Misc Panel) 158H 10/22/16 05:21: Anion Gap 10, Anisocytosis 1+, Atypical Lymphocytes 1, White Blood Count 12.7H, Red Blood Count 3.25L, Hemoglobin 9.6L, Hematocrit 30.1L, Mean Corpuscular Volume 92.7, Mean Corpuscular Hemoglobin 29.6, Mean Corpuscular Hemoglobin Concent 32.0, Red Cell Distribution Width 16.9H, Platelet Count 210, Neutrophils (%) (Auto) , Lymphocytes (%) (Auto) , Monocytes (%) (Auto) , Eosinophils (%) (Auto) , Basophils (%) (Auto) , Neutrophils # (Auto) , Lymphocytes # (Auto) , Monocytes # (Auto) , Eosinophils # (Auto) , Basophils # ( Auto) , C-Reactive Protein, Quantitative 2.55H, Blood Urea Nitrogen 28H, Creatinine 1.25, Sodium Level 142, Potassium Level 3.3L, Chloride Level 104, Carbon Dioxide Level 28, Calcium Level 6.9L, Eosinophils (Manual) 2, Erythrocyte Sedimentation Rate 63H, Glomerular Filtration Rate 58.3, Large Unclassified Cells # , Large Unclassified Cells % , Lymphocytes (Manual) 9L, Metamyelocytes 5H, Monocytes (Manual) 6, Neutrophils 77H, Platelet Estimate NORMAL CBC/BMP Laboratory Tests 10/22/16 05:21 Calcium Level 6.9 L, Red Blood Count 3.25 L, Mean Corpuscular Volume 92.7, Mean Corpuscular Hemoglobin 29.6, Mean Corpuscular Hemoglobin Concent 32.0, Red Cell Distribution Width 16.9 H, Neutrophils (%) (Auto) , Lymphocytes (%) (Auto) , Monocytes (%) (Auto) , Eosinophils (%) (Auto) , Basophils (%) (Auto) , Neutrophils # (Auto) , Lymphocytes # (Auto) , Monocytes # (Auto) , Eosinophils # (Auto) , Basophils # (Auto) Microbiology Microbiology 10/13/16 Blood Culture - Final, Complete NO GROWTH AFTER 5 DAYS 10/13/16 Blood Culture - Final, Complete NO GROWTH AFTER 5 DAYS 10/15/16 Clostridium difficile (PCR) - Final, Complete 10/19/16 Gram Stain - Final, Complete 10/19/16 Sputum Culture - Final, Complete Yeast Like Organism 10/16/16 Gram Stain - Final, Complete 10/16/16 Sputum Culture - Final, Complete 10/13/16 Urine Culture - Final, Complete Attending Note Attending Note Will need f/u CXR. Seems to be improving. Ani Geller Oct 22, 2016 09:42 Herbert Nicole MD Oct 22, 2016 15:04
[2016-10-22 10:00] VITALS: BP 105/57
[2016-10-22] MEDS: POTASSIUM CHLORIDE 10 MEQ SR TABLET PO SCH ×2 (11:56→21:43)
[2016-10-22] MEDS: CEFTAROLINE FOSAMIL 600 MG in D5W MINI-BAG PLUS 50 ML IV SCH ×2 (11:56→23:30)
[2016-10-22 14:00] VITALS: BP 131/72
[2016-10-22 20:15] VITALS: BP 110/55
[2016-10-23] VITALS (7 sets, daily range): BP systolic 102–140; BP diastolic 54–78
[2016-10-23 05:35] LABS: MEAN CORPUSCULAR HGB CONC 32.5 g/dl (32.0-36.5); MEAN CORPUSCULAR VOLUME 92.3 fl (80.0-96.0); PLATELET COUNT, AUTOMATED 209 k/mm3 (150-450); RED CELL DISTRIBUTION WIDTH 16.9 % (11.5-14.5); WHITE BLOOD COUNT 11.2 K/mm3 (4.0-10.0)
[2016-10-23 05:56] LABS: ANION GAP 6 MEQ/L (8-16); BLOOD UREA NITROGEN 23 MG/DL (7-18); CALCIUM LEVEL 6.9 MG/DL (8.8-10.2); CARBON DIOXIDE LEVEL 29 MEQ/L (21-32); CHLORIDE LEVEL 107 MEQ/L (98-107); CREATININE FOR GFR 1.07 MG/DL (0.70-1.30); GLOMERULAR FILTRATION RATE > 60.0 (>35); GLUCOSE, FASTING 105 MG/DL (83-110); POTASSIUM SERUM 3.6 MEQ/L (3.5-5.1); SODIUM LEVEL 142 MEQ/L (136-145)
[2016-10-23 07:29] LABS: ANISOCYTOSIS 1+; EOSINOPHILS 1 % (0-5); HYPOCHROMASIA 1+
[2016-10-23] MEDS: BUDESONIDE 0.5 MG/2 ML INHALATION SUSPENSION INH SCH ×2 (08:13→19:36)
[2016-10-23] MEDS: FORMOTEROL FUMARATE 20 MCG/2 ML INHALATION SOLUTION (PERFOROMIST) INH SCH ×2 (08:13→19:36)
--- NOTE | 2016-10-23 08:45 | IPNPDOC ---
Subjective Date Seen The patient was seen on 10/23/16. Subjective Chief Complaint/HPI The patient is a 86-year-old male admitted with a reason for visit of Sepsis. Events since last encounter C/o general weakness. Minimally verbal. Constitutional: Denies: Chills, Fever, Night Sweats ENT: Denies: Dysphagia, Ear Pain, Head Aches Pulmonary: Denies: Cough, Dyspnea Cardiovascular: Denies: Chest Pain, Lt Headedness, Orthopnea, Palpitations, Paroxysmal Noc. Dyspnea Psych: Reports: Mood Normal, Denies: Depression, Memory Issues Objective Physical Examination General Exam: Positive: Alert, No Acute Distress Eye Exam: Positive: Conjunctiva & lids normal, EOMI, PERRLA ENT Exam: Positive: Atraumatic, Tongue Midline Neck Exam: Positive: Supple Chest Exam: Positive: Clear to auscultation Heart Exam: Positive: Murmurs, Rate Normal Telemetry: Positive: PACs Abdomen Exam: Positive: Soft, Negative: Tenderness Extremity Exam: Positive: Edema (2+ edema mid shins down, bilaterally. ), Swelling Skin Exam: Positive: Other skin issue (open areas some weeping.) Neuro Exam: Positive: Other (patient is alert, oriented to hospital and city, not correct on age. no focal deficit noted, but gait not tested.) Psych Exam: Negative: Memory Intact (patient vague in responses today. states his age is 68, needs more detailed tests for dementia when he is more alert ) Assessment /Plan Problems (1) Sepsis Status: Resolved Problem Text: 10/23/2016: Ceftaroline Day #3 10/22/16: Per ID Ceftaroline x 10 days. Seems to be resolved at this point (2) Acute on chronic renal insufficiency Status: Acute Problem Text: Improving renal function. Creatinine now better than previouis discharge 10/14 - Scr stable, cont to monitor, baseline Scr about 2. 3/8 BUN/creatinine is 21 and 2.2, respectively Begin fluids that 150 mL per hour Monitor with labs (3) UTI (urinary tract infection) Status: Acute Problem Specific Plan: Consult Specialist Problem Text: 10/22/16: Finished Diflucan course. On Ceftaroline for 10 day course. See ID note. Patient's urinalysis history positive for bacterial urinary tract infection as well as possible fungal yeast infection Will consult infectious disease Place patient on ceftriaxone and for bacterial urinary tract infection coverage Obtain urine culture Will hold finasteride as patient has urinary catheter in place Possible source of infection for sepsis (4) Anemia Status: Acute Problem Text: Hemoglobin and hematocrit are 10.4 and 32.9, respectively Patient's INR on 10/11/2016 was 3.97 Patient does not appear to be on any anticoagulation and it is likely that it was held secondary to patient being supratherapeutic Will check a PT/INR (5) Right upper lobe consolidation Status: Acute Response to Treatment: Worse Problem Specific Plan: Monitor Clinically Problem Text: 10/23/2016: lungs clear. Continue with Ceftaroline, oxygen as needed. 10/21: CXR shows improvement, WBC improving as well, continue ceftaroline. (6) Hypotension Status: Resolved Response to Treatment: Improving Problem Text: Improved, stable, no pressors (7) Fever Status: Resolved Problem Text: Temperature in the emergency department was 100.7 Will obtain blood cultures Obtain echocardiogram as patient has history of MRSA (8) Lactic acidosis Status: Resolved Problem Text: Resolved. 10/14 - remains elevated, repeat ordered for 1230. 10/13 Lactic acid of presentation was 4.4 We'll obtain new lactic acid level in 6 hours Plan/VTE VTE Prophylaxis Ordered?: Yes (Lovenox 30 mg subcutaneous daily) Plan/Urinary Catheter Urinary Catheter: Place Peters (Peters catheter in place) Reason for insertion/continuin: Critical Pt monitoring Plan IVF: Continue Diet: Advance (On clears now, advancing.) Activity: Advance Therapy: PT Diagnostics: Check Labs, Repeat Labs in AM, Obtain Cultures Anticipated Discharge: [facility] VS, I&O, 24H, [facility] Vital Signs/I&O Vital Signs Date Time Temp Pulse Resp B/P Pulse Ox O2 Delivery O2 Flow Rate FiO2 10/23/16 08:13 Nasal Cannula 2.0 10/23/16 05:55 97.2 73 19 115/72 95 10/19/16 10:17 30 I&O- Last 24 Hours up to 6 AM 10/23/16 06:00 Intake Total 340 ml Output Total 400 ml Balance -60 ml Laboratory Data 24H LABS Laboratory Tests 2 10/22/16 11:16: Bedside Glucose (Misc Panel) 179H 10/22/16 17:10: Bedside Glucose (Misc Panel) 172H 10/22/16 20:17: Bedside Glucose (Misc Panel) 149H 10/23/16 05:24: Anion Gap 6L, Anisocytosis 1+, White Blood Count 11.2H, Red Blood Count 3.22L, Hemoglobin 9.6L, Hematocrit 29.7L, Mean Corpuscular Volume 92.3, Mean Corpuscular Hemoglobin 30.0, Mean Corpuscular Hemoglobin Concent 32.5, Red Cell Distribution Width 16.9H, Platelet Count 209, Neutrophils (%) (Auto) , Lymphocytes (%) (Auto) , Monocytes (%) (Auto) , Eosinophils (%) (Auto) , Basophils (%) (Auto) , Neutrophils # (Auto) , Lymphocytes # (Auto) , Monocytes # (Auto) , Eosinophils # (Auto) , Basophils # (Auto) , Blood Urea Nitrogen 23H, Creatinine 1.07, Sodium Level 142, Potassium Level 3.6, Chloride Level 107, Carbon Dioxide Level 29, Calcium Level 6.9L, Eosinophils (Manual) 1, Glomerular Filtration Rate > 60.0, Hypochromasia 1+, Large Unclassified Cells # , Large Unclassified Cells % , Lymphocytes (Manual) 7L, Metamyelocytes 4H, Monocytes ( Manual) 7, Myelocytes 3H, Neutrophils 78H, Platelet Estimate NORMAL CBC/BMP Laboratory Tests 10/23/16 05:24 Calcium Level 6.9 L, Red Blood Count 3.22 L, Mean Corpuscular Volume 92.3, Mean Corpuscular Hemoglobin 30.0, Mean Corpuscular Hemoglobin Concent 32.5, Red Cell Distribution Width 16.9 H, Neutrophils (%) (Auto) , Lymphocytes (%) (Auto) , Monocytes (%) (Auto) , Eosinophils (%) (Auto) , Basophils (%) (Auto) , Neutrophils # (Auto) , Lymphocytes # (Auto) , Monocytes # (Auto) , Eosinophils # (Auto) , Basophils # (Auto) Microbiology Microbiology 10/13/16 Blood Culture - Final, Complete NO GROWTH AFTER 5 DAYS 10/13/16 Blood Culture - Final, Complete NO GROWTH AFTER 5 DAYS 10/15/16 Clostridium difficile (PCR) - Final, Complete 10/19/16 Gram Stain - Final, Complete 10/19/16 Sputum Culture - Final, Complete Yeast Like Organism 10/16/16 Gram Stain - Final, Complete 10/16/16 Sputum Culture - Final, Complete 10/13/16 Urine Culture - Final, Complete Ani Geller [facility] Oct 23, 2016 08:45
[2016-10-23] MEDS: PANTOPRAZOLE 40MG INJ (PROTONIX) (C9113) IV SCH (09:21)
[2016-10-23] MEDS: HumaLOG INSULIN (NovoLOG) PER UNIT SC SCH ×4 (09:22→21:00)
[2016-10-23] MEDS: predniSONE 10 MG TAB PO SCH (09:23)
[2016-10-23] MEDS: POTASSIUM CHLORIDE 10 MEQ SR TABLET PO SCH ×2 (09:23→21:44)
[2016-10-23] MEDS: CEFTAROLINE FOSAMIL 600 MG in D5W MINI-BAG PLUS 50 ML IV SCH ×2 (11:53→22:23)
[2016-10-23] MEDS ORDERED: SODIUM CHLORIDE 0.9% INJ 10 ML SYR IV PRN (18:00)
[2016-10-23] MEDS: SODIUM CHLORIDE 0.9% INJ 10 ML SYR IV SCH (21:44)
--- NOTE | 2016-10-23 22:03 | IPN ---
DATE: 10/22/2016 SUBJECTIVE: Mr. Avila seems to be doing fairly well. He complains of some pain in his buttock area which is related to the bed sore he has and the testicular ulcer. He has no fever or chills. No nausea, vomiting or diarrhea. He has a rare cough. His appetite was fairly good. He fed himself breakfast, a banana, toast and some juice. He then slept all morning again. He seemed exhausted when I saw him but in no acute distress. OBJECTIVE: VITAL SIGNS: On physical exam, temperature is 98.2, pulse 78, respirations 17, blood pressure 110/55, oxygen saturation 94% on two liters nasal cannula. HEART: Normal S1, S2. No murmurs appreciated. ABDOMEN: Soft, nontender. No visceromegaly. GENITALIA: Testicles +1 edema with the testicular ulcer healing well. EXTREMITIES: No significant edema. No clubbing or cyanosis. Lethargic but answers questions appropriately. He did not know the date. LABORATORY DATA: White count is 12.7, hemoglobin 9.6, hematocrit 30.1, platelets 210, 77% neutrophils, 9% lymphocytes, 6% monocytes. Sed rate is 63. Sodium 142, potassium 3.3, chloride 104, bicarb 28, BUN 28, creatinine 1.25, glucose 125, calcium 6.9. CRP 2.55. MICROBIOLOGY: Sputum culture from endotracheal tube only had yeastlike organism. Sputum culture was done on 10/19 and a previous one was done on 10/16 and had no pathogens. IMAGING: Chest x-ray done on 10/21 was portable consistent with pneumonia smaller and less opaque than on yesterday's radiograph. Right IJ line in the superior vena cava. IMPRESSION: 1. Sepsis, etiology remained unclear except for fungal urinary tract infection which was treated with one week of fluconazole. He is currently on ceftaroline 600 mg every 12 hours, day eight. He will finish a 10-day course. 2. Mental status changes with lethargy. Consider obtaining MRI of the brain if the patient continues to be lethargic as this is not his baseline. 3. 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 PLAN Will continue to monitor complete blood count (CBC), C-reactive protein (CRP) and mental status and make sure the patient does not have any recurrent infection. The Peters catheter will be removed today as he has had multiple catheter-associated urinary tract infections (UTIs).
[2016-10-24 02:00] VITALS: BP 125/77
[2016-10-24] MEDS: SODIUM CHLORIDE 0.9% INJ 10 ML SYR IV SCH ×3 (05:01→21:05)
[2016-10-24 05:38] LABS: MEAN CORPUSCULAR HEMOGLOBIN 28.7 pg (27.0-33.0); MEAN CORPUSCULAR HGB CONC 31.4 g/dl (32.0-36.5); MEAN CORPUSCULAR VOLUME 91.6 fl (80.0-96.0); PLATELET COUNT, AUTOMATED 191 k/mm3 (150-450); RED CELL DISTRIBUTION WIDTH 16.9 % (11.5-14.5); WHITE BLOOD COUNT 10.4 K/mm3 (4.0-10.0)
[2016-10-24 05:53] LABS: ANION GAP 5 MEQ/L (8-16); BLOOD UREA NITROGEN 21 MG/DL (7-18); CALCIUM LEVEL 7.3 MG/DL (8.8-10.2); CARBON DIOXIDE LEVEL 30 MEQ/L (21-32); CHLORIDE LEVEL 108 MEQ/L (98-107); CREATININE FOR GFR 1.11 MG/DL (0.70-1.30); GLOMERULAR FILTRATION RATE > 60.0 (>35); GLUCOSE, FASTING 104 MG/DL (83-110); SODIUM LEVEL 143 MEQ/L (136-145)
[2016-10-24 06:00] VITALS: BP 119/65
[2016-10-24 06:27] LABS: ANISOCYTOSIS 1+; HYPOCHROMASIA 2+
[2016-10-24] MEDS: FORMOTEROL FUMARATE 20 MCG/2 ML INHALATION SOLUTION (PERFOROMIST) INH SCH ×2 (07:12→20:11)
[2016-10-24] MEDS: BUDESONIDE 0.5 MG/2 ML INHALATION SUSPENSION INH SCH ×2 (07:12→20:11)
[2016-10-24] MEDS: HumaLOG INSULIN (NovoLOG) PER UNIT SC SCH ×4 (07:30→20:49)
[2016-10-24] MEDS: predniSONE 10 MG TAB PO SCH (07:45)
[2016-10-24] MEDS: POTASSIUM CHLORIDE 10 MEQ SR TABLET PO SCH ×2 (07:45→21:05)
[2016-10-24] MEDS: PANTOPRAZOLE 40MG INJ (PROTONIX) (C9113) IV SCH (07:45)
[2016-10-24] MEDS ORDERED: TAMSULOSIN 0.4 MG CAP PO SCH (09:00)
[2016-10-24 10:00] VITALS: BP 113/59
[2016-10-24] MEDS: CEFTAROLINE FOSAMIL 600 MG in D5W MINI-BAG PLUS 50 ML IV SCH ×2 (10:38→23:38)
--- NOTE | 2016-10-24 10:59 | IPNPDOC ---
Subjective Date Seen The patient was seen on 10/24/16. Subjective Chief Complaint/HPI The patient is a 86-year-old male admitted with a reason for visit of Sepsis. Events since last encounter non-verbal responds to questions with shaking head. c/o sore throat yesterday. + fungal elements to sputum cx. Constitutional: Denies: Chills, Fever, Night Sweats Skin: Denies: Rash Pulmonary: Denies: Cough, Dyspnea Cardiovascular: Reports: Edema, Denies: Chest Pain, Palpitations Gastrointestinal: Denies: Abdominal Pain, Constipation, Diarrhea, Nausea, Vomiting Genitourinary: Reports: Incontinence, Denies: Dysuria, Frequency, Retention Psych: Reports: Other Psych (non-verbal) Objective Physical Examination General Exam: Positive: Alert, No Acute Distress Eye Exam: Positive: Conjunctiva & lids normal, EOMI, PERRLA ENT Exam: Positive: Atraumatic, Mucous membr. moist/pink (white macules to posterior OP. ), Tongue Midline Neck Exam: Positive: Supple Chest Exam: Positive: Clear to auscultation Heart Exam: Positive: Murmurs, Rate Normal Abdomen Exam: Positive: Soft, Negative: Tenderness Extremity Exam: Positive: Swelling Skin Exam: Positive: Other skin issue (open areas some weeping.) Neuro Exam: Positive: Other (patient is alert, oriented to hospital and city, not correct on age. no focal deficit noted, but gait not tested.) Psych Exam: Negative: Memory Intact (patient vague in responses today. states his age is 68, needs more detailed tests for dementia when he is more alert ) Assessment /Plan Problems (1) Sepsis Status: Resolved Problem Text: 10/24/2016: Ceftaroline Day #4 10/23/2016: Ceftaroline Day #3 10/22/16: Per ID Ceftaroline x 10 days. Seems to be resolved at this point (2) Acute on chronic renal insufficiency Status: Acute Problem Text: Improving renal function. Creatinine now better than previouis discharge 10/14 - Scr stable, cont to monitor, baseline Scr about 2. 3/8 BUN/creatinine is 21 and 2.2, respectively Begin fluids that 150 mL per hour Monitor with labs (3) UTI (urinary tract infection) Status: Acute Problem Specific Plan: Consult Specialist Problem Text: 10/22/16: Finished Diflucan course. On Ceftaroline for 10 day course. See ID note. Patient's urinalysis history positive for bacterial urinary tract infection as well as possible fungal yeast infection Will consult infectious disease Place patient on ceftriaxone and for bacterial urinary tract infection coverage Obtain urine culture Will hold finasteride as patient has urinary catheter in place Possible source of infection for sepsis (4) Anemia Status: Acute Problem Text: Hemoglobin and hematocrit are 10.4 and 32.9, respectively Patient's INR on 10/11/2016 was 3.97 Patient does not appear to be on any anticoagulation and it is likely that it was held secondary to patient being supratherapeutic Will check a PT/INR (5) Right upper lobe consolidation Status: Acute Response to Treatment: Worse Problem Specific Plan: Monitor Clinically Problem Text: 10/23/2016: lungs clear. Continue with Ceftaroline, oxygen as needed. 10/21: CXR shows improvement, WBC improving as well, continue ceftaroline. (6) Hypotension Status: Resolved Response to Treatment: Improving Problem Text: Improved, stable, no pressors (7) Fever Status: Resolved Problem Text: Temperature in the emergency department was 100.7 Will obtain blood cultures Obtain echocardiogram as patient has history of MRSA (8) Lactic acidosis Status: Resolved Problem Text: Resolved. 10/14 - remains elevated, repeat ordered for 1230. 10/13 Lactic acid of presentation was 4.4 We'll obtain new lactic acid level in 6 hours (9) Altered mental status Status: Acute Problem Text: eval MRI. patient not at baseline mentation. (10) Lilia infection, oral Status: Acute Problem Text: add on nystatin swish and swallow. Plan/VTE VTE Prophylaxis Ordered?: Yes (Lovenox 30 mg subcutaneous daily) Plan/Urinary Catheter Urinary Catheter: Place Peters (Peters catheter in place) Reason for insertion/continuin: Critical Pt monitoring Plan IVF: Continue Diet: Advance (On clears now, advancing.) Activity: Advance Therapy: PT Diagnostics: Check Labs, Repeat Labs in AM, Obtain Cultures Anticipated Discharge: [facility], I&O, 24H, [facility] Vital Signs/I&O Vital Signs Date Time Temp Pulse Resp B/P Pulse Ox O2 Delivery O2 Flow Rate FiO2 10/24/16 10:00 97.6 98 18 113/59 94 Nasal Cannula 2.0 10/19/16 10:17 30 I&O- Last 24 Hours up to 6 AM 10/24/16 06:00 Intake Total 2210 ml Output Total 0 ml Balance 2210 ml Laboratory Data 24H LABS Laboratory Tests 2 10/23/16 11:36: Bedside Glucose (Misc Panel) 177H 10/23/16 16:57: Bedside Glucose (Misc Panel) 183H 10/23/16 20:36: Bedside Glucose (Misc Panel) 208H 10/24/16 05:06: Anion Gap 5L, Anisocytosis 1+, White Blood Count 10.4H, Red Blood Count 3.26L, Hemoglobin 9.4L, Hematocrit 29.8L, Mean Corpuscular Volume 91.6, Mean Corpuscular Hemoglobin 28.7, Mean Corpuscular Hemoglobin Concent 31.4L, Red Cell Distribution Width 16.9H, Platelet Count 191, Neutrophils (%) (Auto) , Lymphocytes (%) (Auto) , Monocytes (%) (Auto) , Eosinophils (%) (Auto) , Basophils (%) (Auto) , Neutrophils # (Auto) , Lymphocytes # (Auto) , Monocytes # (Auto) , Eosinophils # (Auto) , Basophils # (Auto) , Blood Urea Nitrogen 21H, Creatinine 1.11, Sodium Level 143, Potassium Level 4.0, Chloride Level 108H, Carbon Dioxide Level 30, Calcium Level 7.3L, Glomerular Filtration Rate > 60.0, Hypochromasia 2+, Large Unclassified Cells # , Large Unclassified Cells % , Lymphocytes (Manual) 10L, Metamyelocytes 8H, Microcytosis , Monocytes (Manual) 4 , Myelocytes 6H, Neutrophils 72, Platelet Estimate NORMAL CBC/BMP Laboratory Tests 10/24/16 05:06 Calcium Level 7.3 L, Red Blood Count 3.26 L, Mean Corpuscular Volume 91.6, Mean Corpuscular Hemoglobin 28.7, Mean Corpuscular Hemoglobin Concent 31.4 L, Red Cell Distribution Width 16.9 H, Neutrophils (%) (Auto) , Lymphocytes (%) (Auto) , Monocytes (%) (Auto) , Eosinophils (%) (Auto) , Basophils (%) (Auto) , Neutrophils # (Auto) , Lymphocytes # (Auto) , Monocytes # (Auto) , Eosinophils # (Auto) , Basophils # (Auto) Microbiology Microbiology 10/15/16 Clostridium difficile (PCR) - Final, Complete 10/19/16 Gram Stain - Final, Complete 10/19/16 Sputum Culture - Final, Complete Yeast Like Organism 10/16/16 Gram Stain - Final, Complete 10/16/16 Sputum Culture - Final, Complete Ani Geller [facility] Oct 24, 2016 10:59
[2016-10-24] MEDS: NYSTATIN 500,000 U/5 ML SUSP UDC PO SCH ×3 (12:05→21:05)
[2016-10-24 14:00] VITALS: BP 133/64
[2016-10-24 18:00] VITALS: BP 128/62
[2016-10-24 22:00] VITALS: BP 95/52
[2016-10-25 00:30] VITALS: BP 113/61
[2016-10-25 02:00] VITALS: BP 124/65
[2016-10-25] MEDS: SODIUM CHLORIDE 0.9% INJ 10 ML SYR IV SCH ×3 (05:15→21:50)
[2016-10-25 05:35] LABS: MEAN CORPUSCULAR HEMOGLOBIN 29.9 pg (27.0-33.0); MEAN CORPUSCULAR HGB CONC 32.2 g/dl (32.0-36.5); MEAN CORPUSCULAR VOLUME 92.8 fl (80.0-96.0); PLATELET COUNT, AUTOMATED 180 k/mm3 (150-450); RED CELL DISTRIBUTION WIDTH 16.8 % (11.5-14.5); WHITE BLOOD COUNT 11.2 K/mm3 (4.0-10.0)
[2016-10-25 05:45] LABS: ANION GAP 6 MEQ/L (8-16); BLOOD UREA NITROGEN 20 MG/DL (7-18); CALCIUM LEVEL 7.2 MG/DL (8.8-10.2); CARBON DIOXIDE LEVEL 29 MEQ/L (21-32); CHLORIDE LEVEL 107 MEQ/L (98-107); CREATININE FOR GFR 1.06 MG/DL (0.70-1.30); GLOMERULAR FILTRATION RATE > 60.0 (>35); GLUCOSE, FASTING 112 MG/DL (83-110); POTASSIUM SERUM 4.2 MEQ/L (3.5-5.1); SODIUM LEVEL 142 MEQ/L (136-145)
[2016-10-25 06:00] VITALS: BP 113/65
[2016-10-25 07:11] LABS: BANDS 1 % (< 11); EOSINOPHILS 1 % (0-5)
[2016-10-25 07:13] LABS: ANISOCYTOSIS 1+
[2016-10-25] MEDS: HumaLOG INSULIN (NovoLOG) PER UNIT SC SCH ×4 (08:16→21:00)
[2016-10-25] MEDS: PANTOPRAZOLE 40MG INJ (PROTONIX) (C9113) IV SCH (08:16)
[2016-10-25] MEDS: predniSONE 10 MG TAB PO SCH (08:16)
[2016-10-25] MEDS: NYSTATIN 500,000 U/5 ML SUSP UDC PO SCH ×4 (08:16→21:00)
[2016-10-25] MEDS: POTASSIUM CHLORIDE 10 MEQ SR TABLET PO SCH ×2 (08:17→21:00)
[2016-10-25] MEDS: FORMOTEROL FUMARATE 20 MCG/2 ML INHALATION SOLUTION (PERFOROMIST) INH SCH ×2 (10:15→20:05)
[2016-10-25] MEDS: BUDESONIDE 0.5 MG/2 ML INHALATION SUSPENSION INH SCH ×2 (10:15→20:05)
--- NOTE | 2016-10-25 10:35 | REP ---
MR BRAIN WITHOUT CONTRAST: HISTORY: Altered mental status. COMPARISON: MRI March [address] 10/18/2016. Small areas of increased signal intensity on diffusion and T2-weighted images are present in the right basal ganglia and centrum semiovale and splenium of the corpus callosum. These are isointense in signal intensity on ADC images and are consistent with subacute infarctions. Areas of increased signal intensity on T2-weighted images are present in the right basal ganglia and thalamus. These represent old lacunar infarctions. Areas of increased signal intensity on T2-weighted images are present in the periventricular and subcortical white matter. This represents small vessel ischemic disease. There is no intraparenchymal hemorrhage, acute infarct, mass or midline shift. The ventricular system and cortical sulci as well as subarachnoid space in the posterior fossa are dilated consistent with moderate volume loss. There is no extracerebral collection. Mucosal thickening is present in the mastoid air cells, maxillary, right ethmoid and left frontal sinuses. IMPRESSION: 1. Small subacute infarctions in the right basal ganglia and centrum semiovale and splenium of the corpus callosum. 2. 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 3. Small vessel ischemic disease. 4. Moderate volume loss. Signed by Rick Ferguson MD 10/25/2016 10:41 A
[2016-10-25] MEDS: CEFTAROLINE FOSAMIL 600 MG in D5W MINI-BAG PLUS 50 ML IV SCH ×2 (11:08→23:51)
[2016-10-25] MEDS: ACETAMINOPHEN TAB 650MG DOSE (2X325MG) PO PRN (12:34)
[2016-10-25 14:00] VITALS: BP 101/54
--- NOTE | 2016-10-25 17:07 | IPN ---
DATE: 10/25/2016 Mr. Avila is a little more grumpy today. He did not want to be examined and did not want to answer questions. He states he is cold and he needs to be covered. LABORATORY DATA: White count is 11.2, hemoglobin 9.4, hematocrit 29.1, platelets 180, 80% neutrophils, 5% lymphocytes, 10% monocytes. Sodium 142, potassium 4.2, chloride 107, bicarbonate 29, BUN 20, creatinine 1, glucose 112, calcium 7.2, CRP is 2.55 down from 13.3. Blood cultures were positive on 09/21/2016 for Escherichia (E) coli and methicillin-resistant Staphylococcus aureus (MRSA). Urine culture was only positive for E coli on 09/21/2016. Repeat blood cultures done on 10/13/2016 were negative. PHYSICAL EXAMINATION: Heart: Normal S1, S2. No murmurs. Lungs are clear anteriorly. Abdomen is soft, nontender. Extremities: +1 ankle edema. Temperature is 97.2, pulse 82, respirations 18, blood pressure 101/54, oxygen saturation 95% on 2 liters nasal cannula. Right-sided central line. IMPRESSION: 1. Sepsis has resolved, although urine culture only had yeast, which was treated with 7 days of fluconazole and blood cultures were negative. 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 He was treated with IV ceftaroline, which is currently day #10. I would continue until obtaining a transesophageal echocardiogram to make sure he does not have endocarditis. I have discussed the case with Dr. Muñiz and Dr. Cisneros, who will schedule him for a transesophageal echocardiogram to be done on Tuesday. 2. History of recurrent urinary tract infection, currently treated with Diflucan for 7 days for fungus in the urine and Peters catheter has been removed. 3. Mental status changes. The patient has not returned to baseline. He had an MRI of the brain done on 10/24/2016, which showed small subacute infarction in the right basal ganglia and centrum semiovale and corpus callosum and some old right basal ganglia infarct as well. PLAN: Continue IV ceftaroline, obtain transesophageal echocardiogram; that will be done on Tuesday by Dr. Cisneros. Remove central line and place peripheral IV to avoid line infections.
[2016-10-25 22:00] VITALS: BP 105/52
--- NOTE | 2016-10-26 01:11 | IPNPDOC ---
Subjective Date Seen The patient was seen on 10/25/16. Subjective Chief Complaint/HPI The patient is a 86-year-old male admitted with a reason for visit of Sepsis. Events since last encounter Reviewed MRI, showing lacunar infarcts; discussed with patient and his . Patient was not consistently responding to ROS questions. General: Reports: ROS Unobtainable Objective Physical Examination General Exam: Positive: Alert, No Acute Distress Eye Exam: Positive: Conjunctiva & lids normal, EOMI, PERRLA ENT Exam: Positive: Atraumatic, Mucous membr. moist/pink (white macules to posterior OP. ), Tongue Midline Neck Exam: Positive: Supple Chest Exam: Positive: Clear to auscultation Heart Exam: Positive: Murmurs, Rate Normal Abdomen Exam: Positive: Soft, Negative: Tenderness Extremity Exam: Positive: Swelling Skin Exam: Positive: Other skin issue (open areas some weeping.) Assessment /Plan Problems (1) Sepsis Status: Resolved Problem Text: 10/25/2016: ceftaroline day #5 10/24/2016: Ceftaroline Day #4 10/23/2016: Ceftaroline Day #3 10/22/16: Per ID Ceftaroline x 10 days. Seems to be resolved at this point (2) Acute on chronic renal insufficiency Status: Acute Problem Text: Improving renal function. Creatinine now better than previouis discharge 10/14 - Scr stable, cont to monitor, baseline Scr about 2. 3/8 BUN/creatinine is 21 and 2.2, respectively Begin fluids that 150 mL per hour Monitor with labs (3) UTI (urinary tract infection) Status: Acute Problem Specific Plan: Consult Specialist Problem Text: 10/22/16: Finished Diflucan course. On Ceftaroline for 10 day course. See ID note. Patient's urinalysis history positive for bacterial urinary tract infection as well as possible fungal yeast infection Will consult infectious disease Place patient on ceftriaxone and for bacterial urinary tract infection coverage Obtain urine culture Will hold finasteride as patient has urinary catheter in place Possible source of infection for sepsis (4) Anemia Status: Acute Problem Text: Hemoglobin and hematocrit are 10.4 and 32.9, respectively Patient's INR on 10/11/2016 was 3.97 Patient does not appear to be on any anticoagulation and it is likely that it was held secondary to patient being supratherapeutic Will check a PT/INR (5) Right upper lobe consolidation Status: Acute Response to Treatment: Worse Problem Specific Plan: Monitor Clinically Problem Text: 10/23/2016: lungs clear. Continue with Ceftaroline, oxygen as needed. 10/21: CXR shows improvement, WBC improving as well, continue ceftaroline. (6) Hypotension Status: Resolved Response to Treatment: Improving Problem Text: Improved, stable, no pressors (7) Fever Status: Resolved Problem Text: Temperature in the emergency department was 100.7 Will obtain blood cultures Obtain echocardiogram as patient has history of MRSA (8) Lactic acidosis Status: Resolved Problem Text: Resolved. 10/14 - remains elevated, repeat ordered for 1230. 10/13 Lactic acid of presentation was 4.4 We'll obtain new lactic acid level in 6 hours (9) Altered mental status Status: Acute Problem Text: eval MRI. patient not at baseline mentation. (10) Lilia infection, oral Status: Acute Problem Text: add on nystatin swish and swallow. (11) Multiple lacunar infarcts Status: Acute Problem Text: Plan echo with cardio. Ordered aspirin and fasting lipids. Plan/VTE VTE Prophylaxis Ordered?: Yes (Lovenox 30 mg subcutaneous daily) Plan/Urinary Catheter Urinary Catheter: Place Peters (Peters catheter in place) Reason for insertion/continuin: Critical Pt monitoring Plan IVF: Continue Diet: Advance (On clears now, advancing.) Activity: Advance Therapy: PT Diagnostics: Check Labs, Repeat Labs in AM, Obtain Cultures Anticipated Discharge: [facility] VS, I&O, 24H, [facility] Vital Signs/I&O Vital Signs Date Time Temp Pulse Resp B/P Pulse Ox O2 Delivery O2 Flow Rate FiO2 10/25/16 22:00 98.3 87 21 105/52 92 Nasal Cannula 2.0 I&O- Last 24 Hours up to 6 AM 10/26/16 06:00 Intake Total 480 ml Output Total 0 ml Balance 480 ml Laboratory Data 24H LABS Laboratory Tests 2 10/25/16 05:18: Anisocytosis 1+, Atypical Lymphocytes 1, Band Neutrophils 1, White Blood Count 11.2H, Red Blood Count 3.14L, Hemoglobin 9.4L, Hematocrit 29.1L, Mean Corpuscular Volume 92.8, Mean Corpuscular Hemoglobin 29.9, Mean Corpuscular Hemoglobin Concent 32.2, Red Cell Distribution Width 16.8H, Platelet Count 180, Neutrophils (%) (Auto) , Lymphocytes (%) (Auto) , Monocytes (%) (Auto) , Eosinophils (%) (Auto) , Basophils (%) (Auto) , Neutrophils # (Auto) , Lymphocytes # (Auto) , Monocytes # (Auto) , Eosinophils # (Auto) , Basophils # ( Auto) , Eosinophils (Manual) 1, Large Unclassified Cells # , Large Unclassified Cells % , Lymphocytes (Manual) 5L, Metamyelocytes 2H, Monocytes (Manual) 10H, Neutrophils 80H, Platelet Estimate NORMAL 10/25/16 05:19: Anion Gap 6L, Blood Urea Nitrogen 20H, Creatinine 1.06, Sodium Level 142, Potassium Level 4.2, Chloride Level 107, Carbon Dioxide Level 29, Calcium Level 7.2L, Glomerular Filtration Rate > 60.0 10/25/16 10:54: Bedside Glucose (Misc Panel) 120H 10/25/16 16:31: Bedside Glucose (Misc Panel) 138H 10/25/16 20:21: Bedside Glucose (Misc Panel) 142H CBC/BMP Laboratory Tests 10/25/16 05:18 Red Blood Count 3.14 L, Mean Corpuscular Volume 92.8, Mean Corpuscular Hemoglobin 29.9, Mean Corpuscular Hemoglobin Concent 32.2, Red Cell Distribution Width 16.8 H, Neutrophils (%) (Auto) , Lymphocytes (%) (Auto) , Monocytes (%) (Auto) , Eosinophils (%) (Auto) , Basophils (%) (Auto) , Neutrophils # (Auto) , Lymphocytes # (Auto) , Monocytes # (Auto) , Eosinophils # (Auto) , Basophils # (Auto) 10/25/16 05:19 Calcium Level 7.2 L Microbiology Microbiology 10/19/16 Gram Stain - Final, Complete 10/19/16 Sputum Culture - Final, Complete Yeast Like Organism 10/16/16 Gram Stain - Final, Complete 10/16/16 Sputum Culture - Final, Complete MONISHA MOON DO Oct 26, 2016 01:11
[2016-10-26 02:00] VITALS: BP 122/58
[2016-10-26 06:00] VITALS: BP 123/69
[2016-10-26 06:36] LABS: DIFF SLIDE NUMBER 4; MEAN CORPUSCULAR HEMOGLOBIN 29.3 pg (27.0-33.0); MEAN CORPUSCULAR HGB CONC 30.5 g/dl (32.0-36.5); MEAN CORPUSCULAR VOLUME 95.9 fl (80.0-96.0); RED CELL DISTRIBUTION WIDTH 16.9 % (11.5-14.5); WHITE BLOOD COUNT 9.4 K/mm3 (4.0-10.0)
[2016-10-26 06:53] LABS: ANION GAP 6 MEQ/L (8-16); BLOOD UREA NITROGEN 18 MG/DL (7-18); CALCIUM LEVEL 7.2 MG/DL (8.8-10.2); CARBON DIOXIDE LEVEL 26 MEQ/L (21-32); CHLORIDE LEVEL 109 MEQ/L (98-107); CHOLESTEROL LEVEL 113 MG/DL (<200); CREATININE FOR GFR 1.15 MG/DL (0.70-1.30); GLOMERULAR FILTRATION RATE > 60.0 (>35); GLUCOSE, FASTING 114 MG/DL (83-110); POTASSIUM SERUM 4.3 MEQ/L (3.5-5.1); SODIUM LEVEL 141 MEQ/L (136-145); TRIGLYCERIDES LEVEL 206 MG/DL (<150)
[2016-10-26 07:07] LABS: PLATELET COUNT, AUTOMATED 43 k/mm3 (150-450)
[2016-10-26 07:16] LABS: ANISOCYTOSIS 1+; BANDS 1 % (< 11); EOSINOPHILS 4 % (0-5); HYPOCHROMASIA 2+; PLATELET CLUMPS SMALL AMT
[2016-10-26] MEDS: HumaLOG INSULIN (NovoLOG) PER UNIT SC SCH ×4 (08:27→21:00)
[2016-10-26] MEDS: ASPIRIN 81 MG ENTERIC TAB PO SCH (08:27)
[2016-10-26] MEDS: predniSONE 10 MG TAB PO SCH (08:27)
[2016-10-26] MEDS: PANTOPRAZOLE 40MG INJ (PROTONIX) (C9113) IV SCH (08:28)
[2016-10-26] MEDS: POTASSIUM CHLORIDE 10 MEQ SR TABLET PO SCH ×2 (08:28→22:40)
[2016-10-26] MEDS: NYSTATIN 500,000 U/5 ML SUSP UDC PO SCH ×4 (08:28→22:40)
[2016-10-26] MEDS: BUDESONIDE 0.5 MG/2 ML INHALATION SUSPENSION INH SCH ×2 (09:24→20:36)
[2016-10-26] MEDS: FORMOTEROL FUMARATE 20 MCG/2 ML INHALATION SOLUTION (PERFOROMIST) INH SCH ×2 (09:28→20:36)
[2016-10-26 10:00] VITALS: BP 107/62
[2016-10-26] MEDS: CEFTAROLINE FOSAMIL 600 MG in D5W MINI-BAG PLUS 50 ML IV SCH ×2 (12:11→22:40)
[2016-10-26 14:00] VITALS: BP 120/58
--- NOTE | 2016-10-26 15:45 | IPN ---
DATE: 10/26/2016 ATTENDING PHYSICIAN: Dr. Noah Heller SUBJECTIVE: This is an 86-year-old gentleman seen today at bedside. He was sleeping when I entered the room. When he awoke, he reported that he was feeling weak today. He did not answer any other questions. OBJECTIVE: VITAL SIGNS: Temperature is 97.6, pulse is 70, respiratory rate 18, blood pressure is 107/62. He is on two liters of oxygen. Oxygen saturation 100%. GENERAL: The patient was sleeping, awoke to questioning, does not appear to be in any acute distress. HEENT: Normocephalic, atraumatic. His mucous membranes are moist. CARDIOVASCULAR: Regular rate and rhythm. No murmurs appreciated. LUNGS: Clear to auscultation bilaterally. ABDOMEN: Soft, nontender, nondistended. Normoactive bowel sounds are heard throughout. EXTREMITIES: 1+ edema in the lower extremities. NEUROLOGIC: The patient appears lethargic. He was able to identify himself by name, did not identify the location or the date. LABORATORY DATA: WBC is 9.4, hemoglobin 9.8, hematocrit 32.1, platelet count is 162. Sodium 141, potassium 4.3, chloride 109, carbon dioxide 26, BUN 18, creatinine 1.15, GFR is greater than 60, fasting glucose is 114. ASSESSMENT AND PLAN: This is an 86-year-old male with sepsis, which has resolved. 1. Sepsis, resolved. His white blood cell count has been decreasing, 9.4 today. 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 The patient was planned for a transesophageal echocardiogram to be done on Tuesday afternoon, to rule out endocarditis. 2. History of recurrent urinary tract infections (UTIs). He finished a 7 day course of fluconazole. He had positive cultures for yeast-like organisms in his urine. His urinary catheter had been removed. 3. Lethargy with mental status changes patient has 2 new subacute infarcts My preceptor for this patient encounter was Dr. Noah Heller. The preceptor was physically present in the building during the encounter and was fully available as needed. All aspects of the patient interview, examination, medical decision making process, and medical care plan development were reviewed and approved by the preceptor. The preceptor is aware and concurs with the plan as stated in the body of this note and will attest to such by his/her co-signature. SUNITA
[2016-10-26 18:00] VITALS: BP 101/59
--- NOTE | 2016-10-26 19:08 | IPNPDOC ---
Subjective Date Seen The patient was seen on 10/26/16. Subjective Chief Complaint/HPI The patient is a 86-year-old male admitted with a reason for visit of Sepsis. Events since last encounter Patient states that "my tushy is sore." He denies any other problems, denies fevers, chills, sweats. He states that his scrotum is unchanged. Constitutional: Denies: Chills, Fever, Malaise Skin: Reports: Lesions (coccyx and scrotum) Pulmonary: Denies: Cough, Dyspnea Cardiovascular: Denies: Chest Pain Gastrointestinal: Denies: Abdominal Pain, Constipation, Diarrhea, Nausea, Vomiting Psych: Denies: Mood Normal (decreased mood) Other systems 10 point review systems otherwise negative Objective Physical Examination General Exam: Positive: Alert, No Acute Distress Eye Exam: Positive: Conjunctiva & lids normal, EOMI, PERRLA ENT Exam: Positive: Atraumatic Neck Exam: Positive: Supple, Negative: JVD Chest Exam: Positive: Clear to auscultation, Normal air movement, Negative: Rales, Rhonchi, Wheezing Heart Exam: Positive: Murmurs, Normal S1, Normal S2, Rate Normal Abdomen Exam: Positive: Normal bowel sounds, Soft, Negative: Tenderness Male Exam: Positive: Lesions (scrotal rash) Extremity Exam: Positive: Swelling Skin Exam: Positive: Other skin issue (scrotal rash and decubitus ulcer tender to the touch) Psych Exam: Negative: Mental status NL (patient is somewhat confused, speech is slowed), Mood NL (depressed affect) Assessment /Plan Problems (1) Sepsis Status: Resolved Problem Text: Ceftaroline day 6 (2) Acute on chronic renal insufficiency Status: Acute Problem Text: Improving renal function. Creatinine now better than previouis discharge 10/14 - Scr stable, cont to monitor, baseline Scr about 2. 3/8 BUN/creatinine is 21 and 2.2, respectively Begin fluids that 150 mL per hour Monitor with labs (3) UTI (urinary tract infection) Status: Acute Problem Specific Plan: Consult Specialist Problem Text: 10/22/16: Finished Diflucan course. On Ceftaroline for 10 day course. See ID note. Patient's urinalysis history positive for bacterial urinary tract infection as well as possible fungal yeast infection Will consult infectious disease Place patient on ceftriaxone and for bacterial urinary tract infection coverage Obtain urine culture Will hold finasteride as patient has urinary catheter in place Possible source of infection for sepsis (4) Anemia Status: Acute Problem Text: Hemoglobin and hematocrit are 10.4 and 32.9, respectively Patient's INR on 10/11/2016 was 3.97 Patient does not appear to be on any anticoagulation and it is likely that it was held secondary to patient being supratherapeutic Will check a PT/INR (5) Right upper lobe consolidation Status: Acute Response to Treatment: Worse Problem Specific Plan: Monitor Clinically Problem Text: Continue with Ceftaroline, oxygen as needed (6) Hypotension Status: Resolved Response to Treatment: Improving Problem Text: Improved, stable, no pressors (7) Fever Status: Resolved Problem Text: Temperature in the emergency department was 100.7 Will obtain blood cultures Obtain echocardiogram as patient has history of MRSA (8) Lactic acidosis Status: Resolved Problem Text: Resolved. 10/14 - remains elevated, repeat ordered for 1230. 10/13 Lactic acid of presentation was 4.4 We'll obtain new lactic acid level in 6 hours (9) Altered mental status Status: Acute Problem Text: eval MRI. patient not at baseline mentation. (10) Lilia infection, oral Status: Acute Problem Text: add on nystatin swish and swallow. (11) Multiple lacunar infarcts Status: Acute Problem Text: Plan echo with cardio. Ordered aspirin and fasting lipids. Plan/VTE VTE Prophylaxis Ordered?: Yes (Lovenox 30 mg subcutaneous daily) Plan/Urinary Catheter Urinary Catheter: Place Peters (Peters catheter in place) Reason for insertion/continuin: Critical Pt monitoring Plan IVF: Continue Diet: Advance (On clears now, advancing.) Activity: Advance Therapy: PT Diagnostics: Check Labs, Repeat Labs in AM, Obtain Cultures Anticipated Discharge: [facility] VS, I&O, 24H, [facility] Vital Signs/I&O Vital Signs Date Time Temp Pulse Resp B/P Pulse Ox O2 Delivery O2 Flow Rate FiO2 10/26/16 18:00 98.4 71 18 101/59 94 Nasal Cannula 2.0 I&O- Last 24 Hours up to 6 AM 10/26/16 06:00 Intake Total 660 ml Output Total 0 ml Balance 660 ml Laboratory Data 24H LABS Laboratory Tests 2 10/25/16 20:21: Bedside Glucose (Misc Panel) 142H 10/26/16 05:48: Anion Gap 6L, Anisocytosis 1+, Band Neutrophils 1, Calcium Level 7.2L, Triglycerides Level 206H, Cholesterol Level 113, HDL Cholesterol 27L, LDL Cholesterol 44.8, Cholesterol/HDL Ratio 4.185, Clumped Platelets SMALL AMT, Eosinophils (Manual) 4, Glomerular Filtration Rate > 60.0, Hypochromasia 2+, Lymphocytes (Manual) 11L, Metamyelocytes 2H, Monocytes (Manual) 4, Neutrophils 78H, Non-HDL Cholesterol (LDL + VLDL) 86, Platelet Estimate MARKED DECREASE, Red Blood Cell Morphology NORMAL 10/26/16 11:31: Bedside Glucose (Misc Panel) 102 10/26/16 16:27: Bedside Glucose (Misc Panel) 110 CBC/BMP Laboratory Tests 10/26/16 05:48 Red Blood Count 3.35 L, Mean Corpuscular Volume 95.9, Mean Corpuscular Hemoglobin 29.3, Mean Corpuscular Hemoglobin Concent 30.5 L, Red Cell Distribution Width 16.9 H 10/26/16 12:51 Microbiology Microbiology 10/19/16 Gram Stain - Final, Complete 10/19/16 Sputum Culture - Final, Complete Yeast Like Organism 10/16/16 Gram Stain - Final, Complete 10/16/16 Sputum Culture - Final, Complete SIOMARA CORREIA MD Oct 26, 2016 19:08
[2016-10-26 22:00] VITALS: BP 105/62
[2016-10-27] VITALS (8 sets, daily range): BP systolic 110–163; BP diastolic 53–88
[2016-10-27] MEDS: PANTOPRAZOLE 40MG INJ (PROTONIX) (C9113) IV SCH (08:23)
[2016-10-27] MEDS: NYSTATIN 500,000 U/5 ML SUSP UDC PO SCH ×4 (08:23→20:46)
[2016-10-27] MEDS: predniSONE 10 MG TAB PO SCH (08:23)
[2016-10-27] MEDS: HumaLOG INSULIN (NovoLOG) PER UNIT SC SCH ×4 (08:24→20:48)
[2016-10-27] MEDS: POTASSIUM CHLORIDE 10 MEQ SR TABLET PO SCH ×2 (08:24→20:47)
[2016-10-27] MEDS: ASPIRIN 81 MG ENTERIC TAB PO SCH (08:24)
[2016-10-27] MEDS: FORMOTEROL FUMARATE 20 MCG/2 ML INHALATION SOLUTION (PERFOROMIST) INH SCH ×2 (08:55→19:36)
[2016-10-27] MEDS: BUDESONIDE 0.5 MG/2 ML INHALATION SUSPENSION INH SCH ×2 (08:55→19:36)
[2016-10-27 09:22] LABS: ANION GAP 7 MEQ/L (8-16); BLOOD UREA NITROGEN 16 MG/DL (7-18); CALCIUM LEVEL 7.4 MG/DL (8.8-10.2); CARBON DIOXIDE LEVEL 27 MEQ/L (21-32); CHLORIDE LEVEL 105 MEQ/L (98-107); CREATININE FOR GFR 1.09 MG/DL (0.70-1.30); GLOMERULAR FILTRATION RATE > 60.0 (>35); GLUCOSE, FASTING 111 MG/DL (83-110); POTASSIUM SERUM 4.2 MEQ/L (3.5-5.1); SODIUM LEVEL 139 MEQ/L (136-145)
[2016-10-27 09:28] LABS: BASO % 0.4 % (0.0-1.0); EOS # 0.3 K/mm3 (0.0-0.50); EOS % 2.8 % (0.0-3.0); LARGE UNSTAINED CELL # 0.2 K/mm3 (0.0-0.4); LARGE UNSTAINED CELL % 1.8 % (0.0-4.0); LYMPH # 0.8 K/mm3 (1.5-4.5); MEAN CORPUSCULAR HEMOGLOBIN 28.4 pg (27.0-33.0); MEAN CORPUSCULAR HGB CONC 30.9 g/dl (32.0-36.5); MONO # 0.9 K/mm3 (0.0-0.8); NEUTROPHILS # 7.8 K/mm3 (1.8-7.7); PLATELET COUNT, AUTOMATED 146 k/mm3 (150-450); RED CELL DISTRIBUTION WIDTH 16.9 % (11.5-14.5)
[2016-10-27] MEDS: CEFTAROLINE FOSAMIL 600 MG in D5W MINI-BAG PLUS 50 ML IV SCH ×2 (11:48→23:36)
--- NOTE | 2016-10-27 15:05 | IPN ---
DATE: 10/27/2016 I met with Mr. Avila and his last night and then again with the patient alone this morning. I was asked by Dr. Heller to perform transesophageal echocardiogram. I explained the nature of the procedure and its possible complications to both the patient and his . Unfortunately, the patient himself, even though he is somewhat communicative, he appears very withdrawn and his responses are delayed and he is clearly not oriented. Consequently, I did not feel it was appropriate to obtain consent from him even though he verbally agreed to have the procedure done, yet it was his who signed the consent form. This morning on physical examination, his condition did not change appreciably. He was lying flat in bed and did not appear to be in any distress. He tells me that his night was fair, even though he could not explain why. He denies any chest pain or shortness of breath. The physical exam was significant for his own teeth. He would not cooperate with mouth opening to examine his posterior pharynx. Heart exam is remarkable for irregular heart rate. There is a harsh systolic ejection murmur best heard at the apex about 2-3/6 intensity. Abdomen was soft and nontender. I did not appreciate any peripheral edema. Neurologically, there was generalized weakness and he certainly did not cooperate for any sort of evaluation Considering his clinical condition and somewhat challenging mental status and also the fact that he requires supplemental oxygen, I feel that to perform transesophageal echocardiogram safely I would ask for assistance of anesthesiology to monitor his respiratory status. I explained that yesterday to the patient and his . The procedure is supposed to occur later on today. SUNITA
[2016-10-27] MEDS ORDERED: MIDAZOLAM INJ 2 MG/2 ML VIAL (J2250) As Ordered ONE (16:01)
[2016-10-27] MEDS ORDERED: CETACAINE SPRAY 20GM (FLOOR STOCK) As Ordered ONE (16:01)
--- NOTE | 2016-10-27 18:20 | RO ---
DATE OF PROCEDURE: 10/27/2016 REFERRING PHYSICIAN: Dr. Heller PROCEDURE: Transesophageal echocardiogram. ANESTHESIA: Dr. Zaheer Portillo INDICTATION: Bacteremia, suspected endocarditis. BRIEF HISTORY: Mr. Avila is an 86-year-old man who has a recurrent bacteremia. He has been followed by Dr. Heller and the suspicion was raised for bacterial endocarditis. I was asked to perform transesophageal echocardiogram. I discussed the indications, the nature of the procedure and possible complications including the risk of pneumonia and perforation of esophagus with the patient and his . Because he is not completely oriented, she signed the appropriate consent the night before the procedure. I saw him again in the morning of the procedure and talked to him again. Procedure was performed in the operating room. His posterior pharynx was anesthetized using Cetacaine spray. Dr. Portillo provided sedation. He received only 1 mg of intravenous (IV) Versed and 50 mg of IV lidocaine. With very gentle sedation probe was introduced into esophagus with considerable difficulty. The patient was quite awake during the procedure and the cooperation was limited but nevertheless eventually the probe was passed, initially into the esophagus and later in the stomach. After appropriate images were obtained it was withdrawn. The patient during the procedure desaturated into 80s from his baseline 92% on 3 liters of oxygen by nasal cannula and was put on the facial mask. Nevertheless, after the probe was withdrawn and with mask fully over his face he promptly recovered. In the recovery room his saturation was already in low 90s on 3 liters of oxygen which was unchanged from prior to the procedure. Otherwise there were no immediate complications. The patient will be transferred back to his room and his chronic medications will be continued. FINDINGS: There is subjective left ventricular hypertrophy and normal left ventricle (LV) systolic function with estimated ejection fraction (EF) around 60%. Right ventricle also does not appear enlarged. Both atria appear enlarged. There is very prominent lipomatous hypertrophy of interatrial septum. There is no evidence for shunt based on two-dimensional and color Doppler imaging. Aortic valve is tricuspid. It is sclerotic. Mobility is preserved. I do not appreciate any vegetations. By color Doppler imaging there is no stenosis or insufficiency. Mitral valve also exhibits prominent degenerative abnormalities with calcifications at the base of posterior mitral leaflet but mobility is preserved and no vegetations are seen. There is no insufficiency based on color Doppler imaging. Tricuspid valve appears completely normal. Again trivial insufficiency seen and no vegetations. Pulmonic valve was relatively poorly visualized but also appears grossly normal without vegetations and with no insufficiency. No pericardial effusion. There is relatively mild atherosclerosis of the thoracic aorta considering patient's age. Left pleural effusion is seen. CONCLUSIONS: 1. Preserved left ventricular systolic function. 2. Aortic sclerosis but no stenosis or insufficiency. 3. Degenerative abnormalities of mitral valve but no stenosis or insufficiency. 4. Normal tricuspid and pulmonic valves. 5. Intact atrial septum. 6. Left atrial appendage is free of thrombus. 7. Mild thoracic aortic atherosclerosis. 8. Left pleural effusion. COMMENT: Subacute bacterial endocarditis (SBE) prophylaxis is not recommended. I discussed findings of the study with Dr. Heller and also with the patient's . I also expressed my pessimism regarding the patient's prognosis even in absence of bacterial endocarditis. SUNITA
--- NOTE | 2016-10-28 00:59 | IPNPDOC ---
Subjective Date Seen The patient was seen on 10/27/16. Subjective Chief Complaint/HPI The patient is a 86-year-old male admitted with a reason for visit of Sepsis. Events since last encounter Seen after KT. notes he has been sleepier since the procedure. She has a variety of soft foods available for him to try for dinner. Patient follows simple commands but does not answer questions. Quite somnolent, not verbalizing. As I leave, persuades him to open his eyes so she can spoon feed him pudding. General: Reports: ROS Unobtainable Objective Physical Examination General Exam: Positive: Alert, No Acute Distress Eye Exam: Positive: Conjunctiva & lids normal, EOMI, PERRLA ENT Exam: Positive: Atraumatic Neck Exam: Positive: Supple, Negative: JVD Chest Exam: Positive: Clear to auscultation, Normal air movement, Negative: Rales, Rhonchi, Wheezing Heart Exam: Positive: Murmurs, Normal S1, Normal S2, Rate Normal Abdomen Exam: Positive: Normal bowel sounds, Soft, Negative: Tenderness Male Exam: Positive: Lesions (scrotal rash) Extremity Exam: Positive: Swelling Skin Exam: Positive: Other skin issue (scrotal rash and decubitus ulcer tender to the touch) Psych Exam: Negative: Mental status NL (patient is somewhat confused, speech is slowed), Mood NL (depressed affect) Assessment /Plan Problems (1) Sepsis Status: Resolved Problem Text: ID consulted; currently on ceftaroline (2) Acute on chronic renal insufficiency Status: Acute Problem Text: Improving renal function. Creatinine now better than previouis discharge 10/14 - Scr stable, cont to monitor, baseline Scr about 2. 3/8 BUN/creatinine is 21 and 2.2, respectively Begin fluids that 150 mL per hour Monitor with labs (3) UTI (urinary tract infection) Status: Acute Problem Specific Plan: Consult Specialist Problem Text: 10/22/16: Finished Diflucan course. On Ceftaroline for 10 day course. See ID note. Patient's urinalysis history positive for bacterial urinary tract infection as well as possible fungal yeast infection Will consult infectious disease Place patient on ceftriaxone and for bacterial urinary tract infection coverage Obtain urine culture Will hold finasteride as patient has urinary catheter in place Possible source of infection for sepsis (4) Anemia Status: Acute Problem Text: Hemoglobin and hematocrit are 10.4 and 32.9, respectively Patient's INR on 10/11/2016 was 3.97 Patient does not appear to be on any anticoagulation and it is likely that it was held secondary to patient being supratherapeutic Will check a PT/INR (5) Right upper lobe consolidation Status: Acute Response to Treatment: Worse Problem Specific Plan: Monitor Clinically Problem Text: Continue with Ceftaroline, oxygen as needed (6) Hypotension Status: Resolved Response to Treatment: Improving Problem Text: Improved, stable, no pressors (7) Fever Status: Resolved Problem Text: Temperature in the emergency department was 100.7 Will obtain blood cultures Obtain echocardiogram as patient has history of MRSA (8) Lactic acidosis Status: Resolved Problem Text: Resolved. 10/14 - remains elevated, repeat ordered for 1230. 10/13 Lactic acid of presentation was 4.4 We'll obtain new lactic acid level in 6 hours (9) Altered mental status Status: Acute Problem Text: eval MRI. patient not at baseline mentation. (10) Lilia infection, oral Status: Acute Problem Text: add on nystatin swish and swallow. (11) Multiple lacunar infarcts Status: Acute Problem Text: Plan echo with cardio. Ordered aspirin and fasting lipids. Plan/VTE VTE Prophylaxis Ordered?: Yes (Lovenox 30 mg subcutaneous daily) Plan/Urinary Catheter Urinary Catheter: Place Peters (Peters catheter in place) Reason for insertion/continuin: Critical Pt monitoring Plan IVF: Continue Diet: Advance (On clears now, advancing.) Activity: Advance Therapy: PT Diagnostics: Check Labs, Repeat Labs in AM, Obtain Cultures Anticipated Discharge: Assisted VS, I&O, 24H, [facility] Vital Signs/I&O Vital Signs Date Time Temp Pulse Resp B/P Pulse Ox O2 Delivery O2 Flow Rate FiO2 10/27/16 19:20 97.8 74 18 163/78 99 10/27/16 18:50 Nasal Cannula 2.0 I&O- Last 24 Hours up to 6 AM 10/28/16 06:00 Intake Total 50 ml Balance 50 ml Laboratory Data 24H LABS Laboratory Tests 2 10/27/16 08:09: Bedside Glucose (Misc Panel) 101 10/27/16 08:50: Anion Gap 7L, White Blood Count 10.0, Red Blood Count 3.42L, Hemoglobin 9.7L, Hematocrit 31.5L, Mean Corpuscular Volume 92.0, Mean Corpuscular Hemoglobin 28.4 , Mean Corpuscular Hemoglobin Concent 30.9L, Red Cell Distribution Width 16.9H, Platelet Count 146L, Neutrophils (%) (Auto) 78.0H, Lymphocytes (%) (Auto) 8.0L, Monocytes (%) (Auto) 9.0H, Eosinophils (%) (Auto) 2.8, Basophils (%) (Auto) 0.4 , Neutrophils # (Auto) 7.8H, Lymphocytes # (Auto) 0.8L, Monocytes # (Auto) 0.9H , Eosinophils # (Auto) 0.3, Basophils # (Auto) 0.0, Blood Urea Nitrogen 16, Creatinine 1.09, Sodium Level 139, Potassium Level 4.2, Chloride Level 105, Carbon Dioxide Level 27, Calcium Level 7.4L, Glomerular Filtration Rate > 60.0, Large Unclassified Cells # 0.2, Large Unclassified Cells % 1.8 10/27/16 11:19: Bedside Glucose (Misc Panel) 146H 10/27/16 14:52: Bedside Glucose (Misc Panel) 141H 10/27/16 17:07: Bedside Glucose (Misc Panel) 142H 10/27/16 17:42: Bedside Glucose (Misc Panel) 146H 10/27/16 20:35: Bedside Glucose (Misc Panel) 155H CBC/BMP Laboratory Tests 10/27/16 08:50 Calcium Level 7.4 L, Red Blood Count 3.42 L, Mean Corpuscular Volume 92.0, Mean Corpuscular Hemoglobin 28.4, Mean Corpuscular Hemoglobin Concent 30.9 L, Red Cell Distribution Width 16.9 H, Neutrophils (%) (Auto) 78.0 H, Lymphocytes (%) ( Auto) 8.0 L, Monocytes (%) (Auto) 9.0 H, Eosinophils (%) (Auto) 2.8, Basophils ( %) (Auto) 0.4, Neutrophils # (Auto) 7.8 H, Lymphocytes # (Auto) 0.8 L, Monocytes # (Auto) 0.9 H, Eosinophils # (Auto) 0.3, Basophils # (Auto) 0.0 Microbiology Microbiology 10/19/16 Gram Stain - Final, Complete 10/19/16 Sputum Culture - Final, Complete Yeast Like Organism MONISHA MOON DO Oct 28, 2016 00:59
[2016-10-28 02:00] VITALS: BP 127/65
[2016-10-28 06:00] VITALS: BP 122/69
[2016-10-28] MEDS: BUDESONIDE 0.5 MG/2 ML INHALATION SUSPENSION INH SCH ×2 (08:00→19:33)
[2016-10-28] MEDS: FORMOTEROL FUMARATE 20 MCG/2 ML INHALATION SOLUTION (PERFOROMIST) INH SCH ×2 (08:00→19:33)
[2016-10-28] MEDS: PANTOPRAZOLE 40MG INJ (PROTONIX) (C9113) IV SCH (09:13)
[2016-10-28] MEDS: NYSTATIN 500,000 U/5 ML SUSP UDC PO SCH ×4 (09:13→22:07)
[2016-10-28] MEDS: predniSONE 10 MG TAB PO SCH (09:14)
[2016-10-28] MEDS: POTASSIUM CHLORIDE 10 MEQ SR TABLET PO SCH ×2 (09:14→22:07)
[2016-10-28] MEDS: ASPIRIN 81 MG ENTERIC TAB PO SCH (09:14)
[2016-10-28] MEDS: HumaLOG INSULIN (NovoLOG) PER UNIT SC SCH ×4 (09:14→21:00)
[2016-10-28 10:00] VITALS: BP 100/56
[2016-10-28] MEDS: CEFTAROLINE FOSAMIL 600 MG in D5W MINI-BAG PLUS 50 ML IV SCH (10:27)
[2016-10-28 14:00] VITALS: BP 110/67
[2016-10-28 22:00] VITALS: BP 138/76
--- NOTE | 2016-10-29 03:28 | IPNPDOC ---
Subjective Date Seen The patient was seen on 10/28/16. Subjective Chief Complaint/HPI The patient is a 86-year-old male admitted with a reason for visit of Sepsis. Events since last encounter Patient more awake and interactive than typical, with at the bedside. He does remain somewhat confused. Constitutional: Denies: Chills, Fever ENT: Denies: Head Aches Pulmonary: Denies: Cough, Dyspnea Cardiovascular: Denies: Chest Pain Gastrointestinal: Denies: Abdominal Pain, Constipation, Diarrhea, Nausea, Vomiting Objective Physical Examination General Exam: Positive: Alert, No Acute Distress Eye Exam: Positive: Conjunctiva & lids normal, EOMI, PERRLA ENT Exam: Positive: Atraumatic Neck Exam: Positive: Supple, Negative: JVD Chest Exam: Positive: Clear to auscultation, Normal air movement, Negative: Rales, Rhonchi, Wheezing Heart Exam: Positive: Murmurs, Normal S1, Normal S2, Rate Normal Abdomen Exam: Positive: Normal bowel sounds, Soft, Negative: Tenderness Male Exam: Positive: Lesions (scrotal rash) Extremity Exam: Positive: Swelling Skin Exam: Positive: Other skin issue (scrotal rash and decubitus ulcer tender to the touch) Psych Exam: Positive: Mental status NL (patient is somewhat confused, speech is slowed), Mood NL (depressed affect) Assessment /Plan Problems (1) Sepsis Status: Resolved Problem Text: ID consulted; currently on ceftaroline (2) Acute on chronic renal insufficiency Status: Acute Problem Text: Improving renal function. Creatinine now better than previouis discharge 10/14 - Scr stable, cont to monitor, baseline Scr about 2. 3/8 BUN/creatinine is 21 and 2.2, respectively Begin fluids that 150 mL per hour Monitor with labs (3) UTI (urinary tract infection) Status: Acute Problem Specific Plan: Consult Specialist Problem Text: 10/28: Ceftaroline finished. Discussed with patient and family member that we are done treating infection, and should be moving towards DC 10/22/16: Finished Diflucan course. On Ceftaroline for 10 day course. See ID note. Patient's urinalysis history positive for bacterial urinary tract infection as well as possible fungal yeast infection Will consult infectious disease Place patient on ceftriaxone and for bacterial urinary tract infection coverage Obtain urine culture Will hold finasteride as patient has urinary catheter in place Possible source of infection for sepsis (4) Anemia Status: Acute Problem Text: Hemoglobin and hematocrit are 10.4 and 32.9, respectively Patient's INR on 10/11/2016 was 3.97 Patient does not appear to be on any anticoagulation and it is likely that it was held secondary to patient being supratherapeutic Will check a PT/INR (5) Right upper lobe consolidation Status: Resolved Response to Treatment: Worse Problem Specific Plan: Monitor Clinically Problem Text: Continue with Ceftaroline, oxygen as needed (6) Hypotension Status: Resolved Response to Treatment: Improving Problem Text: Improved, stable, no pressors (7) Fever Status: Resolved Problem Text: Temperature in the emergency department was 100.7 Will obtain blood cultures Obtain echocardiogram as patient has history of MRSA (8) Lactic acidosis Status: Resolved Problem Text: Resolved. 10/14 - remains elevated, repeat ordered for 1230. 10/13 Lactic acid of presentation was 4.4 We'll obtain new lactic acid level in 6 hours (9) Altered mental status Status: Acute Problem Text: eval MRI. patient not at baseline mentation. (10) Lilia infection, oral Status: Acute Problem Text: add on nystatin swish and swallow. (11) Multiple lacunar infarcts Status: Acute Problem Text: Plan echo with cardio. Ordered aspirin and fasting lipids. (12) Physical deconditioning Status: Acute Problem Text: Patient has been participating minimally in PT. Discussed with and patient need for rehab after DC. Plan/VTE VTE Prophylaxis Ordered?: Yes (Lovenox 30 mg subcutaneous daily) Plan/Urinary Catheter Urinary Catheter: Place Peters (Peters catheter in place) Reason for insertion/continuin: Critical Pt monitoring Plan IVF: Continue Diet: Advance (On clears now, advancing.) Activity: Advance Therapy: PT Diagnostics: Check Labs, Repeat Labs in AM, Obtain Cultures Anticipated Discharge: Half-Way VS, I&O, 24H, [facility] Vital Signs/I&O Vital Signs Date Time Temp Pulse Resp B/P Pulse Ox O2 Delivery O2 Flow Rate FiO2 10/28/16 22:00 98.9 83 18 138/76 97 Nasal Cannula 1.5 I&O- Last 24 Hours up to 6 AM 10/29/16 06:00 Intake Total 1040 ml Balance 1040 ml Laboratory Data 24H LABS Laboratory Tests 2 10/28/16 11:52: Bedside Glucose (Misc Panel) 93 10/28/16 16:59: Bedside Glucose (Misc Panel) 181H 10/28/16 20:40: Bedside Glucose (Misc Panel) 186H Microbiology Microbiology 10/19/16 Gram Stain - Final, Complete 10/19/16 Sputum Culture - Final, Complete Yeast Like Organism MONISHA MOON DO Oct 29, 2016 03:28
[2016-10-29 06:00] VITALS: BP 114/68
[2016-10-29] MEDS: HumaLOG INSULIN (NovoLOG) PER UNIT SC SCH ×4 (06:53→20:52)
[2016-10-29] MEDS: BUDESONIDE 0.5 MG/2 ML INHALATION SUSPENSION INH SCH ×2 (07:27→19:47)
[2016-10-29] MEDS: FORMOTEROL FUMARATE 20 MCG/2 ML INHALATION SOLUTION (PERFOROMIST) INH SCH ×2 (07:27→19:47)
[2016-10-29] MEDS: ASPIRIN 81 MG ENTERIC TAB PO SCH (08:35)
[2016-10-29] MEDS: NYSTATIN 500,000 U/5 ML SUSP UDC PO SCH ×4 (08:35→20:22)
[2016-10-29] MEDS: PANTOPRAZOLE 40MG INJ (PROTONIX) (C9113) IV SCH (08:35)
[2016-10-29] MEDS: predniSONE 10 MG TAB PO SCH (08:35)
[2016-10-29] MEDS: POTASSIUM CHLORIDE 10 MEQ SR TABLET PO SCH ×2 (08:35→20:22)
--- NOTE | 2016-10-29 16:20 | IPNPDOC ---
Text Note Date of Service The patient was seen on 10/28/16. NOTE SUBJECTIVE: This is an 86-year-old gentleman seen today at bedside. Was resting when I entered the room. Patient denied any pain today. He reported that he had a sore throat from the KT completed on the previous night. His states that he did not eat breakfast or lunch, but he is now wanting to eat. Patient continues to be afebrile. Denies any nausea or vomiting. OBJECTIVE: VITAL SIGNS: Temperature 97.5 pulse 84 respirations 16 blood pressure 110/67 O2 saturation 96% on 1.5 L nasal cannula GENERAL: The patient was sleeping, awoke to questioning, does not appear to be in any acute distress. HEENT: Normocephalic, atraumatic. His mucous membranes are moist. CARDIOVASCULAR: Regular rate and rhythm. No murmurs appreciated. LUNGS: Clear to auscultation bilaterally. ABDOMEN: Soft, nontender, nondistended. Normoactive bowel sounds are heard throughout. EXTREMITIES: 1+ edema in the lower extremities. NEUROLOGIC: The patient appears lethargic. LABORATORY DATA: No new labs. ASSESSMENT AND PLAN: This is an 86-year-old male with sepsis, which has resolved. 1. Sepsis, resolved. There was a concern for possible endocarditis and a KT was completed yesterday. No endocardial vegetations were seen on procedure. At this time, we are discontinuing Ceftaroline. 2. History of recurrent urinary tract infections (UTIs). He finished a 7 day course of fluconazole. He had positive cultures for yeast-like organisms in his urine. His urinary catheter had been removed. GME ATTESTATION GME ATTESTATION My preceptor for this patient encounter was physically present in the building during the encounter and was fully available. As needed, all aspects of the patient interview, examination, medical decision making process, and medical care plan development were reviewed and approved by the preceptor. Preceptor is aware and concurs with the plan as stated in the body of this note and will attest to such by his/her cosignature. SHEELA AGUILAR DO Oct 29, 2016 16:19
--- NOTE | 2016-10-29 17:55 | DSES ---
SNF FACILITY (SNF) SUMMARY: DATE OF ADMISSION: 10/13/2016 DATE OF DISCHARGE/SNF: 10/29/2016 BRIEF HISTORY AND PHYSICAL: The patient is an 86-year-old who presented to the emergency room with altered mental status accompanied by his . Apparently he was eating and drinking but appeared apathetic. He was sent over to the hospital for intravenous (IV) daptomycin and Rocephin, returned back to [facility]; however, he became more sleepy, nonconversant, with a change in his mental status, and blood pressure was 87/50 on arrival to the emergency room. PAST MEDICAL HISTORY: Significant for chronic obstructive pulmonary disease (COPD), diastolic congestive heart failure, diabetes mellitus, chronic renal insufficiency, hypertension, benign prostatic hypertrophy (BPH), dyslipidemia, history of methicillin-resistant Staphylococcus aureus (MRSA), urethral stricture, subaortic stenosis, depression, history of pulmonary embolism times two, bilateral cataracts, psoriasis and nasal polyps PERTINENT LABS ON ADMISSION: White count 4.8, hemoglobin 10.4, platelets 128,000. Sodium 143, potassium 3.7, BUN 21, creatinine 2.2, glucose 259, lactic acid 4.4. IMAGING: Chest x-ray showed left lower lobe atelectasis or infiltrate with chronic interstitial fibrosis and cardiomegaly. HOSPITAL COURSE: 1. Patient was admitted for sepsis with fever, hypotension and lactic acidosis, and chest x-ray suggesting a left lower lobe pneumonia. He was placed ceftaroline and ceftriaxone due to his history of MRSA and eventually, however, developed tacypnea, tachycardia and decreased mental status, became unresponsive. He was transferred to the intensive care unit, a central line was placed and it was felt that he had septic shock. IV fluids were initiated and vasopressin therapy. He remained on his ceftaroline for previous history of MRSA, and he was intubated. He has a history of chronic steroid use and IV hydrocortisone was administered as well for potential adrenal insufficiency contributing to his hypotension in light of his sepsis. He was ultimately extubated and at this point his respiratory status has remained stable on 1-1/2 to two liters nasal cannula for several days now. He has remained afebrile. He has completed his course of ceftaroline for 14 days and this will be discontinued. He remains on albuterol nebulizers and we will attempt to encourage him to get out of bed. He is quite weak at this point. 2. History of recurrent urinary tract infections. He was treated with Diflucan for seven days for fungus in his urine and his Peters catheter had been removed. 3. Encephalopathy with altered mental status. He was alert today when I saw him. He knew that his primary care doctor was Dr. Chavez. He is kind of sluggish in mentation but speech is clear and he seemed oriented, but he is quite weak and difficult to encourage to participate with physical therapy. He has had MRI of the brain on the , showing subacute infarctions, right basal ganglion and centrum semiovale and splenium of the corpus callosum. This prompted a transesophageal echocardiogram (KT) which did not show any areas of stenosis. He is on aspirin 81 mg daily, 4. Acute on chronic renal insufficiency. His renal function has normalized with IV fluid hydration and has remained normal. 5. Anemia. Has a chronically elevated international normalized ratio (INR), not on anticoagulation. Hemoglobin has remained essentially stable throughout the hospitalization. 6. Chronic prednisone. He has chronic prednisone, although I do not see that listed on his medication list done by the hospitalist on the history and physical (H and P), nor is it listed on his medication reconciliation. He did get hydrocortisone due to the concern for renal insufficiency in the patient with chronic prednisone and he is on prednisone 10 mg daily. He was discharged from [facility] on September 15 and I do not see where he was on chronic prednisone. At this point, I would recommend that we try to taper his prednisone and will cut him down to 5 mg a day and perhaps continue to taper gradually. 7. Chronic obstructive pulmonary disease (COPD) is stable currently on Pulmicort and formoterol, and nebulized bronchodilators as needed. Discharge medications will be dictated at the time of his transfer to the [facility]. DISCHARGE DIAGNOSES: 1. Sepsis. 2. Hypotension secondary to sepsis, resolved. 3. Acute renal failure resolved. 4. Pneumonia. 5. Urinary tract infection secondary to yeast. 6. Encephalopathy. 7. Multiple lacunar infarcts. 8. Physical deconditioning. 9. Chronic obstructive pulmonary disease. ADDENDUM: Review of his [employer] ([facility]) records does show that he was on prednisone 10 mg daily. I am not clear as to whether he was on that chronically for chronic obstructive pulmonary disease (COPD); however, it does appear he was on some chronic prednisone and we will continue him on 10 mg daily as prior to admission. Also, it should be mentioned that he has diabetes, which was well controlled with a hemoglobin A1c of 7.3 at last check. He used to be on glipizide. Here, he is getting some sliding scale and has hardly required any coverage. We will continue to monitor that and reinitiate oral medications as needed with a goal to prevent hypoglycemia and tight control. Addendum dictated: SHIREEN 10/29/2016 1158 Addendum transcribed: nakul 10/29/2016 1741 MTDD
[2016-10-30 06:00] VITALS: BP 127/83
[2016-10-30] MEDS: BUDESONIDE 0.5 MG/2 ML INHALATION SUSPENSION INH SCH ×2 (07:03→19:37)
[2016-10-30] MEDS: FORMOTEROL FUMARATE 20 MCG/2 ML INHALATION SOLUTION (PERFOROMIST) INH SCH ×2 (07:03→19:37)
[2016-10-30] MEDS: HumaLOG INSULIN (NovoLOG) PER UNIT SC SCH ×4 (07:48→20:43)
[2016-10-30] MEDS ORDERED: predniSONE 5 MG TAB PO SCH (09:00)
[2016-10-30] MEDS: POTASSIUM CHLORIDE 10 MEQ SR TABLET PO SCH ×2 (09:49→20:36)
[2016-10-30] MEDS: ASPIRIN 81 MG ENTERIC TAB PO SCH (09:49)
[2016-10-30] MEDS: NYSTATIN 500,000 U/5 ML SUSP UDC PO SCH ×4 (09:49→20:36)
[2016-10-30] MEDS: predniSONE 10 MG TAB PO SCH (09:49)
[2016-10-30] MEDS: ACETAMINOPHEN TAB 650MG DOSE (2X325MG) PO PRN (09:50)
[2016-10-30] MEDS: PANTOPRAZOLE 40MG INJ (PROTONIX) (C9113) IV SCH (09:50)
[2016-10-30 22:00] VITALS: BP 124/64
[2016-10-31 06:00] VITALS: BP 125/64
[2016-10-31] MEDS: BUDESONIDE 0.5 MG/2 ML INHALATION SUSPENSION INH SCH ×2 (07:15→20:07)
[2016-10-31] MEDS: FORMOTEROL FUMARATE 20 MCG/2 ML INHALATION SOLUTION (PERFOROMIST) INH SCH ×2 (07:15→20:07)
[2016-10-31] MEDS: POTASSIUM CHLORIDE 10 MEQ SR TABLET PO SCH ×2 (08:01→21:44)
[2016-10-31] MEDS: ASPIRIN 81 MG ENTERIC TAB PO SCH (08:01)
[2016-10-31] MEDS: PANTOPRAZOLE 40MG TAB (PROTONIX) PO SCH (08:01)
[2016-10-31] MEDS: predniSONE 10 MG TAB PO SCH (08:01)
[2016-10-31] MEDS: HumaLOG INSULIN (NovoLOG) PER UNIT SC SCH ×4 (08:01→20:52)
[2016-10-31] MEDS: NYSTATIN 500,000 U/5 ML SUSP UDC PO SCH ×4 (08:01→21:43)
[2016-11-01 06:00] VITALS: BP 130/63
[2016-11-01] MEDS: FORMOTEROL FUMARATE 20 MCG/2 ML INHALATION SOLUTION (PERFOROMIST) INH SCH ×2 (07:11→19:41)
[2016-11-01] MEDS: BUDESONIDE 0.5 MG/2 ML INHALATION SUSPENSION INH SCH ×2 (07:11→19:41)
[2016-11-01] MEDS: HumaLOG INSULIN (NovoLOG) PER UNIT SC SCH ×4 (07:30→21:00)
[2016-11-01] MEDS: POTASSIUM CHLORIDE 10 MEQ SR TABLET PO SCH ×2 (10:05→21:04)
[2016-11-01] MEDS: NYSTATIN 500,000 U/5 ML SUSP UDC PO SCH ×4 (10:05→21:04)
[2016-11-01] MEDS: PANTOPRAZOLE 40MG TAB (PROTONIX) PO SCH (10:06)
[2016-11-01] MEDS: predniSONE 10 MG TAB PO SCH (10:06)
[2016-11-01] MEDS: ASPIRIN 81 MG ENTERIC TAB PO SCH (10:06)
[2016-11-02 06:00] VITALS: BP 137/67
[2016-11-02] MEDS: HumaLOG INSULIN (NovoLOG) PER UNIT SC SCH ×4 (07:30→21:00)
[2016-11-02] MEDS: BUDESONIDE 0.5 MG/2 ML INHALATION SUSPENSION INH SCH ×2 (07:33→20:03)
[2016-11-02] MEDS: FORMOTEROL FUMARATE 20 MCG/2 ML INHALATION SOLUTION (PERFOROMIST) INH SCH ×2 (07:33→20:03)
[2016-11-02] MEDS: NYSTATIN 500,000 U/5 ML SUSP UDC PO SCH ×4 (09:00→21:20)
[2016-11-02] MEDS: POTASSIUM CHLORIDE 10 MEQ SR TABLET PO SCH ×2 (10:07→21:20)
[2016-11-02] MEDS: ASPIRIN 81 MG ENTERIC TAB PO SCH (10:07)
[2016-11-02] MEDS: predniSONE 10 MG TAB PO SCH (10:07)
[2016-11-02] MEDS: PANTOPRAZOLE 40MG TAB (PROTONIX) PO SCH (10:07)
[2016-11-03] MEDS: HumaLOG INSULIN (NovoLOG) PER UNIT SC SCH ×4 (06:35→20:39)
[2016-11-03] MEDS: FORMOTEROL FUMARATE 20 MCG/2 ML INHALATION SOLUTION (PERFOROMIST) INH SCH ×2 (07:26→20:21)
[2016-11-03] MEDS: BUDESONIDE 0.5 MG/2 ML INHALATION SUSPENSION INH SCH ×2 (07:27→20:21)
[2016-11-03] MEDS: POTASSIUM CHLORIDE 10 MEQ SR TABLET PO SCH ×2 (08:47→20:39)
[2016-11-03] MEDS: PANTOPRAZOLE 40MG TAB (PROTONIX) PO SCH (08:47)
[2016-11-03] MEDS: ASPIRIN 81 MG ENTERIC TAB PO SCH (08:47)
[2016-11-03] MEDS: predniSONE 10 MG TAB PO SCH (08:47)
[2016-11-03] MEDS: NYSTATIN 500,000 U/5 ML SUSP UDC PO SCH ×4 (08:47→20:39)
[2016-11-04 06:00] VITALS: BP 112/61
[2016-11-04] MEDS: HumaLOG INSULIN (NovoLOG) PER UNIT SC SCH ×2 (07:30→12:48)
[2016-11-04] MEDS: FORMOTEROL FUMARATE 20 MCG/2 ML INHALATION SOLUTION (PERFOROMIST) INH SCH (07:35)
[2016-11-04] MEDS: BUDESONIDE 0.5 MG/2 ML INHALATION SUSPENSION INH SCH (07:35)
[2016-11-04] MEDS ORDERED: PERF20NE2 INH (07:43)
[2016-11-04] MEDS ORDERED: GLUC4CHW PO (07:43)
[2016-11-04] MEDS ORDERED: MAPA325T2 PO (07:43)
[2016-11-04] MEDS ORDERED: INSUHUMDS SC ×2 (07:43)
[2016-11-04] MEDS ORDERED: BUDE0.5S6 INH (07:43)
[2016-11-04] MEDS ORDERED: ALB2.5NEB NEB (07:43)
[2016-11-04] MEDS ORDERED: PRED10TA PO (07:43)
[2016-11-04] MEDS ORDERED: DEXT50IN6 IV (07:43)
[2016-11-04] MEDS ORDERED: PANT40TA2 PO (07:43)
[2016-11-04] MEDS ORDERED: POTA10CA PO (07:43)
[2016-11-04] MEDS ORDERED: ASPI81TAEC PO (07:43)
[2016-11-04] MEDS ORDERED: GLUC1VL SC (07:43)
--- NOTE | 2016-11-04 08:28 | DSES ---
DATE OF ADMISSION: 10/14/2016 DATE OF DISCHARGE: 11/04/2016 This will serve as an addendum to the discharge summary dictated by Paula Mendiola on 10/29/2016. The patient was admitted on 10/13/2016. The patient was transferred to [facility] status on 10/29/2016 and the patient will be discharged to the halfway today 11/04/2016. Please see Paula Mendiola's discharge summary from 10/29/2016 for full course of active inpatient course. Since that discharge summary was done, no significant changes in the patient's done, no significant changes in the patient's medical course. He will be discharged to the halfway today. Instructions are to followup with the doctor at the halfway within a week. PHYSICAL EXAMINATION: Today, temperature 97.9, pulse 69, respiratory rate 16, blood pressure is 112/61, pulse oximetry 95% on 2 liters. GENERAL: The patient is alert, no acute distress. CHEST: Clear to auscultation. HEART: Regular rate and rhythm. ABDOMEN: Positive bowel sounds, soft, nontender. EXTREMITIES: Trace edema bilateral lower extremities. MEDICATIONS: - acetaminophen 650 mg by mouth every 6 hours for pain or fever - albuterol nebs every 2 hours as needed shortness of breath or wheezing - aspirin 81 mg by mouth daily - budesonide 0.5 mg inhaled twice a day - Perforomist 20 mcg inhaled twice a day - Protonix 40 mg daily - potassium chloride 20 mEq by mouth twice a day - prednisone 10 mg by mouth daily DISCHARGE INSTRUCTIONS: The patient will follow up with physician at halfway within a week. Activity with assist. Diet is mechanical soft. DISCHARGE DIAGNOSES: As per Paula Mendiola's discharge summary. Include: 1. Sepsis with fever. 2. Hypotension. 3. Lactic acidosis. 4. Left lower lobe pneumonia. 5. Urinary tract infection. 6. Encephalopathy. 7. Acute on chronic renal insufficiency. 8. Anemia. 9. Chronic obstructive pulmonary disease (COPD).
[2016-11-04] MEDS: ASPIRIN 81 MG ENTERIC TAB PO SCH (09:23)
[2016-11-04] MEDS: POTASSIUM CHLORIDE 10 MEQ SR TABLET PO SCH (09:23)
[2016-11-04] MEDS: PANTOPRAZOLE 40MG TAB (PROTONIX) PO SCH (09:23)
[2016-11-04] MEDS: NYSTATIN 500,000 U/5 ML SUSP UDC PO SCH ×2 (09:23→12:47)
[2016-11-04] MEDS: predniSONE 10 MG TAB PO SCH (09:23)
== END 2016-11-04 13:43 | DRG 853 ==
LOC: EDBD 18:42 → M ED 20:25 → M ED INP 10-14 00:22 → M PCU 10-14 01:54 → M ICU 10-14 13:47 → M MSPAV 10-21 10:38
PROVIDERS: ADMIT Internal Medicine; ATTEND Family Medicine
PROC: 03HC3DZ Insertion of Intraluminal Device into Left Radial Artery, Percutaneous Approach (ICD-10-PCS; principal; 2016-10-14)
PROC: 5A1955Z Respiratory Ventilation, Greater than 96 Consecutive Hours (ICD-10-PCS; 2016-10-14)
DX: A41.9 Sepsis, unspecified organism (principal); J18.9 Pneumonia, unspecified organism; R65.21 Severe sepsis with septic shock; J96.90 Respiratory failure, unspecified, unspecified whether with hypoxia or hypercapnia; G93.40 Encephalopathy, unspecified; I63.9 Cerebral infarction, unspecified; N39.0 Urinary tract infection, site not specified; N17.9 Acute kidney failure, unspecified; E87.2 Acidosis; I50.32 Chronic diastolic (congestive) heart failure; E27.40 Unspecified adrenocortical insufficiency; B37.0 Candidal stomatitis; J44.9 Chronic obstructive pulmonary disease, unspecified; E11.9 Type 2 diabetes mellitus without complications; I12.9 Hypertensive chronic kidney disease with stage 1 through stage 4 chronic kidney disease, or unspecified chronic kidney disease; N40.0 Benign prostatic hyperplasia without lower urinary tract symptoms; E78.5 Hyperlipidemia, unspecified; Z79.899 Other long term (current) drug therapy; Z79.4 Long term (current) use of insulin; L40.8 Other psoriasis; D64.9 Anemia, unspecified; N18.9 Chronic kidney disease, unspecified; Z79.82 Long term (current) use of aspirin

== ENCOUNTER → 2016-10-13 | Outpatient (REF) | payer MEDICARE, BC, OTHER ==
[~2016-10-13] MED LIST changes: +ACET-654 PO; +ACET650S3 PR; +ALBU83IN INH; +DULC10SU2 PR; +ENEMENE3 PR; +ENSULIQ64 PO; +INSUH10VL SC; +IPRASOL4 INH; +MILKSUS PO; +MIRT1TAB PO; +VITMTA PO
[2016-10-13 07:41] LABS: MEAN CORPUSCULAR HEMOGLOBIN 30.3 pg (27.0-33.0); MEAN CORPUSCULAR HGB CONC 32.3 g/dl (32.0-36.5); MEAN CORPUSCULAR VOLUME 93.8 fl (80.0-96.0); RED CELL DISTRIBUTION WIDTH 15.3 % (11.5-14.5)
[2016-10-13 07:49] LABS: CALCIUM LEVEL 7.7 MG/DL (8.8-10.2); CREATININE FOR GFR 2.02 MG/DL (0.70-1.30); GLOMERULAR FILTRATION RATE 33.5 (>35); POTASSIUM SERUM 3.6 MEQ/L (3.5-5.1)
== END ==
LOC: SKLAB5 00:37
PROVIDERS: ATTEND Family Medicine
DX: E86.0 Dehydration (principal)

== ENCOUNTER → 2016-10-14 | Outpatient (REF) ==
[~2016-10-14] MED LIST changes: +ACET-654 PO; +ACET650S3 PR; +ALBU83IN INH; +ASPI81TAEC PO; +BUDE0.5S6 INH; +DEXT50IN6 IV; +DULC10SU2 PR; +ENEMENE3 PR; +ENSULIQ64 PO; +GLUC1VL SC; +GLUC4CHW PO; +INSUH10VL SC; +INSUHUMDS SC; +IPRASOL4 INH; +MAPA325T2 PO; +MILKSUS PO; +MIRT1TAB PO; +PANT40TA2 PO; +PERF20NE2 INH; +POTA10CA PO; +VITMTA PO
== END ==
LOC: SKLAB5 07:18
PROVIDERS: ATTEND Family Medicine
DX: I48.91 Unspecified atrial fibrillation (principal)

== ENCOUNTER → 2016-11-08 | Outpatient (REF) ==
[2016-11-08 09:46] LABS: CALCIUM LEVEL 8.3 MG/DL (8.8-10.2); CREATININE FOR GFR 1.31 MG/DL (0.70-1.30); GLOMERULAR FILTRATION RATE 55.2 (>35)
== END ==
LOC: SKLAB5 08:00
PROVIDERS: ATTEND Family Medicine
DX: I50.9 Heart failure, unspecified (principal)

== ENCOUNTER → 2016-11-15 | Outpatient (REF) ==
[2016-11-15 10:05] LABS: CALCIUM LEVEL 8.9 MG/DL (8.8-10.2); CREATININE FOR GFR 1.38 MG/DL (0.70-1.30); POTASSIUM SERUM 4.3 MEQ/L (3.5-5.1)
== END ==
LOC: SKLAB5 07:17
PROVIDERS: ATTEND Family Medicine
DX: I50.9 Heart failure, unspecified (principal)

== ENCOUNTER → 2016-11-29 | Outpatient (REF) ==
[2016-11-29 11:25] LABS: CALCIUM LEVEL 8.5 MG/DL (8.8-10.2); CREATININE FOR GFR 1.38 MG/DL (0.70-1.30); POTASSIUM SERUM 4.8 MEQ/L (3.5-5.1)
== END ==
LOC: SKLAB5 07:32
PROVIDERS: ATTEND Family Medicine
DX: I50.9 Heart failure, unspecified (principal)

== ENCOUNTER → 2016-12-06 | Outpatient (REF) ==
[2016-12-06 09:37] LABS: ANION GAP 7 MEQ/L (8-16); BLOOD UREA NITROGEN 26 MG/DL (7-18); CALCIUM LEVEL 8.7 MG/DL (8.8-10.2); CARBON DIOXIDE LEVEL 30 MEQ/L (21-32); CHLORIDE LEVEL 99 MEQ/L (98-107); CREATININE FOR GFR 1.19 MG/DL (0.70-1.30); GLOMERULAR FILTRATION RATE > 60.0 (>35); GLUCOSE, FASTING 157 MG/DL (83-110); POTASSIUM SERUM 4.4 MEQ/L (3.5-5.1); SODIUM LEVEL 136 MEQ/L (136-145)
== END ==
LOC: SKLAB5 08:27
PROVIDERS: ATTEND Family Medicine
DX: I50.9 Heart failure, unspecified (principal)

== ENCOUNTER → 2016-12-13 | Outpatient (REF) ==
[2016-12-13 09:54] LABS: CALCIUM LEVEL 8.1 MG/DL (8.8-10.2); CREATININE FOR GFR 1.23 MG/DL (0.70-1.30); GLOMERULAR FILTRATION RATE 59.4 (>35); POTASSIUM SERUM 4.2 MEQ/L (3.5-5.1)
== END ==
LOC: SKLAB5 07:59
PROVIDERS: ATTEND Family Medicine
DX: I50.9 Heart failure, unspecified (principal)

== ENCOUNTER → 2016-12-20 | Outpatient (REF) | payer MEDICARE, BC, OTHER ==
[2016-12-20 08:23] LABS: BASO % 0.4 % (0.0-1.0); EOS # 0.7 K/mm3 (0.0-0.50); EOS % 6.4 % (0.0-3.0); LARGE UNSTAINED CELL # 0.2 K/mm3 (0.0-0.4); LARGE UNSTAINED CELL % 1.6 % (0.0-4.0); LYMPH # 1.3 K/mm3 (1.5-4.5); LYMPH % 9.4 % (24.0-44.0); MEAN CORPUSCULAR HEMOGLOBIN 31.7 pg (27.0-33.0); MEAN CORPUSCULAR HGB CONC 33.6 g/dl (32.0-36.5); MEAN CORPUSCULAR VOLUME 94.4 fl (80.0-96.0); MONO # 0.8 K/mm3 (0.0-0.8); MONO % 6.6 % (0.0-5.0); NEUTROPHILS # 8.7 K/mm3 (1.8-7.7); NEUTROPHILS % 75.7 % (36.0-66.0); PLATELET COUNT, AUTOMATED 165 k/mm3 (150-450); RED CELL DISTRIBUTION WIDTH 15.8 % (11.5-14.5); WHITE BLOOD COUNT 11.5 K/mm3 (4.0-10.0)
[2016-12-20 09:05] LABS: ANION GAP 8 MEQ/L (8-16); BLOOD UREA NITROGEN 25 MG/DL (7-18); CALCIUM LEVEL 8.3 MG/DL (8.8-10.2); CARBON DIOXIDE LEVEL 28 MEQ/L (21-32); CHLORIDE LEVEL 101 MEQ/L (98-107); CREATININE FOR GFR 1.19 MG/DL (0.70-1.30); GLOMERULAR FILTRATION RATE > 60.0 (>35); GLUCOSE, FASTING 125 MG/DL (83-110); POTASSIUM SERUM 3.7 MEQ/L (3.5-5.1); SODIUM LEVEL 137 MEQ/L (136-145)
== END ==
LOC: SKLAB5 08:24
PROVIDERS: ATTEND Family Medicine
DX: I50.9 Heart failure, unspecified (principal)

== ENCOUNTER → 2016-12-27 | Outpatient (REF) | payer MEDICARE, BC, OTHER | LOC: SKLAB5 07:40 | PROVIDERS: ATTEND Family Medicine | DX: I50.9 Heart failure, unspecified (principal) ==

== ENCOUNTER → 2017-01-04 | Outpatient (REF) | payer MEDICARE, BC, OTHER ==
[2017-01-04 08:01] LABS: CALCIUM LEVEL 8.6 MG/DL (8.8-10.2); CREATININE FOR GFR 1.32 MG/DL (0.70-1.30); GLOMERULAR FILTRATION RATE 54.7 (>35); POTASSIUM SERUM 3.8 MEQ/L (3.5-5.1)
== END ==
LOC: SKLAB5 07:27
PROVIDERS: ATTEND Family Medicine
DX: I50.9 Heart failure, unspecified (principal)

== ENCOUNTER → 2017-01-10 | Outpatient (REF) | payer MEDICARE, BC, OTHER ==
[2017-01-10 08:06] LABS: BASO % 0.4 % (0.0-1.0); EOS # 0.5 K/mm3 (0.0-0.50); EOS % 4.1 % (0.0-3.0); LARGE UNSTAINED CELL # 0.1 K/mm3 (0.0-0.4); LARGE UNSTAINED CELL % 1.2 % (0.0-4.0); LYMPH # 1.4 K/mm3 (1.5-4.5); LYMPH % 11.2 % (24.0-44.0); MEAN CORPUSCULAR HEMOGLOBIN 31.3 pg (27.0-33.0); MEAN CORPUSCULAR VOLUME 91.9 fl (80.0-96.0); MONO # 0.7 K/mm3 (0.0-0.8); MONO % 6.2 % (0.0-5.0); NEUTROPHILS # 8.7 K/mm3 (1.8-7.7); NEUTROPHILS % 76.9 % (36.0-66.0); PLATELET COUNT, AUTOMATED 191 k/mm3 (150-450); RED CELL DISTRIBUTION WIDTH 14.9 % (11.5-14.5); WHITE BLOOD COUNT 11.3 K/mm3 (4.0-10.0)
[2017-01-10 08:20] LABS: CALCIUM LEVEL 8.5 MG/DL (8.8-10.2); CREATININE FOR GFR 1.31 MG/DL (0.70-1.30); GLOMERULAR FILTRATION RATE 55.2 (>35)
== END ==
LOC: SKLAB5 08:47
PROVIDERS: ATTEND Family Medicine
DX: I50.9 Heart failure, unspecified (principal); D64.9 Anemia, unspecified

== ENCOUNTER → 2017-01-14 | Outpatient (REF) | payer MEDICARE, BC, OTHER ==
[~2017-01-14] MED LIST changes: -ACET-654 PO; +ACET1TAB17 PO; -COUM2TAB10 PO; +COUM2TAB22 PO; +ENEMENE16 PR; -ENEMENE3 PR; -GLIP10TA13 PO; +GLIP1TAB49 PO; +GLIP1TAB51 PO; -GLIP5TAB15 PO; -NYST100024 TOP; +NYST1POW9 TOP
== END ==
LOC: SKLAB5 23:04
PROVIDERS: ATTEND Family Medicine
DX: R41.0 Disorientation, unspecified (principal)

== ENCOUNTER → 2017-01-14 | Outpatient (REF) | payer MEDICARE, BC, OTHER ==
[~2017-01-14] MED LIST changes: +ACET-654 PO; -ACET1TAB17 PO; +COUM2TAB10 PO; -COUM2TAB22 PO; -ENEMENE16 PR; +ENEMENE3 PR; +GLIP10TA13 PO; -GLIP1TAB49 PO; -GLIP1TAB51 PO; +GLIP5TAB15 PO; +NYST100024 TOP; -NYST1POW9 TOP
== END ==
LOC: SKLAB5 23:30
PROVIDERS: ATTEND Family Medicine
DX: R41.0 Disorientation, unspecified (principal)

== ENCOUNTER → 2017-01-17 | Outpatient (REF) | payer MEDICARE, BC, OTHER ==
[2017-01-17 09:01] LABS: CALCIUM LEVEL 8.7 MG/DL (8.8-10.2); CREATININE FOR GFR 1.43 MG/DL (0.70-1.30); GLOMERULAR FILTRATION RATE 49.9 (>35); POTASSIUM SERUM 4.9 MEQ/L (3.5-5.1)
== END ==
LOC: SKLAB5 08:24
PROVIDERS: ATTEND Family Medicine
DX: I50.9 Heart failure, unspecified (principal)

== ENCOUNTER → 2017-01-24 | Outpatient (REF) | payer MEDICARE, BC, OTHER ==
[2017-01-24 08:46] LABS: CALCIUM LEVEL 8.7 MG/DL (8.8-10.2); CREATININE FOR GFR 1.34 MG/DL (0.70-1.30); GLOMERULAR FILTRATION RATE 53.8 (>35)
== END ==
LOC: SKLAB5 09:06
PROVIDERS: ATTEND Family Medicine
DX: I50.9 Heart failure, unspecified (principal)

== ENCOUNTER → 2017-01-31 | Outpatient (REF) | payer MEDICARE, BC, OTHER ==
[2017-01-31 08:43] LABS: CALCIUM LEVEL 8.7 MG/DL (8.8-10.2); CREATININE FOR GFR 1.49 MG/DL (0.70-1.30); GLOMERULAR FILTRATION RATE 47.6 (>35)
== END ==
LOC: SKLAB5 09:46
PROVIDERS: ATTEND Family Medicine
DX: I50.9 Heart failure, unspecified (principal)

== ENCOUNTER → 2017-02-04 | Outpatient (REF) | payer MEDICARE, BC, OTHER ==
[~2017-02-04] MED LIST changes: -ACET-654 PO; +ACET1TAB17 PO; -COUM2TAB10 PO; +COUM2TAB22 PO; +ENEMENE16 PR; -ENEMENE3 PR; -GLIP10TA13 PO; +GLIP1TAB49 PO; +GLIP1TAB51 PO; -GLIP5TAB15 PO; -NYST100024 TOP; +NYST1POW9 TOP
--- NOTE | 2017-02-04 13:22 | REP ---
Portable chest, 12th 56 p.m., 02/04/2017, single AP view the patient sitting: Comparison 10/21/2016. There are no infiltrates or effusions. The previous right upper lobe infiltrate has resolved. The previous right IJ central venous catheter has been removed. Cardiac size is upper normal for portable positioning, unchanged. There is thoracic scoliosis convex right, unchanged. Impression: There are no acute cardiopulmonary findings. The previous right upper lobe infiltrate has resolved. Signed by Candido Sparks MD 02/04/2017 01:15 P
[2017-02-04 13:28] LABS: MEAN CORPUSCULAR HEMOGLOBIN 32.8 pg (27.0-33.0); MEAN CORPUSCULAR HGB CONC 35.2 g/dl (32.0-36.5); MEAN CORPUSCULAR VOLUME 93.1 fl (80.0-96.0); RED CELL DISTRIBUTION WIDTH 14.7 % (11.5-14.5); WHITE BLOOD COUNT 15.6 K/mm3 (4.0-10.0)
[2017-02-04 19:19] LABS: MICROSCOPIC INDICATED? MAN YES (NO)
[2017-02-04 19:48] LABS: BACTERIA, URINE LARGE AMOUNT; HYALINE CAST, URINE NONE SEEN /lpf (0-1); MICROSCOPIC EXAM PERFORMED; SQUAMOUS EPITHELIAL CELL URINE NONE SEEN /hpf (SMALL AMT); TRANSITIONAL EPI CELLS, URINE SMALL AMOUNT /hpf; WBC, URINE TNTC /hpf (0-3)
== END ==
LOC: SKLAB5 12:24
PROVIDERS: ATTEND Family Medicine
DX: R50.9 Fever, unspecified (principal); Z79.899 Other long term (current) drug therapy

== ENCOUNTER → 2017-02-04 | Outpatient (REF) | payer MEDICARE, BC, OTHER | LOC: SKLAB5 19:10 | PROVIDERS: ATTEND Family Medicine | DX: R50.9 Fever, unspecified (principal) ==

== ENCOUNTER → 2017-02-07 | Outpatient (REF) | payer MEDICARE, BC, OTHER ==
[2017-02-07 09:05] LABS: BASO # 0.1 K/mm3 (0.0-0.2); BASO % 0.6 % (0.0-1.0); EOS # 1.6 K/mm3 (0.0-0.50); EOS % 12.4 % (0.0-3.0); LARGE UNSTAINED CELL # 0.2 K/mm3 (0.0-0.4); LARGE UNSTAINED CELL % 1.7 % (0.0-4.0); LYMPH # 1.3 K/mm3 (1.5-4.5); MEAN CORPUSCULAR HEMOGLOBIN 31.6 pg (27.0-33.0); MEAN CORPUSCULAR HGB CONC 34.5 g/dl (32.0-36.5); MEAN CORPUSCULAR VOLUME 91.6 fl (80.0-96.0); MONO # 0.6 K/mm3 (0.0-0.8); MONO % 4.7 % (0.0-5.0); NEUTROPHILS # 8.8 K/mm3 (1.8-7.7); NEUTROPHILS % 70.7 % (36.0-66.0); PLATELET COUNT, AUTOMATED 258 k/mm3 (150-450); RED CELL DISTRIBUTION WIDTH 14.3 % (11.5-14.5); WHITE BLOOD COUNT 12.5 K/mm3 (4.0-10.0)
[2017-02-07 09:21] LABS: CALCIUM LEVEL 8.7 MG/DL (8.8-10.2); CREATININE FOR GFR 1.36 MG/DL (0.70-1.30); GLOMERULAR FILTRATION RATE 52.9 (>35)
== END ==
LOC: SKLAB5 07:52
PROVIDERS: ATTEND Family Medicine
DX: I50.9 Heart failure, unspecified (principal)

== ENCOUNTER → 2017-02-14 | Outpatient (REF) | payer MEDICARE, BC, OTHER ==
[2017-02-14 09:53] LABS: CALCIUM LEVEL 8.8 MG/DL (8.8-10.2); CREATININE FOR GFR 1.33 MG/DL (0.70-1.30); GLOMERULAR FILTRATION RATE 54.3 (>35); POTASSIUM SERUM 4.1 MEQ/L (3.5-5.1)
== END ==
LOC: SKLAB5 07:28
PROVIDERS: ATTEND Family Medicine
DX: I50.9 Heart failure, unspecified (principal)

== ENCOUNTER → 2017-02-21 | Outpatient (REF) | payer MEDICARE, BC, OTHER ==
[2017-02-21 08:42] LABS: CALCIUM LEVEL 8.3 MG/DL (8.8-10.2); CREATININE FOR GFR 1.29 MG/DL (0.70-1.30); GLOMERULAR FILTRATION RATE 56.2 (>35); POTASSIUM SERUM 4.2 MEQ/L (3.5-5.1)
== END ==
LOC: SKLAB5 06:59
PROVIDERS: ATTEND Family Medicine
DX: I50.9 Heart failure, unspecified (principal)

== ENCOUNTER → 2017-02-28 | Outpatient (REF) | payer MEDICARE, BC, OTHER ==
[2017-02-28 09:27] LABS: CALCIUM LEVEL 9.2 MG/DL (8.8-10.2); CREATININE FOR GFR 1.55 MG/DL (0.70-1.30); GLOMERULAR FILTRATION RATE 45.5 (>35); POTASSIUM SERUM 3.7 MEQ/L (3.5-5.1)
== END ==
LOC: SKLAB5 09:40
PROVIDERS: ATTEND Family Medicine
DX: I50.9 Heart failure, unspecified (principal)

== ENCOUNTER → 2017-03-07 | Outpatient (REF) | payer MEDICARE, BC, OTHER | LOC: SKLAB5 08:42 | PROVIDERS: ATTEND Family Medicine | DX: I50.9 Heart failure, unspecified (principal) ==

== ENCOUNTER → 2017-03-14 | Outpatient (REF) | payer MEDICARE, BC, OTHER ==
[2017-03-14 09:12] LABS: CALCIUM LEVEL 8.5 MG/DL (8.8-10.2); CREATININE FOR GFR 1.3 MG/DL (0.70-1.30); GLOMERULAR FILTRATION RATE 55.7 (>35)
== END ==
LOC: SKLAB5 08:54
PROVIDERS: ATTEND Family Medicine
DX: I50.9 Heart failure, unspecified (principal)

== ENCOUNTER → 2017-03-21 | Outpatient (REF) | payer MEDICARE, BC, OTHER ==
[2017-03-21 10:03] LABS: CALCIUM LEVEL 9.2 MG/DL (8.8-10.2); CREATININE FOR GFR 1.55 MG/DL (0.70-1.30); GLOMERULAR FILTRATION RATE 45.5 (>35)
== END ==
LOC: SKLAB5 07:38
PROVIDERS: ATTEND Family Medicine
DX: I50.9 Heart failure, unspecified (principal)

== ENCOUNTER → 2017-03-28 | Outpatient (REF) | payer MEDICARE, BC, OTHER ==
[2017-03-28 08:27] LABS: CALCIUM LEVEL 8.8 MG/DL (8.8-10.2); CREATININE FOR GFR 1.55 MG/DL (0.70-1.30); GLOMERULAR FILTRATION RATE 45.5 (>35); POTASSIUM SERUM 4.1 MEQ/L (3.5-5.1)
== END ==
LOC: SKLAB5 07:26
PROVIDERS: ATTEND Family Medicine
DX: I50.9 Heart failure, unspecified (principal)

== ENCOUNTER → 2017-04-01 | Outpatient (REF) | payer MEDICARE, BC, OTHER | LOC: SKLAB5 12:55 | PROVIDERS: ATTEND Family Medicine | DX: R53.83 Other fatigue (principal) ==

== ENCOUNTER → 2017-04-02 | Outpatient (REF) | payer MEDICARE, BC, OTHER | LOC: SKLAB5 11:50 | PROVIDERS: ATTEND Family Medicine | DX: R53.83 Other fatigue (principal) ==

== ENCOUNTER → 2017-04-13 | Outpatient (REF) | payer MEDICARE, BC, OTHER ==
[2017-04-13 08:51] LABS: ALBUMIN 2.7 GM/DL (3.2-5.2); CALCIUM LEVEL 8.8 MG/DL (8.8-10.2); CREATININE FOR GFR 1.47 MG/DL (0.70-1.30); GLOMERULAR FILTRATION RATE 48.4 (>35); POTASSIUM SERUM 3.9 MEQ/L (3.5-5.1)
== END ==
LOC: SKLAB5 07:10
PROVIDERS: ATTEND Family Medicine
DX: N28.9 Disorder of kidney and ureter, unspecified (principal); Z79.899 Other long term (current) drug therapy

== ENCOUNTER → 2017-05-12 | Outpatient (REF) | payer MEDICARE, BC, OTHER ==
[2017-05-12 09:44] LABS: CALCIUM LEVEL 8.7 MG/DL (8.8-10.2); CREATININE FOR GFR 1.4 MG/DL (0.70-1.30); GLOMERULAR FILTRATION RATE 51.2 (>35); POTASSIUM SERUM 3.9 MEQ/L (3.5-5.1)
== END ==
LOC: SKLAB5 08:41
PROVIDERS: ATTEND Family Medicine
DX: I50.9 Heart failure, unspecified (principal)

== ENCOUNTER → 2017-07-05 | Outpatient (REF) | payer MEDICARE, BC, OTHER | LOC: SKLAB5 22:33 | PROVIDERS: ATTEND Family Medicine | DX: R50.9 Fever, unspecified (principal) ==

== ENCOUNTER → 2017-07-14 | Outpatient (REF) | payer MEDICARE, BC, OTHER ==
[2017-07-14 09:36] LABS: CALCIUM LEVEL 8.4 MG/DL (8.8-10.2); CREATININE FOR GFR 1.46 MG/DL (0.70-1.30); GLOMERULAR FILTRATION RATE 48.6 (>35); POTASSIUM SERUM 3.9 MEQ/L (3.5-5.1)
== END ==
LOC: SKLAB5 07:43
PROVIDERS: ATTEND Family Medicine
DX: I50.9 Heart failure, unspecified (principal)

== ENCOUNTER → 2017-08-11 | Outpatient (REF) | payer MEDICARE, BC, OTHER ==
[2017-08-11 09:20] LABS: ANION GAP 7 MEQ/L (8-16); BLOOD UREA NITROGEN 35 MG/DL (7-18); CALCIUM LEVEL 8.7 MG/DL (8.8-10.2); CARBON DIOXIDE LEVEL 30 MEQ/L (21-32); CHLORIDE LEVEL 106 MEQ/L (98-107); CREATININE FOR GFR 1.46 MG/DL (0.70-1.30); GLOMERULAR FILTRATION RATE 48.6 (>35); GLUCOSE, FASTING 123 MG/DL (83-110); POTASSIUM SERUM 4.1 MEQ/L (3.5-5.1); SODIUM LEVEL 143 MEQ/L (136-145)
== END ==
LOC: SKLAB5 07:45
DX: I50.9 Heart failure, unspecified (principal)
CPT/HCPCS: 36415

== ENCOUNTER 2017-08-22 16:04 | Emergency (ER) | payer MEDICARE, BC, OTHER ==
[2017-08-22 16:57] LABS: BASO % 0.2 % (0.0-1.0); EOS # 0.3 10^3/uL (0.0-0.50); HEMOGLOBIN 14.3 g/dl (14.0-18.0); IMMATURE GRANULOCYTE # 0.1 10^3/uL (0-0); LYMPH # 0.6 10^3/uL (1.5-4.5); LYMPH % 4.6 % (24.0-44.0); MEAN CORPUSCULAR HEMOGLOBIN 30.4 pg (27.0-33.0); MEAN CORPUSCULAR HGB CONC 33.3 g/dl (32.0-36.5); MEAN CORPUSCULAR VOLUME 91.5 fl (80.0-96.0); MONO # 0.9 10^3/uL (0.0-0.8); MONO % 6.8 % (0.0-5.0); NEUTROPHILS # 11.3 10^3/uL (1.8-7.7); NEUTROPHILS % 85.4 % (36.0-66.0); PLATELET COUNT, AUTOMATED 225 10^3/uL (150-450); RED CELL DISTRIBUTION WIDTH 13.8 % (11.5-14.5); WHITE BLOOD COUNT 13.2 10^3/uL (4.0-10.0)
[2017-08-22 17:22] LABS: ALBUMIN/GLOBULIN RATIO 0.54 (1.00-1.93); ALKALINE PHOSPHATASE 80 U/L (45-117); ALT/SGPT 22 U/L (12-78); ANION GAP 8 MEQ/L (8-16); AST/SGOT 21 U/L (7-37); BILIRUBIN,DIRECT 0.1 MG/DL (0.0-0.2); BILIRUBIN,TOTAL 0.5 MG/DL (0.2-1.0); BLOOD UREA NITROGEN 41 MG/DL (7-18); CALCIUM LEVEL 9.2 MG/DL (8.8-10.2); CARBON DIOXIDE LEVEL 27 MEQ/L (21-32); CHLORIDE LEVEL 100 MEQ/L (98-107); GLOMERULAR FILTRATION RATE 40.8 (>35); GLUCOSE, FASTING 204 MG/DL (83-110); POTASSIUM SERUM 4.8 MEQ/L (3.5-5.1); SODIUM LEVEL 135 MEQ/L (136-145); TOTAL PROTEIN 8.6 GM/DL (6.4-8.2)
[2017-08-22 17:25] LABS: POS COUNT POS FLAG
[2017-08-22 17:38] LABS: BEDSIDE GLUCOSE 195 MG/DL (83-110)
[2017-08-22] MEDS: DERMABOND TOPICAL SKIN ADHESIVE TOP (18:00)
[2017-08-22] MEDS: LIDOCAINE W/EPINEPHRINE 1% 20ML VIAL SC (18:30)
[2017-08-22] MEDS: TETANUS/DIPHTHERIA TOX ADSORB ADULT 0.5ML SYR/VIAL (90714) IM (18:52)
== END 2017-08-22 21:03 | disposition short-term general hospital (02) ==
LOC: M ED 16:04
DX: S12.100A Unspecified displaced fracture of second cervical vertebra, initial encounter for closed fracture (principal); W05.0XXA Fall from non-moving wheelchair, initial encounter; Y92.129 Unspecified place in nursing home as the place of occurrence of the external cause; I45.10 Unspecified right bundle-branch block; E11.9 Type 2 diabetes mellitus without complications; J45.909 Unspecified asthma, uncomplicated; I11.0 Hypertensive heart disease with heart failure; I50.9 Heart failure, unspecified; N18.4 Chronic kidney disease, stage 4 (severe); E78.00 Pure hypercholesterolemia, unspecified; D64.9 Anemia, unspecified; N40.0 Benign prostatic hyperplasia without lower urinary tract symptoms
CPT/HCPCS: 90714

== ENCOUNTER → 2017-08-24 | Outpatient (REF) | payer MEDICARE, BC, OTHER ==
[2017-08-24 17:59] LABS: APPEARANCE, URINE CLEAR (CLEAR); BACTERIA, URINE AUTO NEGATIVE (NEGATIVE); BILIRUBIN, URINE AUTO NEGATIVE (NEGATIVE); BLOOD, URINE BLOOD NEGATIVE (NEGATIVE); COLOR, URINE YELLOW (YELLOW); GLUCOSE, URINE (UA) AUTO 1+ mg/dL (NEGATIVE); KETONE, URINE AUTO NEGATIVE (NEGATIVE); LEUKOCYTE ESTERASE, URINE AUTO NEGATIVE (NEGATIVE); MUCUS, URINE SMALL (NEGATIVE); NITRITE, URINE AUTO NEGATIVE (NEGATIVE); PROTEIN, URINE AUTO NEGATIVE (NEGATIVE); RBC, URINE AUTO 3 /HPF (0-3); SPECIFIC GRAVITY URINE AUTO 1.019 (1.002-1.035); SQUAMOUS EPITHELIAL CELL UR AU 0 /HPF (0-6); UROBILINOGEN, URINE AUTO 0.2 mg/dL (0.0-2.0); WBC, URINE AUTO 1 /HPF (0-3)
[2017-08-24 18:25] LABS: MAU/CREAT RATIO 36.1 MCG/MG (0.0-30.0)
== END ==
LOC: SKLAB5 14:15
DX: E11.9 Type 2 diabetes mellitus without complications (principal)
CPT/HCPCS: 82043

== ENCOUNTER 2017-09-01 16:49 | Inpatient (IN) | payer MEDICARE, BC, OTHER ==
[2017-09-01] MEDS: hydrOXYzine 25 MG TAB PO ×3 (06:00→22:51)
[2017-09-01] MEDS ORDERED: ACETAMINOPHEN TAB 650MG DOSE (2X325MG) PO ×2 (18:00→21:15)
[2017-09-01 18:14] LABS: HEMATOCRIT 43.1 % (42.0-52.0); HEMOGLOBIN 13.7 g/dl (14.0-18.0); MEAN CORPUSCULAR HEMOGLOBIN 30.4 pg (27.0-33.0); MEAN CORPUSCULAR HGB CONC 31.8 g/dl (32.0-36.5); MEAN CORPUSCULAR VOLUME 95.6 fl (80.0-96.0); PLATELET COUNT, AUTOMATED 210 10^3/uL (150-450); RED BLOOD COUNT 4.51 10^6/uL (4.30-6.10); RED CELL DISTRIBUTION WIDTH 14.2 % (11.5-14.5); WHITE BLOOD COUNT 11.3 10^3/uL (4.0-10.0)
[2017-09-01 18:21] LABS: ADD MANUAL DIFFER YES; DIFF SLIDE NUMBER 343; POSITIVE MORPH POS FLAG
[2017-09-01 18:37] LABS: AMORPHOUS SEDIMENT RFX MODERATE (NEGATIVE); KETONE, URINE AUTO RFX NEGATIVE (NEGATIVE); NITRITE, URINE AUTO RFX NEGATIVE (NEGATIVE); RBC, URINE AUTO RFX 74 /HPF (0-3); SPECIFIC GRAVITY UR AUTO RFX 1.018 (1.002-1.035); SQUAM EPITHELIAL CELL UR AURFX 2 /HPF (0-6)
[2017-09-01 18:52] LABS: ATYPICAL LYMPH 5 % (0-5); BANDS 4 % (< 11); EOSINOPHILS 5 % (0-5); LYMPHOCYTES 1 % (16-52); METAMYELOCYTES 1 % (0-0); MONOCYTES 2 % (0-8); NEUTROPHILS 82 % (35-75); PLATELET ESTIMATE NORMAL (NORMAL)
[2017-09-01 18:54] LABS: ALBUMIN 2.4 GM/DL (3.2-5.2); ALBUMIN/GLOBULIN RATIO 0.38 (1.00-1.93); ALKALINE PHOSPHATASE 80 U/L (45-117); ALT/SGPT 29 U/L (12-78); ANION GAP 8 MEQ/L (8-16); AST/SGOT 23 U/L (7-37); BILIRUBIN,DIRECT < 0.1 MG/DL (0.0-0.2); BILIRUBIN,TOTAL 0.3 MG/DL (0.2-1.0); BLOOD UREA NITROGEN 79 MG/DL (7-18); CALCIUM LEVEL 8.7 MG/DL (8.8-10.2); CARBON DIOXIDE LEVEL 28 MEQ/L (21-32); CHLORIDE LEVEL 110 MEQ/L (98-107); CPK CREATINE PHOSPHOKINASE 49 U/L (39-308); CREATININE FOR GFR 2.86 MG/DL (0.70-1.30); GLOMERULAR FILTRATION RATE 22.4 (>35); GLUCOSE, FASTING 363 MG/DL (70-100); POTASSIUM SERUM 4.4 MEQ/L (3.5-5.1); SODIUM LEVEL 146 MEQ/L (136-145); TOTAL PROTEIN 8.7 GM/DL (6.4-8.2); TROPONIN I 0.04 NG/ML (< 0.10)
[2017-09-01 19:00] LABS: CK-MB VALUE MASS 1.3 NG/ML (0.0-3.6); MB/CK RELATIVE INDEX 2.65 (< OR =4)
[2017-09-01 19:06] LABS: INFLUENZA A AMPLIFICATION NEGATIVE (NEGATIVE); INFLUENZA B AMPLIFICATION NEGATIVE (NEGATIVE)
[2017-09-01] MEDS: ACETAMINOPHEN 650 MG SUPP PR (19:06)
[2017-09-01] MEDS ORDERED: ONDANSETRON 4MG/2ML VIAL (J2405) IV (19:15)
[2017-09-01] MEDS ORDERED: GLUCOSE 4 GM CHEW TABLET PO (19:30)
[2017-09-01] MEDS ORDERED: DEXTROSE 50% 50 ML SYRINGE IV (19:30)
[2017-09-01] MEDS ORDERED: GLUCAGON FOR INJ 1 MG VIAL (J1610) SC (19:30)
[2017-09-01 19:57] LABS: LEUKOCYTE ESTERASE UR AUTO RFX 3+ (NEGATIVE); WBC, URINE AUTO RFX TNTC /HPF (0-3)
[2017-09-01] MEDS: CEFTRIAXONE SOD 2 GM in APPROPRIATE DILUENT 1 EA IV (20:52)
[2017-09-01] MEDS: EUCERIN 120GM CREAM TOP (21:00)
[2017-09-01] MEDS: HumaLOG INSULIN (NovoLOG) PER UNIT SC (21:00)
[2017-09-01] MEDS: AZITHROMYCIN INJ 500 MG, VIAL MATE ADAPTER 1 EACH in D5W 250 ML IV (21:01)
[2017-09-01] MEDS ORDERED: BISACODYL 10 MG SUPP PR (21:15)
[2017-09-01] MEDS ORDERED: guaiFENesin DM LIQ 10ML UD PO (21:15)
[2017-09-01] MEDS ORDERED: MOM 30ML SUSPENSION UDC PO (21:15)
[2017-09-01] MEDS ORDERED: ALBUTEROL SULFATE 2.5 MG/0.5 ML INH NEB SOLN INH (21:15)
[2017-09-01] MEDS ORDERED: ACETAMINOPHEN 650 MG SUPP PR (21:15)
[2017-09-01] MEDS ORDERED: NORCO, ANEXSIA 5/325MG TABLET (HYDROcodone/ACETAMINOPHEN) PO (21:15)
[2017-09-01 22:25] LABS: BEDSIDE GLUCOSE 251 MG/DL (83-110)
[2017-09-01 22:31] LABS: ESTIMATED AVERAGE GLUCOSE 189 MG/DL (60-110); HEMOGLOBIN A1c 8.2 %
[2017-09-01] MEDS: NS 1,000 ML IV (22:51)
[2017-09-01] MEDS: HEPARIN SOD (PORCINE) 5000 UNITS/ML VIAL SC (22:51)
[2017-09-02] MEDS: hydrOXYzine 25 MG TAB PO ×3 (06:34→21:59)
[2017-09-02] MEDS: HEPARIN SOD (PORCINE) 5000 UNITS/ML VIAL SC ×3 (06:34→22:02)
[2017-09-02 06:40] LABS: HEMATOCRIT 41.1 % (42.0-52.0); HEMOGLOBIN 13.2 g/dl (14.0-18.0); MEAN CORPUSCULAR HEMOGLOBIN 30.2 pg (27.0-33.0); MEAN CORPUSCULAR HGB CONC 32.1 g/dl (32.0-36.5); MEAN CORPUSCULAR VOLUME 94.1 fl (80.0-96.0); PLATELET COUNT, AUTOMATED 202 10^3/uL (150-450); RED BLOOD COUNT 4.37 10^6/uL (4.30-6.10); RED CELL DISTRIBUTION WIDTH 14.1 % (11.5-14.5); WHITE BLOOD COUNT 12.1 10^3/uL (4.0-10.0)
[2017-09-02 06:45] LABS: ADD MANUAL DIFFER YES; DIFF SLIDE NUMBER 96; POSITIVE MORPH POS FLAG
[2017-09-02 06:55] LABS: ANION GAP 5 MEQ/L (8-16); BLOOD UREA NITROGEN 78 MG/DL (7-18); CALCIUM LEVEL 8.6 MG/DL (8.8-10.2); CARBON DIOXIDE LEVEL 29 MEQ/L (21-32); CHLORIDE LEVEL 117 MEQ/L (98-107); CREATININE FOR GFR 2.73 MG/DL (0.70-1.30); GLOMERULAR FILTRATION RATE 23.6 (>35); GLUCOSE, FASTING 229 MG/DL (70-100); POTASSIUM SERUM 4.8 MEQ/L (3.5-5.1); SODIUM LEVEL 151 MEQ/L (136-145)
[2017-09-02 07:16] LABS: ATYPICAL LYMPH 7 % (0-5); BANDS 4 % (< 11); EOSINOPHILS 5 % (0-5); LYMPHOCYTES 10 % (16-52); METAMYELOCYTES 3 % (0-0); MONOCYTES 4 % (0-8); MYELOCYTES 1 % (0-0); NEUTROPHILS 66 % (35-75); PLATELET ESTIMATE NORMAL (NORMAL)
[2017-09-02] MEDS: SYMBICORT 160/4.5MCG INHALER 6GM INH ×2 (08:38→21:00)
[2017-09-02] MEDS: OMEPRAZOLE 20 MG CAP PO (09:00)
[2017-09-02] MEDS: LACTOBACILLUS ACIDOPHILUS CAP (BACID) PO (09:00)
[2017-09-02] MEDS: predniSONE 5 MG TAB PO (09:00)
[2017-09-02] MEDS: LEVEMIR (INSULIN DETEMIR) 1 UNITS/0.01ML SC (09:00)
[2017-09-02] MEDS: EUCERIN 120GM CREAM TOP ×3 (09:00→21:59)
[2017-09-02] MEDS: MULTIVITAMINS/MINERALS THERAP 1 TAB PO (09:00)
[2017-09-02] MEDS: ESCITALOPRAM OXALATE 10 MG TAB (LEXAPRO) PO (09:00)
[2017-09-02] MEDS: HumaLOG INSULIN (NovoLOG) PER UNIT SC ×4 (09:01→23:41)
[2017-09-02] MEDS: ASPIRIN 81 MG CHEW TABLET PO (09:04)
[2017-09-02] MEDS: NS 1,000 ML IV (09:22)
[2017-09-02] MEDS: ACETAMINOPHEN TAB 650MG DOSE (2X325MG) PO ×2 (09:22→23:16)
[2017-09-02] MEDS ORDERED: CEFTAROLINE FOSAMIL 400 MG in APPROPRIATE DILUENT 1 EA IV (10:00)
[2017-09-02] MEDS: HYDROCORTISONE 100 MG/2 ML VIAL (J1720) IV ×2 (10:39→23:16)
[2017-09-02] MEDS: NS 0.45% 1,000 ML IV ×3 (11:26→23:56)
[2017-09-02 12:01] LABS: BEDSIDE GLUCOSE 288 MG/DL (83-110)
[2017-09-02] MEDS ORDERED: MIDAZOLAM INJ 2 MG/2 ML VIAL (J2250) As Ordered ×2 (12:52→12:53)
[2017-09-02] MEDS ORDERED: LIDOCAINE 1% MDV 20ML VIAL As Ordered (12:53)
[2017-09-02 12:55] LABS: HEMATOCRIT 39.4 % (42.0-52.0); HEMOGLOBIN 12.7 g/dl (14.0-18.0); MEAN CORPUSCULAR HEMOGLOBIN 30.5 pg (27.0-33.0); MEAN CORPUSCULAR HGB CONC 32.2 g/dl (32.0-36.5); MEAN CORPUSCULAR VOLUME 94.5 fl (80.0-96.0); PLATELET COUNT, AUTOMATED 181 10^3/uL (150-450); RED BLOOD COUNT 4.17 10^6/uL (4.30-6.10); RED CELL DISTRIBUTION WIDTH 14.4 % (11.5-14.5); WHITE BLOOD COUNT 14.5 10^3/uL (4.0-10.0)
[2017-09-02 12:58] LABS: ADD MANUAL DIFFER YES; DIFF SLIDE NUMBER 229; POSITIVE MORPH POS FLAG
[2017-09-02] MEDS: LIDOCAINE 1% MDV 20ML VIAL SC (13:00)
[2017-09-02] MEDS ORDERED: SUCCINYLCHOLINE INJ 200 MG/10 ML VIAL (J0330) As Ordered (13:14)
[2017-09-02] MEDS: SUCCINYLCHOLINE INJ 200 MG/10 ML VIAL (J0330) IV (13:15)
[2017-09-02] MEDS: DILUENT IV (13:15)
[2017-09-02] MEDS: CEFTAROLINE FOSAMIL IV (13:15)
[2017-09-02] MEDS: MIDAZOLAM INJ 2 MG/2 ML VIAL (J2250) IV ×4 (13:15→14:53)
[2017-09-02] MEDS: SODIUM CHLORIDE 0.9% 1000 ML IV ×2 (13:30→14:55)
[2017-09-02 13:31] LABS: ALBUMIN 2.2 GM/DL (3.2-5.2); ALBUMIN/GLOBULIN RATIO 0.39 (1.00-1.93); ALKALINE PHOSPHATASE 66 U/L (45-117); ALT/SGPT 23 U/L (12-78); ANION GAP 6 MEQ/L (8-16); AST/SGOT 20 U/L (7-37); ATYPICAL LYMPH 5 % (0-5); BANDS 7 % (< 11); BILIRUBIN,TOTAL 0.3 MG/DL (0.2-1.0); BLOOD UREA NITROGEN 82 MG/DL (7-18); CALCIUM LEVEL 8.8 MG/DL (8.8-10.2); CARBON DIOXIDE LEVEL 27 MEQ/L (21-32); CHLORIDE LEVEL 118 MEQ/L (98-107); EOSINOPHILS 2 % (0-5); GLOMERULAR FILTRATION RATE 22.9 (>35); GLUCOSE, FASTING 318 MG/DL (70-100); LYMPHOCYTES 10 % (16-52); MAGNESIUM LEVEL 2.5 MG/DL (1.8-2.4); METAMYELOCYTES 3 % (0-0); MONOCYTES 5 % (0-8); NEUTROPHILS 68 % (35-75); PLATELET ESTIMATE NORMAL (NORMAL); POTASSIUM SERUM 4.6 MEQ/L (3.5-5.1); SODIUM LEVEL 151 MEQ/L (136-145); TOTAL PROTEIN 7.8 GM/DL (6.4-8.2)
[2017-09-02 14:21] LABS: ABG BASE EXCESS -0.7 (-2.0-2.0); ABG HCO3 21.7 MEQ/L (22.0-26.0); ABG O2 SATURATION 99.2 % (95.0-99.0); ABG PARTIAL PRESSURE CO2 28.8 mmHg (35.0-45.0); ABG PARTIAL PRESSURE O2 270.4 mmHg (75.0-100.0); ABG TOTAL CO2 22.5 MEQ/L (23.0-31.0); ABG pH (ARTERIAL) 7.494 UNITS (7.350-7.450)
[2017-09-02] MEDS: NOREPINEPHRINE BITARTRATE 8 MG in D5W 492 ML IV (14:53)
[2017-09-02] MEDS ORDERED: REFRIGERATOR IV KEYS XX (15:15)
[2017-09-02] MEDS: PROPOFOL 1,000 MG in APPROPRIATE DILUENT 1 EA IV (15:48)
[2017-09-02] MEDS: IPRATROPIUM 0.5MG/ALBUTEROL 2.5MG INH SOL UD 3ML (DUONEB)(J7620) NEB ×3 (15:57→23:33)
[2017-09-02] MEDS ORDERED: MIDAZOLAM HCL 100 MG in D5W 80 ML IV (16:00)
[2017-09-02 18:17] LABS: BEDSIDE GLUCOSE 286 MG/DL (83-110)
[2017-09-02] MEDS ORDERED: CEFTRIAXONE SOD 2 GM in APPROPRIATE DILUENT 1 EA IV (21:00)
[2017-09-02] MEDS: CHLORHEXIDINE ORAL RINSE 0.12%/15ML 120ML BOTTLE MT (21:59)
[2017-09-02] MEDS ORDERED: AZITHROMYCIN INJ 500 MG, VIAL MATE ADAPTER 1 EACH in D5W 250 ML IV (22:00)
[2017-09-02 23:25] LABS: BEDSIDE GLUCOSE 233 MG/DL (83-110)
[2017-09-03] MEDS: DILUENT IV (01:07)
[2017-09-03] MEDS: CEFTAROLINE FOSAMIL IV (01:07)
[2017-09-03] MEDS: IPRATROPIUM 0.5MG/ALBUTEROL 2.5MG INH SOL UD 3ML (DUONEB)(J7620) NEB ×6 (02:54→23:20)
[2017-09-03] MEDS: PROPOFOL 1,000 MG in APPROPRIATE DILUENT 1 EA IV (04:15)
[2017-09-03 05:31] LABS: HEMATOCRIT 33.4 % (42.0-52.0); MEAN CORPUSCULAR HEMOGLOBIN 30.6 pg (27.0-33.0); MEAN CORPUSCULAR HGB CONC 32.9 g/dl (32.0-36.5); PLATELET COUNT, AUTOMATED 140 10^3/uL (150-450); RED BLOOD COUNT 3.59 10^6/uL (4.30-6.10); RED CELL DISTRIBUTION WIDTH 14.3 % (11.5-14.5); WHITE BLOOD COUNT 12.4 10^3/uL (4.0-10.0)
[2017-09-03 05:32] LABS: ADD MANUAL DIFFER YES; DIFF SLIDE NUMBER 57; POSITIVE MORPH POS FLAG
[2017-09-03 05:55] LABS: ANION GAP 9 MEQ/L (8-16); BLOOD UREA NITROGEN 75 MG/DL (7-18); CALCIUM LEVEL 7.9 MG/DL (8.8-10.2); CARBON DIOXIDE LEVEL 22 MEQ/L (21-32); CHLORIDE LEVEL 119 MEQ/L (98-107); CREATININE FOR GFR 2.46 MG/DL (0.70-1.30); GLOMERULAR FILTRATION RATE 26.6 (>35); GLUCOSE, FASTING 275 MG/DL (70-100); SODIUM LEVEL 150 MEQ/L (136-145)
[2017-09-03 05:57] LABS: ABG BASE EXCESS -2.8 (-2.0-2.0); ABG HCO3 18.7 MEQ/L (22.0-26.0); ABG O2 SATURATION 99.1 % (95.0-99.0); ABG PARTIAL PRESSURE CO2 23.9 mmHg (35.0-45.0); ABG PARTIAL PRESSURE O2 182.3 mmHg (75.0-100.0); ABG STANDARD HCO3 22.2 MEQ/L (22.0-26.0); ABG TOTAL CO2 19.5 MEQ/L (23.0-31.0); ABG pH (ARTERIAL) 7.512 UNITS (7.350-7.450)
[2017-09-03] MEDS: hydrOXYzine 25 MG TAB PO ×3 (06:00→21:58)
[2017-09-03] MEDS: HEPARIN SOD (PORCINE) 5000 UNITS/ML VIAL SC ×3 (06:06→21:58)
[2017-09-03] MEDS: HumaLOG INSULIN (NovoLOG) PER UNIT SC ×3 (06:07→18:56)
[2017-09-03 06:20] LABS: ATYPICAL LYMPH 2 % (0-5); BANDS 3 % (< 11); LYMPHOCYTES 8 % (16-52); MONOCYTES 4 % (0-8); NEUTROPHILS 83 % (35-75)
[2017-09-03 06:25] LABS: PLATELET ESTIMATE DECREASED (NORMAL)
[2017-09-03] MEDS: ASPIRIN 81 MG CHEW TABLET PO (09:39)
[2017-09-03] MEDS: LACTOBACILLUS ACIDOPHILUS CAP (BACID) PO (09:39)
[2017-09-03] MEDS: LEVEMIR (INSULIN DETEMIR) 1 UNITS/0.01ML SC (09:40)
[2017-09-03] MEDS: CHLORHEXIDINE ORAL RINSE 0.12%/15ML 120ML BOTTLE MT ×2 (09:41→20:40)
[2017-09-03] MEDS: EUCERIN 120GM CREAM TOP ×3 (09:41→20:41)
[2017-09-03] MEDS: PANTOPRAZOLE 40MG INJ (PROTONIX) (C9113) IV (09:41)
[2017-09-03] MEDS: HYDROCORTISONE 100 MG/2 ML VIAL (J1720) IV ×2 (11:29→23:12)
[2017-09-03] MEDS: MULTIVITAMINS CHILDREN'S CHEWABLE TABLET PO (11:29)
[2017-09-03 11:47] LABS: BEDSIDE GLUCOSE 217 MG/DL (83-110)
[2017-09-03] MEDS: CEFTRIAXONE SOD 1 GM in APPROPRIATE DILUENT 1 EA IV (14:16)
[2017-09-03] MEDS: MIDAZOLAM INJ 2 MG/2 ML VIAL (J2250) IV ×3 (18:03→23:12)
[2017-09-03 18:15] LABS: BEDSIDE GLUCOSE 272 MG/DL (83-110)
[2017-09-04 00:24] LABS: BEDSIDE GLUCOSE 204 MG/DL (83-110)
[2017-09-04] MEDS: MIDAZOLAM INJ 2 MG/2 ML VIAL (J2250) IV ×2 (00:43→03:48)
[2017-09-04] MEDS: HumaLOG INSULIN (NovoLOG) PER UNIT SC ×4 (01:50→17:30)
[2017-09-04] MEDS: IPRATROPIUM 0.5MG/ALBUTEROL 2.5MG INH SOL UD 3ML (DUONEB)(J7620) NEB ×6 (02:47→23:40)
[2017-09-04 05:44] LABS: HEMATOCRIT 32.1 % (42.0-52.0); HEMOGLOBIN 10.3 g/dl (14.0-18.0); MEAN CORPUSCULAR HEMOGLOBIN 30.5 pg (27.0-33.0); MEAN CORPUSCULAR HGB CONC 32.1 g/dl (32.0-36.5); PLATELET COUNT, AUTOMATED 120 10^3/uL (150-450); POSITIVE MORPH POS FLAG; RED BLOOD COUNT 3.38 10^6/uL (4.30-6.10); RED CELL DISTRIBUTION WIDTH 14.6 % (11.5-14.5); WHITE BLOOD COUNT 9.6 10^3/uL (4.0-10.0)
[2017-09-04 05:45] LABS: ADD MANUAL DIFFER YES; DIFF SLIDE NUMBER 41
[2017-09-04] MEDS: HEPARIN SOD (PORCINE) 5000 UNITS/ML VIAL SC ×3 (06:01→22:53)
[2017-09-04] MEDS: hydrOXYzine 25 MG TAB PO ×3 (06:02→22:00)
[2017-09-04] MEDS: SODIUM CHLORIDE 0.9% INJ 10 ML SYR IV ×3 (06:02→22:00)
[2017-09-04 06:04] LABS: ANION GAP 8 MEQ/L (8-16); BLOOD UREA NITROGEN 65 MG/DL (7-18); CALCIUM LEVEL 7.6 MG/DL (8.8-10.2); CARBON DIOXIDE LEVEL 24 MEQ/L (21-32); CHLORIDE LEVEL 122 MEQ/L (98-107); CREATININE FOR GFR 2.15 MG/DL (0.70-1.30); GLOMERULAR FILTRATION RATE 31.1 (>35); GLUCOSE, FASTING 209 MG/DL (70-100); POTASSIUM SERUM 3.9 MEQ/L (3.5-5.1); SODIUM LEVEL 154 MEQ/L (136-145)
[2017-09-04 06:07] LABS: BEDSIDE GLUCOSE 189 MG/DL (83-110)
[2017-09-04 06:30] LABS: ATYPICAL LYMPH 1 % (0-5); BANDS 5 % (< 11); EOSINOPHILS 1 % (0-5); LYMPHOCYTES 13 % (16-52); NEUTROPHILS 80 % (35-75); PLATELET ESTIMATE DECREASED (NORMAL)
[2017-09-04 06:31] LABS: ANISOCYTOSIS 1+; HYPOCHROMASIA 1+
[2017-09-04 06:35] LABS: ABG BASE EXCESS -1.3 (-2.0-2.0); ABG HCO3 20.9 MEQ/L (22.0-26.0); ABG O2 SATURATION 99.1 % (95.0-99.0); ABG PARTIAL PRESSURE CO2 27.3 mmHg (35.0-45.0); ABG STANDARD HCO3 23.4 MEQ/L (22.0-26.0); ABG TOTAL CO2 21.7 MEQ/L (23.0-31.0); ABG pH (ARTERIAL) 7.502 UNITS (7.350-7.450)
[2017-09-04] MEDS: ASPIRIN 81 MG CHEW TABLET PO (09:36)
[2017-09-04] MEDS: LACTOBACILLUS ACIDOPHILUS CAP (BACID) PO (09:36)
[2017-09-04] MEDS: MULTIVITAMINS CHILDREN'S CHEWABLE TABLET PO (09:36)
[2017-09-04] MEDS: PANTOPRAZOLE 40MG INJ (PROTONIX) (C9113) IV (09:37)
[2017-09-04] MEDS: EUCERIN 120GM CREAM TOP ×3 (09:37→20:38)
[2017-09-04] MEDS: CHLORHEXIDINE ORAL RINSE 0.12%/15ML 120ML BOTTLE MT (09:37)
[2017-09-04] MEDS: LEVEMIR (INSULIN DETEMIR) 1 UNITS/0.01ML SC ×2 (09:37→20:37)
[2017-09-04 09:42] LABS: MAGNESIUM LEVEL 2.6 MG/DL (1.8-2.4)
[2017-09-04] MEDS: D5W/0.2% SODIUM CHLORIDE 1,000 ML IV ×2 (10:58→20:37)
[2017-09-04] MEDS: HYDROCORTISONE 100 MG/2 ML VIAL (J1720) IV ×2 (11:34→22:52)
[2017-09-04 11:44] LABS: BEDSIDE GLUCOSE 108 MG/DL (83-110)
[2017-09-04 12:04] LABS: ALBUMIN 1.8 GM/DL (3.2-5.2); ALBUMIN/GLOBULIN RATIO 0.37 (1.00-1.93); ALKALINE PHOSPHATASE 63 U/L (45-117); ALT/SGPT 25 U/L (12-78); ANION GAP 7 MEQ/L (8-16); AST/SGOT 23 U/L (7-37); BILIRUBIN,TOTAL 0.2 MG/DL (0.2-1.0); BLOOD UREA NITROGEN 62 MG/DL (7-18); CARBON DIOXIDE LEVEL 26 MEQ/L (21-32); CHLORIDE LEVEL 122 MEQ/L (98-107); CREATININE FOR GFR 2.07 MG/DL (0.70-1.30); GLOMERULAR FILTRATION RATE 32.5 (>35); GLUCOSE, FASTING 171 MG/DL (70-100); POTASSIUM SERUM 3.6 MEQ/L (3.5-5.1); SODIUM LEVEL 155 MEQ/L (136-145); TOTAL PROTEIN 6.7 GM/DL (6.4-8.2)
[2017-09-04] MEDS: CEFTRIAXONE SOD 1 GM in APPROPRIATE DILUENT 1 EA IV (13:21)
[2017-09-04 17:52] LABS: BEDSIDE GLUCOSE 234 MG/DL (83-110)
[2017-09-04 18:13] LABS: ALBUMIN 1.8 GM/DL (3.2-5.2); ALBUMIN/GLOBULIN RATIO 0.38 (1.00-1.93); ALKALINE PHOSPHATASE 59 U/L (45-117); ALT/SGPT 24 U/L (12-78); ANION GAP 7 MEQ/L (8-16); AST/SGOT 18 U/L (7-37); BILIRUBIN,TOTAL 0.3 MG/DL (0.2-1.0); BLOOD UREA NITROGEN 57 MG/DL (7-18); CALCIUM LEVEL 7.9 MG/DL (8.8-10.2); CARBON DIOXIDE LEVEL 25 MEQ/L (21-32); CHLORIDE LEVEL 120 MEQ/L (98-107); CREATININE FOR GFR 2.04 MG/DL (0.70-1.30); GLUCOSE, FASTING 250 MG/DL (70-100); POTASSIUM SERUM 3.8 MEQ/L (3.5-5.1); SODIUM LEVEL 152 MEQ/L (136-145); TOTAL PROTEIN 6.6 GM/DL (6.4-8.2)
[2017-09-04 20:16] LABS: BEDSIDE GLUCOSE 196 MG/DL (83-110)
[2017-09-05] MEDS: HumaLOG INSULIN (NovoLOG) PER UNIT SC ×4 (00:24→18:05)
[2017-09-05 00:27] LABS: BEDSIDE GLUCOSE 147 MG/DL (83-110)
[2017-09-05] MEDS: IPRATROPIUM 0.5MG/ALBUTEROL 2.5MG INH SOL UD 3ML (DUONEB)(J7620) NEB ×6 (03:48→23:15)
[2017-09-05 05:35] LABS: ABG BASE EXCESS -4.4 (-2.0-2.0); ABG HCO3 18.2 MEQ/L (22.0-26.0); ABG O2 SATURATION 97.8 % (95.0-99.0); ABG PARTIAL PRESSURE CO2 25.7 mmHg (35.0-45.0); ABG PARTIAL PRESSURE O2 104.2 mmHg (75.0-100.0); ABG STANDARD HCO3 20.8 MEQ/L (22.0-26.0); ABG pH (ARTERIAL) 7.468 UNITS (7.350-7.450)
[2017-09-05] MEDS: hydrOXYzine 25 MG TAB PO ×3 (06:00→16:23)
[2017-09-05] MEDS: SODIUM CHLORIDE 0.9% INJ 10 ML SYR IV ×4 (06:00→22:01)
[2017-09-05 06:20] LABS: BEDSIDE GLUCOSE 142 MG/DL (83-110)
[2017-09-05] MEDS: D5W/0.2% SODIUM CHLORIDE 1,000 ML IV ×2 (06:20→16:05)
[2017-09-05] MEDS: HEPARIN SOD (PORCINE) 5000 UNITS/ML VIAL SC ×3 (06:21→21:52)
[2017-09-05 06:35] LABS: HEMATOCRIT 30.7 % (42.0-52.0); HEMOGLOBIN 9.7 g/dl (14.0-18.0); MEAN CORPUSCULAR HEMOGLOBIN 30.3 pg (27.0-33.0); MEAN CORPUSCULAR HGB CONC 31.6 g/dl (32.0-36.5); MEAN CORPUSCULAR VOLUME 95.9 fl (80.0-96.0); PLATELET COUNT, AUTOMATED 125 10^3/uL (150-450); RED CELL DISTRIBUTION WIDTH 14.2 % (11.5-14.5)
[2017-09-05 06:36] LABS: POSITIVE MORPH POS FLAG
[2017-09-05 06:38] LABS: ADD MANUAL DIFFER YES; DIFF SLIDE NUMBER 36
[2017-09-05 07:06] LABS: ANION GAP 6 MEQ/L (8-16); BLOOD UREA NITROGEN 47 MG/DL (7-18); CALCIUM LEVEL 7.7 MG/DL (8.8-10.2); CARBON DIOXIDE LEVEL 26 MEQ/L (21-32); CHLORIDE LEVEL 122 MEQ/L (98-107); CREATININE FOR GFR 1.68 MG/DL (0.70-1.30); GLOMERULAR FILTRATION RATE 41.4 (>35); GLUCOSE, FASTING 133 MG/DL (70-100); POTASSIUM SERUM 3.7 MEQ/L (3.5-5.1); SODIUM LEVEL 154 MEQ/L (136-145)
[2017-09-05 08:09] LABS: ANISOCYTOSIS 1+; BANDS 5 % (< 11); LYMPHOCYTES 11 % (16-52); MYELOCYTES 1 % (0-0); NEUTROPHILS 83 % (35-75); PLATELET ESTIMATE DECREASED (NORMAL)
[2017-09-05] MEDS: PANTOPRAZOLE 40MG INJ (PROTONIX) (C9113) IV (08:44)
[2017-09-05] MEDS: EUCERIN 120GM CREAM TOP ×3 (08:44→21:53)
[2017-09-05] MEDS: LACTOBACILLUS ACIDOPHILUS CAP (BACID) PO (09:00)
[2017-09-05] MEDS: MULTIVITAMINS CHILDREN'S CHEWABLE TABLET PO (09:00)
[2017-09-05] MEDS: HYDROCORTISONE 100 MG/2 ML VIAL (J1720) IV ×2 (11:41→22:01)
[2017-09-05] MEDS: ASPIRIN 81 MG CHEW TABLET PO (11:41)
[2017-09-05 11:57] LABS: BEDSIDE GLUCOSE 128 MG/DL (83-110)
[2017-09-05] MEDS: CEFTRIAXONE SOD 1 GM in APPROPRIATE DILUENT 1 EA IV (13:11)
[2017-09-05 13:16] LABS: SODIUM LEVEL 154 MEQ/L (136-145)
[2017-09-05 18:06] LABS: BEDSIDE GLUCOSE 253 MG/DL (83-110)
[2017-09-05 21:28] LABS: SODIUM LEVEL 150 MEQ/L (136-145)
[2017-09-05] MEDS: LEVEMIR (INSULIN DETEMIR) 1 UNITS/0.01ML SC (21:52)
[2017-09-06 00:10] LABS: SODIUM LEVEL 150 MEQ/L (136-145)
[2017-09-06 00:17] LABS: BEDSIDE GLUCOSE 168 MG/DL (83-110)
[2017-09-06] MEDS: HumaLOG INSULIN (NovoLOG) PER UNIT SC ×5 (00:34→20:50)
[2017-09-06] MEDS: D5W/0.2% SODIUM CHLORIDE 1,000 ML IV ×3 (01:55→22:05)
[2017-09-06] MEDS: IPRATROPIUM 0.5MG/ALBUTEROL 2.5MG INH SOL UD 3ML (DUONEB)(J7620) NEB ×6 (03:24→23:21)
[2017-09-06 05:40] LABS: HEMATOCRIT 31.4 % (42.0-52.0); MEAN CORPUSCULAR HEMOGLOBIN 30.1 pg (27.0-33.0); MEAN CORPUSCULAR HGB CONC 31.8 g/dl (32.0-36.5); MEAN CORPUSCULAR VOLUME 94.6 fl (80.0-96.0); PLATELET COUNT, AUTOMATED 141 10^3/uL (150-450); RED BLOOD COUNT 3.32 10^6/uL (4.30-6.10); RED CELL DISTRIBUTION WIDTH 13.8 % (11.5-14.5)
[2017-09-06 05:47] LABS: ADD MANUAL DIFFER YES; DIFF SLIDE NUMBER 28; POSITIVE MORPH POS FLAG
[2017-09-06] MEDS: hydrOXYzine 25 MG TAB PO ×3 (06:00→20:37)
[2017-09-06 06:08] LABS: ANION GAP 7 MEQ/L (8-16); BLOOD UREA NITROGEN 36 MG/DL (7-18); CALCIUM LEVEL 7.9 MG/DL (8.8-10.2); CARBON DIOXIDE LEVEL 24 MEQ/L (21-32); CHLORIDE LEVEL 119 MEQ/L (98-107); CREATININE FOR GFR 1.46 MG/DL (0.70-1.30); GLOMERULAR FILTRATION RATE 48.6 (>35); GLUCOSE, FASTING 129 MG/DL (70-100); POTASSIUM SERUM 3.5 MEQ/L (3.5-5.1); SODIUM LEVEL 150 MEQ/L (136-145)
[2017-09-06] MEDS: SODIUM CHLORIDE 0.9% INJ 10 ML SYR IV ×3 (06:38→20:38)
[2017-09-06] MEDS: HEPARIN SOD (PORCINE) 5000 UNITS/ML VIAL SC ×3 (06:38→20:37)
[2017-09-06 06:50] LABS: LYMPHOCYTES 11 % (16-52); MONOCYTES 2 % (0-8); NEUTROPHILS 87 % (35-75); PLATELET ESTIMATE NORMAL (NORMAL)
[2017-09-06] MEDS: ASPIRIN 81 MG CHEW TABLET PO (08:00)
[2017-09-06] MEDS: LACTOBACILLUS ACIDOPHILUS CAP (BACID) PO (08:00)
[2017-09-06] MEDS: MULTIVITAMINS CHILDREN'S CHEWABLE TABLET PO (08:00)
[2017-09-06] MEDS: PANTOPRAZOLE 40MG INJ (PROTONIX) (C9113) IV (08:08)
[2017-09-06] MEDS: EUCERIN 120GM CREAM TOP ×3 (08:09→20:37)
[2017-09-06] MEDS: HYDROCORTISONE 100 MG/2 ML VIAL (J1720) IV ×2 (12:32→22:05)
[2017-09-06 13:08] LABS: SODIUM LEVEL 152 MEQ/L (136-145)
[2017-09-06] MEDS: CEFTRIAXONE SOD 1 GM in APPROPRIATE DILUENT 1 EA IV (13:16)
[2017-09-06 20:28] LABS: SODIUM LEVEL 148 MEQ/L (136-145)
[2017-09-06] MEDS: LEVEMIR (INSULIN DETEMIR) 1 UNITS/0.01ML SC (20:36)
[2017-09-06 21:21] LABS: BEDSIDE GLUCOSE 229 MG/DL (83-110)
[2017-09-07 00:47] LABS: BEDSIDE GLUCOSE 210 MG/DL (83-110)
[2017-09-07] MEDS: IPRATROPIUM 0.5MG/ALBUTEROL 2.5MG INH SOL UD 3ML (DUONEB)(J7620) NEB ×6 (02:50→23:57)
[2017-09-07] MEDS: SODIUM CHLORIDE 0.9% INJ 10 ML SYR IV ×3 (05:40→21:45)
[2017-09-07] MEDS: HEPARIN SOD (PORCINE) 5000 UNITS/ML VIAL SC ×3 (05:41→21:45)
[2017-09-07] MEDS: hydrOXYzine 25 MG TAB PO ×3 (05:41→21:45)
[2017-09-07 05:50] LABS: HEMATOCRIT 29.5 % (42.0-52.0); HEMOGLOBIN 9.5 g/dl (14.0-18.0); MEAN CORPUSCULAR HGB CONC 32.2 g/dl (32.0-36.5); MEAN CORPUSCULAR VOLUME 93.1 fl (80.0-96.0); PLATELET COUNT, AUTOMATED 152 10^3/uL (150-450); RED BLOOD COUNT 3.17 10^6/uL (4.30-6.10); RED CELL DISTRIBUTION WIDTH 13.3 % (11.5-14.5); WHITE BLOOD COUNT 5.5 10^3/uL (4.0-10.0)
[2017-09-07 05:58] LABS: ANION GAP 7 MEQ/L (8-16); BLOOD UREA NITROGEN 32 MG/DL (7-18); CALCIUM LEVEL 7.6 MG/DL (8.8-10.2); CARBON DIOXIDE LEVEL 25 MEQ/L (21-32); CHLORIDE LEVEL 115 MEQ/L (98-107); CREATININE FOR GFR 1.52 MG/DL (0.70-1.30); GLOMERULAR FILTRATION RATE 46.4 (>35); GLUCOSE, FASTING 206 MG/DL (70-100); POTASSIUM SERUM 3.4 MEQ/L (3.5-5.1); SODIUM LEVEL 147 MEQ/L (136-145)
[2017-09-07] MEDS: D5W/0.2% SODIUM CHLORIDE 1,000 ML IV (07:42)
[2017-09-07] MEDS: ASPIRIN 81 MG CHEW TABLET PO (08:26)
[2017-09-07] MEDS: LACTOBACILLUS ACIDOPHILUS CAP (BACID) PO (08:26)
[2017-09-07] MEDS: HumaLOG INSULIN (NovoLOG) PER UNIT SC ×4 (08:26→20:21)
[2017-09-07] MEDS: PANTOPRAZOLE 40MG INJ (PROTONIX) (C9113) IV (08:26)
[2017-09-07] MEDS: MULTIVITAMINS CHILDREN'S CHEWABLE TABLET PO (08:26)
[2017-09-07] MEDS: EUCERIN 120GM CREAM TOP ×3 (09:00→21:46)
[2017-09-07 12:11] LABS: BEDSIDE GLUCOSE 126 MG/DL (83-110)
[2017-09-07] MEDS: CEFTRIAXONE SOD 1 GM in APPROPRIATE DILUENT 1 EA IV (12:54)
[2017-09-07 16:52] LABS: BEDSIDE GLUCOSE 115 MG/DL (83-110)
[2017-09-07 20:14] LABS: BEDSIDE GLUCOSE 161 MG/DL (83-110)
[2017-09-07] MEDS: LEVEMIR (INSULIN DETEMIR) 1 UNITS/0.01ML SC (21:44)
[2017-09-08] MEDS: IPRATROPIUM 0.5MG/ALBUTEROL 2.5MG INH SOL UD 3ML (DUONEB)(J7620) NEB ×6 (03:26→23:20)
[2017-09-08] MEDS: HEPARIN SOD (PORCINE) 5000 UNITS/ML VIAL SC ×3 (05:22→21:49)
[2017-09-08] MEDS: hydrOXYzine 25 MG TAB PO ×3 (05:23→21:49)
[2017-09-08] MEDS: SODIUM CHLORIDE 0.9% INJ 10 ML SYR IV ×3 (05:23→21:49)
[2017-09-08 05:43] LABS: HEMATOCRIT 28.1 % (42.0-52.0); HEMOGLOBIN 9.3 g/dl (14.0-18.0); MEAN CORPUSCULAR HEMOGLOBIN 30.7 pg (27.0-33.0); MEAN CORPUSCULAR HGB CONC 33.1 g/dl (32.0-36.5); MEAN CORPUSCULAR VOLUME 92.7 fl (80.0-96.0); PLATELET COUNT, AUTOMATED 173 10^3/uL (150-450); RED BLOOD COUNT 3.03 10^6/uL (4.30-6.10); RED CELL DISTRIBUTION WIDTH 13.2 % (11.5-14.5); WHITE BLOOD COUNT 6.7 10^3/uL (4.0-10.0)
[2017-09-08 06:06] LABS: ANION GAP 7 MEQ/L (8-16); BLOOD UREA NITROGEN 28 MG/DL (7-18); CALCIUM LEVEL 7.3 MG/DL (8.8-10.2); CARBON DIOXIDE LEVEL 26 MEQ/L (21-32); CHLORIDE LEVEL 118 MEQ/L (98-107); CREATININE FOR GFR 1.51 MG/DL (0.70-1.30); GLOMERULAR FILTRATION RATE 46.8 (>35); GLUCOSE, FASTING 82 MG/DL (70-100); POTASSIUM SERUM 3.2 MEQ/L (3.5-5.1); SODIUM LEVEL 151 MEQ/L (136-145)
[2017-09-08] MEDS: MULTIVITAMINS CHILDREN'S CHEWABLE TABLET PO (08:43)
[2017-09-08] MEDS: LACTOBACILLUS ACIDOPHILUS CAP (BACID) PO (08:43)
[2017-09-08] MEDS: ASPIRIN 81 MG CHEW TABLET PO (08:43)
[2017-09-08] MEDS: HumaLOG INSULIN (NovoLOG) PER UNIT SC ×4 (08:43→22:04)
[2017-09-08] MEDS: predniSONE 5 MG TAB PO (08:43)
[2017-09-08] MEDS: PANTOPRAZOLE 40MG TAB (PROTONIX) PO (08:43)
[2017-09-08] MEDS: EUCERIN 120GM CREAM TOP ×3 (09:00→21:49)
[2017-09-08 12:10] LABS: BEDSIDE GLUCOSE 101 MG/DL (83-110)
[2017-09-08] MEDS: CEFTRIAXONE SOD 1 GM in APPROPRIATE DILUENT 1 EA IV (13:19)
[2017-09-08 17:32] LABS: BEDSIDE GLUCOSE 109 MG/DL (83-110)
[2017-09-08] MEDS: POTASSIUM CHLORIDE 10 MEQ SR TABLET PO ×2 (19:25→21:50)
[2017-09-08] MEDS ORDERED: HEPARIN SOD (PORCINE) 5000 UNITS/ML VIAL As Ordered (21:41)
[2017-09-08] MEDS: LEVEMIR (INSULIN DETEMIR) 1 UNITS/0.01ML SC (21:51)
[2017-09-09 00:11] LABS: BEDSIDE GLUCOSE 140 MG/DL (83-110)
[2017-09-09] MEDS: IPRATROPIUM 0.5MG/ALBUTEROL 2.5MG INH SOL UD 3ML (DUONEB)(J7620) NEB ×6 (03:19→23:43)
[2017-09-09] MEDS: hydrOXYzine 25 MG TAB PO ×3 (05:24→22:37)
[2017-09-09] MEDS: SODIUM CHLORIDE 0.9% INJ 10 ML SYR IV ×3 (05:24→22:36)
[2017-09-09] MEDS: HEPARIN SOD (PORCINE) 5000 UNITS/ML VIAL SC ×3 (05:24→22:37)
[2017-09-09 05:49] LABS: HEMATOCRIT 29.5 % (42.0-52.0); HEMOGLOBIN 9.6 g/dl (14.0-18.0); MEAN CORPUSCULAR HEMOGLOBIN 30.1 pg (27.0-33.0); MEAN CORPUSCULAR HGB CONC 32.5 g/dl (32.0-36.5); MEAN CORPUSCULAR VOLUME 92.5 fl (80.0-96.0); PLATELET COUNT, AUTOMATED 215 10^3/uL (150-450); RED BLOOD COUNT 3.19 10^6/uL (4.30-6.10); RED CELL DISTRIBUTION WIDTH 13.2 % (11.5-14.5); WHITE BLOOD COUNT 7.7 10^3/uL (4.0-10.0)
[2017-09-09 06:03] LABS: ANION GAP 5 MEQ/L (8-16); BLOOD UREA NITROGEN 27 MG/DL (7-18); CALCIUM LEVEL 7.5 MG/DL (8.8-10.2); CARBON DIOXIDE LEVEL 26 MEQ/L (21-32); CHLORIDE LEVEL 119 MEQ/L (98-107); CREATININE FOR GFR 1.32 MG/DL (0.70-1.30); GLOMERULAR FILTRATION RATE 54.6 (>35); GLUCOSE, FASTING 89 MG/DL (70-100); POTASSIUM SERUM 3.8 MEQ/L (3.5-5.1); SODIUM LEVEL 150 MEQ/L (136-145)
[2017-09-09] MEDS: HumaLOG INSULIN (NovoLOG) PER UNIT SC ×4 (07:36→22:37)
[2017-09-09] MEDS: MULTIVITAMINS CHILDREN'S CHEWABLE TABLET PO (09:01)
[2017-09-09] MEDS: predniSONE 5 MG TAB PO (09:01)
[2017-09-09] MEDS: PANTOPRAZOLE 40MG TAB (PROTONIX) PO (09:01)
[2017-09-09] MEDS: EUCERIN 120GM CREAM TOP ×3 (09:02→22:38)
[2017-09-09] MEDS: LACTOBACILLUS ACIDOPHILUS CAP (BACID) PO (09:02)
[2017-09-09] MEDS: ASPIRIN 81 MG CHEW TABLET PO (09:02)
[2017-09-09 12:07] LABS: BEDSIDE GLUCOSE 95 MG/DL (83-110)
[2017-09-09 17:46] LABS: BEDSIDE GLUCOSE 141 MG/DL (83-110)
[2017-09-09 20:44] LABS: BEDSIDE GLUCOSE 168 MG/DL (83-110)
[2017-09-09] MEDS: LEVEMIR (INSULIN DETEMIR) 1 UNITS/0.01ML SC (22:37)
[2017-09-10] MEDS: IPRATROPIUM 0.5MG/ALBUTEROL 2.5MG INH SOL UD 3ML (DUONEB)(J7620) NEB ×5 (04:00→20:00)
[2017-09-10] MEDS: SODIUM CHLORIDE 0.9% INJ 10 ML SYR IV ×3 (05:33→21:28)
[2017-09-10] MEDS: hydrOXYzine 25 MG TAB PO ×3 (05:34→21:27)
[2017-09-10] MEDS: HEPARIN SOD (PORCINE) 5000 UNITS/ML VIAL SC ×3 (05:34→21:31)
[2017-09-10 06:42] LABS: HEMATOCRIT 30.5 % (42.0-52.0); HEMOGLOBIN 9.8 g/dl (14.0-18.0); MEAN CORPUSCULAR HGB CONC 32.1 g/dl (32.0-36.5); MEAN CORPUSCULAR VOLUME 93.3 fl (80.0-96.0); PLATELET COUNT, AUTOMATED 239 10^3/uL (150-450); RED BLOOD COUNT 3.27 10^6/uL (4.30-6.10); RED CELL DISTRIBUTION WIDTH 13.3 % (11.5-14.5)
[2017-09-10 07:05] LABS: ANION GAP 7 MEQ/L (8-16); BLOOD UREA NITROGEN 22 MG/DL (7-18); CALCIUM LEVEL 7.9 MG/DL (8.8-10.2); CARBON DIOXIDE LEVEL 26 MEQ/L (21-32); CHLORIDE LEVEL 115 MEQ/L (98-107); CREATININE FOR GFR 1.24 MG/DL (0.70-1.30); GLOMERULAR FILTRATION RATE 58.7 (>35); GLUCOSE, FASTING 79 MG/DL (70-100); POTASSIUM SERUM 3.4 MEQ/L (3.5-5.1); SODIUM LEVEL 148 MEQ/L (136-145)
[2017-09-10] MEDS: HumaLOG INSULIN (NovoLOG) PER UNIT SC ×4 (07:20→21:00)
[2017-09-10] MEDS: predniSONE 5 MG TAB PO (08:59)
[2017-09-10] MEDS: ASPIRIN 81 MG CHEW TABLET PO (08:59)
[2017-09-10] MEDS: LACTOBACILLUS ACIDOPHILUS CAP (BACID) PO (08:59)
[2017-09-10] MEDS: MULTIVITAMINS CHILDREN'S CHEWABLE TABLET PO (08:59)
[2017-09-10] MEDS: PANTOPRAZOLE 40MG TAB (PROTONIX) PO (09:00)
[2017-09-10] MEDS: EUCERIN 120GM CREAM TOP ×3 (09:00→21:00)
[2017-09-10 12:52] LABS: BEDSIDE GLUCOSE 110 MG/DL (83-110)
[2017-09-10 17:11] LABS: BEDSIDE GLUCOSE 108 MG/DL (83-110)
[2017-09-10 20:27] LABS: BEDSIDE GLUCOSE 117 MG/DL (83-110)
[2017-09-10] MEDS ORDERED: HEPARIN SOD (PORCINE) 5000 UNITS/ML VIAL As Ordered (21:22)
[2017-09-10] MEDS: LEVEMIR (INSULIN DETEMIR) 1 UNITS/0.01ML SC (21:27)
[2017-09-11] MEDS: IPRATROPIUM 0.5MG/ALBUTEROL 2.5MG INH SOL UD 3ML (DUONEB)(J7620) NEB ×6 (03:24→20:00)
[2017-09-11] MEDS: HEPARIN SOD (PORCINE) 5000 UNITS/ML VIAL SC ×3 (05:27→22:02)
[2017-09-11] MEDS: hydrOXYzine 25 MG TAB PO ×3 (05:27→22:00)
[2017-09-11] MEDS: SODIUM CHLORIDE 0.9% INJ 10 ML SYR IV ×3 (05:27→22:00)
[2017-09-11 06:50] LABS: HEMATOCRIT 31.1 % (42.0-52.0); HEMOGLOBIN 10.1 g/dl (14.0-18.0); MEAN CORPUSCULAR HEMOGLOBIN 30.2 pg (27.0-33.0); MEAN CORPUSCULAR HGB CONC 32.5 g/dl (32.0-36.5); MEAN CORPUSCULAR VOLUME 93.1 fl (80.0-96.0); PLATELET COUNT, AUTOMATED 243 10^3/uL (150-450); RED BLOOD COUNT 3.34 10^6/uL (4.30-6.10); RED CELL DISTRIBUTION WIDTH 13.4 % (11.5-14.5); WHITE BLOOD COUNT 8.5 10^3/uL (4.0-10.0)
[2017-09-11 07:13] LABS: ANION GAP 5 MEQ/L (8-16); BLOOD UREA NITROGEN 19 MG/DL (7-18); CALCIUM LEVEL 7.8 MG/DL (8.8-10.2); CARBON DIOXIDE LEVEL 27 MEQ/L (21-32); CHLORIDE LEVEL 114 MEQ/L (98-107); CREATININE FOR GFR 1.29 MG/DL (0.70-1.30); GLOMERULAR FILTRATION RATE 56.1 (>35); GLUCOSE, FASTING 103 MG/DL (70-100); POTASSIUM SERUM 3.8 MEQ/L (3.5-5.1); SODIUM LEVEL 146 MEQ/L (136-145)
[2017-09-11] MEDS: LACTOBACILLUS ACIDOPHILUS CAP (BACID) PO (08:45)
[2017-09-11] MEDS: predniSONE 5 MG TAB PO (08:45)
[2017-09-11] MEDS: PANTOPRAZOLE 40MG TAB (PROTONIX) PO (08:45)
[2017-09-11] MEDS: ASPIRIN 81 MG CHEW TABLET PO (08:45)
[2017-09-11] MEDS: MULTIVITAMINS CHILDREN'S CHEWABLE TABLET PO (08:45)
[2017-09-11] MEDS: EUCERIN 120GM CREAM TOP ×3 (08:46→21:00)
[2017-09-11] MEDS: HumaLOG INSULIN (NovoLOG) PER UNIT SC ×4 (08:46→21:00)
[2017-09-11 18:44] LABS: BEDSIDE GLUCOSE 122 MG/DL (83-110)
[2017-09-11 21:06] LABS: BEDSIDE GLUCOSE 109 MG/DL (83-110)
[2017-09-11] MEDS: LEVEMIR (INSULIN DETEMIR) 1 UNITS/0.01ML SC (22:02)
[2017-09-12] MEDS: IPRATROPIUM 0.5MG/ALBUTEROL 2.5MG INH SOL UD 3ML (DUONEB)(J7620) NEB ×7 (04:00→23:28)
[2017-09-12] MEDS: hydrOXYzine 25 MG TAB PO ×3 (05:39→20:38)
[2017-09-12] MEDS: SODIUM CHLORIDE 0.9% INJ 10 ML SYR IV ×3 (05:39→20:42)
[2017-09-12] MEDS: HEPARIN SOD (PORCINE) 5000 UNITS/ML VIAL SC ×3 (05:40→20:38)
[2017-09-12] MEDS: HumaLOG INSULIN (NovoLOG) PER UNIT SC ×4 (07:30→20:45)
[2017-09-12 07:57] LABS: HEMATOCRIT 32.1 % (42.0-52.0); HEMOGLOBIN 10.3 g/dl (14.0-18.0); MEAN CORPUSCULAR HEMOGLOBIN 29.7 pg (27.0-33.0); MEAN CORPUSCULAR HGB CONC 32.1 g/dl (32.0-36.5); MEAN CORPUSCULAR VOLUME 92.5 fl (80.0-96.0); PLATELET COUNT, AUTOMATED 257 10^3/uL (150-450); RED BLOOD COUNT 3.47 10^6/uL (4.30-6.10)
[2017-09-12 08:45] LABS: ANION GAP 7 MEQ/L (8-16); BLOOD UREA NITROGEN 18 MG/DL (7-18); CALCIUM LEVEL 7.9 MG/DL (8.8-10.2); CARBON DIOXIDE LEVEL 26 MEQ/L (21-32); CHLORIDE LEVEL 109 MEQ/L (98-107); CREATININE FOR GFR 1.31 MG/DL (0.70-1.30); GLOMERULAR FILTRATION RATE 55.1 (>35); GLUCOSE, FASTING 70 MG/DL (70-100); POTASSIUM SERUM 3.9 MEQ/L (3.5-5.1); SODIUM LEVEL 142 MEQ/L (136-145)
[2017-09-12] MEDS: PANTOPRAZOLE 40MG TAB (PROTONIX) PO (09:29)
[2017-09-12] MEDS: LACTOBACILLUS ACIDOPHILUS CAP (BACID) PO (09:29)
[2017-09-12] MEDS: predniSONE 5 MG TAB PO (09:29)
[2017-09-12] MEDS: EUCERIN 120GM CREAM TOP ×3 (09:29→20:37)
[2017-09-12] MEDS: MULTIVITAMINS CHILDREN'S CHEWABLE TABLET PO (09:29)
[2017-09-12] MEDS: ASPIRIN 81 MG CHEW TABLET PO (09:29)
[2017-09-12 11:27] LABS: BEDSIDE GLUCOSE 118 MG/DL (83-110)
[2017-09-12 17:23] LABS: BEDSIDE GLUCOSE 94 MG/DL (83-110)
[2017-09-12 20:03] LABS: BEDSIDE GLUCOSE 90 MG/DL (83-110)
[2017-09-12] MEDS: LEVEMIR (INSULIN DETEMIR) 1 UNITS/0.01ML SC (20:38)
[2017-09-13] MEDS: HEPARIN SOD (PORCINE) 5000 UNITS/ML VIAL SC ×2 (05:28→14:05)
[2017-09-13] MEDS: hydrOXYzine 25 MG TAB PO (05:29)
[2017-09-13] MEDS: SODIUM CHLORIDE 0.9% INJ 10 ML SYR IV (05:29)
[2017-09-13 05:44] LABS: HEMATOCRIT 29.1 % (42.0-52.0); HEMOGLOBIN 9.6 g/dl (14.0-18.0); MEAN CORPUSCULAR HEMOGLOBIN 30.5 pg (27.0-33.0); MEAN CORPUSCULAR VOLUME 92.4 fl (80.0-96.0); PLATELET COUNT, AUTOMATED 227 10^3/uL (150-450); RED BLOOD COUNT 3.15 10^6/uL (4.30-6.10); RED CELL DISTRIBUTION WIDTH 13.9 % (11.5-14.5); WHITE BLOOD COUNT 7.7 10^3/uL (4.0-10.0)
[2017-09-13 06:08] LABS: ANION GAP 8 MEQ/L (8-16); BLOOD UREA NITROGEN 20 MG/DL (7-18); CALCIUM LEVEL 7.8 MG/DL (8.8-10.2); CARBON DIOXIDE LEVEL 27 MEQ/L (21-32); CHLORIDE LEVEL 107 MEQ/L (98-107); CREATININE FOR GFR 1.34 MG/DL (0.70-1.30); GLOMERULAR FILTRATION RATE 53.7 (>35); GLUCOSE, FASTING 86 MG/DL (70-100); POTASSIUM SERUM 3.7 MEQ/L (3.5-5.1); SODIUM LEVEL 142 MEQ/L (136-145)
[2017-09-13] MEDS: IPRATROPIUM 0.5MG/ALBUTEROL 2.5MG INH SOL UD 3ML (DUONEB)(J7620) NEB ×2 (07:12→11:09)
[2017-09-13] MEDS: HumaLOG INSULIN (NovoLOG) PER UNIT SC ×2 (07:30→12:52)
[2017-09-13] MEDS: LACTOBACILLUS ACIDOPHILUS CAP (BACID) PO (09:47)
[2017-09-13] MEDS: predniSONE 5 MG TAB PO (09:47)
[2017-09-13] MEDS: PANTOPRAZOLE 40MG TAB (PROTONIX) PO (09:47)
[2017-09-13] MEDS: MULTIVITAMINS CHILDREN'S CHEWABLE TABLET PO (09:47)
[2017-09-13] MEDS: ASPIRIN 81 MG CHEW TABLET PO (09:47)
[2017-09-13] MEDS: EUCERIN 120GM CREAM TOP (09:48)
[2017-09-13 12:13] LABS: BEDSIDE GLUCOSE 122 MG/DL (83-110)
[2017-09-13 12:13] LABS: BEDSIDE GLUCOSE 141 MG/DL (83-110)
== END 2017-09-13 14:40 | DRG 871 ==
LOC: M PCU 09-02 11:14 → M MS5PR 09-08 18:05 → M PCU 09-05 17:25 → M ED 16:49 → M ED INP 19:15 → M ICU 09-02 12:45 → M MSPAV 21:28
PROC: 5A1945Z Respiratory Ventilation, 24-96 Consecutive Hours (ICD-10-PCS; principal; 2017-09-02)
PROC: 02HV33Z Insertion of Infusion Device into Superior Vena Cava, Percutaneous Approach (ICD-10-PCS; 2017-09-02)
DX: A41.9 Sepsis, unspecified organism (principal); G93.41 Metabolic encephalopathy; R65.21 Severe sepsis with septic shock; J96.00 Acute respiratory failure, unspecified whether with hypoxia or hypercapnia; N17.9 Acute kidney failure, unspecified; N39.0 Urinary tract infection, site not specified; E87.0 Hyperosmolality and hypernatremia; I50.32 Chronic diastolic (congestive) heart failure; E27.40 Unspecified adrenocortical insufficiency; B96.4 Proteus (mirabilis) (morganii) as the cause of diseases classified elsewhere; Z79.899 Other long term (current) drug therapy; Z79.82 Long term (current) use of aspirin; J43.9 Emphysema, unspecified; E11.9 Type 2 diabetes mellitus without complications; R13.10 Dysphagia, unspecified; Z86.711 Personal history of pulmonary embolism; F01.50 Vascular dementia, unspecified severity, without behavioral disturbance, psychotic disturbance, mood disturbance, and anxiety; N18.3 Chronic kidney disease, stage 3 (moderate); L40.0 Psoriasis vulgaris; Z88.1 Allergy status to other antibiotic agents; J84.10 Pulmonary fibrosis, unspecified; S12.100D Unspecified displaced fracture of second cervical vertebra, subsequent encounter for fracture with routine healing; W18.30XD Fall on same level, unspecified, subsequent encounter; Y92.009 Unspecified place in unspecified non-institutional (private) residence as the place of occurrence of the external cause

== ENCOUNTER → 2017-09-15 | Outpatient (REF) ==
[2017-09-15 09:29] LABS: ANION GAP 8 MEQ/L (8-16); BLOOD UREA NITROGEN 22 MG/DL (7-18); CALCIUM LEVEL 8.4 MG/DL (8.8-10.2); CARBON DIOXIDE LEVEL 25 MEQ/L (21-32); CHLORIDE LEVEL 107 MEQ/L (98-107); CREATININE FOR GFR 1.32 MG/DL (0.70-1.30); GLOMERULAR FILTRATION RATE 54.6 (>35); GLUCOSE, FASTING 133 MG/DL (70-100); POTASSIUM SERUM 3.8 MEQ/L (3.5-5.1); SODIUM LEVEL 140 MEQ/L (136-145)
== END ==
LOC: SKLAB5 08:00
DX: I50.9 Heart failure, unspecified (principal)

== ENCOUNTER → 2017-09-19 | Outpatient (REF) ==
[2017-09-19 09:36] LABS: ANION GAP 7 MEQ/L (8-16); BLOOD UREA NITROGEN 18 MG/DL (7-18); CALCIUM LEVEL 8.2 MG/DL (8.8-10.2); CARBON DIOXIDE LEVEL 30 MEQ/L (21-32); CHLORIDE LEVEL 103 MEQ/L (98-107); CREATININE FOR GFR 1.26 MG/DL (0.70-1.30); GLOMERULAR FILTRATION RATE 57.6 (>35); GLUCOSE, FASTING 82 MG/DL (70-100); POTASSIUM SERUM 4.3 MEQ/L (3.5-5.1); SODIUM LEVEL 140 MEQ/L (136-145)
== END ==
LOC: SKLAB5 07:46
DX: I50.9 Heart failure, unspecified (principal)

== ENCOUNTER → 2017-09-26 | Outpatient (REF) | payer BC, MEDICARE, OTHER ==
[2017-09-26 09:16] LABS: ANION GAP 8 MEQ/L (8-16); BLOOD UREA NITROGEN 17 MG/DL (7-18); CALCIUM LEVEL 8.5 MG/DL (8.8-10.2); CARBON DIOXIDE LEVEL 29 MEQ/L (21-32); CHLORIDE LEVEL 104 MEQ/L (98-107); CREATININE FOR GFR 1.36 MG/DL (0.70-1.30); GLOMERULAR FILTRATION RATE 52.8 (>35); GLUCOSE, FASTING 114 MG/DL (70-100); POTASSIUM SERUM 3.9 MEQ/L (3.5-5.1); SODIUM LEVEL 141 MEQ/L (136-145)
== END ==
LOC: SKLAB5 07:48
DX: I50.9 Heart failure, unspecified (principal)

== ENCOUNTER → 2017-10-03 | Outpatient (REF) ==
[2017-10-03 14:27] LABS: ANION GAP 5 MEQ/L (8-16); BLOOD UREA NITROGEN 24 MG/DL (7-18); CARBON DIOXIDE LEVEL 31 MEQ/L (21-32); CHLORIDE LEVEL 101 MEQ/L (98-107); GLOMERULAR FILTRATION RATE 43.7 (>35); GLUCOSE, FASTING 174 MG/DL (70-100); POTASSIUM SERUM 4.5 MEQ/L (3.5-5.1); SODIUM LEVEL 137 MEQ/L (136-145)
== END ==
LOC: SKLAB5 07:40
DX: I50.9 Heart failure, unspecified (principal)

== ENCOUNTER → 2017-10-10 | Outpatient (REF) ==
[2017-10-10 10:08] LABS: ANION GAP 7 MEQ/L (8-16); BLOOD UREA NITROGEN 21 MG/DL (7-18); CALCIUM LEVEL 8.3 MG/DL (8.8-10.2); CARBON DIOXIDE LEVEL 29 MEQ/L (21-32); CHLORIDE LEVEL 105 MEQ/L (98-107); CREATININE FOR GFR 1.22 MG/DL (0.70-1.30); GLOMERULAR FILTRATION RATE 59.8 (>35); GLUCOSE, FASTING 120 MG/DL (70-100); POTASSIUM SERUM 3.9 MEQ/L (3.5-5.1); SODIUM LEVEL 141 MEQ/L (136-145)
== END ==
LOC: SKLAB5 07:15
DX: I50.9 Heart failure, unspecified (principal)

== ENCOUNTER → 2017-10-17 | Outpatient (REF) ==
[2017-10-17 09:29] LABS: ANION GAP 10 MEQ/L (8-16); BLOOD UREA NITROGEN 22 MG/DL (7-18); CALCIUM LEVEL 8.6 MG/DL (8.8-10.2); CARBON DIOXIDE LEVEL 25 MEQ/L (21-32); CHLORIDE LEVEL 106 MEQ/L (98-107); CREATININE FOR GFR 1.38 MG/DL (0.70-1.30); GLOMERULAR FILTRATION RATE 51.9 (>35); GLUCOSE, FASTING 146 MG/DL (70-100); SODIUM LEVEL 141 MEQ/L (136-145)
== END ==
LOC: SKLAB5 07:35
DX: I50.9 Heart failure, unspecified (principal)

== ENCOUNTER → 2017-10-24 | Outpatient (REF) ==
[2017-10-24 08:44] LABS: ANION GAP 11 MEQ/L (8-16); BLOOD UREA NITROGEN 25 MG/DL (7-18); CALCIUM LEVEL 8.4 MG/DL (8.8-10.2); CARBON DIOXIDE LEVEL 27 MEQ/L (21-32); CHLORIDE LEVEL 107 MEQ/L (98-107); CREATININE FOR GFR 1.29 MG/DL (0.70-1.30); GLOMERULAR FILTRATION RATE 56.1 (>35); GLUCOSE, FASTING 89 MG/DL (70-100); POTASSIUM SERUM 4.1 MEQ/L (3.5-5.1); SODIUM LEVEL 145 MEQ/L (136-145)
== END ==
LOC: SKLAB5 07:28
DX: I50.9 Heart failure, unspecified (principal)

== ENCOUNTER → 2017-10-31 | Outpatient (REF) | payer BC, MEDICARE, OTHER ==
[2017-10-31 09:56] LABS: ANION GAP 11 MEQ/L (8-16); BLOOD UREA NITROGEN 27 MG/DL (7-18); CALCIUM LEVEL 8.3 MG/DL (8.8-10.2); CARBON DIOXIDE LEVEL 25 MEQ/L (21-32); CHLORIDE LEVEL 106 MEQ/L (98-107); CREATININE FOR GFR 1.38 MG/DL (0.70-1.30); GLOMERULAR FILTRATION RATE 51.9 (>35); GLUCOSE, FASTING 122 MG/DL (70-100); POTASSIUM SERUM 4.3 MEQ/L (3.5-5.1); SODIUM LEVEL 142 MEQ/L (136-145)
== END ==
LOC: SKLAB5 07:27
DX: I50.9 Heart failure, unspecified (principal)

== ENCOUNTER → 2017-11-07 | Outpatient (REF) ==
[2017-11-07 08:18] LABS: ANION GAP 6 MEQ/L (8-16); BLOOD UREA NITROGEN 27 MG/DL (7-18); CALCIUM LEVEL 8.6 MG/DL (8.8-10.2); CARBON DIOXIDE LEVEL 28 MEQ/L (21-32); CHLORIDE LEVEL 107 MEQ/L (98-107); CREATININE FOR GFR 1.43 MG/DL (0.70-1.30); GLOMERULAR FILTRATION RATE 49.8 (>35); GLUCOSE, FASTING 114 MG/DL (70-100); POTASSIUM SERUM 4.2 MEQ/L (3.5-5.1); SODIUM LEVEL 141 MEQ/L (136-145)
== END ==
LOC: SKLAB5 08:04
DX: I50.9 Heart failure, unspecified (principal)

== ENCOUNTER → 2017-11-21 | Outpatient (REF) ==
[2017-11-21 08:24] LABS: ANION GAP 7 MEQ/L (8-16); BLOOD UREA NITROGEN 30 MG/DL (7-18); CALCIUM LEVEL 8.9 MG/DL (8.8-10.2); CARBON DIOXIDE LEVEL 28 MEQ/L (21-32); CHLORIDE LEVEL 105 MEQ/L (98-107); CREATININE FOR GFR 1.47 MG/DL (0.70-1.30); GLOMERULAR FILTRATION RATE 48.2 (>35); GLUCOSE, FASTING 116 MG/DL (70-100); POTASSIUM SERUM 4.4 MEQ/L (3.5-5.1); SODIUM LEVEL 140 MEQ/L (136-145)
== END ==
LOC: SKLAB5 07:25
DX: I50.9 Heart failure, unspecified (principal)

== ENCOUNTER → 2017-11-28 | Outpatient (REF) ==
[2017-11-28 08:28] LABS: ANION GAP 7 MEQ/L (8-16); BLOOD UREA NITROGEN 31 MG/DL (7-18); CALCIUM LEVEL 8.3 MG/DL (8.8-10.2); CARBON DIOXIDE LEVEL 29 MEQ/L (21-32); CHLORIDE LEVEL 107 MEQ/L (98-107); GLOMERULAR FILTRATION RATE 47.1 (>35); GLUCOSE, FASTING 95 MG/DL (70-100); POTASSIUM SERUM 4.3 MEQ/L (3.5-5.1); SODIUM LEVEL 143 MEQ/L (136-145)
== END ==
LOC: SKLAB5 08:51
DX: I50.9 Heart failure, unspecified (principal)

== ENCOUNTER → 2017-12-05 | Outpatient (REF) ==
[2017-12-05 09:19] LABS: ANION GAP 7 MEQ/L (8-16); BLOOD UREA NITROGEN 37 MG/DL (7-18); CALCIUM LEVEL 8.4 MG/DL (8.8-10.2); CARBON DIOXIDE LEVEL 28 MEQ/L (21-32); CHLORIDE LEVEL 107 MEQ/L (98-107); CREATININE FOR GFR 1.51 MG/DL (0.70-1.30); GLOMERULAR FILTRATION RATE 46.8 (>35); GLUCOSE, FASTING 87 MG/DL (70-100); POTASSIUM SERUM 3.8 MEQ/L (3.5-5.1); SODIUM LEVEL 142 MEQ/L (136-145)
== END ==
LOC: SKLAB5 06:17
DX: I50.9 Heart failure, unspecified (principal)

== ENCOUNTER → 2017-12-12 | Outpatient (REF) ==
[2017-12-12 07:20] LABS: ANION GAP 6 MEQ/L (8-16); BLOOD UREA NITROGEN 32 MG/DL (7-18); CALCIUM LEVEL 8.6 MG/DL (8.8-10.2); CARBON DIOXIDE LEVEL 30 MEQ/L (21-32); CHLORIDE LEVEL 105 MEQ/L (98-107); CREATININE FOR GFR 1.48 MG/DL (0.70-1.30); GLOMERULAR FILTRATION RATE 47.9 (>35); GLUCOSE, FASTING 114 MG/DL (70-100); POTASSIUM SERUM 4.4 MEQ/L (3.5-5.1); SODIUM LEVEL 141 MEQ/L (136-145)
== END ==
LOC: SKLAB5 07:51
DX: I50.9 Heart failure, unspecified (principal)

== ENCOUNTER → 2017-12-19 | Outpatient (REF) ==
[2017-12-19 09:31] LABS: ANION GAP 6 MEQ/L (8-16); BLOOD UREA NITROGEN 29 MG/DL (7-18); CALCIUM LEVEL 8.6 MG/DL (8.8-10.2); CARBON DIOXIDE LEVEL 29 MEQ/L (21-32); CHLORIDE LEVEL 106 MEQ/L (98-107); CREATININE FOR GFR 1.52 MG/DL (0.70-1.30); GLOMERULAR FILTRATION RATE 46.4 (>35); GLUCOSE, FASTING 149 MG/DL (70-100); POTASSIUM SERUM 4.4 MEQ/L (3.5-5.1); SODIUM LEVEL 141 MEQ/L (136-145)
== END ==
LOC: SKLAB5 14:26
DX: I50.9 Heart failure, unspecified (principal)

== ENCOUNTER → 2017-12-26 | Outpatient (REF) ==
[2017-12-26 09:32] LABS: ANION GAP 6 MEQ/L (8-16); BLOOD UREA NITROGEN 26 MG/DL (7-18); CALCIUM LEVEL 8.5 MG/DL (8.8-10.2); CARBON DIOXIDE LEVEL 31 MEQ/L (21-32); CHLORIDE LEVEL 105 MEQ/L (98-107); CREATININE FOR GFR 1.48 MG/DL (0.70-1.30); GLOMERULAR FILTRATION RATE 47.9 (>35); GLUCOSE, FASTING 83 MG/DL (70-100); POTASSIUM SERUM 4.1 MEQ/L (3.5-5.1); SODIUM LEVEL 142 MEQ/L (136-145)
== END ==
LOC: SKLAB5 08:05
DX: I50.9 Heart failure, unspecified (principal)

== ENCOUNTER → 2018-01-03 | Outpatient (REF) ==
[2018-01-03 10:48] LABS: ANION GAP 9 MEQ/L (8-16); BLOOD UREA NITROGEN 30 MG/DL (7-18); CALCIUM LEVEL 8.8 MG/DL (8.8-10.2); CARBON DIOXIDE LEVEL 27 MEQ/L (21-32); CHLORIDE LEVEL 104 MEQ/L (98-107); CREATININE FOR GFR 1.65 MG/DL (0.70-1.30); GLOMERULAR FILTRATION RATE 42.2 (>35); GLUCOSE, FASTING 171 MG/DL (70-100); POTASSIUM SERUM 4.2 MEQ/L (3.5-5.1); SODIUM LEVEL 140 MEQ/L (136-145)
== END ==
LOC: SKLAB5 09:58
DX: I50.9 Heart failure, unspecified (principal)

== ENCOUNTER → 2018-01-09 | Outpatient (REF) | payer MEDICARE, BC, OTHER ==
[2018-01-09 08:52] LABS: ANION GAP 6 MEQ/L (8-16); BLOOD UREA NITROGEN 36 MG/DL (7-18); CALCIUM LEVEL 8.4 MG/DL (8.8-10.2); CARBON DIOXIDE LEVEL 30 MEQ/L (21-32); CHLORIDE LEVEL 106 MEQ/L (98-107); CREATININE FOR GFR 1.65 MG/DL (0.70-1.30); GLOMERULAR FILTRATION RATE 42.2 (>35); GLUCOSE, FASTING 105 MG/DL (70-100); POTASSIUM SERUM 4.2 MEQ/L (3.5-5.1); SODIUM LEVEL 142 MEQ/L (136-145)
== END ==
LOC: SKLAB5 07:34
DX: I50.9 Heart failure, unspecified (principal)
CPT/HCPCS: 36415

== ENCOUNTER → 2018-01-12 | Outpatient (REF) | payer MEDICARE, BC, OTHER ==
[2018-01-12 08:20] LABS: ANION GAP 7 MEQ/L (8-16); BLOOD UREA NITROGEN 31 MG/DL (7-18); CALCIUM LEVEL 8.4 MG/DL (8.8-10.2); CARBON DIOXIDE LEVEL 29 MEQ/L (21-32); CHLORIDE LEVEL 107 MEQ/L (98-107); CREATININE FOR GFR 1.55 MG/DL (0.70-1.30); GLOMERULAR FILTRATION RATE 45.4 (>35); GLUCOSE, FASTING 105 MG/DL (70-100); POTASSIUM SERUM 4.1 MEQ/L (3.5-5.1); SODIUM LEVEL 143 MEQ/L (136-145)
== END ==
LOC: SKLAB5 13:13
DX: I50.9 Heart failure, unspecified (principal)
CPT/HCPCS: 36415

== ENCOUNTER → 2018-01-16 | Outpatient (REF) | payer MEDICARE, BC, OTHER ==
[2018-01-16 09:14] LABS: ANION GAP 7 MEQ/L (8-16); BLOOD UREA NITROGEN 34 MG/DL (7-18); CALCIUM LEVEL 8.4 MG/DL (8.8-10.2); CARBON DIOXIDE LEVEL 27 MEQ/L (21-32); CHLORIDE LEVEL 107 MEQ/L (98-107); CREATININE FOR GFR 1.56 MG/DL (0.70-1.30); GLUCOSE, FASTING 144 MG/DL (70-100); POTASSIUM SERUM 3.9 MEQ/L (3.5-5.1); SODIUM LEVEL 141 MEQ/L (136-145)
== END ==
LOC: SKLAB5 13:12
DX: I50.9 Heart failure, unspecified (principal)
CPT/HCPCS: 36415

== ENCOUNTER → 2018-01-23 | Outpatient (REF) | payer MEDICARE, BC, OTHER ==
[2018-01-23 08:40] LABS: ANION GAP 7 MEQ/L (8-16); BLOOD UREA NITROGEN 31 MG/DL (7-18); CALCIUM LEVEL 9.3 MG/DL (8.8-10.2); CARBON DIOXIDE LEVEL 28 MEQ/L (21-32); CHLORIDE LEVEL 107 MEQ/L (98-107); CREATININE FOR GFR 1.71 MG/DL (0.70-1.30); GLOMERULAR FILTRATION RATE 40.5 (>35); GLUCOSE, FASTING 165 MG/DL (70-100); POTASSIUM SERUM 4.1 MEQ/L (3.5-5.1); SODIUM LEVEL 142 MEQ/L (136-145)
== END ==
LOC: SKLAB5 08:05
DX: I50.9 Heart failure, unspecified (principal)
CPT/HCPCS: 36415

== ENCOUNTER → 2018-01-30 | Outpatient (REF) | payer MEDICARE, BC, OTHER ==
[2018-01-30 08:51] LABS: ANION GAP 5 MEQ/L (8-16); BLOOD UREA NITROGEN 31 MG/DL (7-18); CALCIUM LEVEL 8.3 MG/DL (8.8-10.2); CARBON DIOXIDE LEVEL 32 MEQ/L (21-32); CHLORIDE LEVEL 106 MEQ/L (98-107); CREATININE FOR GFR 1.51 MG/DL (0.70-1.30); GLOMERULAR FILTRATION RATE 46.8 (>35); GLUCOSE, FASTING 96 MG/DL (70-100); POTASSIUM SERUM 4.7 MEQ/L (3.5-5.1); SODIUM LEVEL 143 MEQ/L (136-145)
== END ==
LOC: SKLAB5 07:37
DX: I50.9 Heart failure, unspecified (principal)
CPT/HCPCS: 36415

== ENCOUNTER → 2018-02-06 | Outpatient (REF) | payer MEDICARE, BC, OTHER ==
[2018-02-06 09:03] LABS: ANION GAP 7 MEQ/L (8-16); BLOOD UREA NITROGEN 34 MG/DL (7-18); CALCIUM LEVEL 8.4 MG/DL (8.8-10.2); CARBON DIOXIDE LEVEL 30 MEQ/L (21-32); CHLORIDE LEVEL 105 MEQ/L (98-107); CREATININE FOR GFR 1.51 MG/DL (0.70-1.30); GLOMERULAR FILTRATION RATE 46.8 (>35); GLUCOSE, FASTING 98 MG/DL (70-100); POTASSIUM SERUM 4.4 MEQ/L (3.5-5.1); SODIUM LEVEL 142 MEQ/L (136-145)
== END ==
LOC: SKLAB5 07:32
DX: I50.9 Heart failure, unspecified (principal)
CPT/HCPCS: 80048

== ENCOUNTER → 2018-02-13 | Outpatient (REF) | payer MEDICARE, BC, OTHER ==
[2018-02-13 09:08] LABS: ANION GAP 9 MEQ/L (8-16); BLOOD UREA NITROGEN 33 MG/DL (7-18); CALCIUM LEVEL 8.5 MG/DL (8.8-10.2); CARBON DIOXIDE LEVEL 27 MEQ/L (21-32); CHLORIDE LEVEL 105 MEQ/L (98-107); CREATININE FOR GFR 1.53 MG/DL (0.70-1.30); GLOMERULAR FILTRATION RATE 46.1 (>35); GLUCOSE, FASTING 108 MG/DL (70-100); POTASSIUM SERUM 4.2 MEQ/L (3.5-5.1); SODIUM LEVEL 141 MEQ/L (136-145)
== END ==
LOC: SKLAB5 09:05
DX: I50.9 Heart failure, unspecified (principal)
CPT/HCPCS: 80048

== ENCOUNTER → 2018-02-20 | Outpatient (REF) | payer MEDICARE, BC, OTHER ==
[2018-02-20 09:37] LABS: BASO % 0.3 % (0.0-1.0); EOS # 1.1 10^3/uL (0.0-0.50); EOS % 9.5 % (0.0-3.0); HEMATOCRIT 41.6 % (42.0-52.0); HEMOGLOBIN 13.8 g/dl (13.5-17.5); IMMATURE GRANULOCYTE % 0.6 % (0-3.0); LYMPH # 1.3 10^3/uL (1.5-4.5); LYMPH % 10.7 % (24.0-44.0); MEAN CORPUSCULAR HEMOGLOBIN 30.8 pg (27.0-33.0); MEAN CORPUSCULAR HGB CONC 33.2 g/dl (32.0-36.5); MEAN CORPUSCULAR VOLUME 92.9 fl (80.0-96.0); MONO % 8.2 % (0.0-5.0); NEUTROPHILS # 8.4 10^3/uL (1.8-7.7); NEUTROPHILS % 70.7 % (36.0-66.0); PLATELET COUNT, AUTOMATED 191 10^3/uL (150-450); RED BLOOD COUNT 4.48 10^6/uL (4.30-6.10); RED CELL DISTRIBUTION WIDTH 15.7 % (11.5-14.5); WHITE BLOOD COUNT 11.9 10^3/uL (4.0-10.0)
[2018-02-20 09:57] LABS: ALBUMIN 3.1 GM/DL (3.2-5.2); ANION GAP 9 MEQ/L (8-16); BLOOD UREA NITROGEN 35 MG/DL (7-18); CALCIUM LEVEL 8.7 MG/DL (8.8-10.2); CARBON DIOXIDE LEVEL 28 MEQ/L (21-32); CHLORIDE LEVEL 105 MEQ/L (98-107); CREATININE FOR GFR 1.61 MG/DL (0.70-1.30); GLOMERULAR FILTRATION RATE 43.4 (>35); GLUCOSE, FASTING 155 MG/DL (70-100); MAGNESIUM LEVEL 1.9 MG/DL (1.8-2.4); PHOSPHORUS LEVEL 3.2 MG/DL (2.5-4.9); POTASSIUM SERUM 4.2 MEQ/L (3.5-5.1); SODIUM LEVEL 142 MEQ/L (136-145)
[2018-02-20 10:35] LABS: ESTIMATED AVERAGE GLUCOSE 148 MG/DL (60-110); HEMOGLOBIN A1c 6.8 %
== END ==
LOC: SKLAB5 11:55
DX: I50.9 Heart failure, unspecified (principal); Z79.899 Other long term (current) drug therapy
CPT/HCPCS: 71045

== ENCOUNTER → 2018-02-21 | Outpatient (REF) | payer MEDICARE, BC, OTHER ==
[2018-02-21 10:08] LABS: AMORPHOUS SEDIMENT MODERATE (NEGATIVE); APPEARANCE, URINE CLOUDY (CLEAR); BACTERIA, URINE AUTO 1+ (NEGATIVE); BILIRUBIN, URINE AUTO NEGATIVE (NEGATIVE); BLOOD, URINE BLOOD 1+ (NEGATIVE); COLOR, URINE YELLOW (YELLOW); GLUCOSE, URINE (UA) AUTO NEGATIVE (NEGATIVE); KETONE, URINE AUTO NEGATIVE (NEGATIVE); LEUKOCYTE ESTERASE, URINE AUTO 3+ (NEGATIVE); MUCUS, URINE SMALL (NEGATIVE); NITRITE, URINE AUTO POSITIVE (NEGATIVE); PROTEIN, URINE AUTO 1+ mg/dL (NEGATIVE); RBC, URINE AUTO 42 /HPF (0-3); SPECIFIC GRAVITY URINE AUTO 1.015 (1.002-1.035); SQUAMOUS EPITHELIAL CELL UR AU 1 /HPF (0-6); UROBILINOGEN, URINE AUTO 0.2 mg/dL (0.0-2.0); WBC, URINE AUTO TNTC /HPF (0-3)
[2018-02-21 11:13] LABS: CREATININE, URINE 66.4 MG/DL; MAU/CREAT RATIO 164.1 MCG/MG (0.0-30.0)
== END ==
LOC: SKLAB5 08:00
DX: E11.9 Type 2 diabetes mellitus without complications (principal); D64.9 Anemia, unspecified; N18.9 Chronic kidney disease, unspecified
CPT/HCPCS: 82043

== ENCOUNTER → 2018-05-11 | Outpatient (REF) | payer MEDICARE, BC, OTHER ==
[2018-05-11 09:24] LABS: BASO # 0.1 10^3/uL (0.0-0.2); BASO % 0.5 % (0.0-1.0); EOS # 1.3 10^3/uL (0.0-0.50); EOS % 13.7 % (0.0-3.0); HEMATOCRIT 38.6 % (42.0-52.0); HEMOGLOBIN 12.6 g/dl (13.5-17.5); IMMATURE GRANULOCYTE % 0.6 % (0-3.0); LYMPH # 1.3 10^3/uL (1.5-4.5); LYMPH % 13.4 % (24.0-44.0); MEAN CORPUSCULAR HEMOGLOBIN 30.3 pg (27.0-33.0); MEAN CORPUSCULAR HGB CONC 32.6 g/dl (32.0-36.5); MEAN CORPUSCULAR VOLUME 92.8 fl (80.0-96.0); MONO # 0.9 10^3/uL (0.0-0.8); MONO % 9.6 % (0.0-5.0); NEUTROPHILS # 5.9 10^3/uL (1.8-7.7); NEUTROPHILS % 62.2 % (36.0-66.0); PLATELET COUNT, AUTOMATED 192 10^3/uL (150-450); RED BLOOD COUNT 4.16 10^6/uL (4.30-6.10); RED CELL DISTRIBUTION WIDTH 13.2 % (11.5-14.5); WHITE BLOOD COUNT 9.5 10^3/uL (4.0-10.0)
[2018-05-11 10:09] LABS: ANION GAP 8 MEQ/L (8-16); BLOOD UREA NITROGEN 38 MG/DL (7-18); CALCIUM LEVEL 8.4 MG/DL (8.8-10.2); CARBON DIOXIDE LEVEL 28 MEQ/L (21-32); CHLORIDE LEVEL 105 MEQ/L (98-107); CREATININE FOR GFR 1.68 MG/DL (0.70-1.30); GLOMERULAR FILTRATION RATE 41.4 (>35); GLUCOSE, FASTING 100 MG/DL (70-100); POTASSIUM SERUM 4.5 MEQ/L (3.5-5.1); SODIUM LEVEL 141 MEQ/L (136-145)
[2018-05-11 10:22] LABS: ESTIMATED AVERAGE GLUCOSE 151 MG/DL (60-110); HEMOGLOBIN A1c 6.9 %
== END ==
LOC: SKLAB5 08:11
DX: I50.9 Heart failure, unspecified (principal); Z79.899 Other long term (current) drug therapy
CPT/HCPCS: 83036

== ENCOUNTER → 2018-08-10 | Outpatient (REF) | payer MEDICARE, BC, OTHER ==
[~2018-08-10] MED LIST changes: -ACET1TAB17 PO; +ACET1TAB55 PO; +ASPI1TAB PO; +ASPI81CH3 PO; -DRIS50002 PO; +DRIS50003 PO; +FEVE650S3 PR; +FLOM0.4C39 PO; -FLOM5CAP PO; +GLUC1INJ21 SC; +GLUC1KIT SQ; -GLUC1VL SC; -GLUC4CHW PO; +GLUC4CHW19 PO; +GUAI100S29 PO; +HYDR-3713 PO; +INSUDET SC; +IPRA0.00 INH; +IPRA0.00 NEB; -IPRASOL4 INH; -IPRASOL4 NEB; +KLOR10TA76 PO; +LEXA1TAB PO; +MILK12002 PO; -MILKSUS PO; +OMEP20CA3 PO; -PANT40TA2 PO; +PANT40TA3 PO; -POTA10CA PO; +PRED5TA PO; +SPIR-10 PO; +ZYRT10CA5 PO; -ZYRT10TA2 PO
[2018-08-10 08:30] LABS: BASO % 0.4 % (0.0-1.0); EOS % 10.2 % (0.0-3.0); HEMATOCRIT 38.6 % (42.0-52.0); HEMOGLOBIN 12.7 g/dl (13.5-17.5); LYMPH # 1.4 10^3/uL (1.5-4.5); LYMPH % 13.8 % (24.0-44.0); MEAN CORPUSCULAR HEMOGLOBIN 29.5 pg (27.0-33.0); MEAN CORPUSCULAR HGB CONC 32.9 g/dl (32.0-36.5); MEAN CORPUSCULAR VOLUME 89.6 fl (80.0-96.0); MONO # 0.9 10^3/uL (0.0-0.8); MONO % 8.9 % (0.0-5.0); NEUTROPHILS # 6.6 10^3/uL (1.8-7.7); NEUTROPHILS % 66.1 % (36.0-66.0); PLATELET COUNT, AUTOMATED 193 10^3/uL (150-450); RED BLOOD COUNT 4.31 10^6/uL (4.30-6.10)
[2018-08-10 08:58] LABS: CALCIUM LEVEL 8.3 MG/DL (8.8-10.2); CREATININE FOR GFR 1.62 MG/DL (0.70-1.30); POTASSIUM SERUM 4.1 MEQ/L (3.5-5.1)
[2018-08-10 08:59] LABS: HEMOGLOBIN A1c 7.9 %
== END ==
LOC: SKLAB5 08:02
PROVIDERS: ATTEND Family Medicine
DX: I50.9 Heart failure, unspecified (principal); E11.9 Type 2 diabetes mellitus without complications

== ENCOUNTER → 2018-08-14 | Outpatient (REF) | payer MEDICARE, BC, OTHER | LOC: SKLAB5 08:54 | PROVIDERS: ATTEND Family Medicine | DX: Z22.322 Carrier or suspected carrier of Methicillin resistant Staphylococcus aureus (principal) ==

== ENCOUNTER → 2018-08-24 | Outpatient (REF) | payer MEDICARE, BC, OTHER ==
[~2018-08-24] MED LIST changes: -ENEMENE16 PR; +ENEMENE4 PR; +GLIP10TA18 PO; -GLIP1TAB49 PO; -GLIP1TAB51 PO; +GLIP5TAB20 PO; +MILK120011 PO; -MILK12002 PO
[2018-08-24 08:43] LABS: BASO % 0.3 % (0.0-1.0); HEMATOCRIT 37.1 % (42.0-52.0); HEMOGLOBIN 11.9 g/dl (13.5-17.5); LYMPH # 1.3 10^3/uL (1.5-4.5); MEAN CORPUSCULAR HEMOGLOBIN 29.6 pg (27.0-33.0); MEAN CORPUSCULAR HGB CONC 32.1 g/dl (32.0-36.5); MEAN CORPUSCULAR VOLUME 92.3 fl (80.0-96.0); MONO # 0.8 10^3/uL (0.0-0.8); MONO % 9.8 % (0.0-5.0); NEUTROPHILS # 5.4 10^3/uL (1.8-7.7); NEUTROPHILS % 63.1 % (36.0-66.0); PLATELET COUNT, AUTOMATED 157 10^3/uL (150-450); RED BLOOD COUNT 4.02 10^6/uL (4.30-6.10); WHITE BLOOD COUNT 8.6 10^3/uL (4.0-10.0)
[2018-08-24 09:11] LABS: ALBUMIN 2.8 GM/DL (3.2-5.2); CALCIUM LEVEL 8.3 MG/DL (8.8-10.2); CREATININE FOR GFR 1.55 MG/DL (0.70-1.30); GLOMERULAR FILTRATION RATE 45.3 (>35); POTASSIUM SERUM 4.2 MEQ/L (3.5-5.1); URIC ACID 5.9 MG/DL (3.5-7.2)
[2018-08-24 09:52] LABS: PTH INTACT 52.3 PG/ML (18.5-88.0)
== END ==
LOC: SKLAB5 09:33
PROVIDERS: ATTEND Family Medicine
DX: N18.3 Chronic kidney disease, stage 3 (moderate) (principal)

== ENCOUNTER → 2018-09-08 | Outpatient (REF) | payer MEDICARE, BC, OTHER | LOC: SKLAB5 14:18 | PROVIDERS: ATTEND Family Medicine | DX: Z22.322 Carrier or suspected carrier of Methicillin resistant Staphylococcus aureus (principal) ==

== ENCOUNTER → 2018-10-06 | Outpatient (REF) | payer MEDICARE, BC, OTHER ==
--- NOTE | 2018-10-06 14:59 | REP ---
Clinical: Cough. Comparison: 02/20/2018. Findings: Mediastinum and cardiac silhouette are stable. Lung miles demonstrate diffuse chronic interstitial changes similar to prior examination. No obvious acute consolidation. No definite acute effusion. No pneumothorax. Skeletal structures intact. Impression: Chronic stable changes similar to 02/20/2018. No obvious acute process identified. Electronically Signed by Deven Tobias MD 10/06/2018 02:50 P
== END ==
LOC: SKLAB5 12:58
PROVIDERS: ATTEND Family Medicine
DX: R05 Cough (principal)

== ENCOUNTER → 2018-10-13 | Outpatient (REF) | payer MEDICARE, BC, OTHER ==
--- NOTE | 2018-10-14 07:55 | REP ---
Portable chest, single AP semi upright view, 07:06 p.m.: Comparisons are 02/20/2018 and 10/06/2018: There are chronic stable changes. There is a focal parenchymal scar in the left costophrenic angle, unchanged. There are no acute infiltrates or pleural effusions. The cardiomediastinal silhouette and skeletal structures are unchanged unremarkable. Impression: Chronic stable findings. No acute cardiopulmonary findings. Electronically Signed by Candido Sparks MD 10/14/2018 07:47 A
== END ==
LOC: SKLAB5 18:40
PROVIDERS: ATTEND Family Medicine
DX: R07.89 Other chest pain (principal)

== ENCOUNTER → 2018-11-03 | Outpatient (REF) | payer MEDICARE, BC, OTHER | LOC: SKLAB5 14:14 | PROVIDERS: ATTEND Family Medicine | DX: A49.02 Methicillin resistant Staphylococcus aureus infection, unspecified site (principal) ==

== ENCOUNTER → 2019-03-01 | Outpatient (REF) | payer MEDICARE, BC, OTHER ==
[~2019-03-01] MED LIST changes: -/MOXI40TA; -/TAMS4CA; -/TAMS4CA PO; -/WARF25TA PO; -/WARF2TA PO; -/WARF4TA; -ASPI1TAB PO; -ASPI81CH3 PO; +ASPI81CH48 PO; +ASPI81TA26 PO; +AVEL1TAB2; +CITR1SOL PO; +COUM1TAB14; +COUM1TAB16 PO; +COUM1TAB18 PO; +FLOM0.4C39; -MAGNSO PO; -OMEP20CA3 PO; +OMEP20CA4 PO; +PRED-351 PO; -PRED10TA PO
[2019-03-01 07:30] LABS: BASO % 0.3 % (0.0-1.0); EOS # 0.8 10^3/uL (0.0-0.50); EOS % 8.3 % (0.0-3.0); HEMATOCRIT 35.7 % (42.0-52.0); HEMOGLOBIN 11.7 g/dl (13.5-17.5); LYMPH # 1.3 10^3/uL (1.5-4.5); MEAN CORPUSCULAR HEMOGLOBIN 30.2 pg (27.0-33.0); MEAN CORPUSCULAR HGB CONC 32.8 g/dl (32.0-36.5); MEAN CORPUSCULAR VOLUME 92.2 fl (80.0-96.0); MONO # 0.9 10^3/uL (0.0-0.8); MONO % 9.4 % (0.0-5.0); NEUTROPHILS # 6.3 10^3/uL (1.8-7.7); NEUTROPHILS % 67.2 % (36.0-66.0); PLATELET COUNT, AUTOMATED 150 10^3/uL (150-450); RED BLOOD COUNT 3.87 10^6/uL (4.30-6.10); WHITE BLOOD COUNT 9.3 10^3/uL (4.0-10.0)
[2019-03-01 08:00] LABS: ALBUMIN 2.8 GM/DL (3.2-5.2); CALCIUM LEVEL 8.6 MG/DL (8.8-10.2); CREATININE FOR GFR 1.57 MG/DL (0.70-1.30); GLOMERULAR FILTRATION RATE 44.6 (>35); PERCENT SATURATION 17.6 % (19.7-50.0); PHOSPHORUS LEVEL 2.9 MG/DL (2.5-4.9); POTASSIUM SERUM 4.5 MEQ/L (3.5-5.1)
[2019-03-01 08:01] LABS: HEMOGLOBIN A1c 9.3 %
== END ==
LOC: SKLAB5 08:22
PROVIDERS: ATTEND Family Medicine
DX: N18.3 Chronic kidney disease, stage 3 (moderate) (principal); D64.9 Anemia, unspecified; E11.9 Type 2 diabetes mellitus without complications

== ENCOUNTER → 2019-04-20 | Outpatient (REF) | payer MEDICARE, BC, OTHER ==
[~2019-04-20] MED LIST changes: +ALL10TAB29 PO; +APAP325T4 PO; +CEFP200T PO; +ENEMENE22 PR; +GLUC1KIT IM; -GLUC1KIT SQ; +GLUC1LIQ7 PO; +GUAI5LIQ PO; +JUVEPOW3 PO; +MOM30SS2 PO; +NOVOINJ SC; +OMEP1CAP73 PO; -OMEP20CA4 PO
[2019-04-20 15:27] LABS: CALCIUM LEVEL 8.9 MG/DL (8.8-10.2); CREATININE FOR GFR 1.85 MG/DL (0.70-1.30); GLOMERULAR FILTRATION RATE 36.9 (>35); POTASSIUM SERUM 4.8 MEQ/L (3.5-5.1)
== END ==
LOC: SKLAB5 14:25
PROVIDERS: ATTEND Family Medicine
DX: R63.8 Other symptoms and signs concerning food and fluid intake (principal)

== ENCOUNTER → 2019-05-10 | Outpatient (REF) | payer MEDICARE, BC, OTHER ==
[2019-05-10 08:23] LABS: BASO % 0.3 % (0.0-1.0); EOS # 0.7 10^3/uL (0.0-0.5); EOS % 7.5 % (0.0-3.0); HEMATOCRIT 36.2 % (42.0-52.0); HEMOGLOBIN 11.8 g/dl (13.5-17.5); LYMPH # 1.4 10^3/uL (1.5-5.0); MEAN CORPUSCULAR HEMOGLOBIN 29.7 pg (27.0-33.0); MEAN CORPUSCULAR HGB CONC 32.6 g/dl (32.0-36.5); MEAN CORPUSCULAR VOLUME 91.2 fl (80.0-96.0); MONO # 0.8 10^3/uL (0.0-0.8); MONO % 8.7 % (0.0-5.0); NEUTROPHILS # 6.3 10^3/uL (1.5-8.5); NEUTROPHILS % 67.3 % (36.0-66.0); PLATELET COUNT, AUTOMATED 178 10^3/uL (150-450); RED BLOOD COUNT 3.97 10^6/uL (4.30-6.10); WHITE BLOOD COUNT 9.4 10^3/uL (4.0-10.0)
[2019-05-10 08:45] LABS: CALCIUM LEVEL 8.5 MG/DL (8.8-10.2); CREATININE FOR GFR 1.62 MG/DL (0.70-1.30); POTASSIUM SERUM 4.1 MEQ/L (3.5-5.1)
[2019-05-10 08:46] LABS: HEMOGLOBIN A1c 9.2 %
== END ==
LOC: SKLAB5 08:23
PROVIDERS: ATTEND Family Medicine
DX: N18.9 Chronic kidney disease, unspecified (principal); E11.9 Type 2 diabetes mellitus without complications

== ENCOUNTER 2019-07-31 11:41 | Inpatient (IN) | payer MEDICARE, BC, OTHER ==
[~2019-07-31 11:41] MED LIST changes: -ALL10TAB29 PO; -APAP325T4 PO; -CEFP200T PO; -ENEMENE22 PR; -GLUC1LIQ7 PO; -GUAI5LIQ PO; -JUVEPOW3 PO; -MOM30SS2 PO; -NOVOINJ SC; +OMEP-172 PO; -OMEP1CAP73 PO
[2019-07-31 12:27] LABS: INR 1.43; PARTIAL THROMBOPLASTIN TIME 30.9 SECONDS (25.0-38.4); PROTHROMBIN TIME 17.1 SECONDS (11.8-14.0)
[2019-07-31 12:36] LABS: ALBUMIN 2.4 GM/DL (3.2-5.2); BILIRUBIN,DIRECT 0.2 MG/DL (0.0-0.2); BILIRUBIN,TOTAL 0.4 MG/DL (0.2-1.0); C REACTIVE PROTEIN QUANTITATIV 14.7 MG/DL (0.00-0.30); CALCIUM LEVEL 8.8 MG/DL (8.8-10.2); CK-MB VALUE MASS 3.7 NG/ML (<3.6); CREATININE FOR GFR 2.14 MG/DL (0.70-1.30); GLOMERULAR FILTRATION RATE 31.1 (>35); MB/CK RELATIVE INDEX 1.84 (< OR =4); POTASSIUM SERUM 4.2 MEQ/L (3.5-5.1); TOTAL PROTEIN 7.9 GM/DL (6.4-8.2); TROPONIN I 0.04 NG/ML (< 0.10)
--- NOTE | 2019-07-31 12:39 | REP ---
Clinical: Sepsis . Comparison: 10/13/2018 . Findings: The mediastinum and cardiac silhouette are stable and within normal limits for portable technique. The lung miles demonstrate chronic interstitial changes without acute consolidation, effusion, or pneumothorax. Skeletal structures are intact. Impression: Chronic stable changes. No obvious acute consolidation or effusion. Electronically Signed by Deven Tobias MD 07/31/2019 12:31 P
[2019-07-31] MEDS ORDERED: LIDOCAINE 2% 5ML JELLY UROJET TOP ONE (12:45)
[2019-07-31] MEDS ORDERED: NS 1,000 ML IV ONE (12:45)
[2019-07-31] MEDS ORDERED: NOVOINJ SC ×2 (13:01)
[2019-07-31] MEDS ORDERED: APAP325T4 PO (13:01)
[2019-07-31] MEDS ORDERED: ENEMENE22 PR (13:01)
[2019-07-31] MEDS ORDERED: GUAI5LIQ PO (13:01)
[2019-07-31] MEDS ORDERED: INSUDET SC (13:01)
[2019-07-31] MEDS ORDERED: GLUC1LIQ7 PO (13:01)
[2019-07-31] MEDS ORDERED: ALL10TAB29 PO (13:01)
[2019-07-31] MEDS ORDERED: JUVEPOW3 PO (13:01)
[2019-07-31] MEDS ORDERED: MOM30SS2 PO (13:01)
[2019-07-31] MEDS ORDERED: HYDR-3713 PO (13:01)
[2019-07-31 13:05] LABS: BASO % 0.2 % (0.0-1.0); EOS # 0.5 10^3/uL (0.0-0.5); EOS % 2.6 % (0.0-3.0); HEMOGLOBIN 11.9 g/dl (13.5-17.5); LYMPH # 0.7 10^3/uL (1.5-5.0); LYMPH % 4.2 % (24.0-44.0); MEAN CORPUSCULAR HEMOGLOBIN 28.4 pg (27.0-33.0); MEAN CORPUSCULAR HGB CONC 29.8 g/dl (32.0-36.5); MEAN CORPUSCULAR VOLUME 95.5 fl (80.0-96.0); MONO # 1.4 10^3/uL (0.0-0.8); MONO % 7.9 % (0.0-5.0); NEUTROPHILS # 14.9 10^3/uL (1.5-8.5); NEUTROPHILS % 83.9 % (36.0-66.0); PLATELET COUNT, AUTOMATED 220 10^3/uL (150-450); RED BLOOD COUNT 4.19 10^6/uL (4.30-6.10); WHITE BLOOD COUNT 17.8 10^3/uL (4.0-10.0)
--- NOTE | 2019-07-31 13:29 | REP ---
Clinical: Abdominal pain. Diverticulitis. Technique: Axial noncontrast images from the lung bases to the pubic symphysis with coronal and sagittal re-formations. Comparison: 10/14/2016 Findings: Lung bases demonstrate chronic changes and subtle basilar atelectasis cannot be excluded (left greater than right). Liver, spleen, pancreas, gallbladder, bilateral adrenal glands are normal. 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 Evaluation of the enteric system demonstrates diffuse diverticulosis and fecal impaction at the rectum which is distended to 10 cm diameter. No bowel obstruction or evidence for acute diverticulitis. Bladder demonstrates significant air fluid level with bladder wall thickening and scattered pseudo diverticulum as well as mild perivesicular stranding suggesting the possibility of cystitis and correlation is recommended. The prostate gland is moderately enlarged. Small fat containing left inguinal hernia noted. No ascites. No free air. No adenopathy. Atherosclerotic changes to the aorta and vasculature noted without aneurysm. Ischial skeletal structures demonstrate age-related degenerative changes. Impression: 1. Fecal impaction at the rectum which is distended to 10 cm maximal diameter. 2. Changes related to the bladder as described above should be correlated with urinalysis to exclude cystitis. Air-fluid level in the bladder may be secondary to prior instrumentation and requires correlation. Congenital horseshoe kidney noted without perinephric stranding or hydronephrosis. 3. Diverticulosis without acute diverticulitis. 4. Further chronic changes as noted above. 5. No ascites. No adenopathy. No free air. Electronically Signed by Deven Tobias MD 07/31/2019 01:21 P
[2019-07-31 13:57] LABS: APPEARANCE, URINE TURBID (CLEAR); BACTERIA, URINE AUTO NEGATIVE (NEGATIVE); BILIRUBIN, URINE AUTO NEGATIVE (NEGATIVE); BLOOD, URINE BLOOD 3+ (NEGATIVE); COLOR, URINE YELLOW (YELLOW); GLUCOSE, URINE (UA) AUTO 1+ mg/dL (NEGATIVE); KETONE, URINE AUTO NEGATIVE (NEGATIVE); LEUKOCYTE ESTERASE, URINE AUTO 2+ (NEGATIVE); NITRITE, URINE AUTO NEGATIVE (NEGATIVE); PROTEIN, URINE AUTO 2+ mg/dL (NEGATIVE); RBC, URINE AUTO 149 /HPF (0-3); SPECIFIC GRAVITY URINE AUTO 1.019 (1.002-1.035); SQUAMOUS EPITHELIAL CELL UR AU 0 /HPF (0-6); UROBILINOGEN, URINE AUTO 0.2 mg/dL (0.0-2.0); WBC, URINE AUTO TNTC /HPF (0-3)
[2019-07-31] MEDS ORDERED: FLEET ENEMA PR ONE (14:45)
[2019-07-31] MEDS ORDERED: cefTRIAXone SOD 1 GM in D5W MINI-BAG PLUS 50 ML IV ONE (14:45)
[2019-07-31] MEDS ORDERED: MAALOX 30 ML SUSP *UDC PO PRN (15:30)
[2019-07-31] MEDS ORDERED: ALBUTEROL SULFATE 2.5 MG/0.5 ML INH NEB SOLN INH PRN (15:30)
[2019-07-31] MEDS ORDERED: ACETAMINOPHEN TAB 650MG DOSE (2X325MG) PO PRN (15:30)
[2019-07-31] MEDS ORDERED: GLUCAGON FOR INJ 1 MG VIAL (J1610) SC PRN (15:30)
[2019-07-31] MEDS ORDERED: GLUCOSE 4 GM CHEW TABLET PO PRN (15:30)
[2019-07-31] MEDS ORDERED: MOM 30ML SUSPENSION UDC PO PRN (15:30)
[2019-07-31] MEDS ORDERED: DEXTROSE 50% 50 ML SYRINGE IV PRN (15:30)
--- NOTE | 2019-07-31 15:49 | HPEPDOC ---
General Date of Admission Jul 31, 2019 at 15:19 Date of Service: Jul 31, 2019 Chief Complaint The patient is a 89-year-old male admitted with a reason for visit of Cystitis,Dementia. Source: Patient Exam Limitations: Dementia Severity: Other Associated Symptoms: Other History of Present Illness 89 years old white male [facility] resident with past medical history of expressive aphasia, advanced dementia, hypertension, history of PE, history of acute renal failure, depression, vascular dementia, type 2 diabetes mellitus, asthma, COPD, cataracts, hypersensitivity dermatitis, psoriasis nasal polyps. 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 Patient has advanced dementia. Also has expressive aphasia. When I examined the patient and interviewed in he is very pleasant Sohail with head yes or no, but is awake and alert. I cannot get the orientation secondary to his expressive aphasia. If it is his baseline, I don't see any other altered mentation as described by the [place] [facility] records. Patient is being admitted with altered mental status secondary to UTI Home Medications Scheduled Arginine/Glutamine/Calcium Bmb (Lei Packet) 1 Each Powd.pack, 1 DOSE PO BID, (Reported) MIX WITH GLUCERNA Aspirin (Aspirin) 81 Mg Chw, 81 MG PO DAILY, (Reported) Budesonide/Formoterol (Symbicort 160-4.5 Mcg Inhaler) 60 Puff/Inhaler Aers, 2 PUFF INH BID, (Reported) Cetirizine HCl (Cetirizine HCl) 10 Mg Tablet, 10 MG PO DAILY, (Reported) Hydrocodone/Acetaminophen (Hydrocodone-Acetamin 5-325 mg) 1 Each Tablet, 1 TAB PO DAILY, (Reported) MDD 4 Hydroxyzine HCl (Hydroxyzine HCl) 25 Mg Tab, 25 MG PO Q8H, (Reported) Insulin Aspart (Novolog) 100 Unit/1 Ml Cartridge, 10 UNITS SC DAILY, (Reported) NOON Insulin Aspart (Novolog) 100 Unit/1 Ml Cartridge, 7 UNITS SC QAM, (Reported) Insulin Detemir (Levemir) 100 Unit/1 Ml Vial, 12 UNITS SC DAILY, (Reported) Nut.tx.gluc.intoler,Lac-Fr,Soy (Glucerna 1.2 Jose Elias) 237 Ml Liquid, 240 ML PO TID, (Reported) Omeprazole (Omeprazole) 20 Mg Cap, 20 MG PO DAILY, (Reported) Prednisone (Prednisone) 5 Mg Tab, 5 MG PO DAILY, (Reported) Scheduled PRN Acetaminophen (Feverall) 650 Mg Sup, 650 MG DE Q4H PRN for PAIN / FEVER, (Reported) Acetaminophen (Acetaminophen) 325 Mg Tablet, 650 MG PO Q4H PRN for PAIN / FEVER, (Reported) Albuterol Sulf (Albuterol Sulfate) 2.5 Mg/3 Ml Nebu, 2.5 MG INH Q2H PRN for SOB/WHEEZING, (Reported) Bisacodyl (Dulcolax) 10 Mg Sup, 10 MG DE DAILY PRN for CONSTIPATION, (Reported) Dextrose (Glucose) 4 Gm Chw, 16 GM PO PRN PRN for LOW BLOOD SUGAR, (Reported) Glucagon,Human Recombinant (Glucagon Emergency Kit) 1 Mg Kit, 1 MG IM PRN PRN for LOW BLOOD SUGAR, (Reported) Guaifenesin/Dextromethorphan (Guaifenesin-Dm 100-10 mg/5 ml) 5 Ml Liquid, 10 ML PO Q4H PRN for COUGH, (Reported) Hydrocodone/Acetaminophen (Hydrocodone-Acetamin 5-325 mg) 1 Tab Tab, 1 TAB PO Q4H PRN for PAIN, (Reported) Magnesium Hydroxide (Milk of Magnesia) 400 Mg/5 Ml Oral.susp, 2,400 MG PO DAILY PRN for CONSTIPATION, (Reported) Sodium Phosphate,[place]-Dibasic (Enema Ready To Use) 133 Ml Enema, 1 ERIK DE DAILY PRN for CONSTIPATION, (Reported) Allergies Coded Allergies: vancomycin (Verified Allergy, Intermediate, rash, 07/31/19) Past Medical History Medical History Expressive aphasia, advanced dementia, hypertension, history of pulmonary embolism, history of acute renal failure, depression, vascular dementia, type 2 diabetes mellitus, asthma/COPD, cataracts, hypersensitivity reaction dermatitis, psoriasis vulgaris, nasal polyps, chronic diastolic heart failure with hype rtrophic subaortic stenosis with the EF of 75% and diastolic dysfunction, emphysema, recurrent UTIs and urine with sepsis, chronic kidney disease stage III with GFR of 44 Surgical History History of cystoscopy, urethral structure removal and cataract surgery Family History Significant Family History: Unable to assess Social History * Smoker: other (unable to assess) Alcohol: other Drugs: other (. Unable to assess) A-FIB/CHADSVASC A-FIB History Current/History of A-Fib/PAF?: No Review of Systems Constitutional: Reports: Other (and able to obtained review of systems secondary to advanced dementia and expressive aphasia) Physical Examination General Exam: Positive: Other (, awake and alert and cooperative, but does not comprehend questions or Lovenox in yes and no alcohol. The questions) Eye Exam: Positive: PERRLA, Conjunctiva & lids normal ENT Exam: Positive: Atraumatic, Mucous membr. moist/pink Neck Exam: Positive: Supple Chest Exam: Positive: Clear to auscultation, Normal air movement Heart Exam: Positive: Rate Normal, Normal S1, Normal S2 Abdomen Exam: Positive: Normal bowel sounds, Soft, Tenderness Extremity Exam: Positive: Normal pulses Neuro Exam: Positive: Strength at 5/5 X4 ext, Cranial Nerves 3-12 NL Psych Exam: Positive: Other (. Advanced dementia) Vital Signs Vital Signs Date Time Temp Pulse Resp B/P (MAP) Pulse Ox O2 Delivery O2 Flow Rate FiO2 07/31/19 11:54 97.9 105 17 133/71 (91) 96 Room Air Laboratory Data Labs 24H Laboratory Tests 2 07/31/19 11:58: Prothrombin Time 17.1H, Prothromb Time International Ratio 1.43, Activated Partial Thromboplast Time 30.9, Anion Gap 9, Glomerular Filtration Rate 31.1L, Lactic Acid Level 2.6*H, Calcium Level 8.8, Total Bilirubin 0.4, Direct Bilirubin 0.2, Aspartate Amino Transf (AST/SGOT) 14, Alanine Aminotransferase (ALT/SGPT) 20, Alkaline Phosphatase 71, Total Creatine Kinase 201, Creatine Kinase MB 3.7H, Creatine Kinase MB Relative Index 1.84, Troponin I 0.04, C-R eactive Protein, Quantitative 14.70H, Total Protein 7.9, Albumin 2.4L, Albumin/Globulin Ratio 0.44L, Amylase Level 47 07/31/19 12:42: Immature Granulocyte % (Auto) 1.2, Neutrophils (%) (Auto) 83.9H, Lymphocytes (%) (Auto) 4.2L, Monocytes (%) (Auto) 7.9H, Eosinophils (%) (Auto) 2.6, Basophils (%) (Auto) 0.2, Neutrophils # (Auto) 14.9H, Lymphocytes # (Auto) 0.7L, Monocytes # (Auto) 1.4H, Eosinophils # (Auto) 0.5, Basophils # (Auto) 0.0, Nucleated Red Blood Cells % (auto) 0.0 07/31/19 13:26: Urine Color YELLOW, Urine Appearance TURBIDH, Urine pH 5.0, Urine Specific [place] 1.019, Urine Protein 2+H, Urine Glucose (Auto)(UA) 1+H, Urine Ketones (Auto) NEGATIVE, Urine Blood 3+H, Urine Nitrite NEGATIVE, Urine Bilirubin NEGATIVE, Urine Urobilinogen 0.2, Urine Leukocyte Esterase (Auto) 2+H, Urine WBC (Auto) TNTCH, Urine RBC (Auto) 149H, Urine Hyaline Casts (Auto) 0, Urine Bacteria (Auto) NEGATIVE, Urine Squamous Epithelial Cells 0, Urine Sperm (Auto) CBC/BMP Laboratory Tests 07/31/19 11:58 07/31/19 12:42 Microbiology Microbiology 07/31/19 Urine Culture, Received Pending 07/31/19 Blood Culture, Received Pending 07/31/19 Blood Culture, Received Pending Problems (1) Cystitis Status: Acute Problem Text: Admit patient to medical floor Will start him on IV fluids normal saline 70 mL per hour Patient has been started on Rocephin and will continue the same , Urine cultures and blood cultures has been ordered. We will await reports before changing the antibiotics DVT prophylaxis with Lovenox Consistent carbohydrate diet Out of bed to chair PT eval (2) Acute kidney injury superimposed on CKD Status: Acute Problem Text: Patient's BUN is 70, creatinine 2.14 with slightly elevated and is normal. Creatinine. Patient doesn't history of C KD stage III Acute kidney injury, most likely secondary to dehydration and infection IV fluid normal saline 70 mL per hour has been added . We'll continue monitoring patient's renal functions and adjust fluids and medications accordingly (3) AMS (altered mental status) Status: Acute Problem Text: This is 89 years old white male with multiple medical issues [facility] with advanced dementia and expressive aphagia brought in with altered mental status, on examination, patient is awake, alert, nods to yes and no to all questions. Seems like in his baseline mental status. I'm not familiar with the patient's records have very hard for me to say that if there is any change in his mental status, which is new. At this point. No new neuro deficit noted Will admit patient to medical floor and continue all his present medications as prescribed at [facility] (4) Dementia Status: Chronic Problem Text: Chronic dementia with expressive aphasia Continue all home meds (5) Diabetes mellitus type 2 in obese Status: Chronic Problem Text: Fingerstick blood sugar every before meals and at bedtime with coverage Continue home dose of basal long-acting insulin (6) Ulcer of left heel Status: Chronic Problem Text: Nursing wound care consult has been requested Plan / VTE VTE Prophylaxis Ordered?: Yes JAI KUMAR MD Jul 31, 2019 15:49
[2019-07-31 17:00] VITALS: BP 130/76
[2019-07-31] MEDS: HumaLOG INSULIN (NovoLOG) PER UNIT SC SCH ×2 (17:30→21:00)
[2019-07-31] MEDS: ENOXAPARIN 30 MG/0.3 ML SYR (J1650) SC SCH (17:43)
[2019-07-31] MEDS: NS 1,000 ML IV SCH (17:43)
--- NOTE | 2019-07-31 20:29 | ECGEPIP ---
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
[2019-07-31] MEDS: SYMBICORT 160/4.5MCG INHALER 6GM INH SCH (20:39)
[2019-07-31] MEDS: DOCUSATE SODIUM 100 MG CAP PO SCH (21:34)
[2019-07-31 22:00] VITALS: BP 129/79
[2019-08-01] MEDS: NS 1,000 ML IV SCH ×3 (03:49→23:58)
[2019-08-01 06:00] VITALS: BP 129/75
[2019-08-01] MEDS: SYMBICORT 160/4.5MCG INHALER 6GM INH SCH ×2 (07:50→20:16)
[2019-08-01 08:17] LABS: HEMATOCRIT 36.1 % (42.0-52.0); MEAN CORPUSCULAR HGB CONC 30.5 g/dl (32.0-36.5); MEAN CORPUSCULAR VOLUME 95.3 fl (80.0-96.0); PLATELET COUNT, AUTOMATED 191 10^3/uL (150-450); RED BLOOD COUNT 3.79 10^6/uL (4.30-6.10); WHITE BLOOD COUNT 12.9 10^3/uL (4.0-10.0)
[2019-08-01 08:41] LABS: BILIRUBIN,TOTAL 0.4 MG/DL (0.2-1.0); CALCIUM LEVEL 8.4 MG/DL (8.8-10.2); CREATININE FOR GFR 1.69 MG/DL (0.70-1.30); GLOMERULAR FILTRATION RATE 40.9 (>35); POTASSIUM SERUM 3.8 MEQ/L (3.5-5.1); TOTAL PROTEIN 7.8 GM/DL (6.4-8.2)
--- NOTE | 2019-08-01 09:24 | IPNPDOC ---
Subjective Date Seen The patient was seen on 08/01/19. Subjective Chief Complaint/HPI Patient sleeping comfortably, easily aroused unable to verbalize any new complaints. Breasts in no apparent distress General: Reports: ROS Unobtainable Objective Physical Examination General Exam: Positive: Other (, awake and alert and cooperative, but does not comprehend questions or Lovenox in yes and no alcohol. The questions) Eye Exam: Positive: PERRLA, Conjunctiva & lids normal Chest Exam: Positive: Clear to auscultation, Normal air movement Heart Exam: Positive: Rate Normal, Normal S1, Normal S2 Abdomen Exam: Positive: Normal bowel sounds, Soft, Tenderness Extremity Exam: Positive: Normal pulses Assessment /Plan Problems (1) Dementia Status: Chronic Problem Text: Advanced dementia Continue home medications Supportive care (2) Ulcer of left heel Status: Chronic Problem Text: . Patient follows up with Dr. Jane Recently had I&D and dressing done Follow-up with Dr. Dr. Jane as an outpatient (3) Acute kidney injury superimposed on CKD Status: Acute Problem Text: Improving with IV hydration. His BUN is 50 and creatinine 1.69 which is significantly decreased since admission Repeat labs in a.m. Continue IV hydration (4) Cystitis Status: Acute Problem Text: Urine cultures pending Continue IV antibiotics WBC count has decreased to 12.9 Labs in a.m. (5) Diabetes mellitus type 2 in obese Status: Chronic Problem Text: Fingerstick blood sugar every before meals and at bedtime with coverage Continue home meds Plan/VTE VTE Prophylaxis Ordered?: Yes VS, I&O, 24H, Fishbone Vital Signs/I&O Vital Signs Date Time Temp Pulse Resp B/P (MAP) Pulse Ox O2 Delivery O2 Flow Rate FiO2 08/01/19 06:00 97.5 100 18 129/75 (93) 96 Room Air I&O- Last 24 Hours up to 6 AM 08/01/19 06:00 Intake Total 1660 ml Output Total 20 ml Balance 1640 ml Laboratory Data 24H LABS Laboratory Tests 2 07/31/19 11:58: Prothrombin Time 17.1H, Prothromb Time International Ratio 1.43, Activated Partial Thromboplast Time 30.9, Anion Gap 9, Glomerular Filtration Rate 31.1L, Lactic Acid Level 2.6*H, Calcium Level 8.8, Total Bilirubin 0.4, Direct Bilirubin 0.2, Aspartate Amino Transf (AST/SGOT) 14, Alanine Aminotransferase (ALT/SGPT) 20, Alkaline Phosphatase 71, Total Creatine Kinase 201, Creatine K inase MB 3.7H, Creatine Kinase MB Relative Index 1.84, Troponin I 0.04, C- Reactive Protein, Quantitative 14.70H, Total Protein 7.9, Albumin 2.4L, Albumin/Globulin Ratio 0.44L, Amylase Level 47 07/31/19 12:42: Immature Granulocyte % (Auto) 1.2, Neutrophils (%) (Auto) 83.9H, Lymphocytes (%) (Auto) 4.2L, Monocytes (%) (Auto) 7.9H, Eosinophils (%) (Auto) 2.6, Basophils (%) (Auto) 0.2, Neutrophils # (Auto) 14.9H, Lymphocytes # (Auto) 0.7L, Monocytes # (Auto) 1.4H, Eosinophils # (Auto) 0.5, Basophils # (Auto) 0.0, Nucleated Red Blood Cells % (auto) 0.0 07/31/19 13:26: Urine Color YELLOW, Urine Appearance TURBIDH, Urine pH 5.0, Urine Specific [place] 1.019, Urine Protein 2+H, Urine Glucose (Auto)(UA) 1+H, Urine Ketones (Auto) NEGATIVE, Urine Blood 3+H, Urine Nitrite NEGATIVE, Urine Bilirubin NEGATIVE, Urine Urobilinogen 0.2, Urine Leukocyte Esterase (Auto) 2+H, Urine WBC (Auto) TNTCH, Urine RBC (Auto) 149H, Urine Hyaline Casts (Auto) 0, Urine Bacter ia (Auto) NEGATIVE, Urine Squamous Epithelial Cells 0, Urine Sperm (Auto) 07/31/19 16:49: Lactic Acid Followup at 4 Hours 2.4*H 07/31/19 17:11: Bedside Glucose (Misc Panel) 168H 07/31/19 20:17: Bedside Glucose (Misc Panel) 220H 08/01/19 08:07: Nucleated Red Blood Cells % (auto) 0.0, Anion Gap 7L, Glomerular Filtration Rate 40.9, Calcium Level 8.4L, Total Bilirubin 0.4, Aspartate Amino Transf (AST/SGOT) 13, Alanine Aminotransferase (ALT/SGPT) 15, Alkaline Phosphatase 67, Total Protein 7.8, Albumin 2.0L, Albumin/Globulin Ratio 0.34L CBC/BMP Laboratory Tests 07/31/19 11:58 07/31/19 12:42 08/01/19 08:07 Microbiology Microbiology 07/31/19 Urine Culture, Received Pending 07/31/19 Blood Culture, Received Pending 07/31/19 Blood Culture, Received Pending JAI KUMAR MD Aug 01, 2019 09:24
[2019-08-01] MEDS: ASPIRIN 81 MG CHEW TABLET PO SCH (10:07)
[2019-08-01] MEDS: LEVEMIR (INSULIN DETEMIR) 1 UNITS/0.01ML SC SCH (10:08)
[2019-08-01] MEDS: ENOXAPARIN 30 MG/0.3 ML SYR (J1650) SC SCH (10:08)
[2019-08-01] MEDS: DOCUSATE SODIUM 100 MG CAP PO SCH ×2 (10:08→21:18)
[2019-08-01] MEDS: OMEPRAZOLE 20 MG CAP PO SCH (10:08)
[2019-08-01] MEDS: predniSONE 5 MG TAB PO SCH (10:08)
[2019-08-01] MEDS: HumaLOG INSULIN (NovoLOG) PER UNIT SC SCH ×4 (10:10→21:00)
[2019-08-01 14:08] VITALS: BP 133/83
[2019-08-01] MEDS ORDERED: cefTRIAXone SOD 1 GM in D5W MINI-BAG PLUS 50 ML IV SCH (16:00)
[2019-08-01 22:00] VITALS: BP 102/66
[2019-08-02 05:12] LABS: BASO % 0.2 % (0.0-1.0); EOS # 0.5 10^3/uL (0.0-0.5); HEMOGLOBIN 10.5 g/dl (13.5-17.5); LYMPH # 1.2 10^3/uL (1.5-5.0); MEAN CORPUSCULAR HEMOGLOBIN 28.8 pg (27.0-33.0); MEAN CORPUSCULAR HGB CONC 30.9 g/dl (32.0-36.5); MEAN CORPUSCULAR VOLUME 93.4 fl (80.0-96.0); MONO # 0.9 10^3/uL (0.0-0.8); MONO % 6.6 % (0.0-5.0); NEUTROPHILS # 10.2 10^3/uL (1.5-8.5); NEUTROPHILS % 79.5 % (36.0-66.0); PLATELET COUNT, AUTOMATED 191 10^3/uL (150-450); RED BLOOD COUNT 3.64 10^6/uL (4.30-6.10); WHITE BLOOD COUNT 12.8 10^3/uL (4.0-10.0)
[2019-08-02 05:39] LABS: ALBUMIN 1.9 GM/DL (3.2-5.2); BILIRUBIN,TOTAL 0.3 MG/DL (0.2-1.0); CALCIUM LEVEL 8.1 MG/DL (8.8-10.2); CREATININE FOR GFR 1.58 MG/DL (0.70-1.30); GLOMERULAR FILTRATION RATE 44.2 (>35); POTASSIUM SERUM 3.7 MEQ/L (3.5-5.1); TOTAL PROTEIN 7.5 GM/DL (6.4-8.2)
[2019-08-02 06:30] VITALS: BP 151/77
[2019-08-02] MEDS: SYMBICORT 160/4.5MCG INHALER 6GM INH SCH (08:20)
[2019-08-02] MEDS: LEVEMIR (INSULIN DETEMIR) 1 UNITS/0.01ML SC SCH (08:34)
[2019-08-02] MEDS: HumaLOG INSULIN (NovoLOG) PER UNIT SC SCH ×2 (08:35→12:34)
[2019-08-02] MEDS: NS 1,000 ML IV SCH (08:35)
[2019-08-02] MEDS: OMEPRAZOLE 20 MG CAP PO SCH (08:35)
[2019-08-02] MEDS: ENOXAPARIN 30 MG/0.3 ML SYR (J1650) SC SCH (08:36)
[2019-08-02] MEDS: ASPIRIN 81 MG CHEW TABLET PO SCH (08:36)
[2019-08-02] MEDS: DOCUSATE SODIUM 100 MG CAP PO SCH (08:36)
[2019-08-02] MEDS: predniSONE 5 MG TAB PO SCH (08:36)
[2019-08-02] MEDS ORDERED: CEFP200T PO (10:18)
--- NOTE | 2019-08-02 11:37 | DS.PDOC ---
Discharge Summary General Date of Admission Jul 31, 2019 at 15:19 Date of Discharge 08/02/19 Discharge Summary PROCEDURES PERFORMED DURING STAY: None. ADMITTING DIAGNOSES: 1. Altered mental status cystitis. DISCHARGE DIAGNOSES:1. Altered mental status, cystitis, UTI. Dementia COMPLICATIONS/CHIEF COMPLAINT: Cystitis,Dementia. HISTORY OF PRESENT ILLNESS: 89 years old white male long term resident with past medical history of expressive aphasia, advanced dementia, hypertension, history of PE, history of acute renal failure, depression, vascular dementia, type 2 diabetes mellitus, asthma, COPD, cataracts, hypersensitivity dermatitis, psoriasis nasal polyps. 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 with chief complaints of altered mental status. Patient has advanced dementia. Also has expressive aphasia. When I examined the patient and interviewed in he is very pleasant nods with head yes or no, but is awake and alert. I cannot get the orientation secondary to his expressive aphasia. If it is his baseline, I don't see any other altered mentation as described by the long term records. Patient is being admitted with altered mental status secondary to UTI. HOSPITAL COURSE: Patient was admitted with altered mental status secondary to UTI. He stated initially was started on IV fluids and IV antibiotics. Patient responded very well to both his altered mental status has resolved. He is back to his baseline mental status. Able to speak in response a few simple questions. Patient does have advanced dementia very difficult to communicate verbally. P rosales has Escherichia coli positive in urine culture which is resistant to Levaquin but sensitive to all other antibiotics. Patient will be discharged home on by mouth Augmentin for 7 days and follow with his PCP at long term in one week. DISCHARGE MEDICATIONS: Please see below. ALLERGIES: Please see below. PHYSICAL EXAMINATION ON DISCHARGE: VITAL SIGNS: Please see below. GENERAL: Within normal limits HEENT: PERRLA, XRT, muscle intact NECK: Supple. Negative JVD, negative lymphadenopathy CARDIOVASCULAR EXAMINATION: S1, S2, regular RESPIRATORY EXAMINATION: Clear to A&P ABDOMINAL EXAMINATION: Benign] EXTREMITIES: No clubbing, cyanosis, edema SKIN: [Normal NEUROLOGICAL EXAMINATION: . No new focal motor sensory deficit PSYCHIATRIC EXAMINATION: Normal LABORATORY DATA: Please see below. IMAGING: None PROGNOSIS: Good ACTIVITY: As tolerated. DIET: As tolerated DISCHARGE PLAN: Back to long term DISPOSITION: . residential DISCHARGE INSTRUCTIONS: 1. As per discharge instructions. ITEMS TO FOLLOWUP ON ON OUTPATIENT: 1. Follow with PCP in one week. DISCHARGE CONDITION: Stable. TIME SPENT ON DISCHARGE:40 minutes. Vital Signs/I&Os Vital Signs Date Time Temp Pulse Resp B/P (MAP) Pulse Ox O2 Delivery O2 Flow Rate FiO2 08/02/19 06:30 98.0 94 36 151/77 (101) 97 Room Air I&O- Last 24 Hours up to 6 AM 08/02/19 06:00 Intake Total 3720 ml Balance 3720 ml Laboratory Data Labs 24H Laboratory Tests 2 08/01/19 12:05: Bedside Glucose (Misc Panel) 181H 08/01/19 16:53: Bedside Glucose (Misc Panel) 174H 08/01/19 21:14: Bedside Glucose (Misc Panel) 192H 08/02/19 04:55: Immature Granulocyte % (Auto) 0.7, Neutrophils (%) (Auto) 79.5H, Lymphocytes (%) (Auto) 9.0L, Monocytes (%) (Auto) 6.6H, Eosinophils (%) (Auto) 4.0H, Basophils (%) (Auto) 0.2, Neutrophils # (Auto) 10.2H, Lymphocytes # (Auto) 1.2L, Monocytes # (Auto) 0.9H, Eosinophils # (Auto) 0.5, Basophils # (Auto) 0.0, Nucleated Red Blood Cells % (auto) 0.0, Anion Gap 6L, Glomerular Filtration Rate 44.2, Calcium Level 8.1L, Total Bilirubin 0.3, Aspartate Amino Transf (AST/SGOT) 15, Alanine Aminotransferase (ALT/SGPT) 16, Alkaline Phosphatase 60, Total Protein 7.5, Albumin 1.9L, Albumin/Globulin Ratio 0.34L CBC/BMP Laboratory Tests 08/02/19 04:55 FSBS Laboratory Tests Test 08/01/19 12:05 08/01/19 16:53 08/01/19 21:14 Range/Units Bedside Glucose (Misc Panel) 181 174 192 83-110 MG/DL Microbiology Microbiology 07/31/19 Urine Culture - Preliminary, Resulted Escherichia Coli Staphylococcus Aureus 07/31/19 Blood Culture - Preliminary, Resulted No growth after 24 hours . All specim... 07/31/19 Blood Culture - Preliminary, Resulted No growth after 24 hours . All specim... Discharge Medications Scheduled Arginine/Glutamine/Calcium Bmb (Lei Packet) 1 Each Powd.pack, 1 DOSE PO BID, (Reported) MIX WITH GLUCERNA Aspirin (Aspirin) 81 Mg Chw, 81 MG PO DAILY, (Reported) Budesonide/Formoterol (Symbicort 160-4.5 Mcg Inhaler) 60 Puff/Inhaler Aers, 2 PUFF INH BID, (Reported) Cefpodoxime Proxetil (Cefpodoxime Proxetil) 200 Mg Tablet, 200 MG PO BID Cetirizine HCl (Cetirizine HCl) 10 Mg Tablet, 10 MG PO DAILY, (Reported) Hydrocodone/Acetaminophen (Hydrocodone-Acetamin 5-325 mg) 1 Each Tablet, 1 TAB PO DAILY, (Reported) MDD 4 Hydroxyzine HCl (Hydroxyzine HCl) 25 Mg Tab, 25 MG PO Q8H, (Reported) Insulin Aspart (Novolog) 100 Unit/1 Ml Cartridge, 10 UNITS SC DAILY, (Reported) NOON Insulin Aspart (Novolog) 100 Unit/1 Ml Cartridge, 7 UNITS SC QAM, (Reported) Insulin Detemir (Levemir) 100 Unit/1 Ml Vial, 12 UNITS SC DAILY, (Reported) Nut.tx.gluc.intoler,Lac-Fr,Soy (Glucerna 1.2 Jose Elias) 237 Ml Liquid, 240 ML PO TID, (Reported) Omeprazole (Omeprazole) 20 Mg Cap, 20 MG PO DAILY, (Reported) Prednisone (Prednisone) 5 Mg Tab, 5 MG PO DAILY, (Reported) Scheduled PRN Acetaminophen (Feverall) 650 Mg Sup, 650 MG SC Q4H PRN for PAIN / FEVER, (Reported) Acetaminophen (Acetaminophen) 325 Mg Tablet, 650 MG PO Q4H PRN for PAIN / FEVER, (Reported) Albuterol Sulf (Albuterol Sulfate) 2.5 Mg/3 Ml Nebu, 2.5 MG INH Q2H PRN for SOB/WHEEZING, (Reported) Bisacodyl (Dulcolax) 10 Mg Sup, 10 MG SC DAILY PRN for CONSTIPATION, (Reported) Dextrose (Glucose) 4 Gm Chw, 16 GM PO PRN PRN for LOW BLOOD SUGAR, (Reported) Glucagon,Human Recombinant (Glucagon Emergency Kit) 1 Mg Kit, 1 MG IM PRN PRN for LOW BLOOD SUGAR, (Reported) Guaifenesin/Dextromethorphan (Guaifenesin-Dm 100-10 mg/5 ml) 5 Ml Liquid, 10 ML PO Q4H PRN for COUGH, (Reported) Hydrocodone/Acetaminophen (Hydrocodone-Acetamin 5-325 mg) 1 Tab Tab, 1 TAB PO Q4H PRN for PAIN, (Reported) Magnesium Hydroxide (Milk of Magnesia) 400 Mg/5 Ml Oral.susp, 2,400 MG PO DAILY PRN for CONSTIPATION, (Reported) Sodium Phosphate,[place]-Dibasic (Enema Ready To Use) 133 Ml Enema, 1 ERIK SC DAILY PRN for CONSTIPATION, (Reported) Allergies Coded Allergies: vancomycin (Verified Allergy, Intermediate, rash, 07/31/19) JAI KUMAR MD Aug 02, 2019 11:37
== END 2019-08-02 13:00 | DRG 690 ==
LOC: M ED 11:41 → EDBD 11:41 → M ED INP 15:19 → M MS5PR 16:20
PROVIDERS: ADMIT Internal Medicine; ATTEND Internal Medicine
DX: N30.00 Acute cystitis without hematuria (principal); N17.9 Acute kidney failure, unspecified; I50.32 Chronic diastolic (congestive) heart failure; L97.429 Non-pressure chronic ulcer of left heel and midfoot with unspecified severity; F01.50 Vascular dementia, unspecified severity, without behavioral disturbance, psychotic disturbance, mood disturbance, and anxiety; E11.621 Type 2 diabetes mellitus with foot ulcer; N18.3 Chronic kidney disease, stage 3 (moderate); N39.0 Urinary tract infection, site not specified; I11.0 Hypertensive heart disease with heart failure; Z86.711 Personal history of pulmonary embolism; J45.909 Unspecified asthma, uncomplicated; L40.8 Other psoriasis; Z79.82 Long term (current) use of aspirin; Z79.899 Other long term (current) drug therapy; Z88.1 Allergy status to other antibiotic agents; Z79.4 Long term (current) use of insulin; E66.9 Obesity, unspecified

== ENCOUNTER → 2019-08-06 | Outpatient (REF) | payer MEDICARE, BC, OTHER ==
[~2019-08-06] MED LIST changes: +ALL10TAB29 PO; +APAP325T4 PO; +CEFP200T PO; +ENEMENE22 PR; +GLUC1LIQ7 PO; +GUAI5LIQ PO; +JUVEPOW3 PO; +MOM30SS2 PO; +NOVOINJ SC; -OMEP-172 PO; +OMEP1CAP73 PO
[2019-08-06 08:06] LABS: BASO # 0.1 10^3/uL (0.0-0.2); BASO % 0.4 % (0.0-1.0); EOS # 0.5 10^3/uL (0.0-0.5); EOS % 4.3 % (0.0-3.0); HEMATOCRIT 36.6 % (42.0-52.0); HEMOGLOBIN 11.1 g/dl (13.5-17.5); LYMPH # 1.3 10^3/uL (1.5-5.0); LYMPH % 10.1 % (24.0-44.0); MEAN CORPUSCULAR HEMOGLOBIN 28.2 pg (27.0-33.0); MEAN CORPUSCULAR HGB CONC 30.3 g/dl (32.0-36.5); MEAN CORPUSCULAR VOLUME 93.1 fl (80.0-96.0); MONO % 8.4 % (0.0-5.0); NEUTROPHILS # 9.4 10^3/uL (1.5-8.5); NEUTROPHILS % 75.5 % (36.0-66.0); PLATELET COUNT, AUTOMATED 176 10^3/uL (150-450); RED BLOOD COUNT 3.93 10^6/uL (4.30-6.10); WHITE BLOOD COUNT 12.4 10^3/uL (4.0-10.0)
[2019-08-06 08:32] LABS: ALBUMIN 1.9 GM/DL (3.2-5.2); CALCIUM LEVEL 8.6 MG/DL (8.8-10.2); CREATININE FOR GFR 1.53 MG/DL (0.70-1.30); GLOMERULAR FILTRATION RATE 45.9 (>35); PHOSPHORUS LEVEL 2.7 MG/DL (2.5-4.9)
== END ==
LOC: SKLAB5 07:13
PROVIDERS: ATTEND Family Medicine
DX: B99.9 Unspecified infectious disease (principal)

== ENCOUNTER → 2019-08-09 | Outpatient (REF) | payer MEDICARE, BC, OTHER ==
[~2019-08-09] MED LIST changes: +OMEP-172 PO; -OMEP1CAP73 PO
[2019-08-09 09:30] LABS: BASO % 0.3 % (0.0-1.0); EOS # 0.6 10^3/uL (0.0-0.5); EOS % 4.9 % (0.0-3.0); HEMOGLOBIN 11.1 g/dl (13.5-17.5); LYMPH # 1.3 10^3/uL (1.5-5.0); LYMPH % 10.8 % (24.0-44.0); MEAN CORPUSCULAR HEMOGLOBIN 28.8 pg (27.0-33.0); MEAN CORPUSCULAR HGB CONC 30.8 g/dl (32.0-36.5); MEAN CORPUSCULAR VOLUME 93.5 fl (80.0-96.0); MONO # 0.8 10^3/uL (0.0-0.8); MONO % 6.6 % (0.0-5.0); NEUTROPHILS # 9.4 10^3/uL (1.5-8.5); NEUTROPHILS % 76.4 % (36.0-66.0); PLATELET COUNT, AUTOMATED 279 10^3/uL (150-450); RED BLOOD COUNT 3.85 10^6/uL (4.30-6.10); WHITE BLOOD COUNT 12.3 10^3/uL (4.0-10.0)
[2019-08-09 09:57] LABS: HEMOGLOBIN A1c 8.7 %
[2019-08-09 10:04] LABS: CALCIUM LEVEL 8.7 MG/DL (8.8-10.2); CREATININE FOR GFR 1.6 MG/DL (0.70-1.30); GLOMERULAR FILTRATION RATE 43.5 (>35); POTASSIUM SERUM 4.2 MEQ/L (3.5-5.1)
== END ==
LOC: SKLAB5 07:40
PROVIDERS: ATTEND Family Medicine
DX: E11.9 Type 2 diabetes mellitus without complications (principal); D64.9 Anemia, unspecified; N19 Unspecified kidney failure

== ENCOUNTER → 2019-08-13 | Outpatient (REF) | payer MEDICARE, BC, OTHER ==
[~2019-08-13] MED LIST changes: -OMEP-172 PO; +OMEP1CAP73 PO
--- NOTE | 2019-08-13 16:29 | REP ---
CHEST, SINGLE VIEW: Single view of the chest is performed and compared to prior study of 10/06/2018. There is bibasilar fibro atelectatic change. I suspect some mild superimposed infiltrate in the left lung base in the retrocardiac region. Heart does not appear to be significantly enlarged. The mediastinal silhouette is unremarkable. IMPRESSION: Bibasilar fibro atelectatic change, suspect superimposed mild infiltrate left lung base in the retrocardiac region. Electronically Signed by Candido Jones MD 08/13/2019 07:37 P
== END ==
LOC: SKLAB5 12:01
PROVIDERS: ATTEND Family Medicine
DX: R91.8 Other nonspecific abnormal finding of lung field (principal); R05 Cough

== ENCOUNTER → 2019-08-15 | Outpatient (CLI) | payer MEDICARE, BC, OTHER ==
[~2019-08-15] MED LIST changes: +OMEP-172 PO; -OMEP1CAP73 PO
--- NOTE | 2019-08-15 14:04 | REP ---
Bilateral lower extremity arterial Doppler ultrasound: History: Left heel ulcer. Diabetes. Findings: Scan quality is inhibited considerably by this patient's limited ability to cooperate with positioning and remain motionless. Ankle brachial indices could not be performed due to these considerations. Moderate to severe plaquing is seen bilaterally. Abnormal monophasic waveforms are encountered in the distal [employer] and distal AT A in the right calf and at an below the proximal AT A and tibioperoneal trunk in the left calf. Vessels are heavily calcified. Occlusion was revascularized flow is observed in the posterior tibial arteries bilaterally. There is evidence of a stenosis in the proximal AT A on the left and the distal AT A on the right. Velocity chart right lower extremity arteries: CF A 74 cm/S Profunda 94 Proximal SFA 56 Mid SFA 78 Distal SFA 114 Popliteal 49 Proximal AT A 77 Tibioperoneal trunk 70 Proximal [employer]ING ASSISTANT 23/occluded Distal [employer]ING ASSISTANT 32 Distal AT A 71/249 Velocity chart left lower extremity arteries: CF A 68 cm/S profunda 127 Proximal SFA 79 Mid SFA 86 Distal SFA 51 Popliteal 45 Proximal AT A 115/236 Tibioperoneal trunk 78 Proximal [employer]ERING ASSISTANT 46/occluded Distal [employer]ING ASSISTANT 24 Distal AT A 40 Electronically Signed by Malik Ferguson MD 08/15/2019 01:55 P
== END ==
LOC: M RAD 10:29
PROVIDERS: ATTEND Family Medicine
DX: E11.622 Type 2 diabetes mellitus with other skin ulcer (principal); L97.421 Non-pressure chronic ulcer of left heel and midfoot limited to breakdown of skin

== ENCOUNTER → 2019-08-16 | Outpatient (REF) | payer MEDICARE, BC, OTHER ==
[2019-08-16 08:17] LABS: BASO % 0.3 % (0.0-1.0); EOS # 0.6 10^3/uL (0.0-0.5); HEMATOCRIT 38.6 % (42.0-52.0); HEMOGLOBIN 10.9 g/dl (13.5-17.5); LYMPH # 1.4 10^3/uL (1.5-5.0); LYMPH % 12.2 % (24.0-44.0); MEAN CORPUSCULAR HEMOGLOBIN 27.1 pg (27.0-33.0); MEAN CORPUSCULAR HGB CONC 28.2 g/dl (32.0-36.5); MONO # 0.8 10^3/uL (0.0-0.8); MONO % 7.1 % (0.0-5.0); NEUTROPHILS # 8.7 10^3/uL (1.5-8.5); NEUTROPHILS % 74.1 % (36.0-66.0); PLATELET COUNT, AUTOMATED 317 10^3/uL (150-450); RED BLOOD COUNT 4.02 10^6/uL (4.30-6.10); WHITE BLOOD COUNT 11.8 10^3/uL (4.0-10.0)
[2019-08-16 08:39] LABS: CALCIUM LEVEL 9.1 MG/DL (8.8-10.2); CREATININE FOR GFR 1.93 MG/DL (0.70-1.30); GLOMERULAR FILTRATION RATE 35.1 (>35); POTASSIUM SERUM 3.9 MEQ/L (3.5-5.1)
== END ==
LOC: SKLAB5 08:24
PROVIDERS: ATTEND Family Medicine
DX: J06.9 Acute upper respiratory infection, unspecified (principal)

== ENCOUNTER → 2019-08-17 | Outpatient (REF) | payer MEDICARE, BC, OTHER ==
[~2019-08-17] MED LIST changes: -OMEP-172 PO; +OMEP1CAP73 PO
[2019-08-17 07:49] LABS: BASO # 0.1 10^3/uL (0.0-0.2); BASO % 0.4 % (0.0-1.0); EOS # 0.6 10^3/uL (0.0-0.5); EOS % 5.1 % (0.0-3.0); HEMATOCRIT 37.2 % (42.0-52.0); HEMOGLOBIN 10.7 g/dl (13.5-17.5); LYMPH # 1.5 10^3/uL (1.5-5.0); LYMPH % 12.4 % (24.0-44.0); MEAN CORPUSCULAR HEMOGLOBIN 27.4 pg (27.0-33.0); MEAN CORPUSCULAR HGB CONC 28.8 g/dl (32.0-36.5); MEAN CORPUSCULAR VOLUME 95.1 fl (80.0-96.0); MONO # 0.9 10^3/uL (0.0-0.8); MONO % 7.7 % (0.0-5.0); NEUTROPHILS # 8.9 10^3/uL (1.5-8.5); NEUTROPHILS % 73.2 % (36.0-66.0); PLATELET COUNT, AUTOMATED 288 10^3/uL (150-450); RED BLOOD COUNT 3.91 10^6/uL (4.30-6.10); WHITE BLOOD COUNT 12.1 10^3/uL (4.0-10.0)
[2019-08-17 08:21] LABS: CALCIUM LEVEL 8.7 MG/DL (8.8-10.2); CREATININE FOR GFR 1.94 MG/DL (0.70-1.30); GLOMERULAR FILTRATION RATE 34.9 (>35); POTASSIUM SERUM 4.1 MEQ/L (3.5-5.1)
== END ==
LOC: SKLAB5 07:04
PROVIDERS: ATTEND Family Medicine
DX: N18.9 Chronic kidney disease, unspecified (principal); J06.9 Acute upper respiratory infection, unspecified; E11.9 Type 2 diabetes mellitus without complications

== ENCOUNTER → 2019-08-18 | Outpatient (REF) | payer MEDICARE, BC, OTHER ==
[2019-08-18 07:17] LABS: CALCIUM LEVEL 8.4 MG/DL (8.8-10.2); CREATININE FOR GFR 1.98 MG/DL (0.70-1.30); GLOMERULAR FILTRATION RATE 34.1 (>35); POTASSIUM SERUM 4.1 MEQ/L (3.5-5.1)
== END ==
LOC: SKLAB5 10:10
PROVIDERS: ATTEND Family Medicine
DX: E87.0 Hyperosmolality and hypernatremia (principal)

== ENCOUNTER → 2019-08-19 | Outpatient (REF) | payer MEDICARE, BC, OTHER ==
[2019-08-19 10:06] LABS: CALCIUM LEVEL 8.6 MG/DL (8.8-10.2); CREATININE FOR GFR 1.97 MG/DL (0.70-1.30); GLOMERULAR FILTRATION RATE 34.3 (>35)
== END ==
LOC: SKLAB5 08:53 → M LAB REF 08:53
PROVIDERS: ATTEND Family Medicine
DX: E86.0 Dehydration (principal)

== ENCOUNTER → 2019-08-20 | Outpatient (REF) | payer MEDICARE, BC, OTHER ==
[2019-08-20 08:48] LABS: CALCIUM LEVEL 8.2 MG/DL (8.8-10.2); CREATININE FOR GFR 1.6 MG/DL (0.70-1.30); GLOMERULAR FILTRATION RATE 43.5 (>35); POTASSIUM SERUM 4.1 MEQ/L (3.5-5.1)
== END ==
LOC: SKLAB5 07:36
PROVIDERS: ATTEND Family Medicine
DX: E86.0 Dehydration (principal)

== ENCOUNTER → 2019-08-23 | Outpatient (REF) | payer MEDICARE, BC, OTHER ==
[2019-08-23 09:28] LABS: CALCIUM LEVEL 8.7 MG/DL (8.8-10.2); CREATININE FOR GFR 1.7 MG/DL (0.70-1.30); GLOMERULAR FILTRATION RATE 40.6 (>35); POTASSIUM SERUM 4.1 MEQ/L (3.5-5.1)
== END ==
LOC: SKLAB5 07:52
PROVIDERS: ATTEND Family Medicine
DX: E86.0 Dehydration (principal)

== ENCOUNTER → 2019-08-28 | Outpatient (REF) | payer MEDICARE, BC, OTHER ==
[2019-08-28 08:22] LABS: HEMATOCRIT 37.9 % (42.0-52.0); HEMOGLOBIN 10.9 g/dl (13.5-17.5); MEAN CORPUSCULAR HEMOGLOBIN 27.5 pg (27.0-33.0); MEAN CORPUSCULAR HGB CONC 28.8 g/dl (32.0-36.5); MEAN CORPUSCULAR VOLUME 95.5 fl (80.0-96.0); PLATELET COUNT, AUTOMATED 236 10^3/uL (150-450); RED BLOOD COUNT 3.97 10^6/uL (4.30-6.10)
--- NOTE | 2019-08-28 08:24 | REP ---
The portable chest, 07:51 a.m., single AP view with the patient semi upright: Comparison is 08/13/2019. The patient is rotated. No focal infiltrates are identified. Cardiac size is normal. The jermain and mediastinum are unremarkable. There is scoliosis convex right, possibly a consequence of patient rotation. Impression: No acute cardiopulmonary findings. The the patient is rotated. Electronically Signed by Candido Sparks MD 08/28/2019 08:15 A
[2019-08-28 08:26] LABS: CALCIUM LEVEL 8.2 MG/DL (8.8-10.2); CREATININE FOR GFR 2.24 MG/DL (0.70-1.30); GLOMERULAR FILTRATION RATE 29.5 (>35); POTASSIUM SERUM 4.4 MEQ/L (3.5-5.1)
[2019-08-28 09:22] LABS: AMORPHOUS SEDIMENT SMALL (NEGATIVE); APPEARANCE, URINE TURBID (CLEAR); BACTERIA, URINE AUTO 1+ (NEGATIVE); BILIRUBIN, URINE AUTO NEGATIVE (NEGATIVE); BLOOD, URINE BLOOD 3+ (NEGATIVE); COLOR, URINE AMBER (YELLOW); GLUCOSE, URINE (UA) AUTO NEGATIVE (NEGATIVE); KETONE, URINE AUTO NEGATIVE (NEGATIVE); LEUKOCYTE ESTERASE, URINE AUTO 3+ (NEGATIVE); NITRITE, URINE AUTO NEGATIVE (NEGATIVE); PROTEIN, URINE AUTO 2+ mg/dL (NEGATIVE); RBC, URINE AUTO TNTC /HPF (0-3); RENAL EPITHELIAL CELLS 9 /HPF; SPECIFIC GRAVITY URINE AUTO 1.015 (1.002-1.035); SQUAMOUS EPITHELIAL CELL UR AU 0 /HPF (0-6); UROBILINOGEN, URINE AUTO 0.2 mg/dL (0.0-2.0); WBC, URINE AUTO TNTC /HPF (0-3)
== END ==
LOC: SKLAB5 12:25
PROVIDERS: ATTEND Family Medicine
DX: Z79.899 Other long term (current) drug therapy (principal)

== ENCOUNTER → 2019-08-29 | Outpatient (REF) | payer MEDICARE, BC, OTHER ==
[2019-08-29 07:39] LABS: CALCIUM LEVEL 8.2 MG/DL (8.8-10.2); CREATININE FOR GFR 2.25 MG/DL (0.70-1.30); GLOMERULAR FILTRATION RATE 29.4 (>35); POTASSIUM SERUM 4.1 MEQ/L (3.5-5.1)
== END ==
LOC: SKLAB5 10:26
PROVIDERS: ATTEND Family Medicine
DX: Z79.899 Other long term (current) drug therapy (principal)

== ENCOUNTER → 2019-08-30 | Outpatient (REF) | payer MEDICARE, BC, OTHER ==
[2019-08-30 10:02] LABS: HEMATOCRIT 33.9 % (42.0-52.0); HEMOGLOBIN 9.5 g/dl (13.5-17.5); MEAN CORPUSCULAR HEMOGLOBIN 27.5 pg (27.0-33.0); MEAN CORPUSCULAR VOLUME 98.3 fl (80.0-96.0); PLATELET COUNT, AUTOMATED 188 10^3/uL (150-450); RED BLOOD COUNT 3.45 10^6/uL (4.30-6.10); WHITE BLOOD COUNT 12.3 10^3/uL (4.0-10.0)
[2019-08-30 10:31] LABS: ALBUMIN 1.9 GM/DL (3.2-5.2); CALCIUM LEVEL 7.9 MG/DL (8.8-10.2); CREATININE FOR GFR 1.98 MG/DL (0.70-1.30); GLOMERULAR FILTRATION RATE 34.1 (>35); MAGNESIUM LEVEL 2.2 MG/DL (1.8-2.4); PHOSPHORUS LEVEL 2.4 MG/DL (2.5-4.9); POTASSIUM SERUM 4.3 MEQ/L (3.5-5.1)
[2019-08-30 10:38] LABS: ANISOCYTOSIS 1+; BASOPHILS 1 % (0-1); EOSINOPHILS 2 % (0-3); LYMPHOCYTES 11 % (16-44); MONOCYTES 3 % (0-5); NEUTROPHILS 80 % (28-66); PLATELET ESTIMATE NORMAL (NORMAL)
[2019-08-30 10:55] LABS: PTH INTACT 62.9 PG/ML (18.5-88.0); TOTAL 25(OH) VITAMIN D 33.7 NG/ML (30.0-100.0)
== END ==
LOC: SKLAB5 07:57
PROVIDERS: ATTEND Family Medicine
DX: N18.9 Chronic kidney disease, unspecified (principal); Z79.899 Other long term (current) drug therapy

== ENCOUNTER → 2019-08-31 | Outpatient (REF) | payer MEDICARE, BC, OTHER ==
[2019-08-31 13:28] LABS: CALCIUM LEVEL 7.6 MG/DL (8.8-10.2); CREATININE FOR GFR 1.99 MG/DL (0.70-1.30); GLOMERULAR FILTRATION RATE 33.9 (>35); POTASSIUM SERUM 4.5 MEQ/L (3.5-5.1)
== END ==
LOC: SKLAB5 06:00
PROVIDERS: ATTEND Family Medicine
DX: E86.0 Dehydration (principal)